=== PATIENT | female | born 1950 | race Caucasian/White ===

== ENCOUNTER → 2024-04-05 08:17 | Outpatient (REF) | payer OTHER, SELFPAY | LOC: WOUND 08:17 | PROVIDERS: ATTENDING PHYSICIAN Surgery; FAMILY PHYSICIAN Physician Assistant Medical | DX: I87.312 Chronic venous hypertension (idiopathic) with ulcer of left lower extremity (principal); L97.222 Non-pressure chronic ulcer of left calf with fat layer exposed; I87.2 Venous insufficiency (chronic) (peripheral); I89.0 Lymphedema, not elsewhere classified; E11.22 Type 2 diabetes mellitus with diabetic chronic kidney disease; E66.01 Morbid (severe) obesity due to excess calories | CPT/HCPCS: 11042; 99204 ==

== ENCOUNTER → 2024-04-08 10:21 | Outpatient (REF) | payer OTHER, SELFPAY | LOC: WOUND 10:21 | PROVIDERS: ATTENDING PHYSICIAN Surgery; FAMILY PHYSICIAN Physician Assistant Medical | DX: I87.312 Chronic venous hypertension (idiopathic) with ulcer of left lower extremity (principal); L97.222 Non-pressure chronic ulcer of left calf with fat layer exposed; I87.2 Venous insufficiency (chronic) (peripheral); I89.0 Lymphedema, not elsewhere classified; E11.22 Type 2 diabetes mellitus with diabetic chronic kidney disease; E66.01 Morbid (severe) obesity due to excess calories | CPT/HCPCS: 11042; 11045 ==

== ENCOUNTER → 2024-04-15 10:16 | Outpatient (REF) | payer OTHER, SELFPAY | LOC: WOUND 10:16 | PROVIDERS: ATTENDING PHYSICIAN Surgery; FAMILY PHYSICIAN Physician Assistant Medical | DX: I87.312 Chronic venous hypertension (idiopathic) with ulcer of left lower extremity (principal); L97.222 Non-pressure chronic ulcer of left calf with fat layer exposed; I87.2 Venous insufficiency (chronic) (peripheral); I89.0 Lymphedema, not elsewhere classified; E11.22 Type 2 diabetes mellitus with diabetic chronic kidney disease; E66.01 Morbid (severe) obesity due to excess calories | CPT/HCPCS: 11042 ==

== ENCOUNTER → 2024-04-24 10:06 | Outpatient (REF) | payer OTHER, SELFPAY | LOC: WOUND 10:06 | PROVIDERS: ATTENDING PHYSICIAN Surgery; FAMILY PHYSICIAN Physician Assistant Medical | DX: I87.312 Chronic venous hypertension (idiopathic) with ulcer of left lower extremity (principal); L97.222 Non-pressure chronic ulcer of left calf with fat layer exposed; I87.2 Venous insufficiency (chronic) (peripheral); I89.0 Lymphedema, not elsewhere classified; E11.22 Type 2 diabetes mellitus with diabetic chronic kidney disease; E66.01 Morbid (severe) obesity due to excess calories | CPT/HCPCS: 29580 ==

== ENCOUNTER → 2024-05-06 10:18 | Outpatient (REF) | payer OTHER, SELFPAY | LOC: WOUND 10:18 | PROVIDERS: ATTENDING PHYSICIAN Surgery; FAMILY PHYSICIAN Physician Assistant Medical | DX: I87.312 Chronic venous hypertension (idiopathic) with ulcer of left lower extremity (principal); L97.222 Non-pressure chronic ulcer of left calf with fat layer exposed; I87.2 Venous insufficiency (chronic) (peripheral); I89.0 Lymphedema, not elsewhere classified; E11.22 Type 2 diabetes mellitus with diabetic chronic kidney disease; E66.01 Morbid (severe) obesity due to excess calories | CPT/HCPCS: 11042 ==

== ENCOUNTER → 2024-05-20 10:34 | Outpatient (REF) | payer OTHER, SELFPAY | LOC: WOUND 10:34 | PROVIDERS: ATTENDING PHYSICIAN Surgery; FAMILY PHYSICIAN Physician Assistant Medical | DX: I87.312 Chronic venous hypertension (idiopathic) with ulcer of left lower extremity (principal); L97.222 Non-pressure chronic ulcer of left calf with fat layer exposed; I87.2 Venous insufficiency (chronic) (peripheral); I89.0 Lymphedema, not elsewhere classified; E11.22 Type 2 diabetes mellitus with diabetic chronic kidney disease; E66.01 Morbid (severe) obesity due to excess calories | CPT/HCPCS: 29581 ==

== ENCOUNTER → 2024-05-27 15:12 | Outpatient (REF) | payer OTHER, SELFPAY | LOC: WOUND 15:12 | PROVIDERS: ATTENDING PHYSICIAN Surgery; FAMILY PHYSICIAN Physician Assistant Medical | DX: I87.312 Chronic venous hypertension (idiopathic) with ulcer of left lower extremity (principal); L97.222 Non-pressure chronic ulcer of left calf with fat layer exposed; I87.2 Venous insufficiency (chronic) (peripheral); I89.0 Lymphedema, not elsewhere classified; E66.01 Morbid (severe) obesity due to excess calories | CPT/HCPCS: 11042 ==

== ENCOUNTER → 2024-06-03 10:18 | Outpatient (REF) | payer OTHER, SELFPAY | LOC: WOUND 10:18 | PROVIDERS: ATTENDING PHYSICIAN Surgery; FAMILY PHYSICIAN Physician Assistant Medical | DX: I87.312 Chronic venous hypertension (idiopathic) with ulcer of left lower extremity (principal); L97.222 Non-pressure chronic ulcer of left calf with fat layer exposed; I87.2 Venous insufficiency (chronic) (peripheral); I89.0 Lymphedema, not elsewhere classified; E11.22 Type 2 diabetes mellitus with diabetic chronic kidney disease; E66.01 Morbid (severe) obesity due to excess calories | CPT/HCPCS: 11042 ==

== ENCOUNTER → 2024-06-10 10:23 | Outpatient (REF) | payer OTHER, SELFPAY | LOC: WOUND 10:23 | PROVIDERS: ATTENDING PHYSICIAN Surgery; FAMILY PHYSICIAN Physician Assistant Medical | DX: I87.312 Chronic venous hypertension (idiopathic) with ulcer of left lower extremity (principal); L97.222 Non-pressure chronic ulcer of left calf with fat layer exposed; I87.2 Venous insufficiency (chronic) (peripheral); I89.0 Lymphedema, not elsewhere classified; E11.22 Type 2 diabetes mellitus with diabetic chronic kidney disease; E66.01 Morbid (severe) obesity due to excess calories | CPT/HCPCS: 11042 ==

== ENCOUNTER → 2024-06-24 13:15 | Outpatient (REF) | payer OTHER, SELFPAY | LOC: WOUND 13:15 | PROVIDERS: ATTENDING PHYSICIAN Surgery; FAMILY PHYSICIAN Physician Assistant Medical | DX: I87.312 Chronic venous hypertension (idiopathic) with ulcer of left lower extremity (principal); L97.222 Non-pressure chronic ulcer of left calf with fat layer exposed; I87.2 Venous insufficiency (chronic) (peripheral); I89.0 Lymphedema, not elsewhere classified; E11.22 Type 2 diabetes mellitus with diabetic chronic kidney disease; E66.01 Morbid (severe) obesity due to excess calories; N18.9 Chronic kidney disease, unspecified | CPT/HCPCS: 11042 ==

== ENCOUNTER → 2024-07-01 10:13 | Outpatient (REF) | payer OTHER, SELFPAY | LOC: WOUND 10:13 | PROVIDERS: ATTENDING PHYSICIAN Surgery; FAMILY PHYSICIAN Physician Assistant Medical | DX: I87.312 Chronic venous hypertension (idiopathic) with ulcer of left lower extremity (principal); L97.222 Non-pressure chronic ulcer of left calf with fat layer exposed; I87.2 Venous insufficiency (chronic) (peripheral); I89.0 Lymphedema, not elsewhere classified; E11.22 Type 2 diabetes mellitus with diabetic chronic kidney disease; E66.01 Morbid (severe) obesity due to excess calories; N18.9 Chronic kidney disease, unspecified | CPT/HCPCS: 11042 ==

== ENCOUNTER → 2024-07-08 10:15 | Outpatient (REF) | payer OTHER, SELFPAY | LOC: WOUND 10:15 | PROVIDERS: ATTENDING PHYSICIAN Surgery; FAMILY PHYSICIAN Physician Assistant Medical | DX: I87.312 Chronic venous hypertension (idiopathic) with ulcer of left lower extremity (principal); L97.222 Non-pressure chronic ulcer of left calf with fat layer exposed; I87.2 Venous insufficiency (chronic) (peripheral); I89.0 Lymphedema, not elsewhere classified; E11.22 Type 2 diabetes mellitus with diabetic chronic kidney disease; E66.01 Morbid (severe) obesity due to excess calories | CPT/HCPCS: 11042 ==

== ENCOUNTER → 2024-07-10 09:43 | Outpatient (REF) | payer OTHER, SELFPAY | LOC: RAD 09:43 | PROVIDERS: ATTENDING PHYSICIAN Surgery; FAMILY PHYSICIAN Physician Assistant Medical | DX: I87.312 Chronic venous hypertension (idiopathic) with ulcer of left lower extremity (principal); I87.2 Venous insufficiency (chronic) (peripheral) | CPT/HCPCS: 93970 ==

== ENCOUNTER → 2024-07-10 11:50 | Outpatient (REF) | payer OTHER, SELFPAY | LOC: WOUND 11:50 | PROVIDERS: ATTENDING PHYSICIAN Surgery; FAMILY PHYSICIAN Physician Assistant Medical | DX: I87.312 Chronic venous hypertension (idiopathic) with ulcer of left lower extremity (principal); L97.222 Non-pressure chronic ulcer of left calf with fat layer exposed; I87.2 Venous insufficiency (chronic) (peripheral); I89.0 Lymphedema, not elsewhere classified; E11.22 Type 2 diabetes mellitus with diabetic chronic kidney disease; E66.01 Morbid (severe) obesity due to excess calories | CPT/HCPCS: 29581 ==

== ENCOUNTER → 2024-07-15 10:13 | Outpatient (REF) | payer OTHER, SELFPAY | LOC: WOUND 10:13 | PROVIDERS: ATTENDING PHYSICIAN Surgery; FAMILY PHYSICIAN Physician Assistant Medical | DX: I87.312 Chronic venous hypertension (idiopathic) with ulcer of left lower extremity (principal); L97.222 Non-pressure chronic ulcer of left calf with fat layer exposed; I87.2 Venous insufficiency (chronic) (peripheral); I89.0 Lymphedema, not elsewhere classified; E11.22 Type 2 diabetes mellitus with diabetic chronic kidney disease; E66.01 Morbid (severe) obesity due to excess calories | CPT/HCPCS: 11042 ==

== ENCOUNTER → 2024-07-22 15:25 | Outpatient (REF) | payer OTHER, SELFPAY | LOC: WOUND 15:25 | PROVIDERS: ATTENDING PHYSICIAN Surgery; FAMILY PHYSICIAN Physician Assistant Medical | DX: I87.312 Chronic venous hypertension (idiopathic) with ulcer of left lower extremity (principal); L97.222 Non-pressure chronic ulcer of left calf with fat layer exposed; I87.2 Venous insufficiency (chronic) (peripheral); I89.0 Lymphedema, not elsewhere classified; E11.22 Type 2 diabetes mellitus with diabetic chronic kidney disease; E66.01 Morbid (severe) obesity due to excess calories | CPT/HCPCS: 11042 ==

== ENCOUNTER → 2024-07-29 10:08 | Outpatient (REF) | payer OTHER, SELFPAY | LOC: WOUND 10:08 | PROVIDERS: ATTENDING PHYSICIAN Surgery; FAMILY PHYSICIAN Physician Assistant Medical | DX: I87.312 Chronic venous hypertension (idiopathic) with ulcer of left lower extremity (principal); L97.222 Non-pressure chronic ulcer of left calf with fat layer exposed; I87.2 Venous insufficiency (chronic) (peripheral); I89.0 Lymphedema, not elsewhere classified; E11.22 Type 2 diabetes mellitus with diabetic chronic kidney disease; E66.01 Morbid (severe) obesity due to excess calories | CPT/HCPCS: 11042 ==

== ENCOUNTER → 2024-08-05 10:08 | Outpatient (REF) | payer OTHER, SELFPAY | LOC: WOUND 10:08 | PROVIDERS: ATTENDING PHYSICIAN Surgery; FAMILY PHYSICIAN Physician Assistant Medical | DX: I87.312 Chronic venous hypertension (idiopathic) with ulcer of left lower extremity (principal); L97.222 Non-pressure chronic ulcer of left calf with fat layer exposed; I87.2 Venous insufficiency (chronic) (peripheral); I89.0 Lymphedema, not elsewhere classified; E11.22 Type 2 diabetes mellitus with diabetic chronic kidney disease; E66.01 Morbid (severe) obesity due to excess calories | CPT/HCPCS: 11042 ==

== ENCOUNTER → 2024-08-12 10:30 | Outpatient (REF) | payer OTHER, SELFPAY | LOC: WOUND 10:30 | PROVIDERS: ATTENDING PHYSICIAN Surgery; FAMILY PHYSICIAN Physician Assistant Medical | DX: I87.312 Chronic venous hypertension (idiopathic) with ulcer of left lower extremity (principal); L97.222 Non-pressure chronic ulcer of left calf with fat layer exposed; I87.2 Venous insufficiency (chronic) (peripheral); I89.0 Lymphedema, not elsewhere classified; E11.22 Type 2 diabetes mellitus with diabetic chronic kidney disease; E66.01 Morbid (severe) obesity due to excess calories | CPT/HCPCS: 11042 ==

== ENCOUNTER → 2024-08-19 10:42 | Outpatient (REF) | payer OTHER, SELFPAY | LOC: WOUND 10:42 | PROVIDERS: ATTENDING PHYSICIAN Surgery; FAMILY PHYSICIAN Physician Assistant Medical | DX: I87.312 Chronic venous hypertension (idiopathic) with ulcer of left lower extremity (principal); L97.222 Non-pressure chronic ulcer of left calf with fat layer exposed; I87.2 Venous insufficiency (chronic) (peripheral); I89.0 Lymphedema, not elsewhere classified; E11.22 Type 2 diabetes mellitus with diabetic chronic kidney disease; E66.01 Morbid (severe) obesity due to excess calories | CPT/HCPCS: 11042 ==

== ENCOUNTER → 2024-09-10 09:18 | Outpatient (REF) | payer OTHER, SELFPAY | LOC: WOUND 09:18 | PROVIDERS: ATTENDING PHYSICIAN Surgery; FAMILY PHYSICIAN Physician Assistant Medical | DX: I87.312 Chronic venous hypertension (idiopathic) with ulcer of left lower extremity (principal); L97.222 Non-pressure chronic ulcer of left calf with fat layer exposed; I87.2 Venous insufficiency (chronic) (peripheral); I89.0 Lymphedema, not elsewhere classified; E11.22 Type 2 diabetes mellitus with diabetic chronic kidney disease; E66.01 Morbid (severe) obesity due to excess calories | CPT/HCPCS: 11042 ==

== ENCOUNTER → 2024-09-16 10:50 | Outpatient (REF) | payer OTHER, SELFPAY | LOC: WOUND 10:50 | PROVIDERS: ATTENDING PHYSICIAN Surgery; FAMILY PHYSICIAN Physician Assistant Medical | DX: I87.312 Chronic venous hypertension (idiopathic) with ulcer of left lower extremity (principal); L97.222 Non-pressure chronic ulcer of left calf with fat layer exposed; I87.2 Venous insufficiency (chronic) (peripheral); I89.0 Lymphedema, not elsewhere classified; E11.22 Type 2 diabetes mellitus with diabetic chronic kidney disease; E66.01 Morbid (severe) obesity due to excess calories | CPT/HCPCS: 11042 ==

== ENCOUNTER 2024-09-18 08:26 | Outpatient (RCR) | payer OTHER, SELFPAY | END 2024-09-18 23:59 | disposition home or self-care (01) | LOC: RPT 08:26 | PROVIDERS: ATTENDING PHYSICIAN Surgery; FAMILY PHYSICIAN Family Medicine | DX: I89.0 Lymphedema, not elsewhere classified (principal); L97.222 Non-pressure chronic ulcer of left calf with fat layer exposed; Z73.6 Limitation of activities due to disability; I87.312 Chronic venous hypertension (idiopathic) with ulcer of left lower extremity; I87.2 Venous insufficiency (chronic) (peripheral); R26.2 Difficulty in walking, not elsewhere classified | CPT/HCPCS: 97163; 97535; 97760 ==

== ENCOUNTER → 2024-09-19 10:03 | Outpatient (REF) | payer OTHER, SELFPAY | LOC: WOUND 10:03 | PROVIDERS: ATTENDING PHYSICIAN Surgery; FAMILY PHYSICIAN Physician Assistant Medical | DX: I87.312 Chronic venous hypertension (idiopathic) with ulcer of left lower extremity (principal); L97.222 Non-pressure chronic ulcer of left calf with fat layer exposed; I87.2 Venous insufficiency (chronic) (peripheral); I89.0 Lymphedema, not elsewhere classified; E11.22 Type 2 diabetes mellitus with diabetic chronic kidney disease; E66.01 Morbid (severe) obesity due to excess calories | CPT/HCPCS: 29581 ==

== ENCOUNTER 2024-09-30 02:20 | Emergency (ER) | payer OTHER, SELFPAY ==
[2024-09-30 02:33] VITALS: BP 146/89
[2024-09-30 02:43] VITALS: BMI 55.5
[2024-09-30 05:26] LABS: % Basophils 0.1 % (0-2); % Eosinophils 3.4 % (0-6); % Immature Granulocytes 0.5 % (0-0.5); % Lymphocytes 13.8 % (20.5-51.1); % Monocytes 11.9 % (1.7-9.3); % Neutrophils 70.3 % (42.2-75.2); Absolute Eosinophils 0.3 10^3/uL (0-0.7); Absolute Monocytes 0.9 10^3/uL (0.1-0.6); Absolute Neutrophils 5.3 10^3/uL (1.4-6.5); Hemoglobin 11.7 g/dL (12.0-16.0); Mean Corp Hgb Conc. 31.6 g/dL (33.0-37.0); Mean Corpuscular Hgb 26.7 pg (27.0-31.0); Mean Corpuscular Volume 84.5 fL (81.0-99.0); Mean Platelet Volume 8.9 fL (7.4-10.4); Nucleated Red Blood Cells % 0 %; Platelet Count 549 10^3/uL (130-400); Red Blood Cell Count 4.38 10^6/uL (4.20-5.40); Red Cell Dist. Width 14.6 % (11.5-14.5); White Blood Cell Count 7.5 10^3/uL (4.8-10.8)
[2024-09-30 05:49] LABS: ALT (SGPT) < 10 U/L (0-35); AST (SGOT) 17 U/L (14-36); Albumin 3.5 g/dl (3.5-5.0); Alkaline Phosphatase 94 U/L (38-126); Blood Urea Nitrogen 46 mg/dl (7-17); Calcium 9.7 mg/dl (8.4-10.2); Carbon Dioxide 26 mmol/L (22-30); Chloride 104 mmol/L (98-107); Estimated Creatinine Clearance 39 ml/min; Glucose 103 mg/dl (70-99); Potassium 4.7 mmol/L (3.5-5.1); Sodium 138 mmol/L (135-145); Total Bilirubin 0.5 mg/dl (0.2-1.3); Total Protein 7.1 g/dl (6.3-8.2); eGFR 27.71
--- NOTE | 2024-09-30 06:13 | ED.GENMED ---
History of Present Illness
General
Chief Complaint: Weakness
Source: patient
Exam Limitations: none
Time Seen by Provider: 09/30/24 06:02
History of Present Illness
History of Present Illness:
See MDM
Past History
Past History
ED Past Medical History: HTN and Other (Immature dysfunction, chronic pain)
ED Past Surgical History: None
Social History
Tobacco: Non-smoker
Alcohol: None
Drug: None
Living: with family
Employment: Employed
Phy Exam
Physical Exam
Physical Exam:
See MDM
Course
Orders/Labs/Results
Orders:
Orders
09/30/24 02:45
ECG [Electrocardiogram (*1)] Urgent
Reason for Study: Bradycardia / Tachycardia
Cardiology Consult: Unknown
EKG- Treatment ONCE
09/30/24 05:09
Complete Blood Count/With Diff Urgent
Comprehensive Metabolic Panel Urgent
09/30/24 06:09
Straight cath- Treatment ONCE
09/30/24 06:13
Case Management Consult ONCE
Case Management Consult: Discharge Planning
Pt Eval And Treat Urgent
Activity Level: Ambulate
09/30/24 09:29
Ot Eval And Treat Urgent
Abnormal Lab Results
09/30/24
05:09
Hgb 11.7 L g/dL
(12.0-16.0)
MCH 26.7 L pg
(27.0-31.0)
MCHC 31.6 L g/dL
(33.0-37.0)
RDW 14.6 H %
(11.5-14.5)
Plt Count 549 H 10^3/uL
(130-400)
Absolute Lymphs (auto) 1.0 L 10^3/uL
(1.2-3.4)
Absolute Monos (auto) 0.9 H 10^3/uL
(0.1-0.6)
Lymphocytes % 13.8 L %
(20.5-51.1)
Monocytes % 11.9 H %
(1.7-9.3)
BUN 46 H mg/dl
(7-17)
Creatinine 1.9 H mg/dL
(0.6-1.0)
Glucose 103 H mg/dl
(70-99)
09/30/24 05:09
09/30/24 05:09
Vital Signs
Initial and Last Documented VS:
Initial Vital Signs
Temp Pulse Resp BP Pulse Ox
99.3 F 124 24 146/89 100
09/30/24 02:33 09/30/24 02:33 09/30/24 02:33 09/30/24 02:33 09/30/24 02:33
Last Documented Vital Signs
Temp Pulse Resp BP Pulse Ox
97.6 F 87 20 132/75 100
09/30/24 10:15 09/30/24 10:15 09/30/24 10:15 09/30/24 10:15 09/30/24 10:45
MDM/Problems Addressed
Differential Diagnosis Includes:
HPI and MDM Narrative:
73-year-old female presenting with generalized weakness. Patient has chronic lymphedema and states that she has been more weak over the past 24 hours. She is unsure if this could be a urinary tract fraction. Blood work was done prior to my and it
shows no clinically relevant abnormality. She is well-appearing and nontoxic. Patient was sleeping earlier. Patient lives alone. She has been to rehab before. On exam, she does have chronic lymphedema. Heart regular rate and rhythm and lungs
clear. Will obtain urinalysis and have case management and PT eval
Physical exam
General: Well appearing and non-toxic. Lying in bed comfortably. Elevated BMI
HEENT: protecting airway
Neck: appears supple
CV: No evidence of cyanosis. Regular rate and rhythm
Resp: No accessory muscle use. Lungs clear
Abd: Non-distended
Extremities: Chronic appearing lymphedema in bilateral lower extremities
Neuro: alert
Psych: Normal affect
Skin: Intact
Problems Addressed including Acute and Chronic Conditions affecting care:
1. Generalized weakness
Acuity: acute
Prognosis: stable
Details: Blood work without clinically relevant abnormalities. Will obtain urinalysis and have case management and PT eval
Updates
Patient evaluated by PT, case management and OT.
11 AM case management got authorization and will set up a ride to [facility] for SNF
Differential Diagnosis (but not limited to): Deconditioning, UTI
Testing considered: Chest x-ray but lungs clear
Drug therapy (if applicable): OTC meds, please see d/c instruction regarding Rx drugs
Amount and/or Complexity of Data Reviewed
Clinical info obtained from: Patient
External data reviewed: N/A
Labs I independently reviewed (but not limited to): Creatinine 1.9
Radiology: N/A
Pulse Ox: not hypoxic
EKG independently reviewed: N/A
Vessel Scrapper: N/A
Critical Care: N/A
Risk of Complication:
Social Determinants of health: Good social support
Discussed with other providers: N/A
Escalation of Care includes Admit/Obs: Case management set up SNF placement
Occasional wrong word or 'sound a like' substitutions may have occurred due to the inherent limitations of voice recognition software. Read the chart carefully and recognize, using context, where substitutions have occurred.
*Critical Care Note
Total Time (30-74mins, 75-104mins- exclusive of procedures): Not Applicable
ED Attending Note
-
Portions of this chart may have been created with voice recognition software.� Occasional wrong word or��sound alike� substitutions may have occurred due to the inherent limitations of voice recognition software.
Discharge Plan
Departure
Patient Disposition: Long-Term/SNF
Date of Disposition: 09/30/24
Time of Disposition: 11:05
Discharge Problem:
Lymphedema, Weakness
Prescriptions:
No Action
quinapril 20 MG tablet
20 mg PO DAILY
triamterene-hydrochlorothiazid 1 EACH tablet
1 ea PO DAILY
cyanocobalamin (vitamin B-12) 1,000 MCG tablet
1,500 mcg PO Q48H
albuterol sulfate 1 PUFF HFA aerosol inhaler
1 puff inhalation PRN PRN (Reason: sob/wheezing)
miconazole nitrate [Miconazorb AF] 1 APPLIC powder
1 bottle topical BID Qty: 0 0RF
miconazole nitrate [Remedy Phytoplex Antifungal] 1 APPLIC ointment
1 bottle topical BID Qty: 1 0RF
cefuroxime axetil 500 MG tablet
500 mg PO BID 0RF
Rx Instructions:
Continue to take antibiotic twice a day for 2 weeks until October 10.
pantoprazole 40 MG tablet,delayed release (DR/EC)
40 mg PO DAILY Qty: 30 0RF
acetaminophen [Genebs] 500 MG tablet
500 mg PO Q6HPRN PRN (Reason: mild pain) Qty: 30 0RF
ibuprofen 200 MG tablet
600 mg PO QIDPRN PRN (Reason: moderate pain) Qty: 30 0RF
Referrals:
Holly Pena PA-C [Family Provider] -
Interventions
Interventions:
*Risk Screen - Suicide Last Done: 09/30/24 02:33
*General Assessment Last Done: 09/30/24 02:33
*Neglect/Abuse Screening Last Done: 09/30/24 02:33
ED- Fall Risk Assessment Last Done: 09/30/24 02:33
*ED COVID-19 Vaccine History Last Done: 09/30/24 02:33
ED- Cardiac Assessment Last Done: 09/30/24 06:00
ED- Neurological Assessment Last Done: 09/30/24 06:00
ED- Pulmonary Assessment Last Done: 09/30/24 06:00
Discharge Date and Time
Print Language: TURKISH
--- NOTE | 2024-09-30 08:21 | EDRN ---
physical therapy currently at the pts bedside
--- NOTE | 2024-09-30 09:18 | EDRN ---
case management currently at the pts bedside
--- NOTE | 2024-09-30 09:44 | CM ---
Addendum entered by Alyson Burhc 09/30/24 11:08:
Bed offered at [facility] [place]
Pt in agreement with [facility]
Pt is not in [facility] bed per nursing
SNF and juan manuel BLS auth obtainted through [place] [id number]
Juan Manuel BLS scheduled with [facility]- 1400 pickup
Medical necessity on chart
Update to pt- she declined call to family by CM
She will update her sister/Bita
SNF auth #[id number] 5 days NRD 10/04/24 (p) [phone]
[facility] #[id number]
[facility]charge Disposition- [facility]1400 [facility]
Phone- [phone] Fax- [phone]
Original Note:
ED CM consulted for dc planning
SNF recs per therapy
Bedside meeting with pt
Pt resides alone in a 1st floor apartment with OSTE
She is independent with her ADLs with use of a WW, drives+
Bathroom is equipped with transfer bench, grab bars and HHS, has rescue inhaler
Attend [facility] wound [facility]
Hx with [facility] and [facility] and [facility]
PCP- Holly Pena
Rx- [facility]
Pt isn greement with SNF placement
PAC provided, [facility] and [facility] top choices
PASRR completed and referrals sent via [facility]
Pt will require IBC auth for SNF placement
Discharge Disposition- SNF pending auth
--- NOTE | 2024-09-30 10:10 | EDRN ---
the pt was saturated in urine, this RN and physical therapy cleaned the pt up and placed a new gown, pad, linens, and the pt was educated on the use of the pure wick and the pt agreed, pure wick was put in place and VS WNL, no s/s of distress, the
pt asked for ice water, case management is working on getting the pt placement, will continue to monitor the pt closely
[2024-09-30 10:15] VITALS: BP 132/75
[2024-09-30 11:00] VITALS: BP 120/77
--- NOTE | 2024-09-30 11:44 | EDRN ---
the pt pressed the call renae and this RN entered the pts room, the pt is requesting to speak with Dr. Morgan, Dr. Morgan was notified and is currently at the pts bedside
[2024-09-30 12:46] LABS: Urine Albumin 1+ (Neg - Trace); Urine Bilirubin Negative (Negative); Urine Character Slightly Cloudy (Clear); Urine Color Yellow; Urine Glucose Negative (Negative); Urine Ketone Negative (Negative); Urine Leukocyte Negative (Negative); Urine Nitrite Negative (Negative); Urine Occult Blood Negative (Negative); Urine Specific Gravity 1.025 (<1.030); Urine Urobilinogen Negative (Neg - 1+)
[2024-09-30 13:27] LABS: Urine Bacteria Few (Negative); Urine Squamous Cell 0-2 /LPF (Few); Urine White Cell 0-2 /HPF (0-5)
[2024-09-30 13:28] LABS: Urine Red Blood Cell 0-2 /HPF (0-2)
[2024-09-30 13:48] VITALS: BP 145/71
== END 2024-09-30 14:09 ==
LOC: EMR 02:20
PROVIDERS: Student in an Organized Health Care Education/Training Program; EMERGENCY PHYSICIAN Student in an Organized Health Care Education/Training Program; FAMILY PHYSICIAN Physician Assistant Medical
DX: I89.0 Lymphedema, not elsewhere classified (principal); R53.1 Weakness
CPT/HCPCS: 99284; 80053; 81003; 81015; 85025; 93005

== ENCOUNTER → 2024-10-04 09:49 | Outpatient (REF) | payer OTHER, SELFPAY ==
[2024-10-04 10:51] LABS: % Basophils 0.2 % (0-2); % Eosinophils 5.6 % (0-6); % Immature Granulocytes 0.5 % (0-0.5); % Lymphocytes 13.2 % (20.5-51.1); % Monocytes 14.1 % (1.7-9.3); % Neutrophils 66.4 % (42.2-75.2); Absolute Eosinophils 0.5 10^3/uL (0-0.7); Absolute Lymphocytes 1.1 10^3/uL (1.2-3.4); Absolute Monocytes 1.1 10^3/uL (0.1-0.6); Absolute Neutrophils 5.4 10^3/uL (1.4-6.5); Hematocrit 34.5 % (37.0-47.0); Hemoglobin 10.7 g/dL (12.0-16.0); Mean Corpuscular Hgb 26.3 pg (27.0-31.0); Mean Corpuscular Volume 84.8 fL (81.0-99.0); Mean Platelet Volume 9.5 fL (7.4-10.4); Nucleated Red Blood Cells % 0 %; Platelet Count 460 10^3/uL (130-400); Red Blood Cell Count 4.07 10^6/uL (4.20-5.40); Red Cell Dist. Width 14.6 % (11.5-14.5); White Blood Cell Count 8.1 10^3/uL (4.8-10.8)
[2024-10-04 11:16] LABS: ALT (SGPT) < 10 U/L (0-35); AST (SGOT) 22 U/L (14-36); Albumin 3.2 g/dl (3.5-5.0); Alkaline Phosphatase 73 U/L (38-126); Blood Urea Nitrogen 42 mg/dl (7-17); Calcium 9.2 mg/dl (8.4-10.2); Carbon Dioxide 25 mmol/L (22-30); Chloride 100 mmol/L (98-107); Glucose 107 mg/dl (70-99); Potassium 5.7 mmol/L (3.5-5.1); Sodium 133 mmol/L (135-145); Total Bilirubin 0.8 mg/dl (0.2-1.3); Total Protein 6.2 g/dl (6.3-8.2); eGFR 31.66
== END ==
LOC: OLABP 09:49
PROVIDERS: ATTENDING PHYSICIAN Family Medicine
DX: L97.222 Non-pressure chronic ulcer of left calf with fat layer exposed (principal); I87.312 Chronic venous hypertension (idiopathic) with ulcer of left lower extremity; E11.22 Type 2 diabetes mellitus with diabetic chronic kidney disease; E66.01 Morbid (severe) obesity due to excess calories; J45.909 Unspecified asthma, uncomplicated; I10 Essential (primary) hypertension; R00.0 Tachycardia, unspecified; G89.29 Other chronic pain; M62.59 Muscle wasting and atrophy, not elsewhere classified, multiple sites; F32.9 Major depressive disorder, single episode, unspecified
CPT/HCPCS: 36415; 80053; 85025

== ENCOUNTER → 2024-10-07 15:57 | Outpatient (REF) | payer OTHER, SELFPAY ==
[2024-10-07 17:17] LABS: Blood Urea Nitrogen 46 mg/dl (7-17); Calcium 9.3 mg/dl (8.4-10.2); Carbon Dioxide 24 mmol/L (22-30); Chloride 100 mmol/L (98-107); Glucose 119 mg/dl (70-99); Potassium 5.2 mmol/L (3.5-5.1); Sodium 133 mmol/L (135-145)
== END ==
LOC: OLABP 15:57
PROVIDERS: ATTENDING PHYSICIAN Family Medicine
DX: L97.222 Non-pressure chronic ulcer of left calf with fat layer exposed (principal); I87.312 Chronic venous hypertension (idiopathic) with ulcer of left lower extremity; I87.2 Venous insufficiency (chronic) (peripheral); E11.22 Type 2 diabetes mellitus with diabetic chronic kidney disease; E66.01 Morbid (severe) obesity due to excess calories; J45.909 Unspecified asthma, uncomplicated; I10 Essential (primary) hypertension; R00.0 Tachycardia, unspecified; G89.29 Other chronic pain; M62.59 Muscle wasting and atrophy, not elsewhere classified, multiple sites; F32.9 Major depressive disorder, single episode, unspecified
CPT/HCPCS: 36415; 80048

== ENCOUNTER 2024-10-23 20:12 | Inpatient (IN) | payer OTHER, SELFPAY ==
[2024-10-23] VITALS (46 sets, daily range): BP systolic 61–150; BP diastolic 34–114; BMI 58.8
--- NOTE | 2024-10-23 16:44 | ED.GENMED ---
History of Present Illness
General
Chief Complaint: Breathing Problem
Time Seen by Provider: 10/23/24 16:43
History of Present Illness
History of Present Illness:
TIME OF INITIAL ENCOUNTER: 4:45 PM
HPI: The patient comes in from [facility]. While she was doing physical therapy there, she was having exertional dyspnea. Her room air sats were in the 80%. She also was tachycardic earlier with rates in the 120 range and was given metoprolol
earlier in the day. She has chronic lower extremity lymphedema. She denies history of heart disease.
EXAM:
GENERAL: Appears generally weak and debilitated
HEENT: Moist oral mucosa
CARDIOVASCULAR: No murmurs, normal heart rate, regular rhythm, No chest wall tenderness
PULMONARY: Minimal respiratory distress, breath sounds are clear and equal
ABDOMEN: Soft with no peritoneal signs, no tenderness
NEUROLOGIC: Fair strength all extremities, no coordination deficits
PSYCHIATRIC: Appropriate mental status, normal insight and judgement
EXTREMITIES: Nontender, chronic bilateral lower extremity lymphedema, moves all extremities equally
SKIN: Psoriatic type of plaque noted to the distal medial right lower
NUMBER AND COMPLEXITY OF PROBLEMS ADDRESSED AT THE ENCOUNTER
� Chronic conditions affecting care: High blood pressure, CKD, anxiety/depression
� Acute Exacerbation and/or Progression of Chronic Illness: This is an acute problem
� Differential Diagnosis includes: Shortness of breath related to obesity, reactive airway disease, pneumonia, PE
AMOUNT AND/OR COMPLEXITY OF DATA TO BE REVIEWED AND ANALYZED
� I performed an independent evaluation of and my interpretation is:
EKG: Sinus 89, leftward axis deviation, poor R wave progression, not significantly changed in comparison to 09/30/2024
CT: CTA shows bilateral PE�large clot burden with evidence of right heart strain
X-rays: Chest x-ray shows may be some questionable pulmonary vascular congestion
Laboratory Studies: D-dimer greater than 20, GFR just under 30, troponin 0.404, BNP 286, white cell count 12.8, hemoglobin 11.7, COVID and flu negative
Other:
� Review of other/old records: I reviewed records, the patient was admitted here in 2017 and was found to have E. coli bacteremia; she does not have ongoing cardiology disease
� Clinical information was obtained by an independent historian: I spoke to EMS; I later spoke to the daughter at bedside
� Prescriptions/Medications Considered but not given:
� Further testing considered but not performed:
RISK OF COMPLICATIONS AND/OR MORBIDITY OR MORTALITY OF PATIENT MANAGEMENT
� Social determinants of health affecting care: Resides at [facility]
� Discussion with other providers: Notified Dr. Howe of the patient's evaluation at 6:10 PM.
� Escalation of care including admission/observation vs risk of discharge considered: The patient arrives hypotensive, dyspnea on exertion with room air sats of 89% at rest, with chest pressure spontaneously improving but
persisting. She never received any nitroglycerin. She was given some IV fluids. BNP in the 200s. Considered CTA as her lung sounds are fairly clear and D-dimer is greater than 20 but GFR is under 30. We reached out to nuclear at 6 PM but there
apparently would be a delay. I also notified Dr. Roman of the situation. I am placing her on heparin.
ANY OTHER UPDATES:
5:40 PM: No significant proved after DuoNeb regarding her sensation of shortness of breath, however BP slightly improved after 500 mL saline fluid bolus.
6:40 PM: Patient seen by Dr. Howe and he is obtaining echo images to review. We are considering CTA.
7 PM: RV dilated/strain noted per Dr. Howe. CTA is ordered and obtained at 7:30 PM. CTA was obtained because I feel she may have a potentially life-threatening condition and it is necessary to evaluate further for PE emergently regardless of
renal function as she has become more hypotensive.
7:45 PM: I personally viewed CTA which shows bilateral PE with large clot burden and she remains hypotensive on pressors. PERT alert was activated and I communicated with desktop manager, interventional radiology and internal medicine. Ultimately,
Alexus planning catheter directed lytic therapy
Past History
Past History
ED Past Medical History: HTN and Other (Immature dysfunction, chronic pain)
ED Past Surgical History: None
Social History
Tobacco: Non-smoker
Alcohol: None
Drug: None
Living: with family
Employment: Employed
Phy Exam
Physical Exam
Physical Exam:
See HPI
Scores
Heart Failure Risk
Heart Failure Risk Score: Not Applicable
Course
Orders/Labs/Results
Orders:
Orders
10/23/24 16:51
Complete Blood Count/With Diff Urgent
Comprehensive Metabolic Panel Urgent
Magnesium Urgent
NT-proBNP Urgent
Troponin I Urgent
10/23/24 16:52
Electrocardiogram (*1) Urgent
Reason for Study: Chest Pain
EKG- Treatment ONCE
D-Dimer Urgent
Ipratropium/Albuterol Sulfate [Duoneb] 3 ml INH R NOW STA
10/23/24 16:53
Ipratropium/Albuterol Sulfate [Duoneb] 3 ml INH R NOW STA
10/23/24 17:05
0.9% Sodium Chloride 500 ml [Nss] 500 ml IV BOLUS
10/23/24 17:17
COVID-19 Antigen Urgent
Source: Nasal Swab
Lactic Acid Q4H
Comment: CANCEL 2nd LACTIC ACID IF 1st LACTIC ACID IS LESS THAN 2
Blood Culture Q30M
VINCE Source: Blood/Venous
Specimen Description:
Influenza A+B Rapid Molecular Urgent
VINCE Source: Nasal Swab
Specimen Description:
10/23/24 17:47
Blood Culture Q30M
VINCE Source: Blood/Venous
Specimen Description:
CR Chest Portable - 1 View Urgent
Comment:
Reason For Exam: sob
Reason Study Needs to be Portable: Patient Unstable
10/23/24 17:58
Heparin 4,000 units IV NOW STA
10/23/24 17:[address] Non Medication Order As Directed
Physician Order: PTT 6 hours after initial start of Heparin infusion
10/23/24 18:00
Heparin 31699 Units/250 ml 25,000 units in 250 ml IV PER PROTOCOL
Weight to be used for heparin protocol in kilograms (kg):: 155.2
Protocol:: Cardiac Tx/Acute Coronary
PTT Goal Range to be used:: PTT 73 to 111 seconds
Order type:: Initial
INITIAL Infusion Dose (UNITS/KG/hr) & then follow protocol:: 12 units/kg/hr
Infusion Dose in UNITS/hr & then follow protocol (UNITS/hr):: 1,000
INFUSION RATE in mL/hr & then follow protocol (mL/hr):: 10
PTT less than or equal to 64 seconds:: Increase rate by 200 units/hr (+ 2 mL/hr)
PTT 64.1 to 72.9 seconds:: Increase rate by 100 units/hr (+ 1 mL/hr)
PTT 73 to 111 seconds:: Target Range. No change in rate.
PTT 111.1 to 130.9 seconds:: Decrease rate by 100 units/hr (- 1 mL/hr)
PTT 131 to 199.9 seconds:: HOLD for 1 hr. Then decrease rate by 200 units/hr (- 2 mL/hr)
PTT greater than or equal to 200 seconds:: HOLD for 2 hrs & Notify Provider. Then decrease by 200 units/hr (-
2 mL/hr)
Lab follow-up:: Each change, PTT q6h until 2 consecutive are therapeutic. Then PTT
daily.
10/23/24 18:08
Aspirin 325 mg PO NOW STA
10/23/24 18:37
PTT Urgent
Comment: Obtain baseline before beginning heparin infusion if not already collected
10/23/24 18:41
0.9% Sodium Chloride 500 ml [Nss] 500 ml IV BOLUS
10/23/24 18:44
NORepinephrine 4 MG/250 ML [Levophed] 4 mg in 250 ml .ROUTE .STK-MED
10/23/24 18:45
NORepinephrine 4 MG/250 ML [Levophed] 4 mg in 250 ml IV PER PROTOCOL
Initial dose in mcg/min, then titrate:: 10
Titrate to keep:: SBP > 90 mmHg
Titrate by mcg/min:: 1-2 mcg/min
Frequency of titrations (minutes):: 5
Maximum dose in ICU in mcg/min:: 30
Maximum dose in IMU in mcg/min:: 8
Maximum dose in IVU in mcg/min:: 4
Begin to taper infusion when:: Remained at goal for 4hrs
Taper by mcg/min:: 1-2 mcg/min
Frequency of taper (minutes) if patient maintains goal:: 30
Taper to off?: Yes
If infusion off & no longer maintaining goal:: Contact Provider
10/23/24 18:50
Echo 2D MMode Color/Doppler Urgent
Reason for Study: hypotension
Cardiology Consult: Blake Howe
10/23/24 18:57
CT Chest PE Study Urgent
Comment:
Reason For Exam: hypoxia hypotension high ddimer
10/23/24 19:38
Admit/Transfer Patient As Directed
Co-Sign Provider:
Level of Care: Inpatient admission
Assign to:: ICU
Physician / Group: hospitalist
Diagnosis: hypoxia
Reason for Hospitalization: hypoxia
Expected length of stay greater than two midnights?: Yes
ELOS- Estimated Length of Stay in days: 2
I certify the patient meets the requirements for IP care: Yes
10/23/24 19:39
PRN Pain Medication Management As Directed
May give lesser potent ordered pain med per pt: Yes
preference::
Protocol:: Medication orders for pain may be administered in a
manner that supports deferring to patient preference
when the pt is:
- Requesting an ordered lesser potent pain medication.
Least to most potent pain medications are defined
as: acetaminophen < NSAID < tramadol < opioids
(morphine, oxycodone, hydromorphone).
- Requesting a lesser dose of the same medication IF
ORDERED.
- Requesting a less intrusive route of administration
if both routes are prescribed by the provider (PO <
IV).
10/23/24 19:40
Code Status As Directed
Resuscitation Status: Full Code
10/24/24 01:50
PTT Urgent
Abnormal Lab Results
10/23/24 10/23/24
16:51 16:52
WBC 12.8 H 10^3/uL
(4.8-10.8)
Hgb 11.7 L g/dL
(12.0-16.0)
MCH 26.2 L pg
(27.0-31.0)
MCHC 31.5 L g/dL
(33.0-37.0)
Plt Count 501 H 10^3/uL
(130-400)
Abs Immat Gran (auto) 0.1 H 10^3/uL
(0-0.05)
Absolute Neuts (auto) 9.9 H 10^3/uL
(1.4-6.5)
Absolute Monos (auto) 1.3 H 10^3/uL
(0.1-0.6)
Immature Gran % 1.0 H %
(0-0.5)
Neutrophils % 77.2 H %
(42.2-75.2)
Lymphocytes % 10.0 L %
(20.5-51.1)
Monocytes % 9.8 H %
(1.7-9.3)
D-Dimer > 20.00 H ug/mlFEU
(0.00-0.50)
Sodium 132 L mmol/L
(135-145)
BUN 52 H mg/dl
(7-17)
Creatinine 1.8 H mg/dL
(0.6-1.0)
Glucose 160 H mg/dl
(70-99)
Troponin I 0.404 H* ng/ml
Albumin 3.2 L g/dl
(3.5-5.0)
10/23/24 16:51
10/23/24 16:51
Vital Signs
Initial and Last Documented VS:
Initial Vital Signs
Temp Pulse Resp BP Pulse Ox
36.8 C 91 24 88/60 88
10/23/24 16:48 10/23/24 16:48 10/23/24 16:48 10/23/24 16:48 10/23/24 16:48
Last Documented Vital Signs
Temp Pulse Resp BP Pulse Ox
36.8 C 73 19 121/58 100
10/23/24 16:48 10/23/24 21:28 10/23/24 21:28 10/23/24 21:28 10/23/24 21:28
*Critical Care Note
Total Time (30-74mins, 75-104mins- exclusive of procedures): 80min
comment:
The patient had numerous reassessments. She remained hypotensive on multiple occasions. I communicated emergently with cardiology and we decided to proceed with CTA despite poor renal function given the RV strain noted on echo. I personally
reviewed CTA which shows large clot burden bilaterally. PERT alert was activated due to massive PE. I also communicated with interventional radiology.
ED Attending Note
-
Portions of this chart may have been created with voice recognition software.� Occasional wrong word or��sound alike� substitutions may have occurred due to the inherent limitations of voice recognition software.
Discharge Plan
Departure
Patient Disposition: Admit
Date of Disposition: 10/23/24
Time of Disposition: 18:46
Presentation/result/management discussed w/ accepting MD/DO: Hospitalist
Patient with high blood pressure during this ER visit?: Yes
Discharge Problem:
Hypoxia
Interventions
Interventions:
*Risk Screen - Suicide Last Done: 10/23/24 16:56
*General Assessment Last Done: 10/23/24 16:56
*Neglect/Abuse Screening Last Done: 10/23/24 16:56
*ED- Fall Risk Assessment Last Done: 10/23/24 16:56
*ED COVID-19 Vaccine History Last Done: 10/23/24 16:56
*Nursing Disposition Last Done: 10/23/24 21:23
ED- Cardiac Assessment Last Done: 10/23/24 18:03
ED- Pulmonary Assessment Last Done: 10/23/24 18:03
Discharge Date and Time
Discharge Date/Time: 10/23/24 21:25
[2024-10-23] MEDS: NSS 500 IV ×2 (17:00→18:54)
[2024-10-23 17:04] LABS: % Basophils 0.2 % (0-2); % Eosinophils 1.8 % (0-6); % Monocytes 9.8 % (1.7-9.3); % Neutrophils 77.2 % (42.2-75.2); Absolute Eosinophils 0.2 10^3/uL (0-0.7); Absolute Immature Granulocytes 0.1 10^3/uL (0-0.05); Absolute Lymphocytes 1.3 10^3/uL (1.2-3.4); Absolute Monocytes 1.3 10^3/uL (0.1-0.6); Absolute Neutrophils 9.9 10^3/uL (1.4-6.5); Hematocrit 37.2 % (37.0-47.0); Hemoglobin 11.7 g/dL (12.0-16.0); Mean Corp Hgb Conc. 31.5 g/dL (33.0-37.0); Mean Corpuscular Hgb 26.2 pg (27.0-31.0); Mean Corpuscular Volume 83.2 fL (81.0-99.0); Mean Platelet Volume 8.7 fL (7.4-10.4); Nucleated Red Blood Cells % 0 %; Platelet Count 501 10^3/uL (130-400); Red Blood Cell Count 4.47 10^6/uL (4.20-5.40); Red Cell Dist. Width 14.3 % (11.5-14.5); White Blood Cell Count 12.8 10^3/uL (4.8-10.8)
[2024-10-23 17:15] LABS: ALT (SGPT) < 10 U/L (0-35); AST (SGOT) 16 U/L (14-36); Albumin 3.2 g/dl (3.5-5.0); Alkaline Phosphatase 88 U/L (38-126); Blood Urea Nitrogen 52 mg/dl (7-17); Calcium 9.9 mg/dl (8.4-10.2); Carbon Dioxide 22 mmol/L (22-30); Chloride 99 mmol/L (98-107); Estimated Creatinine Clearance 42 ml/min; Glucose 160 mg/dl (70-99); Magnesium 2.1 mg/dl (1.6-2.3); Potassium 4.8 mmol/L (3.5-5.1); Sodium 132 mmol/L (135-145); Total Bilirubin 0.6 mg/dl (0.2-1.3); Total Protein 6.5 g/dl (6.3-8.2); eGFR 29.57
[2024-10-23] MEDS: DUONEB 3 ML INH ×2 (17:19→17:44)
[2024-10-23 17:41] LABS: Troponin I 0.404 ng/ml
[2024-10-23 17:47] LABS: Lactic Acid 1.9 mmol/L (0.7-2.0)
[2024-10-23 17:56] LABS: NT-proBNP 286 pg/ml
[2024-10-23 17:57] LABS: D-Dimer > 20.00 ug/mlFEU (0.00-0.50)
[2024-10-23 17:59] LABS: COVID-19 Antigen Negative (Negative)
--- NOTE | 2024-10-23 18:07 | EDRN ---
Portable CXR at stretcher side done at this time. This RN is now taking care of this pt.
[2024-10-23] MEDS: ASPIRIN 325 MG PO (18:26)
--- NOTE | 2024-10-23 18:37 | EDRN ---
PTT drawn and sent to lab at this time.
[2024-10-23] MEDS: LEVOPHED 250 IV (18:47)
[2024-10-23] MEDS: HEPARIN 4000 UNITS IV (18:49)
[2024-10-23] MEDS: HEPARIN 25000 UNITS/250 ML IV (18:50)
[2024-10-23 18:54] LABS: APTT 25.2 Sec (23.4-35.0)
--- NOTE | 2024-10-23 19:04 | EDRN ---
Dr. Howe in room since 18:35. Performed a echocardiogram at [facility]. Levophed started per his order.
--- NOTE | 2024-10-23 19:05 | HPS.HSE ---
Family Physician
-
Family Physician: Shon Burns MD
Chief Complaint
-
Chest pain
History of Present Illness
This 73-year-old female with past medical history significant for chronic bilateral lower extremity edema, chronic pain, morbid obesity, hypertension, history of Pseudomonas infection, reactive airways not on home O2, type 2 diabetes CKD presenting
to the emergency department from rehab facility with acute episode of chest pain and shortness of breath.
Patient was fairly able to tell me some history. She said that she was feeling well up until the incidence. She does have chronic dyspnea on exertion and shortness of breath. However today while she was in rehab she stood up and suddenly felt
very dizzy and lightheaded. She had chest pain. Then she developed severe shortness of breath. She was found to be hypoxic. Due to the hypoxia and shortness of breath patient was sent to the emergency department. Per records she was satting 95%
on 2 L. Blood pressure was 124/64. She was giving 25 mg of metoprolol tartrate at 3 PM for tachycardia to the 110s to 120s.
She still having chest pain currently. She has no known history of CAD. She has seen cardiology once and had an EKG and no further workup at that time.
On ED arrival blood pressure had reduced to 99/60 and further reduced and patient was started on pressors. She was given IV fluids. Pulse in the 80s, she is satting 95%. Chest x-ray shows no acute infiltrates. ECG with normal sinus rhythm at a
rate of 89, no acute ischemia. CBC shows a white count of 0.8 but otherwise unremarkable. Electrolytes BUN/creatinine were stable with a creatinine of 1.8, slightly increased from a baseline of around 1.5. Troponin was 0.4, ECG was nonischemic.
COVID and flu negative.
A bedside echo was done which showed preserved LV function. RV was markedly dilated.
Medical History
Past Medical History
Past Medical History: Reports Asthma, HTN, Hypercholesterolemia, NIDDM, Renal Failure (CKD 3) and Other (Morbid obesity)
Past Surgical History: Reports Other
Social History
Tobacco: Non-smoker
Alcohol: None
Drug: None
Family History
Family History: Not pertinent
Allergies / Home Medications
Allergies reflects when Allergies were last updated in [employer].
Home Medications with original date entered in [employer]
Allergy/Medication List:
Allergies
Allergy/AdvReac Type Severity Reaction Status Date / Time
codeine Allergy Nausea / Verified 10/23/24 16:52
Vomiting
meperidine [From Demerol] Allergy Unknown Verified 10/23/24 16:52
Phenothiazines Allergy Unknown Verified 10/23/24 16:52
Sulfa (Sulfonamide Allergy Unknown Verified 10/23/24 18:03
Antibiotics)
Home Medications
cyanocobalamin (vitamin B-12) 1,000 mcg tablet 1,500 mcg PO Q48H 09/22/16
pantoprazole 40 mg tablet,delayed release 40 mg PO DAILY #30 tabs 09/27/16
acetaminophen 325 mg tablet 650 mg PO HSPRN PRN MILD PAIN 10/23/24
acetaminophen 325 mg tablet 650 mg PO Q4HPRN PRN fever >100 10/23/24
acetaminophen 650 mg tablet,extended release 1,300 mg PO DAILY 10/23/24
albuterol sulfate 90 mcg/actuation aerosol inhaler 1 inh inhalation R DAILYPRN PRN sob/wheezing 10/23/24
bisacodyl 10 mg rectal suppository 10 mg [place] DAILY PRN mom ineffective on day 5 of no bm 10/23/24
bupropion HCl 300 mg 24 hr tablet, extended release (Wellbutrin XL) 300 mg PO DAILY 10/23/24
furosemide 20 mg tablet 20 mg PO DAILY 10/23/24
lisinopril 20 mg tablet 20 mg PO BID 10/23/24
magnesium hydroxide 400 mg/5 mL oral suspension (Milk of Magnesia) 2,400 mg PO DAILYPRN PRN no bm in 4 days 10/23/24
metoprolol tartrate 25 mg tablet 25 mg PO ONCE tachycardia 10/23/24
miconazole nitrate 2 % topical cream 1 applic topical BID 10/23/24
polyethylene glycol 3350 17 gram oral powder packet (Miralax) 17 g PO DAILY 10/23/24
simethicone 80 mg chewable tablet 80 mg PO TID 10/23/24
sodium phosphates 19 gram-7 gram/118 mL enema (Fleet Enema) 118 ml CA DAILYPRN PRN bisacodyl supp ineffective on day 6 of no bm 10/23/24
triamterene 75 mg-hydrochlorothiazide 50 mg tablet 1 tab PO DAILY 10/23/24
Review of Systems
-
Unable to obtain full review of systems at this time due to: Acuity
Physical Exam
Vital Signs
Vital Signs
Temp Pulse Resp BP Pulse Ox
98.3 F 87 25 92/66 99
10/23/24 16:48 10/23/24 18:15 10/23/24 18:15 10/23/24 18:15 10/23/24 18:15
Physical Exam
General: Well Developed, Well Nourished, Respiratory Distress, Pain and Morbidly Obese
HEENT: NormoCephalic, Anicteric, Moist mucous membranes, Atraumatic, PERRLA and Oxygen
Respiratory: Clear
Cardiac: S1/S2 and Regular Rhythm
Breast: Deferred by me
GI: Soft, Normal Bowel Sounds and Distended
Rectal: Deferred by Provider
Genito-urinary: Deferred by me
Musculoskeletal: No Clubbing, No Cyanosis, Edema, Left Lower Extremity and Edema, Right Lower Extremity
Skin: Warm
Neuro: AO x 3 and Nonfocal/grossly intact
Hematologic/Lymphatic: No Lymphadenopathy
Psych: Calm
Laboratory Results
-
10/23/24 16:51
10/23/24 16:51
Laboratory Results
APTT 25.2 Sec (23.4-35.0) 10/23/24 18:37
Lactic Acid 1.9 mmol/L (0.7-2.0) 10/23/24 17:17
Total Bilirubin 0.6 mg/dl (0.2-1.3) 10/23/24 16:51
AST 16 U/L (14-36) 10/23/24 16:51
ALT < 10 U/L (0-35) 10/23/24 16:51
Alkaline Phosphatase 88 U/L (38-126) 10/23/24 16:51
Troponin I 0.404 ng/ml H* 10/23/24 16:51
Data Reviewed
-
Diagnostic Radiology: Image Personally Visualized and interpreted
Medical Tests (Nuc Med, Echo, EKG etc): Report Reviewed by me
Lab Data: Labs Reviewed by me
Old Records: Reviewed
Impression/Plan
-
IMPRESSION:
73 y.o with chest pain, SOB, hypotension. D-dimer > 20. Trop 0.4. CXR clear. chronic LE edema unchanged. BNP 280. Hypoxic. Cardiology did echo at bedside with dilated RV (no prior history of). Initially CT held due to CKD Cr 1.8. Given IV
fluids and started on pressors and heparin. CTA done. Per ED read, large burden b/l PE. Being read by IR at this time.
PLAN:
Massive PE
- admit to ICU
- TPA vs IR thrombolysis
- continue pressors
- npo except meds and sips
- Continue PPI IV
- echo in am, trend troponins
- u/s LE pending
- AC
- holding antihypertensives
- type and screen
- pum/critical care consult
Ascites - Incidental finding of ascites on CT scan. No h/o etoh, hepatitis. Either portal hypertension or related to RV disease with pulm htn given chronic lower extremity edema.
- obtain u/s in am
- check liver panel and cardiovascular panel
- IR for paracentesis pending u/s
- holding diuretics for hypotension
Code Status - Full code
--- NOTE | 2024-10-23 19:09 | EDRN ---
Echocardiogram being done by technology internship at [facility] at this time.
--- NOTE | 2024-10-23 19:13 | CON.CAR ---
Consultation
Consultation Request
Date/Time Consultation Requested: 10/23/2024 6:10PM
Date/Time Consultation Performed: 10/23/2024 6:22 PM
Requesting Provider: ER physician
Performing Provider: Dr. Howe
Reason for Consultation: Shortness of breath, chest pain, hypotension
Medical History
-
History of Present Illness:
Request for consult by ER due to shortness of breath chest pain and hypotension
73-year-old resident at [facility] with history of hypertension hypercholesterolemia, diabetes, CKD obesity, lower extremity edema who was working with PT and working on standing and doing transfers when she developed acute onset of shortness of
breath and felt she needed to sit down she felt lightheaded. In addition she had some midsternal chest discomfort.On initial presentation patient was hypotensive and short of breath. Seen by ER physician given IV fluids with initial improvement in
blood pressure, nebs patient also given nebs. Labs were notable for D-dimer greater than 20, troponin 0.4 creatinine 1.8. Concern raised for pulmonary embolism patient given IV heparin and aspirin. ECG shows sinus rhythm with without clear
evidence of ischemia there is some suggestion of pseudonormalization of T waves in 1 and aVL when compared to a prior ECG. Patient reported that she was breathing comfortably on oxygen she had some low-grade chest discomfort but no other
complaints. Denies any history of cardiac disease or coronary artery disease.
Although blood pressure initially appeared to improve with the bolus it trended down. There was some report that patient had received metoprolol at the nursing facility.
During my assessment she had systolics in the 80s and sometimes 70s so Levophed was initiated.
Bedside echo was performed. Technically difficult study. Overall left ventricular function appeared preserved. RV appears dilated and hypokinetic
Past medical history
Type 2 diabetes
CKD
Hypertension
Hypercholesterolemia
Obesity
Chronic lower extremity edema
Lowery's cyst
Reactive airway disease
Past Medical History
Past Medical History: Other (As above)
Social History
Tobacco: Non-Smoker
Family History
Family History: Other (CAD)
Allergies / Home Medications
Allergy/AdvReac Type Severity Reaction Status Date / Time
codeine Allergy Nausea / Verified 10/23/24 16:52
Vomiting
meperidine [From Demerol] Allergy Unknown Verified 10/23/24 16:52
Phenothiazines Allergy Unknown Verified 10/23/24 16:52
Sulfa (Sulfonamide Allergy Unknown Verified 10/23/24 18:03
Antibiotics)
�Medication �Instructions �Recorded �Confirmed �Type
cyanocobalamin (vitamin B-12) 1,500 mcg PO Q48H 09/22/16 10/23/24 History
1,000 mcg tablet
pantoprazole 40 mg tablet,delayed 40 mg PO DAILY #30 tabs 09/27/16 10/23/24 Rx
release
acetaminophen 325 mg tablet 650 mg PO HSPRN PRN MILD PAIN 10/23/24 10/23/24 History
acetaminophen 325 mg tablet 650 mg PO Q4HPRN PRN fever >100 10/23/24 10/23/24 History
acetaminophen 650 mg 1,300 mg PO DAILY 10/23/24 10/23/24 History
tablet,extended release
albuterol sulfate 90 mcg/actuation 1 inh inhalation R DAILYPRN PRN 10/23/24 10/23/24 History
aerosol inhaler sob/wheezing
bisacodyl 10 mg rectal suppository 10 mg [place] DAILY PRN mom ineffective 10/23/24 10/23/24 History
on day 5 of no bm
bupropion HCl 300 mg 24 hr tablet, 300 mg PO DAILY 10/23/24 10/23/24 History
extended release (Wellbutrin XL)
furosemide 20 mg tablet 20 mg PO DAILY 10/23/24 10/23/24 History
lisinopril 20 mg tablet 20 mg PO BID 10/23/24 10/23/24 History
magnesium hydroxide 400 mg/5 mL 2,400 mg PO DAILYPRN PRN no bm in 10/23/24 10/23/24 History
oral suspension (Milk of Magnbear) 4 days
metoprolol tartrate 25 mg tablet 25 mg PO ONCE tachycardia 10/23/24 10/23/24 History
miconazole nitrate 2 % topical 1 applic topical BID 10/23/24 10/23/24 History
cream
polyethylene glycol 3350 17 gram 17 g PO DAILY 10/23/24 10/23/24 History
oral powder packet (Miralax)
simethicone 80 mg chewable tablet 80 mg PO TID 10/23/24 10/23/24 History
sodium phosphates 19 gram-7 118 ml [place] DAILYPRN PRN bisacodyl 10/23/24 10/23/24 History
gram/118 mL enema (Fleet Enema) supp ineffective on day 6 of no bm
triamterene 75 1 tab PO DAILY 10/23/24 10/23/24 History
mg-hydrochlorothiazide 50 mg tablet
Review of Systems
-
All other systems: Negative unless noted
Physical Exam
Vital Signs
Temp Pulse Resp BP Pulse Ox
98.3 F 87 25 92/66 99
10/23/24 16:48 10/23/24 18:15 10/23/24 18:15 10/23/24 18:15 10/23/24 18:15
Lab Results
10/23/24 16:51
10/23/24 16:51
Troponin I 0.404 ng/ml H* 10/23/24 16:51
Jvq-I-Lisndlhrgmj Pept 286 pg/ml 10/23/24 16:51
Physical Exam
General: Other (Awake alert cooperative eyes extraocular's intact external ear normal exam unremarkable)
HEENT: Normocephalic, Anicteric and Other (Neck is heavy without detectable JVD)
Respiratory: Other (No wheezes or rhonchi no rales)
Cardiac: Regular Rhythm (Without murmur)
GI: Other (Obese and distended without palpable mass)
Musculoskeletal: No Clubbing, No Cyanosis and No Edema
Skin: Warm and Dry
Neuro: Awake and Alert
Hematologic/Lymphatic: No Lymphadenopathy
Impression / Plan
-
.
Shortness of breath. Acute onset of shortness of breath with associated chest discomfort and hypotension. Echocardiogram suggest dilated right ventricle and raises concern for pulmonary embolism. Patient also with reported underlying lung
disease/reactive airway disease. Issues reviewed with ER physician
-Continue IV heparin
-Consult pulmonary
-Continue pressors. Patient currently on Levophed.
-IV fluid bolus
-Await results of CT ordered by ER and if confirms PE then considering patient's hemodynamic status then would consider IR or lytic therapy.
Hypotension -suspected related to issues noted above. Continue with management as outlined.
.
Elevated troponin
-Although patient presented with chest discomfort and shortness of breath. Patient without evidence of acute OH on ECG.
-Elevation in troponin may be related to suspected PE other factors including hypotension and hypoxemia may also contribute. Can not exclude underlying CAD.
-Follow serial troponins
CKD. Patient with creatinine 1.8 mildly higher than previous recording of 1.5.
-Optimize hemodynamics
0will need to monitor closely particularly if patient receives contrast.
DM
Hypercholesterolemia
Obesity
Reviewed with ER physician, hospitalist and pulmonary critical care
.
Data Reviewed
-
EKG: Tracing Personally Visualized and interpreted
MRI: Report Reviewed by me
Medical Tests (Nuc Med, Echo etc): Report Reviewed by me
Labs: Labs Reviewed by me
--- NOTE | 2024-10-23 19:24 | EDRN ---
Pt denies any abdominal pain at this time.
[2024-10-23 21:36] LABS: Glucose - Point of Care 132 mg/dl (70-99)
--- NOTE | 2024-10-23 23:06 | W.PN.IRAD.PR ---
Procedure Note
-
RIJ central venous catheter placed under US and fluoro guidance. Catheter ready for use.
7 Fr pigtail catheter positioned in right pulm artery via R CF vein access. Mean pressure 25 mmHg right pulm art. Angiography similar to prev CTA, poor peripheral distribution opacification throughout right lower lung.
No immediate complications, VSS throughout.
Initiating alteplase infusion via 7 Fr catheter at 1mg/hr. Heparin via PIV at 400 units/hr. The 7 Fr catheter is occlusive in the 7 Fr sheath, no infusions via sheath. Will repeat angio and pressures AM.
[2024-10-23] MEDS: CATHFLO/ACTIVASE 1000 MG INF CATH (23:43)
[2024-10-24] VITALS (85 sets, daily range): BP systolic 11–131; BP diastolic 39–95; BMI 58.0
--- NOTE | 2024-10-24 00:30 | PTCARENOTE ---
retrieved pt from IR, pt Ox3, follows commands, c/o back and neck pain refer to MAR, neuro checks per worklist, R pupil 4, L pupil 3 both reactive, RLE restriction, pt denies chest pain, NS on the monitor +1 anasarca, +3 RL, +1 LL, +4 pedals,
doppler pedals, + radials, tachypneic, lungs diminished and coarse throughout, received pt on 6L turned down to 3L SpO2 97%, Bsx4 round obese with baseball sized protrusion middle abd, temp sensing polanco placed draining yellow output, R groin
dressing dry and intact, alteplase through R fem sheath, L leg sushant wrapped, PIV per worklist, hep and levo gtts per worklist, call renae within reach, pt able to make needs known, otherwise refer to worklist.
[2024-10-24] MEDS: LR 1000 IV ×2 (00:59→22:46)
[2024-10-24] MEDS: TYLENOL 650 MG PO ×3 (01:14→20:52)
[2024-10-24 01:33] LABS: Hematocrit 32.5 % (37.0-47.0); Hemoglobin 10.5 g/dL (12.0-16.0); Mean Corp Hgb Conc. 32.3 g/dL (33.0-37.0); Mean Corpuscular Hgb 26.9 pg (27.0-31.0); Mean Corpuscular Volume 83.3 fL (81.0-99.0); Mean Platelet Volume 8.9 fL (7.4-10.4); Platelet Count 443 10^3/uL (130-400); Red Cell Dist. Width 14.4 % (11.5-14.5); White Blood Cell Count 12.1 10^3/uL (4.8-10.8)
[2024-10-24 01:48] LABS: INR 1.13
[2024-10-24 01:49] LABS: APTT 29.2 Sec (23.4-35.0)
[2024-10-24 02:03] LABS: Troponin I 0.705 ng/ml
[2024-10-24 04:43] LABS: Hematocrit 31.8 % (37.0-47.0); Hemoglobin 10.3 g/dL (12.0-16.0); Mean Corp Hgb Conc. 32.4 g/dL (33.0-37.0); Mean Corpuscular Volume 83.2 fL (81.0-99.0); Platelet Count 424 10^3/uL (130-400); Red Blood Cell Count 3.82 10^6/uL (4.20-5.40); Red Cell Dist. Width 14.3 % (11.5-14.5); White Blood Cell Count 12.9 10^3/uL (4.8-10.8)
[2024-10-24 04:48] LABS: APTT 30.4 Sec (23.4-35.0); INR 1.11; PT 14.8 Sec (11.4-14.6)
--- NOTE | 2024-10-24 04:51 | PTCARENOTE ---
systems reviewed, neuro checks per worklist, gtts titrated per worklist, urine output 15ml for last 2 hrs MALTED MILK MASHER notified, labs sent, otherwise refer to documentation.
[2024-10-24 05:04] LABS: ALT (SGPT) < 10 U/L (0-35); AST (SGOT) 16 U/L (14-36); Alkaline Phosphatase 86 U/L (38-126); Blood Urea Nitrogen 57 mg/dl (7-17); Calcium 9.3 mg/dl (8.4-10.2); Carbon Dioxide 21 mmol/L (22-30); Chloride 99 mmol/L (98-107); Direct Bilirubin 0.2 mg/dl (0.0-0.4); Estimated Creatinine Clearance 40 ml/min; Glucose 132 mg/dl (70-99); Phosphorus 5.3 mg/dl (2.5-4.5); Potassium 5.2 mmol/L (3.5-5.1); Sodium 131 mmol/L (135-145); Total Bilirubin 0.8 mg/dl (0.2-1.3); eGFR 27.71
[2024-10-24 05:14] LABS: Troponin I 0.635 ng/ml
[2024-10-24] MEDS: NSS 500 IV (06:14)
--- NOTE | 2024-10-24 07:12 | CON.INTV ---
Consultation
Consultation Request
Date/Time Consultation Requested: 10/23/2024
Date/Time Consultation Performed: 10/24/2024 7 AM
Requesting Provider: Jaime Amaya
Performing Provider: Meagan Ruiz
Reason for Consultation: Pulmonary Embolism, Shick
Medical History
-
Chief Complaint: Chest pain
History of Present Illness:
This 73-year-old female with past medical history significant for chronic bilateral lower extremity edema, chronic pain, morbid obesity, hypertension, reactive airways not on home O2, type 2 diabetes CKD III who developed chest pain and dizziness
with shortness of breath acutely during rehabilitation session.
In the emergency room patient was noted to have elevated troponin as well as elevated D-dimer along with minimally elevated BNP. She was noted to be hypotensive with an essentially unremarkable chest x-ray. Cardiology service evaluated the patient
initially and a bedside POCUS was performed which showed significant dilation of right ventricle raising concern for possible pulmonary embolism. Patient subsequently had a CT PE performed which was suggestive of pulmonary embolism with right heart
strain. Patient was started on Levophed for hypotension.
PERT PERT was activated and after discussion it was decided to proceed with catheter directed therapies. Patient was subsequently taken to IR suite and had a pigtail catheter positioned in the right pulmonary artery and alteplase infusion was
initiated along with heparin with plan for repeat angio and pressure evaluation today. Mean pulmonary artery pressure was around 25 initially.
Past medical history. Hypertension, morbid obesity, chronic kidney disease stage III.
Family History
Family History: Reviewed & Not Pertinent
Allergies / Home Medications
Allergies
Allergy/AdvReac Type Severity Reaction Status Date / Time
codeine Allergy Nausea / Verified 10/23/24 16:52
Vomiting
meperidine [From Demerol] Allergy Unknown Verified 10/23/24 16:52
Phenothiazines Allergy Unknown Verified 10/23/24 16:52
Sulfa (Sulfonamide Allergy Unknown Verified 10/23/24 18:03
Antibiotics)
Home Medications
�Medication �Instructions �Recorded �Confirmed �Last Taken �Type
cyanocobalamin (vitamin B-12) 1,500 mcg PO Q48H 09/22/16 10/23/24 09/22/16 History
1,000 mcg tablet
pantoprazole 40 mg tablet,delayed 40 mg PO DAILY #30 tabs 09/27/16 10/23/24 Unknown Rx
release
acetaminophen 325 mg tablet 650 mg PO HSPRN PRN MILD PAIN 10/23/24 10/23/24 Unknown History
acetaminophen 325 mg tablet 650 mg PO Q4HPRN PRN fever >100 10/23/24 10/23/24 Unknown History
acetaminophen 650 mg 1,300 mg PO DAILY 10/23/24 10/23/24 Unknown History
tablet,extended release
albuterol sulfate 90 mcg/actuation 1 inh inhalation R DAILYPRN PRN 10/23/24 10/23/24 Unknown History
aerosol inhaler sob/wheezing
bisacodyl 10 mg rectal suppository 10 mg [place] DAILY PRN mom ineffective 10/23/24 10/23/24 Unknown History
on day 5 of no bm
bupropion HCl 300 mg 24 hr tablet, 300 mg PO DAILY 10/23/24 10/23/24 Unknown History
extended release (Wellbutrin XL)
furosemide 20 mg tablet 20 mg PO DAILY 10/23/24 10/23/24 Unknown History
lisinopril 20 mg tablet 20 mg PO BID 10/23/24 10/23/24 Unknown History
magnesium hydroxide 400 mg/5 mL 2,400 mg PO DAILYPRN PRN no bm in 10/23/24 10/23/24 Unknown History
oral suspension (Milk of Magnesia) 4 days
metoprolol tartrate 25 mg tablet 25 mg PO ONCE tachycardia 10/23/24 10/23/24 10/23/24 15:00 History
miconazole nitrate 2 % topical 1 applic topical BID 10/23/24 10/23/24 Unknown History
cream
polyethylene glycol 3350 17 gram 17 g PO DAILY 10/23/24 10/23/24 Unknown History
oral powder packet (Miralax)
simethicone 80 mg chewable tablet 80 mg PO TID 10/23/24 10/23/24 Unknown History
sodium phosphates 19 gram-7 118 ml ME DAILYPRN PRN bisacodyl 10/23/24 10/23/24 Unknown History
gram/118 mL enema (Fleet Enema) supp ineffective on day 6 of no bm
triamterene 75 1 tab PO DAILY 10/23/24 10/23/24 Unknown History
mg-hydrochlorothiazide 50 mg tablet
Review of Systems
-
Hematologic/Lymphatic: Other (All 14 systems reviewed and negative except as stated above in the history of present illness.)
Vitals / Labs / Diagnostic Testing
Vital Signs
Temp Pulse Resp BP Pulse Ox
99.1 F 67 25 112/51 98
10/24/24 03:22 10/24/24 06:41 10/24/24 06:41 10/24/24 06:41 10/24/24 06:30
Laboratory Results
10/23/24 10/24/24 10/24/24
18:37 01:21 01:50
PT 15.0 H
INR 1.13
APTT 25.2 29.2 Cancelled
10/24/24
04:10
PT 14.8 H
INR 1.11
APTT 30.4
Microbiology
10/23/24 17:17 Nasal Swab Influenza Types A & B ([place]) - Final
Negative for Influenza A & B, NAAT
Negative results must be combined with clinical observations
and patient history.
Nucleic Acid Amplification test (NAAT)performed on the
[employer] platform.
Diagnostic Testing:
CT CHEST 10/23: Examination is positive for pulmonary embolism. On the left, there is embolus straddling the bifurcation of the left upper and lower lobe pulmonary arteries. There is extension into the segmental and subsegmental branches of the left
upper and lower lobe pulmonary arteries.
On the right, there is embolus within the distal aspect of the right main pulmonary artery, with extension into the segmental and subsegmental branches of the right upper lobe, the right middle lobe, and the right lower lobe.
Of note, there is no saddle embolus at the branching point of the main right and left pulmonary arteries.
There is significant enlargement of the right ventricle and right atrium with decreased size of the left ventricle and straightening of the interventricular septum, findings compatible with right heart strain.
There is a small left pleural effusion. No significant right pleural effusion is identified.
Thin linear density within the lateral aspect of the left lower lung, compatible with focal atelectasis. There is no CT finding to suggest a focal area of pulmonary infarction.
Mild focal atelectasis in the posteromedial right lower lobe of the lung, adjacent to prominent spondylosis of the thoracic spine.
The thoracic aorta is fairly well opacified, and there is no evidence for thoracic aortic dissection or aneurysm.
No significant narrowing identified involving the origins of the great vessels from the thoracic aorta.
There is an enlarged and heterogeneous right lobe of the thyroid, incompletely included on the [id number]. This most likely represents a benign greater.
The visualized upper abdomen, there is a large amount of ascites. Questionable nodular contour of the liver.
There is also bilateral subcutaneous edema, greater in the upper abdomen demonstrate the chest, left greater than right.
Incidental note is made of a 5 cm rounded lipoma within the soft tissues of the posterior upper chest wall.
Mild reverse S-shaped scoliosis of the thoracic spine. Mild to moderate changes of degenerative disc disease. Ossification the anterior longitudinal ligament compatible of DISH. Severe degenerative change of the left glenohumeral joint.
Physical Exam
-
HEENT: Normocephalic
Cardiovascular: S1/S2 and Peripheral Edema (Bilateral lower extremity lymphedema 3-4+)
Respiratory: Clear
GI: Distended
Neurology: Awake and Alert
Skin: Warm
General: Comfortable
Assessment
-
#1. Acute bilateral pulmonary embolism with obstructive shock.
-PERT team activated, patient s/p catheter directed thrombolysis with tPA and heparin infusing
-Levophed has since been weaned off and patient is hemodynamically stable
-Plan for repeat angiogram today
-Suspect it is an unprovoked pulmonary embolism and likely will need long-term anticoagulation. Once patient recovers from this acute episode will need age-appropriate screening for malignancy
-Continue close monitoring in the ICU
-Avoid additional IV fluids as patient already edematous and has right ventricular strain, will DC maintenance IV fluids
#2. CKD, creatinine is stable
-Monitor lab work
#3. Large volume ascites, incidentally noted
-Albumin is slightly decreased at 3.0
-Abdominal ultrasound for further evaluation
-Will need IR guided paracentesis once more stable to evaluate fluid including cytology as concern of underlying malignancy with unprovoked massive PE
Critical Care time 45 mins -- The patient is admitted for acute critical illness for the treatment of vital organ failure and/or prevention of further life-threatening conditions. Total care includes time spent in review of history, physical exam,
medications, hemodynamic/ventilator parameters, laboratory data, imaging and discussion with house staff, pharmacy, respiratory therapy, shrimper, and nursing.
[2024-10-24] MEDS: PROTONIX 40 MG PO (07:14)
[2024-10-24] MEDS: MIRALAX PO (07:15)
[2024-10-24] MEDS: WELLBUTRIN XL (24 hour extended release) 300 MG PO (07:15)
--- NOTE | 2024-10-24 07:33 | W.PN.HOSP.TC ---
Addendum entered and electronically signed by Boo Pimentel DO 10/24/24 14:07:
Called by IR to see patient urgently for coffee-ground emesis after her procedure. Also having scapular pain in her back that improves with palpation. Denies chest pain.
Hemodynamically stable. Patient protecting her airway. Complaining of nausea. Coffee-ground emesis noted around her mouth.
Monitor hemoglobin closely.
Transfer back to ICU. Consult GI service. Start IV Protonix drip. IV Zofran as needed.
Original Note:
Today's Communication/Plan
-
Check abdominal ultrasound
Follow-up with IR
Lower extremity venous Doppler ultrasound
Continue anticoagulation
Recheck labs
Assessment / Plan
Assessment / Plan
Gen-AAOx3, NAD, super morbid obesity
HEENT-NC, AT, anicteric, clear oral mm
Neck-supple
CV-reg, no M, +S1/S2
Lungs-clear B/L
Abd-soft, NT, ND
Ext-no edema
Musculoskeletal-no cyanosis, clubbing
Skin-warm and dry
Neuro-grossly non-focal
Psych-calm, cooperative
Shock -suspect obstructive shock due to acute large bilateral pulmonary emboli. Doubt sepsis despite low-grade leukocytosis and tachycardia. In the emergency room blood cultures were sent. Hold antibiotics for now.
Shock resolved. Off vasopressors since 6 AM. Last recorded blood pressure 112/51. Heart rate 67.
Hold antihypertensives.
Hemodynamically unstable acute bilateral PE -CT PE reviewed, no saddle PE noted but does have acute bilateral pulmonary embolism involving majority of both pulmonary arteries.
Significant RV and RA enlargement with right heart strain noted on CT. Troponin elevation noted. BNP is suppressed as would be expected with morbid obesity.
Initiated alteplase via catheter directed thrombolysis. IV heparin. IR consulted and plan for revisit this morning.
Denies history of pulmonary embolism. Check lower extremity venous Doppler ultrasound.
Risk factors are morbid obesity and limited mobility. Denies history of malignancy.
Abdominal ascites -large ascites noted on CT chest. Await ultrasound. May need paracentesis for diagnostic reasons.
Left adnexal cyst -chronic. Noted on last CT abdomen/pelvis in 2020, measuring 10 cm in the left adnexa. Previously 6 cm in 2017. Patient has not followed up and states that she has not had any procedures done on the cyst.
Essential hypertension -hold medications for shock. Was on furosemide, lisinopril, metoprolol, Dyazide prior to admission.
Asthma without exacerbation -stable. Suspect mild intermittent asthma.
Hyperlipidemia
Hyponatremia -would permanently discontinue hydrochlorothiazide. Monitor sodium.
Hyperkalemia -potassium 5.2 this morning. Hold CATERINA inhibitor, triamterene. Repeat labs pending and if potassium still elevated will treat with Lokelma.
Hyperglycemia -rule out diabetes. Check hemoglobin A1c.
Hyperphosphatemia -monitor for now.
Bilateral lower extremity lymphedema
Normocytic anemia -suspect chronic. Monitor hemoglobin on anticoagulation.
CKD 3B -suspect creatinine at baseline. Monitor closely in the setting of contrast exposure.
Ambulatory dysfunction -lives independently but has been staying at [facility] for the past few weeks for physical therapy.
Super morbid obesity
Full code
Anticipated Discharge: > 48 hours
Subjective/Interval History
-
Date of Service: October 24, 2024
Patient seen and examined. Denies chest pain or pressure. Complaining of bodyaches. Denies shortness of breath. Sleeping when I walked in.
Objective Data
-
Labs:
Laboratory Results
10/24/24 10/24/24 10/24/24
00:00 01:21 01:50
WBC Cancelled 12.1 H
Hgb Cancelled 10.5 L
Hct Cancelled 32.5 L
Plt Count Cancelled 443 H
PT 15.0 H
INR 1.13
APTT 29.2 Cancelled
Sodium
Potassium
Chloride
Carbon Dioxide
BUN
Creatinine
Glucose
Calcium
Total Bilirubin
AST
ALT
Alkaline Phosphatase
10/24/24 10/24/24 10/24/24
04:10 04:11 06:00
WBC 12.9 H
Hgb 10.3 L
Hct 31.8 L
Plt Count 424 H
PT 14.8 H
INR 1.11
APTT 30.4
Sodium 131 L Pending
Potassium 5.2 H Pending
Chloride 99 Pending
Carbon Dioxide 21 L Pending
BUN 57 H Pending
Creatinine 1.9 H Pending
Glucose 132 H Pending
Calcium 9.3 Pending
Total Bilirubin 0.8
AST 16
ALT < 10
Alkaline Phosphatase 86
10/24/24 10/24/24
12:00 18:00
WBC Pending Pending
Hgb Pending Pending
Hct Pending Pending
Plt Count Pending Pending
PT Pending Pending
INR Pending Pending
APTT Pending Pending
Sodium
Potassium
Chloride
Carbon Dioxide
BUN
Creatinine
Glucose
Calcium
Total Bilirubin
AST
ALT
Alkaline Phosphatase
Vital Signs:
Vital Signs
Temp Pulse Resp BP Pulse Ox
99.1 F 67 25 112/51 98
10/24/24 03:22 10/24/24 06:41 10/24/24 06:41 10/24/24 06:41 10/24/24 06:30
I&O
10/23/24 10/24/24 10/25/24
06:59 06:59 06:59
Intake Total 1246.6 / 1246.6
Output Total 135 / 135
Balance 1111.6 / 1111.6
Review of Systems
-
History Source: Patient
All other systems: Reviewed and negative
--- NOTE | 2024-10-24 07:51 | PTCARENOTE ---
recd pt handoff in room at 0705, see documentation. R groin site clean, dry, soft. alteplase infusing as ordered via fem venous sheath. seen by Dr. Pimentel. maintained flat, skin warm and dry, notes mild SILVA, med with tylenol per request.
tolerating 2l. Levophed remains off, see VS. Doppler signals bilat DP underneath edema.
[2024-10-24 08:13] LABS: Glycohemoglobin (HgbA1c) 5.8 % (4.0-5.6)
--- NOTE | 2024-10-24 08:13 | W.PN.CD ---
Today's Communication / Plan
-
Pressors off.Feeling better. Resp status stable
Mionitor BP closely
Patient going back to IR today
monitor anemia on lytic
Impression / Plan
-
.
Acute PE
- presented with SOB, hypoxemia, CP and hypotension
- large burden bilat PE
- Dilated hypokinetic RV on echo
- catheter directed lytic therapy by IR 10/23/24. patient going back to IR today
-
Hypotension -imporved. Off levophed. Was as highaas 10 yesterday and now off.
.
RV dysfunction
- reassess with echo after addtional recovery
.
.
CP secondary to PE. improved. still with mild CP
Elevated troponin - peak 0.7
-consistent with nonMI troponin related to PE
CKD. Patient with creatinine 1.9 mildly higher than previous recording of 1.5.
-Optimize hemodynamics
0will need to monitor closely particularly if patient receives contrast.
anemia - likely chronic. monitor on lytic infusion
DM
Hypercholesterolemia
Obesity
.
Physical Exam
Vital Signs/Labs
Vital Signs
Temp Pulse Resp BP Pulse Ox
98.9 F 69 23 106/95 98
10/24/24 08:12 10/24/24 07:45 10/24/24 07:45 10/24/24 07:30 10/24/24 07:45
10/23/24 10/24/24 10/25/24
06:59 06:59 06:59
Actual Weight 153.1 kg
PT 14.8 Sec (11.4-14.6) H 10/24/24 04:10
INR 1.11 10/24/24 04:10
APTT 30.4 Sec (23.4-35.0) 10/24/24 04:10
Magnesium 2.1 mg/dl (1.6-2.3) 10/23/24 16:51
10/23/24
16:51
Wnj-B-Ntcdptekgkt Pept 286
LAB Results
10/23/24 10/24/24 10/24/24
16:51 01:21 04:11
Troponin I 0.404 H* 0.705 H* 0.635 H*
Physical Exam
Cardiovascular: Rhythm & rate is regular
Respiratory: Wheeze Absent and Rhonchi Absent
GI: Non tender and Distention present
Neuro/Psych: Alert and Oriented
Other: Other (right groin sheath)
Data Reviewed
-
Date of Service: October 24, 2024
Medical Decision Making: Reviewed Test Results
Echo: Report Reviewed by me
Medical Tests (PFT, Pathology etc): Report Reviewed by me and Other (reviewed with Dr Pimentel)
Labs: Labs Reviewed by me
[2024-10-24] MEDS: CATHFLO/ACTIVASE 1000 MG INF CATH (08:47)
[2024-10-24 10:48] LABS: Hematocrit 30.9 % (37.0-47.0); Hemoglobin 9.8 g/dL (12.0-16.0); INR 1.16; Mean Corp Hgb Conc. 31.7 g/dL (33.0-37.0); Mean Corpuscular Hgb 26.1 pg (27.0-31.0); Mean Corpuscular Volume 82.4 fL (81.0-99.0); Mean Platelet Volume 8.9 fL (7.4-10.4); PT 15.4 Sec (11.4-14.6); Platelet Count 358 10^3/uL (130-400); Red Blood Cell Count 3.75 10^6/uL (4.20-5.40); Red Cell Dist. Width 14.4 % (11.5-14.5); White Blood Cell Count 11.6 10^3/uL (4.8-10.8)
[2024-10-24 10:59] LABS: Blood Urea Nitrogen 57 mg/dl (7-17); Carbon Dioxide 24 mmol/L (22-30); Chloride 101 mmol/L (98-107); Estimated Creatinine Clearance 40 ml/min; Glucose 118 mg/dl (70-99); Potassium 4.9 mmol/L (3.5-5.1); Sodium 132 mmol/L (135-145); eGFR 27.71
[2024-10-24 11:11] LABS: Troponin I 0.486 ng/ml
--- NOTE | 2024-10-24 11:50 | PTCARENOTE ---
labs drawn and sent. resting, mostly sleeping at intervals when undisturbed. VS noted, IV fluids capped per MD order. awaiting abd US and eventual return to IR.
--- NOTE | 2024-10-24 12:28 | PTCARENOTE ---
taken back to IR department via bed, alteplase and heparin infusing as ordered, handoff to IR staff. Pt in good spirits.
--- NOTE | 2024-10-24 13:11 | W.PN.UPDATE ---
Update Note
Progress Note Update
Followup right pulmonary arteriogram shows significant improvement in embolus burden, and improved parenchymal perfusion.
Right main PA pressure 40/16, mean 20, compared to 45/19 (25) last night.
Lysis discontinued, sheath removed. OK to resume therapeutic heparin at 3 pm (2 hours after sheath removal). Bedrest for 2 hours.
[2024-10-24] MEDS: ZOFRAN 4 MG IV ×2 (14:04→23:22)
--- NOTE | 2024-10-24 14:08 | PTCARENOTE ---
IRAD-patient noted to projectile vomit in transit back to ICU while laying flat. patient able to protect airway. suction initiated. emesis appears brown and coffee ground like. patient did c/o pain 01/28 to middle upper back which resolved with
repositioning in bed previously. right groin venous access remains intact. Dr. Pimentel called to bedside to eval. new orders rec'd. updated mollie in ICU.
[2024-10-24] MEDS: PROTONIX 100 IV ×2 (14:34→23:29)
[2024-10-24] MEDS: NSS 250 IV (14:39)
--- NOTE | 2024-10-24 14:52 | CON.GI ---
Addendum entered and electronically signed by Wen Rahman MD 10/24/24 16:35:
I saw and examined the patient.
The ELECTRICAL SUPERINTENDENT or PA's note was reviewed and I agree with the note.
Comment:
This patient is a 73-year-old woman with a history of bdc-dduybbq-jqyztobrm diabetes, hypertension, asthma who had been noticing 5 months of increasing abdominal and lower extremity swelling. She was admitted for shortness of breath and
lightheadedness and found to have a PE. She did have thrombolysis and subsequently had several episodes of hematemesis which then subsequently stopped. Imaging does show ascites. She never had an upper endoscopy but has had intermittent GERD.
She has had a colonoscopy although over a decade ago.
tachypneic
abd: tense likely ascites
le edema
normal platelets, coags
plan:
1. Right upper quadrant ultrasound with Dopplers
2. Likely will need paracentesis and if so we will need a full workup. She does not have a history of liver disease and I do question if this is malignant ascites.
3. PPI drip and octreotide drip for now
4. She will need an endoscopy but it will likely be based on timing with other issues. She is tachypneic from both the PE and from her ascites and we will monitor for appropriate timing.
5. Check hep panel
Original Note:
Consultation
-
Date/Time Consultation Requested: 10/24/25 1400
Date/Time Consultation Performed: 10/24/24 1450
Requesting Provider: Boo Pimentel DO
Performing Provider: SHUKRI Ku
Reason for Consultation: GI bleeding
Medical History
Chief Complaint / HPI
Chief Complaint: GI bleed
History of Present Illness:
Pt is a 73yo with hx asthma, HTN, hypercholesterolemia, CKD, NIDDM, colon polyps, obesity, LE edema with onset of shortness of breath and lightheadedness. On admission concern CT chest with concern for PE with significantly enlarged right
ventricle and right atrium with right heart strain-- also noted large amount of ascites within visualized abdomen and b/l SQ edema in abdominal wall. She completed thrombolysis from 10/23 til 10/24 with improvement embolus burden and noted with nausea
then vomited large amount of coffee ground emesis. On admission noted with hbg 11.7 with drop after admission with continued heparin gtt with PE. No hx GI bleeding in past or known liver disease. She does admits to recent increased abdominal
girth and LE edema over last few months. She was seen in ER a few weeks ago and placed in rehab due to weakness. She admit to ETOH use years ago, fatty liver, or prior liver disease. No NSAID or anticoagulation use prior to admission. INR,
Platelets, and LFT's stable on admission.
She still has some shortness of breath but slight improvement since admission. She has chronic GERD with Pepcid use prior to admission and dysphagia with occasional feeling of food sticking in mid esophagus. She has some right sided pain
similar to GB attacks but has had prior yandel. + constipation controlled with diet but no diarrhea or rectal bleeding. No prior EGD but hx colonoscopy 13 years ago with polyps
Past Medical History
Past Medical History: Asthma, HTN, Hypercholesterolemia, NIDDM, Renal Failure (CKD) and Other (obesity, LE edema )
Past Surgical History: Cholecystectomy
Social History
Tobacco: Non-Smoker
Alcohol: Former (many years ago)
Drug: None
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
Employment: Retired
Family History
Family History: Other (no family hx colon CA or polyps, no family hx liver problems)
Allergies / Home Medications
Allergy/AdvReac Type Severity Reaction Status Date / Time
codeine Allergy Nausea / Verified 10/23/24 16:52
Vomiting
meperidine [From Demerol] Allergy Unknown Verified 10/23/24 16:52
Phenothiazines Allergy Unknown Verified 10/23/24 16:52
Sulfa (Sulfonamide Allergy Unknown Verified 10/23/24 18:03
Antibiotics)
�Medication �Instructions �Recorded
cyanocobalamin (vitamin B-12) 1,500 mcg PO Q48H Supplement 09/22/16
1,000 mcg tablet
pantoprazole 40 mg tablet,delayed 40 mg PO DAILY #30 tabs 09/27/16
release
acetaminophen 325 mg tablet 650 mg PO HSPRN PRN MILD PAIN 10/23/24
acetaminophen 325 mg tablet 650 mg PO Q4HPRN PRN fever >100 10/23/24
acetaminophen 650 mg 1,300 mg PO DAILY Pain 10/23/24
tablet,extended release
albuterol sulfate 90 mcg/actuation 1 inh inhalation R DAILYPRN PRN 10/23/24
aerosol inhaler sob/wheezing
bisacodyl 10 mg rectal suppository 10 mg NH DAILY PRN mom ineffective 10/23/24
on day 5 of no bm
bupropion HCl 300 mg 24 hr tablet, 300 mg PO DAILY Mental 10/23/24
extended release (Wellbutrin XL) Health/Anxiety
furosemide 20 mg tablet 20 mg PO DAILY Electrolyte 10/23/24
Repletion
lisinopril 20 mg tablet 20 mg PO BID Blood Pressure 10/23/24
magnesium hydroxide 400 mg/5 mL 2,400 mg PO DAILYPRN PRN no bm in 10/23/24
oral suspension (Milk of Magnesia) 4 days
metoprolol tartrate 25 mg tablet 25 mg PO ONCE tachycardia 10/23/24
miconazole nitrate 2 % topical 1 applic topical BID Skin Issues 10/23/24
cream
polyethylene glycol 3350 17 gram 17 g PO DAILY Gastrointestinal 10/23/24
oral powder packet (Miralax) Issue
simethicone 80 mg chewable tablet 80 mg PO TID Gastrointestinal Issue 10/23/24
sodium phosphates 19 gram-7 118 ml NH DAILYPRN PRN bisacodyl 10/23/24
gram/118 mL enema (Fleet Enema) supp ineffective on day 6 of no bm
triamterene 75 1 tab PO DAILY Blood Pressure 10/23/24
mg-hydrochlorothiazide 50 mg tablet
Review of Systems
-
History Source: Patient
Constitutional: Reports Chills (at night )
EENT: Reports No Symptoms
Respiratory: Reports Trouble Breathing
Cardiac: Reports No Symptoms
Abdomen/GI: Reports Abdominal Pain (right sided ), Nausea, Vomiting (coffee grounds ), Constipated and Other (increased abdominal girth )
: Reports No Symptoms
Musculoskeletal: Reports No Symptoms
Neurological: Reports Dizzy and Weakness
Endocrine: Reports No Symptoms
Hematologic/Lymphatic: Reports Bleeding
Vital Signs
Temp Pulse Resp BP Pulse Ox
98.7 F 100 18 101/64 99
10/24/24 11:50 10/24/24 13:33 10/24/24 13:33 10/24/24 13:33 10/24/24 13:33
Physical Exam
Exam
General: Other (awake and alert -- some shortness of breath with movement )
HEENT: Normocephalic and Anicteric
Respiratory: Other (decreased )
Cardiac: Regular Rhythm and Peripheral Edema
GI: Soft, Tender (minimal right sided pain ) and Distended
Musculoskeletal: No Clubbing and No Cyanosis
Skin: Warm and Dry
Neuro: Awake, Alert and AO x 3
Psych: Calm
Results
WBC 11.6 10^3/uL (4.8-10.8) H 10/24/24 10:27
Hgb 9.8 g/dL (12.0-16.0) L 10/24/24 10:27
Hct 30.9 % (37.0-47.0) L 10/24/24 10:27
MCV 82.4 fL (81.0-99.0) 10/24/24 10:27
Plt Count 358 10^3/uL (130-400) 10/24/24 10:27
Absolute Neuts (auto) 9.9 10^3/uL (1.4-6.5) H 10/23/24 16:51
PT 15.4 Sec (11.4-14.6) H 10/24/24 10:27
INR 1.16 10/24/24 10:27
APTT 30.0 Sec (23.4-35.0) 10/24/24 10:27
Sodium 132 mmol/L (135-145) L 10/24/24 10:27
Potassium 4.9 mmol/L (3.5-5.1) 10/24/24 10:27
Chloride 101 mmol/L (98-107) 10/24/24 10:27
Carbon Dioxide 24 mmol/L (22-30) 10/24/24 10:27
BUN 57 mg/dl (7-17) H 10/24/24 10:27
Creatinine 1.9 mg/dL (0.6-1.0) H 10/24/24 10:27
Calcium 9.0 mg/dl (8.4-10.2) 10/24/24 10:27
Total Bilirubin 0.8 mg/dl (0.2-1.3) 10/24/24 04:11
AST 16 U/L (14-36) 10/24/24 04:11
ALT < 10 U/L (0-35) 10/24/24 04:11
Alkaline Phosphatase 86 U/L (38-126) 10/24/24 04:11
Diagnostic Image Results:
10/23/24 CT Chest PE Study
IMPRESSION: Examination is positive for pulmonary embolism as described.
Significant enlargement of the right ventricle and right atrium compatible with right heart strain.
Dr. Garcia aware of this finding.
Small left pleural effusion.
Large amount of ascites within the visualized abdomen. Bilateral subcutaneous edema, greater in the abdominal wall compared to the chest wall, and left greater than right.
Small focus of linear atelectasis in the left lower lung. The lungs appear otherwise clear. Cardiac silhouette and vascular markings appear within normal limits.
Prior GI Procedures:
EGD: none
Colonoscopy: 13 years ago with polyps
Assessment / Plan
-
Pt is a 73yo with hx asthma, HTN, hypercholesterolemia, CKD, NIDDM, colon polyp, obesity, LE edema with onset of shortness of breath and lightheadedness. On admission concern CT chest with concern for PE with significantly enlarged right ventricle
and right atrium with right heart strain-- also noted large amount of ascites within visualized abdomen and b/l SQ edema in abdominal wall. She completed thrombolysis from 10/23 til 10/24 with improvement embolus burden and noted with nausea then
vomited large amount of coffee ground emesis. On admission noted with hbg 11.7 with drop after admission with continued heparin gtt with PE. No hx GI bleeding in past or known liver disease. She does admits to recent increased abdominal girth
and LE edema over last few months. She was seen in ER a few weeks ago and placed in rehab due to weakness. She admit to ETOH use years ago, fatty liver, or prior liver disease. No NSAID or anticoagulation use prior to admission. INR,
Platelets, and LFT's stable on admission.
-PE with right ventricular strain, right atrium and right heart strain with shock on admission
-coffee ground emesis
-recent onset LE edema and ascites
-anemia
-hyponatremia
-elevated troponin
-leukocytosis
-hypoalbuminemia
-hyperglycemia
-dypshagia
other medical problems:
-colon polyps
-HTN
-asthma
--CKD
-NIDDM
-obesity
PLAN:
etiology of coffee ground related to gastritis, PUD vs with new ascites concern for underlying malignant process, cirrrhosis - some hypoalbuminemia but normal LFT,INR and platelets
NPO
cont PPI gtt
add octeotide gtt
check US abd with doppler to eval for PVT
will likely need para when US reviewed
add hepatitis panel in AM
trend hbg transfuse as needed
to restart heparin now with close monitor with large PE
plan for tentative EGD in AM if resp status allow- heparin hold at 7am
eventual CT to eval for occult process
monitor swallowing with hx chronic dysphagia
-
-
Thank you for consultation and allowing me to participate in the patient's care. Please call the circulation analyst GI physician during the after hours with any questions or concerns.
--- NOTE | 2024-10-24 15:17 | CM ---
CM following re: discharge planning.
Reviewed pt's chart, met with pt and spoke to pt's daughter Bita over the phone.
Pt is a 73 year old female, admitted with primary dx of Massive PE.
Per daughter, pt lives alone in an apartment 1st floor, no steps, has 4 children. Pt's daughter reports that pt ambulated with a walker, was placed from ED 3 weeks ago to [facility] for a short term rehab. Pt is admitted to from [facility]
SNF. Pt's daughter expressed to me her fears regarding bed hold at [facility]. Bed hold policies in a SNF explained to pt's daughter in details and she expressed her understanding. Pt's daughter stated she cannot afford to pay for bed hold.
Pt's daughter stated that pt might not be able to return back to her apartment and none of her children are able to help or bring her to their houses. per daughter, it is a possibility that her mother might be in a senior care for a long term care administrator care
if she will not regain her independent status. Pt's daughter expressed her desire that her mother can return back to [facility]. CM spoke to [facility] administrative services director and she stated that pt might be able to return back to [facility] based
on clinical and bed availability on the day of discharge. CM discussed with t's daughter other options of a SNFs that can offer a jail care if needed. Pt's daughter stated she will talk to her mother.
PCP: [facility].
Pharmacy: [facility] [place].
D/C plan: preferred SNF.
CM will follow with discharge plan updates as hospitalization progresses
--- NOTE | 2024-10-24 15:18 | WOUNDNOTE ---
[facility] RN note: Patient admitted with PE's and shock. Patient transferred from [facility].
See H&P for complete history.
PMH: Diabetes, HTN, morbid obesity, CKD 3, bilateral LE lymphedema, ambulatory dysfunction. Patient follows with wound care at [facility] for left LE venous wound.
Wound Location and type/assessment: Patient admitted with Coflex to left LE applied last week. Coflex removed by this race and sports book writer and leg cleaned. Patient has small scabbed area on anterior left leg. Right medial leg with patch of dry skin and redness.
Patient stated she has been to lymphedema clinic and is awaiting pumps. Scattered areas of MASD noted in right groin. Sacrum and heels are intact. Polanco device indentions noted in thighs. Patient states she transfers with assist of 2 to wheelchair
daily.
Appetite: NPO, vomiting earlier today
Pressure redistribution devices in place: Centrella Max Air. Patient does not want to be changed to a bariatric or wide bed and states she is comfortable. Staff will continue to assess bed appropriateness of bed and can contact bed tech or house
keeping for wide bed. Plan discussed with MICHELLE Javed.
Plan: Awaiting vascular studies at this time. Will continue to follow for compression needs. Left leg wound wrapped with absorptive pad. Adhesive foam applied to medial thighs to protect from polanco device. Staff to apply Calazime to open areas of
MASD of right groin. Will confirm orders with hospitalist and update nurse. Updated care plan and will follow as needed.
Note to case management of equipment requested for discharge:
Recommend follow up at wound care center upon discharge.
[2024-10-24] MEDS: HEPARIN 25000 UNITS/250 ML IV (15:37)
--- NOTE | 2024-10-24 15:39 | WOUNDNOTE ---
RIGHT LOWER LEG
--- NOTE | 2024-10-24 15:40 | WOUNDNOTE ---
LEFT LEG WOUND
[2024-10-24] MEDS: NSS 1000 IV (15:44)
[2024-10-24] MEDS: SANDOSTATIN 500.6 MCG IV (16:15)
[2024-10-24 16:37] LABS: Hematocrit 30.8 % (37.0-47.0); Hemoglobin 9.9 g/dL (12.0-16.0); Mean Corp Hgb Conc. 32.1 g/dL (33.0-37.0); Mean Corpuscular Hgb 26.5 pg (27.0-31.0); Mean Corpuscular Volume 82.4 fL (81.0-99.0); Mean Platelet Volume 8.8 fL (7.4-10.4); Platelet Count 356 10^3/uL (130-400); Red Blood Cell Count 3.74 10^6/uL (4.20-5.40); Red Cell Dist. Width 14.3 % (11.5-14.5)
--- NOTE | 2024-10-24 16:37 | PTCARENOTE ---
arrived in IR to collect patient and get report approx 1415, pt had vomited, coffee ground, 'projectile', most of bed saturated. pt pale, still c/o nausea, med wtih zofran in department prior to transfer, back to ICU. settled in room, complete
bath and linen change, incont brown/del rio BM, heme neg. positioned for comfort. notes back pain continues but not increasing. at 1500, HOB up mildly per orders, groin checks in progress and WNL, soft, dressing with pale fluid not blood, no
hematoma. protonix gtt see MAR. GI here, MEDICAL LABORATORY ASSISTANT then MD, long discussion. Order noted to hold heparin in am. sandostatin hung per order. heparin infusing. rest of assessment as noted, no change. feeling better, back pain improving. Wound care
here to eval lower extrem. still awaiting US.
[2024-10-24 16:59] LABS: Blood Urea Nitrogen 61 mg/dl (7-17); Calcium 9.1 mg/dl (8.4-10.2); Carbon Dioxide 21 mmol/L (22-30); Chloride 100 mmol/L (98-107); Estimated Creatinine Clearance 42 ml/min; Glucose 118 mg/dl (70-99); Sodium 130 mmol/L (135-145); eGFR 29.57
--- NOTE | 2024-10-24 18:00 | PTCARENOTE ---
no change, I/O collected, awaiting US. family visiting. VS noted. vascular checks continue, soft groin, edematous bilat. gtts as noted. resting unless disturbed.
--- NOTE | 2024-10-24 20:00 | PTCARENOTE ---
Received pt from previous shift. Systems reviewed, see flowsheets. Ultrasound in the room. Pt is AAOx3, feeling very tired, denying pain. On monitor, NSR 80s with 1st degree HB, PVCs, PACs. SaO2 94-97% on 2L NC. Difficulty getting accurate pulse ox
at times. Pt denies SOB. Weak pedal pulses heard with doppler. +4 b/l LE lymphedema. Large obsese abdomen with hernia, firm, distended, and positive BS. Temp sensing polanco in place draining clear yellow urine. R fem access site CDI. Will do LLE
wound care when US is done. Will continue to monitor.
[2024-10-24 22:40] LABS: APTT 109.2 Sec (23.4-35.0)
[2024-10-24 22:50] LABS: PT 15.8 Sec (11.4-14.6)
--- NOTE | 2024-10-24 23:00 | PTCARENOTE ---
Overnight, Sher Gordillo, provider notified of change in pt's rhythm on heart montior. EKG obtained and gave results to Sher, who reached out to cardiology. BP began to dip to 80s/40s, but back up to 99/55. Levo orders for MAP<65 if pt dips
again. UOP has decreased, initially at about 7mL/hr, now at 0. Temp sensing polanco revealing temp of 100.8. Holding off on blood cultures for now per provider. Fluids changed to LR. Will draw trops, per provider.
[2024-10-24 23:50] LABS: Troponin I 0.452 ng/ml
[2024-10-25] VITALS (56 sets, daily range): BP systolic 84–135; BP diastolic 48–68; BMI 59.2; BMI 57.1
[2024-10-25] MEDS: LEVOPHED 250 IV ×2 (03:09→08:50)
--- NOTE | 2024-10-25 04:00 | PTCARENOTE ---
Systems reviewed. Wheezes noted. Levophed gtt started for MAP of 58. UOP remains <5mL/hr. Sher Gordillo aware.
[2024-10-25 04:16] LABS: Hematocrit 26.9 % (37.0-47.0); Hemoglobin 8.5 g/dL (12.0-16.0); Mean Corp Hgb Conc. 31.6 g/dL (33.0-37.0); Mean Corpuscular Hgb 26.5 pg (27.0-31.0); Mean Corpuscular Volume 83.8 fL (81.0-99.0); Mean Platelet Volume 8.9 fL (7.4-10.4); Platelet Count 333 10^3/uL (130-400); Red Blood Cell Count 3.21 10^6/uL (4.20-5.40); Red Cell Dist. Width 14.3 % (11.5-14.5); White Blood Cell Count 11.5 10^3/uL (4.8-10.8)
[2024-10-25] MEDS: HEPARIN 25000 UNITS/250 ML IV (04:20)
[2024-10-25 04:36] LABS: INR 1.27; PT 16.4 Sec (11.4-14.6)
[2024-10-25 04:39] LABS: APTT 126.9 Sec (23.4-35.0)
[2024-10-25] MEDS: SANDOSTATIN 500.6 MCG IV (04:55)
[2024-10-25 05:37] LABS: Blood Urea Nitrogen 63 mg/dl (7-17); Calcium 8.8 mg/dl (8.4-10.2); Carbon Dioxide 17 mmol/L (22-30); Chloride 101 mmol/L (98-107); Estimated Creatinine Clearance 35 ml/min; Glucose 129 mg/dl (70-99); Sodium 132 mmol/L (135-145); eGFR 23.24
[2024-10-25 06:12] LABS: Hepatitis B Surface Antigen Negative (Negative)
[2024-10-25 06:29] LABS: Hepatitis A Antibody, Total Negative (Negative); Hepatitis B Core Ab, Total Negative (Negative); Hepatitis B Surface Antibody Negative; Hepatitis C Antibody Negative (Negative)
--- NOTE | 2024-10-25 08:01 | W.PN.HOSP.TC ---
Addendum entered and electronically signed by Boo Pimentel DO 10/25/24 14:51:
Acute Pulmonary embolism with Acute Cor pulmonale
Addendum entered and electronically signed by Boo Pimentel DO 10/25/24 08:32:
IR consult for paracentesis today prior to EGD. Discussed with GI and IR services. Fluid studies ordered.
Daughter Nelsy updated regarding plan of care. All questions answered.
Original Note:
Today's Communication/Plan
-
Consult nephrology
Check UA
Await EGD
Monitor hemoglobin
Assessment / Plan
Assessment / Plan
Gen-AAOx3, NAD, super morbid obesity
HEENT-NC, AT, anicteric, clear oral mm
Neck-supple
CV-reg, no M, +S1/S2
Lungs-clear B/L
Abd-soft, distended, positive fluid wave, nontender
Ext-no edema
Musculoskeletal-no cyanosis, clubbing
Skin-warm and dry
Neuro-grossly non-focal
Psych-calm, cooperative
Shock -suspect obstructive shock due to acute large bilateral pulmonary emboli. New onset of fevers last evening, 3/6. Technically meets criteria for sepsis but looks nontoxic. Blood culture sent in the emergency room are negative. She has no
urinary symptoms but states that she does not get symptoms with UTI. Urinalysis sent. Hold antibiotics for now.
She was put back on low-dose Levophed at 2 mcg/min.
Hemodynamically unstable acute bilateral PE -CT PE reviewed, no saddle PE noted but does have acute bilateral pulmonary embolism involving majority of both pulmonary arteries.
Significant RV and RA enlargement with right heart strain noted on CT. Troponin elevation noted. BNP is suppressed as would be expected with morbid obesity.
Received alteplase via catheter directed thrombolysis. IV heparin.
Denies history of pulmonary embolism. Lower extremity venous Doppler ultrasound was a limited exam and from what could be seen there was no evidence of DVT.
Risk factors are morbid obesity and limited mobility. Denies history of malignancy.
May need IVC filter given new onset GI bleed, acute blood loss anemia.
Acute on chronic normocytic anemia -hemoglobin down to 8.5 this morning. Concern for acute blood loss anemia due to GI bleed given coffee-ground emesis 10/25. GI consulted. N.p.o. awaiting EGD today. Discussed transfusion with patient and obtained
verbal and written consent.
Abdominal ascites -large ascites noted on CT chest as well as ultrasound. Portal veins and hepatic veins are patent. No liver lesions noted, however study was limited. Will need diagnostic and therapeutic paracentesis when able.
Troponin elevation -suspect acute nonischemic myocardial injury due to large hemodynamically unstable pulmonary embolism.
Left adnexal cyst -chronic. Noted on last CT abdomen/pelvis in 2020, measuring 10 cm in the left adnexa. Previously 6 cm in 2017. Patient has not followed up and states that she has not had any procedures done on the cyst.
Essential hypertension -hold medications for shock. Was on furosemide, lisinopril, metoprolol, Dyazide prior to admission.
Asthma without exacerbation -stable. Suspect mild intermittent asthma.
Hyperlipidemia
Hyponatremia -would permanently discontinue hydrochlorothiazide. Monitor sodium.
Hyperkalemia -potassium improved. Hold CATERINA inhibitor, triamterene.
Impaired fasting glucose -hemoglobin A1c 5.8%. Weight loss is the mckee.
Hyperphosphatemia -monitor for now.
Bilateral lower extremity lymphedema
FELIBERTO on CKD 3B -weight is up 3 kg reportedly if accurate. Bullock catheter in place. Etiology of FELIBERTO likely multifactorial including shock with hypotension, contrast exposure, etc. Consult nephrology. Ideally needs to start IV Lasix given
significant volume overload as well as ascites.
Metabolic acidosis noted, anion gap 14.
Ambulatory dysfunction -lives independently but has been staying at [facility] for the past few weeks for physical therapy.
Super morbid obesity
Full code
Anticipated Discharge: > 48 hours
Subjective/Interval History
-
Date of Service: October 25, 2024
Patient seen and examined. No complaints.
Objective Data
-
Labs:
Laboratory Results
10/24/24 10/24/24 10/25/24
18:00 22:10 03:55
WBC 11.5 H
Hgb 8.5 L
Hct 26.9 L
Plt Count 333
PT Cancelled 15.8 H 16.4 H
INR Cancelled 1.20 1.27
APTT 109.2 H 126.9 H
Sodium 132 L
Potassium 5.0
Chloride 101
Carbon Dioxide 17 L
BUN 63 H
Creatinine 2.2 H
Glucose 129 H
Calcium 8.8
Vital Signs:
Vital Signs
Temp Pulse Resp BP Pulse Ox
99.6 F 90 20 101/67 96
10/25/24 07:55 10/25/24 06:30 10/25/24 06:30 10/25/24 06:30 10/25/24 06:30
I&O
10/24/24 10/25/24 10/26/24
06:59 06:59 06:59
Intake Total 1246.6 / 1425.6 3556.9 / 3736.1 179.2 / 179.2
Output Total 135 / 135 370 / 377 7 / 7
Balance 1111.6 / 1290.6 3186.9 / 3359.1 172.2 / 172.2
Review of Systems
-
History Source: Patient
All other systems: Reviewed and negative
[2024-10-25] MEDS: WELLBUTRIN XL (24 hour extended release) 300 MG PO (08:23)
[2024-10-25] MEDS: MIRALAX PO (08:23)
[2024-10-25] MEDS: HYDROPHOR 1 APPLIC TOPICAL (08:24)
--- NOTE | 2024-10-25 08:39 | W.PN.CD ---
Today's Communication / Plan
-
Norepi for goal MAP >65
Cardiology will sign off at this time. Please call with additional questions or concerns.
Impression / Plan
-
73-year-old resident at [facility] with history of hypertension hypercholesterolemia, diabetes, CKD obesity, lymphedema who presented with acute bilateral PE and obstructive shock, s/p thrombolysis with course complicated by hematemesis and
anemia.
.
Acute PE with obstructive shock
- presented with SOB, hypoxemia, CP and hypotension
- large burden bilat PE
- Dilated hypokinetic RV on echo
- catheter directed lytic therapy by IR 10/23/24-10/24/24
- Continue pressors for goal MAP >65
- Critical care following
Hematemesis
- GI consulted for EGD
- Trend hgb on heparin
Elevated troponin - peak 0.7
-consistent with non-OK troponin related to PE
FELIBERTO on CKD
- nephrology consulted
acute on chronic anemia
- EGD as above
DM
Hypercholesterolemia
Obesity
Subjective: Patient feels improved compared to prior to admission. She remains on norepinephrine at 2. There was concern for paroxysmal atrial fibrillation overnight, but on review of telemetry she was in sinus rhythm with frequent ectopy.
Physical Exam
Vital Signs/Labs
Vital Signs
Temp Pulse Resp BP Pulse Ox
99.6 F 90 20 101/67 96
10/25/24 07:55 10/25/24 06:30 10/25/24 06:30 10/25/24 06:30 10/25/24 06:30
10/24/24 10/25/24 10/26/24
06:59 06:59 06:59
Actual Weight 153.1 kg 156.3 kg
10/25/24 03:55
PT 16.4 Sec (11.4-14.6) H 10/25/24 03:55
INR 1.27 10/25/24 03:55
APTT 126.9 Sec (23.4-35.0) H 10/25/24 03:55
Magnesium 2.1 mg/dl (1.6-2.3) 10/23/24 16:51
10/23/24
16:51
Czu-I-Htbmmeglpoc Pept 286
LAB Results
10/23/24 10/24/24 10/24/24
16:51 01:21 04:11
Troponin I 0.404 H* 0.705 H* 0.635 H*
10/24/24 10/24/24
10:27 23:07
Troponin I 0.486 H* 0.452 H*
Physical Exam
Constitutional: No acute distress and Comfortable
Cardiovascular: Rhythm & rate is regular, Pedal edema present and Murmur/rub/gallop absent
Respiratory: Respiratory effort normal
Data Reviewed
-
Date of Service: October 25, 2024
Medical Decision Making: Reviewed Test Results, Independent Historian Assessment, Test Interpretation and Review of Case with other Provider
EKG: Tracing Personally Visualized and interpreted
Echo: Report Reviewed by me
X-Ray/CT/US/MRI/NUC/PET: Report Reviewed by me
Labs: Labs Reviewed by me
[2024-10-25] MEDS: PROTONIX 100 IV ×2 (08:49→18:03)
[2024-10-25] MEDS: LR 1000 IV (08:50)
--- NOTE | 2024-10-25 08:52 | W.PN.INTV ---
Today's Communication / Plan
Recommendations
- Patient appears volume overloaded, DC IV fluids
-Chest x-ray to evaluate for any pulmonary congestion
-Monitor input and output closely
Assessment
-
#1. Acute bilateral pulmonary embolism with obstructive shock.
-PERT team activated, patient s/p catheter directed thrombolysis with tPA and heparin infusing
-Levophed has since been weaned off and patient is hemodynamically stable
-Repeat angiogram performed, 10/24, sheath has since been removed, tPA discontinued.
-Suspect it is an unprovoked pulmonary embolism and likely will need long-term anticoagulation.
-Continue close monitoring in the ICU
-Avoid additional IV fluids as patient already edematous and has right ventricular strain, will DC maintenance IV fluids
#2. FELIBERTO with underlying CKD 3.
-Suspect ATN related to hypotension
-Monitor labs closely, nephrology consult
-Avoid exposure to contrast, NSAIDs, CATERINA inhibitors etc.
#3. Large volume ascites, incidentally noted
-Albumin is slightly decreased at 3.0
-S/p large-volume paracentesis today, await fluid studies, cytologies and cultures
#4. Suspect upper GI bleed
-Hemoglobin shows slight downtrending
-PPI drip
-Plan for EGD today
-Continue ceftriaxone for SBP prophylaxis considering GI bleed and presence of ascites
#5. ? UTI
-Follow-up on cultures, currently on ceftriaxone
Critical Care time 35 mins -- The patient is admitted for acute critical illness for the treatment of vital organ failure and/or prevention of further life-threatening conditions. Total care includes time spent in review of history, physical exam,
medications, hemodynamic/ventilator parameters, laboratory data, imaging and discussion with house staff, pharmacy, respiratory therapy, scrap kettle tender, and nursing.
Subjective Dataa
Subjective Data
Date of Service:
Date of Service: October 25, 2024
Subjective:
Patient lying in bed in no acute distress. She reports feeling somewhat better after large-volume paracentesis with less abdominal discomfort.
Objective Data
Data Reviewed
Vital Signs / I&O / Oxygen:
Vital Signs
Temp Pulse Resp BP Pulse Ox
99.6 F 90 20 101/67 96
10/25/24 07:55 10/25/24 06:30 10/25/24 06:30 10/25/24 06:30 10/25/24 06:30
Intake and Output
10/24/24 10/25/24 10/26/24
06:59 06:59 06:59
Intake Total 1246.6 / 1425.6 3556.9 / 3736.1 179.2 / 179.2
Output Total 135 / 135 370 / 377 7 / 7
Balance 1111.6 / 1290.6 3186.9 / 3359.1 172.2 / 172.2
SaO2 96
Nasal Cannula flow liters per 2
minute
Physical Exam
General: Comfortable
HEENT: Normocephalic
Cardiovascular: S1-S2 and Peripheral Edema
Respiratory: Clear
GI: Distended (Less distended after 6.5 L ascites tap)
Neurology: Awake
Skin: Warm
Labs/Micro/Reports
Lab Data
10/25/24 03:55
Laboratory Results
10/24/24 10/24/24 10/24/24
10:27 15:14 18:00
PT 15.4 H Cancelled
INR 1.16 Cancelled
APTT 30.0 Cancelled Cancelled
10/24/24 10/25/24
22:10 03:55
PT 15.8 H 16.4 H
INR 1.20 1.27
APTT 109.2 H 126.9 H
Microbiology
10/24/24 01:21 Nose MRSA Screen - Final
No Methicillin Resistant Staphylococcus aureus isolated.
10/23/24 17:47 Blood/Venous Blood Culture - Preliminary
No Growth in 24 hours- Final report to follow
10/23/24 17:17 Blood/Venous Blood Culture - Preliminary
No Growth in 24 hours- Final report to follow
10/23/24 17:17 Nasal Swab Influenza Types A & B ([place]) - Final
Negative for Influenza A & B, NAAT
Negative results must be combined with clinical observations
and patient history.
Nucleic Acid Amplification test (NAAT)performed on the
[employer] platform.
[2024-10-25 09:28] LABS: Urine Albumin 2+ (Neg - Trace); Urine Bilirubin 2+ (Negative); Urine Character Slightly Cloudy (Clear); Urine Color Yellow; Urine Glucose Negative (Negative); Urine Ketone Negative (Negative); Urine Leukocyte 3+ (Negative); Urine Nitrite Negative (Negative); Urine Occult Blood 4+ (Negative); Urine Urobilinogen Negative (Neg - 1+)
--- NOTE | 2024-10-25 09:52 | PTCARENOTE ---
taken to IR for paracentesis at 0940, handoff to IR staff.
[2024-10-25 10:15] LABS: Urine Sodium 23 mmol/L (30-90)
--- NOTE | 2024-10-25 10:38 | PN.CDI ---
CDI
- -
CDI:
Physician Documentation Request
Admit Date: 10/23/24 20:12
Dear Doctor Margarito,
Please review the following and provide your response in the progress notes.
Clinical Indicators:
Pt admitted with Submassive PE /Obstructive shock
Documented per consult 10/24, ' CT PE performed which was suggestive of pulmonary embolism with right heart strain.'
Cardiology note 10/24 , ' large burden bilat PE Dilated hypokinetic RV on echo catheter directed lytic therapy by IR 10/23/24.'
Progress note 10/25, ' Hemodynamically unstable acute bilateral PE -CT PE reviewed, no saddle PE noted but does have acute bilateral pulmonary embolism involving majority of both pulmonary arteries.Significant RV and RA enlargement with right heart
strain noted on CT.'
Based on the above, could you clarify in the progress notes, the appropriate diagnosis, if significant, that supports the above abnormalities and additional evaluation, monitoring and/or treatment rendered:
Acute Pulmonary embolism with Acute Cor pulmonale
Acute Pulmonary embolism WITHOUT Acute Cor Pulmonale
Other ( please specify)
Use of terms such as suspected, likely, concern for, or probable (associated with a specific diagnosis that is being evaluated, monitored, or treated as if it exists) are acceptable and can be coded in the inpatient setting, when documented at the
time of discharge.
Thank you,
Patricia Salazar RN
CDI Specialist
[place] text
Please use your independent medical judgment in providing your response.
--- NOTE | 2024-10-25 10:48 | PTCARENOTE ---
back from IR paracentesis 6500 ml. settled back in ICU room, VS remain stable. Bandaid site to [facility] [[email or web address]] CDI.
[2024-10-25 10:51] LABS: Urine Amorphous Seen
[2024-10-25 10:52] LABS: Urine Red Blood Cell 21-25 /HPF (0-2)
[2024-10-25 10:53] LABS: Urine Bacteria Many (Negative); Urine White Cell 60-70 /HPF (0-5)
[2024-10-25 12:01] LABS: Body Fluid Mononuclear 58.1 %; Body Fluid Polymorphonuclear 41.9 %; Body Fluid WBC 308 /CUMM
[2024-10-25 12:08] LABS: Body Fluid Albumin 2.1 g/dl; Body Fluid LDH 143 U/L; Body Fluid Protein 4.2 g/dl
[2024-10-25 12:21] LABS: % Basophils 0.1 % (0-2); % Eosinophils 1.5 % (0-6); % Immature Granulocytes 0.7 % (0-0.5); % Lymphocytes 5.1 % (20.5-51.1); % Monocytes 9.7 % (1.7-9.3); % Neutrophils 82.9 % (42.2-75.2); Absolute Eosinophils 0.1 10^3/uL (0-0.7); Absolute Immature Granulocytes 0.1 10^3/uL (0-0.05); Absolute Lymphocytes 0.5 10^3/uL (1.2-3.4); Absolute Monocytes 0.9 10^3/uL (0.1-0.6); Absolute Neutrophils 7.3 10^3/uL (1.4-6.5); Hematocrit 26.2 % (37.0-47.0); Hemoglobin 8.3 g/dL (12.0-16.0); Mean Corp Hgb Conc. 31.7 g/dL (33.0-37.0); Mean Corpuscular Hgb 26.3 pg (27.0-31.0); Mean Corpuscular Volume 82.9 fL (81.0-99.0); Mean Platelet Volume 8.9 fL (7.4-10.4); Nucleated Red Blood Cells % 0 %; Platelet Count 353 10^3/uL (130-400); Red Blood Cell Count 3.16 10^6/uL (4.20-5.40); Red Cell Dist. Width 14.4 % (11.5-14.5); White Blood Cell Count 8.8 10^3/uL (4.8-10.8)
[2024-10-25] MEDS: FLEXBUMIN 100 IV ×2 (12:25→20:59)
[2024-10-25 12:33] LABS: Body Fluid Second Tech AMA
--- NOTE | 2024-10-25 12:48 | W.CON.NEPH ---
Consultation
-
Date/Time Consultation Requested: 10/25/24 1159
Date/Time Consultation Performed: 10/25/24 1255
Requesting Provider: Fransisco Michel
Performing Provider: Natividad Barrios
Reason for Consultation: FELIBERTO
Medical History
-
Chief Complaint: CP
History of Present Illness:
73-year-old female with past medical history significant for chronic bilateral lower extremity edema/lymphedema on lasix, chronic pain, morbid obesity, hypertension on BB, HCTZ, triamterene, lisnopril, history of Pseudomonas infection,chr resp
failure reactive airways not on home O2, type 2 diabetes, CKD3[address] Dr James baseline 1.2-1.4 presenting to the emergency department from rehab facility([facility] for last 3weeks) on 10/23 with acute episode of chest pain and shortness of breath.
She noted to have large PE with right heart strain on CTA. She also was hypotension on pressors. She had lytic therapy by IR on 10/23 and 10/24. However she now has UGIB hematemesis with hb of 8.3 decreasing trend, heparin gtt held. Pt also had
paracentesis today of 6.5lit and plan of EGD. Her cr on admit was at 1.8 but now increasing upto 2.2 with decreased UOP hence nephrology consulted. She offers no active CP or sob at rest. No diarrhea.
Past Medical History
Asthma, HTN, Hypercholesterolemia, NIDDM, CKD, Morbid obesity
Social History
Tobacco: Non-Smoker
Alcohol: None
Drug: None
Family History
Family History: Not Pertinent
Allergies / Home Medications
Allergy/AdvReac Type Severity Reaction Status Date / Time
codeine Allergy Nausea / Verified 10/23/24 16:52
Vomiting
meperidine [From Demerol] Allergy Unknown Verified 10/23/24 16:52
Phenothiazines Allergy Unknown Verified 10/23/24 16:52
Sulfa (Sulfonamide Allergy Unknown Verified 10/23/24 18:03
Antibiotics)
�Medication �Instructions �Recorded �Confirmed �Type
cyanocobalamin (vitamin B-12) 1,500 mcg PO Q48H Supplement 09/22/16 10/23/24 History
1,000 mcg tablet
pantoprazole 40 mg tablet,delayed 40 mg PO DAILY #30 tabs 09/27/16 10/23/24 Rx
release
acetaminophen 325 mg tablet 650 mg PO HSPRN PRN MILD PAIN 10/23/24 10/23/24 History
acetaminophen 325 mg tablet 650 mg PO Q4HPRN PRN fever >100 10/23/24 10/23/24 History
acetaminophen 650 mg 1,300 mg PO DAILY Pain 10/23/24 10/23/24 History
tablet,extended release
albuterol sulfate 90 mcg/actuation 1 inh inhalation R DAILYPRN PRN 10/23/24 10/23/24 History
aerosol inhaler sob/wheezing
bisacodyl 10 mg rectal suppository 10 mg NV DAILY PRN mom ineffective 10/23/24 10/23/24 History
on day 5 of no bm
bupropion HCl 300 mg 24 hr tablet, 300 mg PO DAILY Mental 10/23/24 10/23/24 History
extended release (Wellbutrin XL) Health/Anxiety
furosemide 20 mg tablet 20 mg PO DAILY Electrolyte 10/23/24 10/23/24 History
Repletion
lisinopril 20 mg tablet 20 mg PO BID Blood Pressure 10/23/24 10/23/24 History
magnesium hydroxide 400 mg/5 mL 2,400 mg PO DAILYPRN PRN no bm in 10/23/24 10/23/24 History
oral suspension (Milk of Magnesia) 4 days
metoprolol tartrate 25 mg tablet 25 mg PO ONCE tachycardia 10/23/24 10/23/24 History
miconazole nitrate 2 % topical 1 applic topical BID Skin Issues 10/23/24 10/23/24 History
cream
polyethylene glycol 3350 17 gram 17 g PO DAILY Gastrointestinal 10/23/24 10/23/24 History
oral powder packet (Miralax) Issue
simethicone 80 mg chewable tablet 80 mg PO TID Gastrointestinal Issue 10/23/24 10/23/24 History
sodium phosphates 19 gram-7 118 ml NV DAILYPRN PRN bisacodyl 10/23/24 10/23/24 History
gram/118 mL enema (Fleet Enema) supp ineffective on day 6 of no bm
triamterene 75 1 tab PO DAILY Blood Pressure 10/23/24 10/23/24 History
mg-hydrochlorothiazide 50 mg tablet
Review of Systems
-
all complete 12 point ROS have been inquired and found negative other than stated in HPI
Physical Exam
Vital Signs
Vital Signs
Temp Pulse Resp BP Pulse Ox
99.4 F 87 15 104/58 95
10/25/24 12:07 10/25/24 10:31 10/25/24 10:31 10/25/24 10:31 10/25/24 10:30
Lab Results
WBC 8.8 10^3/uL (4.8-10.8) 10/25/24 12:00
RBC 3.16 10^6/uL (4.20-5.40) L 10/25/24 12:00
Hgb 8.3 g/dL (12.0-16.0) L 10/25/24 12:00
Hct 26.2 % (37.0-47.0) L 10/25/24 12:00
Plt Count 353 10^3/uL (130-400) 10/25/24 12:00
Sodium 132 mmol/L (135-145) L 10/25/24 03:55
Potassium 5.0 mmol/L (3.5-5.1) 10/25/24 03:55
Chloride 101 mmol/L (98-107) 10/25/24 03:55
Carbon Dioxide 17 mmol/L (22-30) L 10/25/24 03:55
BUN 63 mg/dl (7-17) H 10/25/24 03:55
Creatinine 2.2 mg/dL (0.6-1.0) H 10/25/24 03:55
eGFR 23.24 10/25/24 03:55
Glucose 129 mg/dl (70-99) H 10/25/24 03:55
Calcium 8.8 mg/dl (8.4-10.2) 10/25/24 03:55
Phosphorus 5.3 mg/dl (2.5-4.5) H 10/24/24 04:11
Zwy-R-Ehaophjicdo Pept 286 pg/ml 10/23/24 16:51
Albumin 3.0 g/dl (3.5-5.0) L 10/24/24 04:11
Physical Exam
General: Awake, Alert, Oriented, AOx3 and No Distress
HEENT: Anicteric, Conjunctivae Clear, Ear/Nose Intact, Facial Symmetry, Neck Supple and No JVD
Respiratory: Clear, Normal Excursion and Nonlabored Respirations
Cardiac: S1/S2 and Regular Rate/Rhythm
Breast: Deferred by me
Abdomen: Soft, Nontender, Nondistended and Other (obese)
Musculoskeletal: No Cyanosis and Edema (1+)
Skin: No Rash
Neuro: Nonfocal/Grossly Intact
Psych: Mood/afflect pleasant, Insight/judgement good and Appropriate
Data Reviewed
-
Radiology: Report Reviewed by me, Discussed with Nurse and Discussed with Patient
Labs: Labs Reviewed by me, Discussed with Nurse and Discussed with Patient
Assessment/Plan
-
IMP:
Shock -suspect obstructive shock due to acute large bilateral pulmonary emboli
Acute on chronic normocytic anemia
GI bleed given coffee-ground emesis
FELIBERTO on CKD 3B-baseline cr 1.2-1.4
mild gap met acidosis
Abdominal ascites -s/p paracentesis 6.5lit
Troponin elevation -suspect acute nonischemic myocardial injury
Left adnexal cyst -chronic.
h/o Essential hypertension
Asthma without exacerbation
Hyperlipidemia
Hyponatremia
Hyperkalemia
Impaired fasting glucose -hemoglobin A1c 5.8%.
Hyperphosphatemia
Bilateral lower extremity lymphedema
Ambulatory dysfunction
Super morbid obesity
Plan:
A/w large PE s/p lytic therapy
FELIBERTO-suspect prerenal+contrast (10/23)
FEna low 0.2, UA ?UTI sample
oliguric with polanco
cotn alb course,maintain pressors to keep MAP>65
echo right heart strain and normal EF, BNP is low, ok for IVF if needed
plan EGD per GI, off heparin gtt, on PPI and octreo gtt, prn transfusion
monitor met acidosis, add po bicarb
no emergent indication of HD
d/w pt and nursing
[2024-10-25] MEDS: FLEXBUMIN 50 IV (13:22)
[2024-10-25 13:54] LABS: Urine Protein 28 mg/dl (0-12)
--- NOTE | 2024-10-25 14:02 | CM ---
CM following re: discharge planning.
Discussed in rounds, reviewed pt's chart, met with pt.
Per rounds meeting, paracentesis today, PT/OT to evaluate, continue supportive care.
PT and OT evaluations pending.
D/c plan: preferred SNF. pt admitted from [facility] and per [facility] admissions department they might offer a bed based on pt's clinical and bed availability on the day of discharge. Pt's daughter has a list of SNFs that can offer a long
term care if needed.
CM will follow with discharge plan updates as hospitalization progresses
--- NOTE | 2024-10-25 14:03 | PTCARENOTE ---
to GI lab
[2024-10-25] MEDS: VENTOLIN NEBULES 2.5 MG INH (15:28)
[2024-10-25 15:36] LABS: Albumin 2.6 g/dl (3.5-5.0)
[2024-10-25] MEDS: ROCEPHIN 1000 MG IV (15:56)
[2024-10-25] MEDS: STERILE WATER FOR INJECTION 10 ML IV (15:56)
--- NOTE | 2024-10-25 18:13 | PTCARENOTE ---
eating dinner, tolerating, levophed since EGD at 6 mcg/min, see VS, down to 4 mcg/min. in better spirits.
[2024-10-25] MEDS: SODIUM BICARBONATE 650 MG PO (19:41)
--- NOTE | 2024-10-25 20:00 | PTCARENOTE ---
Patient received in bed, eyes closed, oriented x3. NSR with first degree heart block, PACs, blood pressure as documented. Weak but palpable pedal pulses, +4 pitting pedal edema. Lungs diminished, pulse ox 96 % on 2L. Abdomen obese with positive
bowel sounds, denies nausea. Thermister polanco draining yellow urine. Right groin dressing intact. Left leg dressing intact. #22 g in left hand, #20 g in right forearm flushed and patent. RIJ TLC with Protonix, Heparin and Levophed gtts infusing
as documented. Plan of care discussed, call renae within reach.
[2024-10-25 21:22] LABS: APTT 78.1 Sec (23.4-35.0)
[2024-10-25] MEDS: TYLENOL 650 MG PO (21:54)
[2024-10-26] VITALS (45 sets, daily range): BP systolic 99–134; BP diastolic 45–88; PULSE 79; BMI 57.8
--- NOTE | 2024-10-26 00:30 | PTCARENOTE ---
Patient reassessed, sleeping when not disturbed. Levophed st 2 mcg/min. Urine output as documented. Turned and repositioned
[2024-10-26] MEDS: TYLENOL 650 MG PO (01:49)
[2024-10-26] MEDS: HEPARIN 25000 UNITS/250 ML IV ×2 (04:12→19:29)
[2024-10-26 04:24] LABS: % Immature Granulocytes 1.1 % (0-0.5); % Lymphocytes 7.1 % (20.5-51.1); % Monocytes 10.2 % (1.7-9.3); % Neutrophils 81.6 % (42.2-75.2); Absolute Immature Granulocytes 0.1 10^3/uL (0-0.05); Absolute Lymphocytes 0.4 10^3/uL (1.2-3.4); Absolute Monocytes 0.6 10^3/uL (0.1-0.6); Absolute Neutrophils 4.6 10^3/uL (1.4-6.5); Hematocrit 24.8 % (37.0-47.0); Hemoglobin 7.7 g/dL (12.0-16.0); Mean Corpuscular Hgb 26.1 pg (27.0-31.0); Mean Corpuscular Volume 84.1 fL (81.0-99.0); Mean Platelet Volume 8.8 fL (7.4-10.4); Nucleated Red Blood Cells % 0 %; Platelet Count 348 10^3/uL (130-400); Red Blood Cell Count 2.95 10^6/uL (4.20-5.40); Red Cell Dist. Width 14.4 % (11.5-14.5); White Blood Cell Count 5.7 10^3/uL (4.8-10.8)
--- NOTE | 2024-10-26 04:32 | PTCARENOTE ---
Patient reassessed, no changes noted. labs sent
[2024-10-26 04:39] LABS: APTT 100.9 Sec (23.4-35.0)
[2024-10-26] MEDS: FLEXBUMIN 100 IV ×2 (04:52→14:13)
[2024-10-26] MEDS: PROTONIX 100 IV ×2 (04:52→15:00)
[2024-10-26 05:12] LABS: Blood Urea Nitrogen 66 mg/dl (7-17); Calcium 8.9 mg/dl (8.4-10.2); Carbon Dioxide 16 mmol/L (22-30); Chloride 101 mmol/L (98-107); Estimated Creatinine Clearance 32 ml/min; Glucose 189 mg/dl (70-99); Potassium 5.4 mmol/L (3.5-5.1); Sodium 133 mmol/L (135-145); eGFR 22.03
--- NOTE | 2024-10-26 07:49 | W.PN.HOSP.TC ---
Today's Communication/Plan
-
Transfuse
Lokelma
Increase sodium bicarbonate
Acapella, I-S
Continue IV heparin
Continue IV Protonix
Assessment / Plan
Assessment / Plan
Gen-AAOx3, NAD, super morbid obesity
HEENT-NC, AT, anicteric, clear oral mm
Neck-supple
CV-reg, no M, +S1/S2
Lungs-clear B/L
Abd-soft, distended, positive fluid wave, nontender
Ext-no edema
Musculoskeletal-no cyanosis, clubbing
Skin-warm and dry
Neuro-grossly non-focal
Psych-calm, cooperative
Shock -suspect obstructive shock due to acute large bilateral pulmonary emboli. New onset of fevers last evening, 10/24. Technically meets criteria for sepsis but looks nontoxic. Blood culture sent in the emergency room are negative. She has no
urinary symptoms but states that she does not get symptoms with UTI. Urinalysis with pyuria, urine culture pending. On empiric IV ceftriaxone since 10/25.
Levophed on hold this morning. Hemodynamically stable.
Acute bilateral pulmonary emboli with acute cor pulmonale - Significant RV and RA enlargement with right heart strain noted on CT. Troponin elevation noted. BNP is suppressed as would be expected with morbid obesity.
Received alteplase via catheter directed thrombolysis. IV heparin.
Denies history of pulmonary embolism. Lower extremity venous Doppler ultrasound was a limited exam and from what could be seen there was no evidence of DVT.
Risk factors are morbid obesity and limited mobility. Denies history of malignancy.
FELIBERTO on CKD 3B -creatinine slowly rising, 2.3 today. Worsening metabolic acidosis noted, bicarbonate 16. Anion gap 16. Increase sodium bicarbonate tabs to 1300 mg twice daily. Trying to avoid bicarbonate drip given volume overload.
Bullock catheter in place. Etiology of FELIBERTO likely multifactorial including shock with hypotension, contrast exposure, etc. nephrology following. Ideally needs to start IV Lasix given significant volume overload as well as ascites if okay with
nephrology.
Weight 152 kg today. Admission weight was 155.
Acute on chronic normocytic anemia -hemoglobin down to 7.7 this morning. Concern for acute blood loss anemia due to GI bleed given coffee-ground emesis 10/25. EGD completed 10/25, gastritis and cardia of stomach, questionable Sterling erosions. Normal
esophagus, normal duodenum. No specimens collected. Continue PPI drip. Diet advanced to solids.
Given ongoing need for anticoagulation and acute anemia will transfuse 1 unit of blood. Patient agreeable.
If anemia worsens or she develops significant bleeding, will discontinue anticoagulation and pursue IVC filter. Discussed with patient and family.
Acute bronchitis -complaining of new cough. Start Acapella, incentive spirometer. Try to get out of bed if possible.
Abdominal ascites -large ascites noted on CT chest as well as ultrasound. Portal veins and hepatic veins are patent. No liver lesions noted, however study was limited. Underwent successful paracentesis, 6.5 L removed. Gram stain negative for
organisms, WBCs seen. SAAG < 1.1 suggesting non-portal hypertension etiology. Ascitic fluid cytology pending.
Troponin elevation -suspect acute nonischemic myocardial injury due to large hemodynamically unstable pulmonary embolism. Troponin trended down.
Left adnexal cyst -chronic. Noted on last CT abdomen/pelvis in 2020, measuring 10 cm in the left adnexa. Previously 6 cm in 2017. Patient has not followed up and states that she has not had any procedures done on the cyst.
Essential hypertension -hold medications for shock. Was on furosemide, lisinopril, metoprolol, Dyazide prior to admission.
Asthma without exacerbation -stable. Suspect mild intermittent asthma.
Hyperlipidemia
Hyponatremia -would permanently discontinue hydrochlorothiazide. Monitor sodium.
Hyperkalemia -potassium 5.4 today. Hold CATERINA inhibitor, triamterene. Give a dose of Lokelma.
Impaired fasting glucose -hemoglobin A1c 5.8%. Weight loss is the mckee.
Hyperphosphatemia -recheck levels today.
Bilateral lower extremity lymphedema
Ambulatory dysfunction -lives independently but has been staying at [facility] for the past few weeks for physical therapy.
Super morbid obesity
Full code
Anticipated Discharge: > 48 hours
Subjective/Interval History
-
Date of Service: October 26, 2024
Patient seen and examined. Complaining of cough.
Objective Data
-
Labs:
Laboratory Results
10/25/24 10/26/24 10/26/24
21:02 04:05 04:05
WBC 5.7
Hgb 7.7 L
Hct 24.8 L
Plt Count 348
PT Pending
INR Pending
APTT 78.1 H Pending 100.9 H
Sodium 133 L
Potassium 5.4 H
Chloride 101
Carbon Dioxide 16 L
BUN 66 H
Creatinine 2.3 H
Glucose 189 H
Calcium 8.9
10/26/24
11:00
WBC
Hgb
Hct
Plt Count
PT
INR
APTT
Sodium Pending
Potassium Pending
Chloride Pending
Carbon Dioxide Pending
BUN Pending
Creatinine Pending
Glucose Pending
Calcium Pending
Vital Signs:
Vital Signs
Temp Pulse Resp BP Pulse Ox
98.3 F 64 17 124/69 96
10/26/24 03:30 10/26/24 05:30 10/26/24 05:30 10/26/24 05:30 10/26/24 05:30
I&O
10/25/24 10/26/24 10/27/24
06:59 06:59 07:59
Intake Total 3556.9 / 3736.1 1935.6 / 1935.6
Output Total 370 / 377 609 / 609
Balance 3186.9 / 3359.1 1326.6 / 1326.6
Review of Systems
-
History Source: Patient
All other systems: Reviewed and negative
[2024-10-26 08:01] LABS: INR 1.18; PT 15.3 Sec (11.4-14.6)
[2024-10-26] MEDS: LOKELMA 10 GRAM PO (08:26)
[2024-10-26] MEDS: MIRALAX 17 GRAMS PO (08:27)
[2024-10-26] MEDS: HYDROPHOR 1 APPLIC TOPICAL (08:27)
[2024-10-26] MEDS: WELLBUTRIN XL (24 hour extended release) 300 MG PO (08:27)
[2024-10-26] MEDS: SODIUM BICARBONATE 1300 MG PO ×2 (08:27→20:57)
--- NOTE | 2024-10-26 10:30 | PTCARENOTE ---
Received pt awake and alert.Speech is appropriate.+BARCLAY.Pt assists with repositioning.c/o right upper abdomen pain 4/5.SR noted.Heparin and Protonix gtts infusing via right IJ TLC. O2 2l NC.Decreased breath sounds throughout.IS and Acapella given to
pt by RT.Appetite fair.No BM.Bullock draining yellow urine.Skin integrity as documented.PRBC's transfusing as ordered.Plan of care discussed.Pt agreeable to getting OOB to chair today.
--- NOTE | 2024-10-26 11:31 | W.PN.INTV ---
Today's Communication / Plan
Recommendations
- Replete potassium
-Continue to monitor off Levophed
-If stays off pressors today, can be transferred out of ICU
-Monitor response to Lokelma and PRBC transfusion, follow-up CBC and electrolytes 2 PM
Assessment
-
73-year-old female developed chest pain and shortness of breath acutely while working with physical therapy and rehab. She was brought to the emergency room and noted to have elevated troponin, elevated D-dimer as well as significant right
ventricular dilation on bedside echo. Subsequent CT confirmed bilateral pulmonary embolism. Patient was taken to IR suite and had a catheter directed thrombolysis done. Following day she was taken for a repeat angiogram with significant decrease
in clot burden subsequently sheath was removed and patient was transitioned to heparin alone. In addition patient was noted to have large volume ascites significant bilateral lymphedema and there was concern of possible malignant ascites. On 306,
patient had an IR guided large-volume paracentesis. While she was in the IR suite getting thrombolysis she did have some coffee-ground emesis for which she was started on proton pump inhibitor infusion and subsequently had an EGD performed.
Last 24 hours.
Patient had EGD performed, 10/25 showed suspect Sterling lesions, gastric cardial erosions
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
Fluid balance +1.1 L
Hemoglobin slight downtrending to 7.7 this morning from 8.3 yesterday, normal platelet count of 348. INR 1.18
Chemistry shows potassium 5.4 and creatinine slightly up at 2.3 from 2.2 yesterday
#1. Acute bilateral pulmonary embolism with obstructive shock.
-PERT team activated, patient s/p catheter directed thrombolysis
-Levophed has since been weaned off and patient is hemodynamically stable
-Repeat angiogram performed, 10/24, sheath has since been removed, tPA discontinued.
-Suspect it is an unprovoked pulmonary embolism and likely will need long-term anticoagulation.
-Continue close monitoring in the ICU
-Patient weaned off Levophed on 030 8 in the morning
#2. FELIBERTO with underlying CKD , hyperkalemia
-Suspect ATN related to hypotension
-Monitor labs closely, nephrology consult
-Avoid exposure to contrast, NSAIDs, CATERINA inhibitors etc.
-Monitor labs closely
#3. Large volume ascites, incidentally noted
-Albumin is slightly decreased at 3.0
-S/p large-volume paracentesis today, await fluid studies, cytologies and cultures
#4. Upper GI bleed, related to gastric cardial erosions, question Sterling lesions
-Hemoglobin shows slight downtrending, receiving blood transfusion today
-PPI drip
-S/p EGD 10/25
-Continue ceftriaxone for SBP prophylaxis considering GI bleed and presence of ascites
#5. ? UTI
-Follow-up on cultures, currently on ceftriaxone
Critical Care time 35 mins -- The patient is admitted for acute critical illness for the treatment of vital organ failure and/or prevention of further life-threatening conditions. Total care includes time spent in review of history, physical exam,
medications, hemodynamic/ventilator parameters, laboratory data, imaging and discussion with house staff, pharmacy, respiratory therapy, flotation tender, and nursing.
Subjective Dataa
Subjective Data
Date of Service:
Date of Service: October 26, 2024
Subjective:
Patient comfortably lying in bed in no acute distress. Denies any chest pain.
Review of Systems
Genitourinary: Other (All 14 systems reviewed and negative except as stated above in the history of present illness.)
Objective Data
Data Reviewed
Vital Signs / I&O / Oxygen:
Vital Signs
Temp Pulse Resp BP Pulse Ox
98.2 F 64 18 109/45 99
10/26/24 11:23 10/26/24 09:37 10/26/24 09:37 10/26/24 09:37 10/26/24 08:00
Intake and Output
10/25/24 10/26/24 10/27/24
06:59 06:59 07:59
Intake Total 3556.9 / 3736.1 1935.6 / 1962.6 735 / 735
Output Total 370 / 377 609 / 659 215 / 215
Balance 3186.9 / 3359.1 1326.6 / 1303.6 520 / 520
SaO2 99
Nasal Cannula flow liters per 2
minute
Physical Exam
General: Comfortable
HEENT: Normocephalic
Cardiovascular: S1-S2 and Peripheral Edema
Respiratory: Clear
GI: Distended (Less distended after 6.5 L ascites tap)
Neurology: Awake
Skin: Warm
Labs/Micro/Reports
Lab Data
10/26/24 04:05
Laboratory Results
10/25/24 10/26/24 10/26/24
21:02 04:05 04:05
PT Cancelled 15.3 H
INR Cancelled
APTT 78.1 H
10/26/24 10/26/24
04:05 04:05
PT
INR 1.18
APTT Cancelled 100.9 H
Microbiology
10/23/24 17:47 Blood/Venous Blood Culture - Preliminary
No Growth in 48 hours- Final report to follow
10/23/24 17:17 Blood/Venous Blood Culture - Preliminary
No Growth in 48 hours- Final report to follow
10/25/24 09:57 Peritoneal Fluid Gram Stain - Preliminary
10/24/24 01:21 Nose MRSA Screen - Final
No Methicillin Resistant Staphylococcus aureus isolated.
10/23/24 17:17 Nasal Swab Influenza Types A & B ([place]) - Final
Negative for Influenza A & B, NAAT
Negative results must be combined with clinical observations
and patient history.
Nucleic Acid Amplification test (NAAT)performed on the
[employer] platform.
--- NOTE | 2024-10-26 12:00 | PTCARENOTE ---
Pt assessed. No change in assessment noted.PRBC transfused as ordered.Awaiting PT/OT to assist pt oob to recliner.
--- NOTE | 2024-10-26 12:20 | W.PN.NEPH.PH ---
Today's Communication / Plan
-
see plan
Assessment/Plan
-
IMP:
Shock -suspect obstructive shock due to acute large bilateral pulmonary emboli
Acute on chronic normocytic anemia
GI bleed given coffee-ground emesis
FELIBERTO on CKD 3B-baseline cr 1.2-1.4
mild gap met acidosis
Abdominal ascites -s/p paracentesis 6.5lit
Troponin elevation -suspect acute nonischemic myocardial injury
Left adnexal cyst -chronic.
h/o Essential hypertension
Asthma without exacerbation
Hyperlipidemia
Hyponatremia
Hyperkalemia
Impaired fasting glucose -hemoglobin A1c 5.8%.
Hyperphosphatemia
Bilateral lower extremity lymphedema
Ambulatory dysfunction
Super morbid obesity
Plan:
A/w large PE s/p lytic therapy
FELIBERTO-suspect prerenal+contrast (10/23)
FEna low 0.2, UA ?UTI sample
suspect cr likely reached at peak
improving UOP , non oliguric with polanco
cotn alb course,off pressors
expect to improve BP with PRBC
echo right heart strain and normal EF, BNP is low, ok for IVF if needed
s/p EGD tacho lesions, off octreo gtt, on PPI
monitor h/h, prn trasnfusion on heparin gtt
monitor met acidosis, increased dose of po bicarb
mild hyperkalemia s/p Lokelma
no emergent indication of HD
d/w pt
-
-
Date of Service: October 26, 2024
CC / HPI / ROS
-
Chief Complaint:
FELIBERTO with CKD
History of Present Illness:
cr up at 2.3, UOP improving
K high at 5.4, bicarb at 16. hb decreasing 7.7, receiving PRBC
BP soft, off pressors
Review of Systems:
no cp or sob
no abd pain
Labs
-
Labs:
eGFR 22.03 10/26/24 04:05
Phosphorus 6.0 mg/dl (2.5-4.5) H 10/26/24 04:05
Qnh-M-Xoquepbmstf Pept 286 pg/ml 10/23/24 16:51
Albumin 2.6 g/dl (3.5-5.0) L 10/25/24 03:55
Physical Exam
-
Vital Signs:
Vital Signs
Temp Pulse Resp BP Pulse Ox
98.2 F 65 20 116/53 99
10/26/24 12:10 10/26/24 12:10 10/26/24 12:10 10/26/24 12:10 10/26/24 08:00
Cardiovascular:: Regular rate and rhythm
Respiratory:: Bilateral: CTA (decreased)
Lung Excursion:: Normal
Abdomen:: Nontender and Soft (obese)
Extremity Edema:: +2: Bilateral:
Polanco Catheter: Yes
--- NOTE | 2024-10-26 14:03 | W.PN.GI.CBS2 ---
Today's Communication / Plan
-
continue PPI ggt
Assessment / Plan
-
Impression:
Ascites: low SAAG not likely from portal htn, s/p paracentesis
UGIB: from tacho erosions in the setting of thrombolytics
plan:
continue IV PPI ggt as erosions can bleed/ooze with anticoagulation
monitor hgb and transfuse as needed
ok for low sodium diet
await fluid cytology
Subjective
Subjective
Date of Service: October 26, 2024
Pt seen this morning w/o complaints. hungry. no overt bleeding. off levophed
Objective
Data Reviewed
Laboratory Data:
Laboratory Results
PT 15.3 Sec (11.4-14.6) H 10/26/24 04:05
PT Cancelled 10/26/24 04:05
INR 1.18 10/26/24 04:05
INR Cancelled 10/26/24 04:05
APTT 100.9 Sec (23.4-35.0) H 10/26/24 04:05
APTT Cancelled 10/26/24 04:05
Phosphorus 6.0 mg/dl (2.5-4.5) H 10/26/24 04:05
Magnesium 2.1 mg/dl (1.6-2.3) 10/23/24 16:51
Total Bilirubin 0.8 mg/dl (0.2-1.3) 10/24/24 04:11
AST 16 U/L (14-36) 10/24/24 04:11
ALT < 10 U/L (0-35) 10/24/24 04:11
Alkaline Phosphatase 86 U/L (38-126) 10/24/24 04:11
Vital Signs and I&O:
Vital Signs
Temp Pulse Resp BP Pulse Ox
98.2 F 65 20 116/53 99
10/26/24 12:10 10/26/24 12:10 10/26/24 12:10 10/26/24 12:10 10/26/24 08:00
I&O
10/25/24 10/26/24 10/27/24
06:59 06:59 07:59
Intake Total 3556.9 / 3736.1 1935.6 / 1962.6 985 / 985
Output Total 370 / 377 609 / 659 215 / 215
Balance 3186.9 / 3359.1 1326.6 / 1303.6 770 / 770
Physical Exam
Physical Exam
HEENT: Anicteric
GI: Soft and Distended (obese, not tense ascites)
Extremities: Edema
[2024-10-26 15:07] LABS: Carbon Dioxide 20 mmol/L (22-30); Estimated Creatinine Clearance 33 ml/min; eGFR 22.03
[2024-10-26 15:26] LABS: Blood Urea Nitrogen 66 mg/dl (7-17); Calcium 9.1 mg/dl (8.4-10.2); Chloride 99 mmol/L (98-107); Glucose 186 mg/dl (70-99); Sodium 131 mmol/L (135-145)
--- NOTE | 2024-10-26 16:00 | PTCARENOTE ---
Pt assessed.No change in assessment noted.
[2024-10-26] MEDS: STERILE WATER FOR INJECTION 10 ML IV (16:41)
[2024-10-26] MEDS: ROCEPHIN 1000 MG IV (16:42)
[2024-10-26 17:09] LABS: Hematocrit 25.9 % (37.0-47.0); Hemoglobin 8.3 g/dL (12.0-16.0); Mean Corpuscular Hgb 26.9 pg (27.0-31.0); Mean Corpuscular Volume 84.1 fL (81.0-99.0); Mean Platelet Volume 9.1 fL (7.4-10.4); Platelet Count 343 10^3/uL (130-400); Red Blood Cell Count 3.08 10^6/uL (4.20-5.40); Red Cell Dist. Width 14.3 % (11.5-14.5); White Blood Cell Count 8.7 10^3/uL (4.8-10.8)
[2024-10-26] MEDS: PHOSLO 667 MG PO (20:57)
[2024-10-27] VITALS (26 sets, daily range): BP systolic 99–123; BP diastolic 48–85; PULSE 74; O2SAT 98; BMI 54.6
[2024-10-27] MEDS: PROTONIX 100 IV ×3 (01:05→23:03)
[2024-10-27] MEDS: ZOFRAN 4 MG IV (04:51)
[2024-10-27 04:56] LABS: % Basophils 0.1 % (0-2); % Immature Granulocytes 0.5 % (0-0.5); % Lymphocytes 7.8 % (20.5-51.1); % Monocytes 10.4 % (1.7-9.3); % Neutrophils 79.2 % (42.2-75.2); Absolute Eosinophils 0.2 10^3/uL (0-0.7); Absolute Immature Granulocytes 0.1 10^3/uL (0-0.05); Absolute Lymphocytes 0.8 10^3/uL (1.2-3.4); Absolute Monocytes 1.1 10^3/uL (0.1-0.6); Absolute Neutrophils 8.1 10^3/uL (1.4-6.5); Hematocrit 27.5 % (37.0-47.0); Hemoglobin 8.7 g/dL (12.0-16.0); Mean Corp Hgb Conc. 31.6 g/dL (33.0-37.0); Mean Corpuscular Hgb 26.4 pg (27.0-31.0); Mean Corpuscular Volume 83.3 fL (81.0-99.0); Mean Platelet Volume 9.1 fL (7.4-10.4); Nucleated Red Blood Cells % 0 %; Platelet Count 373 10^3/uL (130-400); Red Cell Dist. Width 14.5 % (11.5-14.5); White Blood Cell Count 10.2 10^3/uL (4.8-10.8)
--- NOTE | 2024-10-27 05:00 | PTCARENOTE ---
pt attempting BM- no output, reports nausea/abd discomfort, prn zofran given, no further changes in assessment.
--- NOTE | 2024-10-27 05:05 | W.PN.GI.CBS2 ---
Today's Communication / Plan
-
continue IV PPI ggt one more day
OOB if possible
Assessment / Plan
-
Impression:
Ascites: low SAAG not likely from portal htn, s/p paracentesis
UGIB: from tacho erosions in the setting of thrombolytics
plan:
continue IV PPI ggt as erosions can bleed/ooze with anticoagulation; would continue until tomorrow.
monitor hgb and transfuse as needed
ok for low sodium diet but cautioned patient to avoid refluxogenic foods
await fluid cytology
should get out of bed
Subjective
Subjective
Date of Service: October 27, 2024
Pt feels worse this morning overall but hasn't gotten out of bed. No vomiting. Eating but stomach feels queasy.
Objective
Data Reviewed
Laboratory Data:
Laboratory Results
10/27/24 04:23
Laboratory Results
PT 15.3 Sec (11.4-14.6) H 10/26/24 04:05
PT Cancelled 10/26/24 04:05
INR 1.18 10/26/24 04:05
INR Cancelled 10/26/24 04:05
APTT 100.9 Sec (23.4-35.0) H 10/26/24 04:05
APTT Cancelled 10/26/24 04:05
Phosphorus 6.0 mg/dl (2.5-4.5) H 10/26/24 04:05
Magnesium 2.1 mg/dl (1.6-2.3) 10/23/24 16:51
Total Bilirubin 0.8 mg/dl (0.2-1.3) 10/24/24 04:11
AST 16 U/L (14-36) 10/24/24 04:11
ALT < 10 U/L (0-35) 10/24/24 04:11
Alkaline Phosphatase 86 U/L (38-126) 10/24/24 04:11
Vital Signs and I&O:
Vital Signs
Temp Pulse Resp BP Pulse Ox
98.6 F 70 19 111/56 95
10/27/24 03:39 10/27/24 04:00 10/27/24 04:00 10/27/24 04:00 10/27/24 04:00
I&O
10/25/24 10/26/24 10/27/24
06:59 06:59 07:59
Intake Total 3556.9 / 3736.1 1935.6 / 1962.6 1817 / 1817
Output Total 370 / 377 609 / 659 705 / 705
Balance 3186.9 / 3359.1 1326.6 / 1303.6 1112 / 1112
Physical Exam
Physical Exam
HEENT: Anicteric
Cardiology: S1 and S2
GI: Distended (ascites)
Extremities: Edema
Neuro: Non Focal (alert and oriented)
[2024-10-27 05:15] LABS: APTT 133.2 Sec (23.4-35.0)
[2024-10-27 05:23] LABS: Blood Urea Nitrogen 66 mg/dl (7-17); Calcium 9.2 mg/dl (8.4-10.2); Carbon Dioxide 22 mmol/L (22-30); Chloride 102 mmol/L (98-107); Estimated Creatinine Clearance 30 ml/min; Glucose 169 mg/dl (70-99); Magnesium 2.1 mg/dl (1.6-2.3); Phosphorus 5.1 mg/dl (2.5-4.5); Potassium 4.9 mmol/L (3.5-5.1); Sodium 133 mmol/L (135-145); eGFR 20.93
--- NOTE | 2024-10-27 08:03 | W.PN.HOSP.TC ---
Today's Communication/Plan
-
Transferred to IMU
DC triple-lumen catheter
Bowel regimen
PT/OT
Continue Protonix IV
Continue IV heparin
Assessment / Plan
Assessment / Plan
Gen-AAOx3, NAD, super morbid obesity
HEENT-NC, AT, anicteric, clear oral mm
Neck-supple
CV-reg, no M, +S1/S2
Lungs-clear B/L
Abd-soft, distended, positive fluid wave, nontender
Ext-no edema
Musculoskeletal-no cyanosis, clubbing
Skin-warm and dry
Neuro-grossly non-focal
Psych-calm, cooperative
Shock -suspect obstructive shock due to acute large bilateral pulmonary emboli. New onset of fevers last evening, 10/24. Technically meets criteria for sepsis but looks nontoxic. Blood culture sent in the emergency room are negative. She has no
urinary symptoms but states that she does not get symptoms with UTI. Urinalysis with pyuria, urine culture pending. On empiric IV ceftriaxone since 10/25.
Stable off vasopressors, shock resolved. Hemodynamically stable.
Acute bilateral pulmonary emboli with acute cor pulmonale - Significant RV and RA enlargement with right heart strain noted on CT. Troponin elevation noted. BNP is suppressed as would be expected with morbid obesity.
Received alteplase via catheter directed thrombolysis. IV heparin.
Denies history of pulmonary embolism. Lower extremity venous Doppler ultrasound was a limited exam and from what could be seen there was no evidence of DVT.
Risk factors are morbid obesity and limited mobility. Denies history of malignancy.
Continue IV heparin for the next 24 hours and transition to Eliquis Monday if hemoglobin remains stable.
If anemia worsens or she develops significant bleeding, will discontinue anticoagulation and pursue IVC filter. Discussed with patient and family.
FELIBERTO on CKD 3B -creatinine slowly rising, 2.4 today. Metabolic acidosis improving, bicarb 22, continue higher dose of oral sodium bicarbonate.
Bullock catheter in place. Etiology of FELIBERTO likely multifactorial including shock with hypotension, contrast exposure, etc. nephrology following.
Weight coming down, 144 kg today. Admission weight was 155. Did lose weight after paracentesis.
Acute on chronic normocytic anemia -hemoglobin improved after transfusion, 8.7 today. Concern for acute blood loss anemia due to GI bleed given coffee-ground emesis 10/25. EGD completed 10/25, gastritis and cardia of stomach, questionable Sterling
erosions. Normal esophagus, normal duodenum. No specimens collected. Continue PPI drip until Monday as per GI. Diet advanced to solids.
Acute bronchitis -complaining of new cough. Start Acapella, incentive spirometer. Try to get out of bed if possible.
Abdominal ascites -large ascites noted on CT chest as well as ultrasound. Portal veins and hepatic veins are patent. No liver lesions noted, however study was limited. Underwent successful paracentesis, 6.5 L removed. Gram stain negative for
organisms, WBCs seen. SAAG < 1.1 suggesting non-portal hypertension etiology. Ascitic fluid cytology pending.
If abdominal pain and distention worsen over the next 24 hours would repeat abdominal ultrasound on Monday to assess for reaccumulation of fluid.
Encourage out of bed, increase bowel regimen. She did refuse several doses of MiraLAX.
Troponin elevation -suspect acute nonischemic myocardial injury due to large hemodynamically unstable pulmonary embolism. Troponin trended down.
Left adnexal cyst -chronic. Noted on last CT abdomen/pelvis in 2020, measuring 10 cm in the left adnexa. Previously 6 cm in 2017. Patient has not followed up and states that she has not had any procedures done on the cyst.
Essential hypertension -hold medications for shock. Was on furosemide, lisinopril, metoprolol, Dyazide prior to admission.
Asthma without exacerbation -stable. Suspect mild intermittent asthma.
Hyperlipidemia
Hyponatremia -would permanently discontinue hydrochlorothiazide. Monitor sodium.
Hyperkalemia -resolved.
Impaired fasting glucose -hemoglobin A1c 5.8%. Weight loss is the mckee.
Hyperphosphatemia -improving. Continue PhosLo.
Bilateral lower extremity lymphedema
Ambulatory dysfunction -lives independently but has been staying at [facility] for the past few weeks for physical therapy.
Super morbid obesity
Full code
Anticipated Discharge: > 48 hours
Subjective/Interval History
-
Date of Service: October 27, 2024
Patient seen and examined. Complaining of epigastric fullness and distention, mild nausea.
Objective Data
-
Labs:
Laboratory Results
10/26/24 10/27/24 10/27/24
14:07 04:23 12:30
WBC 10.2
Hgb 8.7 L
Hct 27.5 L
Plt Count 373
APTT 133.2 H Pending
Sodium Cancelled 133 L
Potassium Cancelled 4.9
Chloride Cancelled 102
Carbon Dioxide Cancelled 22
BUN Cancelled 66 H
Creatinine Cancelled 2.4 H
Glucose Cancelled 169 H
Calcium Cancelled 9.2
Vital Signs:
Vital Signs
Temp Pulse Resp BP Pulse Ox
98.5 F 68 19 101/50 95
10/27/24 07:00 10/27/24 06:00 10/27/24 06:00 10/27/24 05:00 10/27/24 06:00
I&O
10/26/24 10/27/24 10/28/24
05:59 06:59 06:59
Intake Total
Output Total
Balance
Review of Systems
-
History Source: Patient
All other systems: Reviewed and negative
[2024-10-27] MEDS: DULCOLAX 10 MG RECTAL (08:23)
[2024-10-27] MEDS: SODIUM BICARBONATE 1300 MG PO ×2 (08:23→19:55)
[2024-10-27] MEDS: HYDROPHOR 1 APPLIC TOPICAL (08:23)
[2024-10-27] MEDS: WELLBUTRIN XL (24 hour extended release) 300 MG PO (08:23)
[2024-10-27] MEDS: MIRALAX 17 GRAMS PO (08:23)
[2024-10-27] MEDS: PHOSLO 667 MG PO ×3 (11:07→16:38)
[2024-10-27] MEDS: VITAMIN B-12 1500 MCG PO (11:17)
--- NOTE | 2024-10-27 11:36 | PTCARENOTE ---
pt continue to c/o of lower back pain. RT side posterior drainage in place flushed per order. blood sugar elevated in 200's. Insulin adjusted. Per Dr. Lora pt should remain in ICU for further observation and management. ASA will be restarted Continue
to hold Plavix per dr Dumont
--- NOTE | 2024-10-27 11:51 | W.PN.NEPH.PH ---
Today's Communication / Plan
-
increase po intake, gentle IVF prn
follow labs
Assessment/Plan
-
IMP:
Shock -suspect obstructive shock due to acute large bilateral pulmonary emboli
Acute on chronic normocytic anemia
GI bleed given coffee-ground emesis
FELIBERTO on CKD 3B-baseline cr 1.2-1.4 Dr James
mild gap met acidosis
Abdominal ascites -s/p paracentesis 6.5lit
Troponin elevation -suspect acute nonischemic myocardial injury
Left adnexal cyst -chronic.
h/o Essential hypertension
Asthma without exacerbation
Hyperlipidemia
Hyponatremia
Hyperkalemia
Impaired fasting glucose -hemoglobin A1c 5.8%.
Hyperphosphatemia
Bilateral lower extremity lymphedema
Ambulatory dysfunction
Super morbid obesity
Plan:
A/w large PE s/p lytic therapy
FELIBERTO-suspect prerenal+contrast (10/23)
FEna low 0.2, UA ?UTI sample
suspect cr likely reaching at peak at 2.4
non oliguric with polanco
s/p alb course, ok for prn IVF
BP stable off pressors
echo right heart strain and normal EF, BNP was low
stable h/h, prn trasnfusion on heparin gtt
improving met acidosis, cont po bicarb
hyponatremia stable
mild hyperkalemia improved s/p Lokelma
d/w pt
-
-
Date of Service: October 27, 2024
CC / HPI / ROS
-
Chief Complaint:
FELIBERTO with CKD
History of Present Illness:
cr up at 2.4, non oliguric with foely
K normal, bicarb at 20 better. hb stable at 8.7,
BP soft
wt is down
Review of Systems:
no cp or sob
no abd pain
Labs
-
Labs:
WBC 10.2 10^3/uL (4.8-10.8) 10/27/24 04:23
RBC 3.30 10^6/uL (4.20-5.40) L 10/27/24 04:23
Hgb 8.7 g/dL (12.0-16.0) L 10/27/24 04:23
Hct 27.5 % (37.0-47.0) L 10/27/24 04:23
Plt Count 373 10^3/uL (130-400) 10/27/24 04:23
Sodium 133 mmol/L (135-145) L 10/27/24 04:23
Potassium 4.9 mmol/L (3.5-5.1) 10/27/24 04:23
Chloride 102 mmol/L (98-107) 10/27/24 04:23
Carbon Dioxide 22 mmol/L (22-30) 10/27/24 04:23
BUN 66 mg/dl (7-17) H 10/27/24 04:23
Creatinine 2.4 mg/dL (0.6-1.0) H 10/27/24 04:23
eGFR 20.93 10/27/24 04:23
Glucose 169 mg/dl (70-99) H 10/27/24 04:23
Calcium 9.2 mg/dl (8.4-10.2) 10/27/24 04:23
Phosphorus 5.1 mg/dl (2.5-4.5) H 10/27/24 04:23
Fsr-E-Gyihdzardsz Pept 286 pg/ml 10/23/24 16:51
Albumin 2.6 g/dl (3.5-5.0) L 10/25/24 03:55
Physical Exam
-
Vital Signs:
Vital Signs
Temp Pulse Resp BP Pulse Ox
98.5 F 71 21 106/52 94
10/27/24 07:00 10/27/24 08:30 10/27/24 08:30 10/27/24 08:00 10/27/24 08:30
Cardiovascular:: Regular rate and rhythm
Respiratory:: Bilateral: CTA (decreased)
Lung Excursion:: Normal
Abdomen:: Nontender and Soft (obese)
Extremity Edema:: +1: Bilateral:
Polanco Catheter: Yes
[2024-10-27] MEDS: NSS 1000 IV (12:10)
[2024-10-27] MEDS: HEPARIN 25000 UNITS/250 ML IV (12:44)
[2024-10-27 13:04] LABS: APTT 52.3 Sec (23.4-35.0)
[2024-10-27] MEDS: HEPARIN 10000 UNITS IV (14:14)
--- NOTE | 2024-10-27 14:39 | CHAP ---
Visited Megan at 10am. She has a positive outlook - grateful for her good care. Emotional and spiritual support provided.
[2024-10-27] MEDS: STERILE WATER FOR INJECTION 10 ML IV (16:38)
[2024-10-27] MEDS: MYLICON 80 MG PO ×2 (16:38→19:55)
[2024-10-27] MEDS: ROCEPHIN 1000 MG IV (16:38)
--- NOTE | 2024-10-27 20:00 | PTCARENOTE ---
route aide, pt aaox3, SR HR 70s. assisted with repositioning. RIJ WNL- heparin/protonix gtts infusing per work list. PTT to lab. Bullock draining adequate amt yellow urine. POC discussed, call renae with pt.
[2024-10-27 20:23] LABS: APTT 141.1 Sec (23.4-35.0)
[2024-10-27] MEDS: TYLENOL 650 MG PO (23:03)
[2024-10-28] VITALS (16 sets, daily range): BP systolic 88–137; BP diastolic 42–69; BMI 58.3
[2024-10-28] MEDS: HEPARIN 25000 UNITS/250 ML IV ×2 (03:46→21:19)
[2024-10-28 04:03] LABS: % Basophils 0.1 % (0-2); % Eosinophils 3.5 % (0-6); % Immature Granulocytes 0.7 % (0-0.5); % Lymphocytes 8.6 % (20.5-51.1); % Monocytes 9.4 % (1.7-9.3); % Neutrophils 77.7 % (42.2-75.2); Absolute Eosinophils 0.4 10^3/uL (0-0.7); Absolute Immature Granulocytes 0.1 10^3/uL (0-0.05); Absolute Monocytes 1.1 10^3/uL (0.1-0.6); Absolute Neutrophils 8.8 10^3/uL (1.4-6.5); Hematocrit 29.4 % (37.0-47.0); Hemoglobin 9.3 g/dL (12.0-16.0); Mean Corp Hgb Conc. 31.6 g/dL (33.0-37.0); Mean Corpuscular Hgb 26.6 pg (27.0-31.0); Mean Platelet Volume 9.1 fL (7.4-10.4); Nucleated Red Blood Cells % 0 %; Platelet Count 390 10^3/uL (130-400); Red Cell Dist. Width 14.6 % (11.5-14.5); White Blood Cell Count 11.3 10^3/uL (4.8-10.8)
[2024-10-28 04:17] LABS: APTT 69.9 Sec (23.4-35.0)
[2024-10-28 04:23] LABS: Blood Urea Nitrogen 64 mg/dl (7-17); Calcium 8.7 mg/dl (8.4-10.2); Carbon Dioxide 24 mmol/L (22-30); Chloride 101 mmol/L (98-107); Estimated Creatinine Clearance 32 ml/min; Glucose 146 mg/dl (70-99); Phosphorus 4.2 mg/dl (2.5-4.5); Sodium 132 mmol/L (135-145); eGFR 22.03
[2024-10-28] MEDS: HEPARIN 5000 UNITS IV (04:40)
[2024-10-28] MEDS: WELLBUTRIN XL (24 hour extended release) 300 MG PO (07:19)
[2024-10-28] MEDS: PHOSLO 667 MG PO ×3 (07:19→17:26)
[2024-10-28] MEDS: SODIUM BICARBONATE 1300 MG PO ×2 (07:19→20:12)
[2024-10-28] MEDS: MYLICON 80 MG PO ×3 (07:19→21:14)
[2024-10-28] MEDS: HYDROPHOR 1 APPLIC TOPICAL (07:19)
[2024-10-28] MEDS: MIRALAX PO (07:20)
[2024-10-28] MEDS: PROTONIX 100 IV (07:20)
--- NOTE | 2024-10-28 08:22 | PTCARENOTE ---
plant and instrument engineer, pt aaox3, SR HR 70s. assisted with repositioning. RIJ WNL- heparin/protonix gtts infusing per work list. Bullock draining adequate amt yellow urine. POC discussed, call renae with pt. Refusing Miralax, states she might want it later.
--- NOTE | 2024-10-28 08:37 | W.PN.GI.CBS2 ---
Addendum entered and electronically signed by Wen Rahman MD 10/28/24 08:40:
outpatient f/u
PPI po bid
will sign off
Original Note:
Today's Communication / Plan
-
PPI bid
Assessment / Plan
-
Impression:
Ascites: low SAAG not likely from portal htn, s/p paracentesis
UGIB: from tacho erosions in the setting of thrombolytics
plan:
Pt has remained stable all weekend can change PPI to po bid and can continue anticoagulation
low sodium, anti refluxogenic diet
await fluid cytology
OOB
will need outpatient f/u and pt knows our office will call
Subjective
Subjective
Date of Service: October 28, 2024
Pt w/o bleeding, eating
Objective
Data Reviewed
Laboratory Data:
Laboratory Results
10/28/24 03:43
10/28/24 03:43
Laboratory Results
PT 15.3 Sec (11.4-14.6) H 10/26/24 04:05
PT Cancelled 10/26/24 04:05
INR 1.18 10/26/24 04:05
INR Cancelled 10/26/24 04:05
APTT 69.9 Sec (23.4-35.0) H 10/28/24 03:43
Phosphorus 4.2 mg/dl (2.5-4.5) 10/28/24 03:43
Magnesium 2.1 mg/dl (1.6-2.3) 10/27/24 04:23
Total Bilirubin 0.8 mg/dl (0.2-1.3) 10/24/24 04:11
AST 16 U/L (14-36) 10/24/24 04:11
ALT < 10 U/L (0-35) 10/24/24 04:11
Alkaline Phosphatase 86 U/L (38-126) 10/24/24 04:11
Vital Signs and I&O:
Vital Signs
Temp Pulse Resp BP Pulse Ox
98.5 F 75 20 128/63 2
10/28/24 07:39 10/28/24 07:30 10/28/24 07:30 10/28/24 07:01 10/28/24 08:01
I&O
10/27/24 10/28/24 10/29/24
06:59 06:59 06:59
Intake Total 1868 / 1895 81 / 81
Output Total 1425 / 1425 315 / 315
Balance 443 / 470 -234 / -234
Physical Exam
Physical Exam
HEENT: Anicteric
GI: Soft and Distended (ascites)
Neuro: Non Focal
--- NOTE | 2024-10-28 09:14 | W.PN.NEPH.PH ---
Today's Communication / Plan
-
follow BMP
Assessment/Plan
-
IMP:
Shock -suspect obstructive shock due to acute large bilateral pulmonary emboli
Acute on chronic normocytic anemia
GI bleed given coffee-ground emesis
FELIBERTO on CKD 3B-baseline cr 1.2-1.4 Dr James
mild gap met acidosis
Abdominal ascites -s/p paracentesis 6.5lit
Troponin elevation -suspect acute nonischemic myocardial injury
Left adnexal cyst -chronic.
h/o Essential hypertension
Asthma without exacerbation
Hyperlipidemia
Hyponatremia
Hyperkalemia
Impaired fasting glucose -hemoglobin A1c 5.8%.
Hyperphosphatemia
Bilateral lower extremity lymphedema
Ambulatory dysfunction
Super morbid obesity
Plan:
she is clinically stable.
would hold on diuretics for now to see if Cr with turn around
follow BMP
-
-
Date of Service: October 28, 2024
CC / HPI / ROS
-
Chief Complaint:
FELIBERTO with CKD
History of Present Illness:
FELIBERTO/Cr stable 2.3
BP stable
K normal
hgb stable 9.3
Review of Systems:
no cp or sob
no abd pain
Labs
-
Labs:
WBC 11.3 10^3/uL (4.8-10.8) H 10/28/24 03:43
RBC 3.50 10^6/uL (4.20-5.40) L 10/28/24 03:43
Hgb 9.3 g/dL (12.0-16.0) L 10/28/24 03:43
Hct 29.4 % (37.0-47.0) L 10/28/24 03:43
Plt Count 390 10^3/uL (130-400) 10/28/24 03:43
Sodium 132 mmol/L (135-145) L 10/28/24 03:43
Potassium 5.0 mmol/L (3.5-5.1) 10/28/24 03:43
Chloride 101 mmol/L (98-107) 10/28/24 03:43
Carbon Dioxide 24 mmol/L (22-30) 10/28/24 03:43
BUN 64 mg/dl (7-17) H 10/28/24 03:43
Creatinine 2.3 mg/dL (0.6-1.0) H 10/28/24 03:43
eGFR 22.03 10/28/24 03:43
Glucose 146 mg/dl (70-99) H 10/28/24 03:43
Calcium 8.7 mg/dl (8.4-10.2) 10/28/24 03:43
Phosphorus 4.2 mg/dl (2.5-4.5) 10/28/24 03:43
Wcf-Q-Jslxmrzvmdd Pept 286 pg/ml 10/23/24 16:51
Albumin 2.6 g/dl (3.5-5.0) L 10/25/24 03:55
Physical Exam
-
Vital Signs:
Vital Signs
Temp Pulse Resp BP Pulse Ox
98.5 F 75 20 128/63 2
10/28/24 07:39 10/28/24 07:30 10/28/24 07:30 10/28/24 07:01 10/28/24 08:01
Cardiovascular:: Regular rate and rhythm
Respiratory:: Bilateral: Coarse
Lung Excursion:: Normal
Abdomen:: Distended, Nontender and Soft
Bowel Sounds:: Normal
Extremity Edema:: +3: Bilateral:
--- NOTE | 2024-10-28 11:02 | PTCARENOTE ---
Bullock removed as ordered, okayed by Dr Sun
[2024-10-28 11:04] LABS: APTT 141.1 Sec (23.4-35.0)
--- NOTE | 2024-10-28 13:13 | W.PN.HOSP.TC ---
Today's Communication/Plan
-
Monitor vital signs see plan
Continue with IV heparin for now
Monitor hemoglobin
Wean oxygen as tolerated
If blood pressure stable then likely can be transferred to the floor
Assessment / Plan
Assessment / Plan
Gen-AAOx3, NAD, super morbid obesity
HEENT-NC, AT, anicteric, clear oral mm
Neck-supple
CV-reg, no M, +S1/S2
Lungs-clear B/L
Abd-soft, distended, positive fluid wave, nontender
Ext-no edema
Musculoskeletal-no cyanosis, clubbing
Skin-warm and dry
Neuro-grossly non-focal
Psych-calm, cooperative
Shock -suspect obstructive shock due to acute large bilateral pulmonary emboli. New onset of fevers last evening, 10/24. Technically meets criteria for sepsis but looks nontoxic. Blood culture sent in the emergency room are negative. She has no
urinary symptoms but states that she does not get symptoms with UTI. Urinalysis with pyuria, urine culture with citerobacter. On empiric IV ceftriaxone since 10/25.
Stable off vasopressors, shock resolved. Hemodynamically stable.
Acute bilateral pulmonary emboli with acute cor pulmonale - Significant RV and RA enlargement with right heart strain noted on CT. Troponin elevation noted. BNP is suppressed as would be expected with morbid obesity.
Received alteplase via catheter directed thrombolysis. IV heparin.
Denies history of pulmonary embolism. Lower extremity venous Doppler ultrasound was a limited exam and from what could be seen there was no evidence of DVT.
Risk factors are morbid obesity and limited mobility. Denies history of malignancy.
Continue IV heparin for the next 24 hours and transition to Eliquis if hemoglobin remains stable.
If anemia worsens or she develops significant bleeding, will discontinue anticoagulation and pursue IVC filter. Discussed with patient and family.
will need hematology/oncology evaluation outpatient
Acute hypoxic respiratory insufficiency likely secondary pulmonary embolism
Wean oxygen as tolerated
FELIBERTO on CKD 3B - 2.3 today. Metabolic acidosis improving, bicarb 22, continue higher dose of oral sodium bicarbonate.
Bullock catheter in place. Etiology of FELIBERTO likely multifactorial including shock with hypotension, contrast exposure, etc. nephrology following.
Did lose weight after paracentesis.
Nephrology following, monitor
Acute on chronic normocytic anemia -hemoglobin improved after transfusion, 9.3 today. Concern for acute blood loss anemia due to GI bleed given coffee-ground emesis 10/25. EGD completed 10/25, gastritis and cardia of stomach, questionable Sterling
erosions. Normal esophagus, normal duodenum. No specimens collected. Now on PPI twice daily per GI
Acute bronchitis -complaining of new cough. Start Acapella, incentive spirometer. Try to get out of bed if possible.
Abdominal ascites -large ascites noted on CT chest as well as ultrasound. Portal veins and hepatic veins are patent. No liver lesions noted, however study was limited. Underwent successful paracentesis, 6.5 L removed. Gram stain negative for
organisms, WBCs seen. SAAG < 1.1 suggesting non-portal hypertension etiology. Ascitic fluid cytology pending.
If abdominal pain and distention worsen over the next 24 hours would repeat abdominal ultrasound to assess for reaccumulation of fluid.
Encourage out of bed, increase bowel regimen. She did refuse several doses of MiraLAX.
Troponin elevation -suspect acute nonischemic myocardial injury due to large hemodynamically unstable pulmonary embolism. Troponin trended down.
Left adnexal cyst -chronic. Noted on last CT abdomen/pelvis in 2020, measuring 10 cm in the left adnexa. Previously 6 cm in 2017. Patient has not followed up and states that she has not had any procedures done on the cyst.
Essential hypertension -hold medications for shock. Was on furosemide, lisinopril, metoprolol, Dyazide prior to admission.
Asthma without exacerbation -stable. Suspect mild intermittent asthma.
Hyperlipidemia
Hyponatremia -would permanently discontinue hydrochlorothiazide. Monitor sodium.
Hyperkalemia -resolved.
Impaired fasting glucose -hemoglobin A1c 5.8%. Weight loss is the mckee.
Hyperphosphatemia -improving. Continue PhosLo.
Bilateral lower extremity lymphedema
Ambulatory dysfunction -lives independently but has been staying at [address] for the past few weeks for physical therapy.
Super morbid obesity
Full code
I spent a total of 52 minutes with the patient or on the floor. More than 50% of this time involved counseling and coordination of care.
Anticipated Discharge: 24 - 48 hours
Subjective/Interval History
-
Date of Service: October 28, 2024
Denies pain
Objective Data
-
Labs:
Laboratory Results
10/28/24 10/28/24
03:43 10:37
WBC 11.3 H
Hgb 9.3 L
Hct 29.4 L
Plt Count 390
APTT 69.9 H 141.1 H
Sodium 132 L
Potassium 5.0
Chloride 101
Carbon Dioxide 24
BUN 64 H
Creatinine 2.3 H
Glucose 146 H
Calcium 8.7
Vital Signs:
Vital Signs
Temp Pulse Resp BP Pulse Ox
99 F 75 20 111/47 95
10/28/24 11:20 10/28/24 12:30 10/28/24 12:30 10/28/24 12:00 10/28/24 12:30
I&O
10/27/24 10/28/24 10/29/24
06:59 06:59 06:59
Intake Total 1868 / 1895 640 / 640
Output Total 1425 / 1425 605 / 605
Balance 443 / 470 35 / 35
--- NOTE | 2024-10-28 14:55 | CM ---
CM following re: discharge planning.
Reviewed pt's chart, met with pt and spoke to pt's daughter Nelsy over the phone to update on discharge plan progress.
Per [facility] pharmacist, Eliquis 5mg BID for 30 days - $145.48 co-pay and for 90 days - $405.53.
Pt stated she feels it is not affordable and she does not want to go on Coumadin. Per pt, she will discuss it with her daughter Nelsy late afternoon today.
PT and OT evaluations noted - SNF level of care recommended. Pt is aware and she requested [facility] or [facility]. Pt is aware that [facility] does not accept managed Medicare insurances. pt requested [facility] stating her
friend's father was there and it was very nice.
A referral to [facility] made.
D/CV plan: [facility]. Awaiting for determination
CM will follow to assist pt with discharge to [facility] for a short term rehab.
[2024-10-28] MEDS: STERILE WATER FOR INJECTION 10 ML IV (16:07)
[2024-10-28] MEDS: ROCEPHIN 1000 MG IV (16:07)
--- NOTE | 2024-10-28 16:48 | PTCARENOTE ---
Report given to MICHELLE Buckner. Pt pulled to bariatric bed. R IJ TLC removed by IV team. Pt escorted to [phone] without issue.
[2024-10-28] MEDS: PROTONIX 40 MG PO (17:23)
[2024-10-28 19:42] LABS: APTT 49.3 Sec (23.4-35.0)
[2024-10-28] MEDS: HEPARIN 10000 UNITS IV (20:12)
[2024-10-29] VITALS (7 sets, daily range): BP systolic 114–135; BP diastolic 50–78; PULSE 84; O2SAT 96; BMI 57.8
[2024-10-29 03:53] LABS: APTT > 200 Sec (23.4-35.0)
[2024-10-29 08:07] LABS: % Basophils 0.1 % (0-2); % Eosinophils 2.2 % (0-6); % Immature Granulocytes 0.9 % (0-0.5); % Lymphocytes 8.6 % (20.5-51.1); % Monocytes 12.9 % (1.7-9.3); % Neutrophils 75.3 % (42.2-75.2); Absolute Eosinophils 0.2 10^3/uL (0-0.7); Absolute Immature Granulocytes 0.1 10^3/uL (0-0.05); Absolute Lymphocytes 0.8 10^3/uL (1.2-3.4); Absolute Monocytes 1.2 10^3/uL (0.1-0.6); Absolute Neutrophils 6.9 10^3/uL (1.4-6.5); Hemoglobin 10.2 g/dL (12.0-16.0); Mean Corp Hgb Conc. 31.9 g/dL (33.0-37.0); Mean Corpuscular Hgb 26.3 pg (27.0-31.0); Mean Corpuscular Volume 82.5 fL (81.0-99.0); Mean Platelet Volume 9.2 fL (7.4-10.4); Nucleated Red Blood Cells % 0 %; Platelet Count 415 10^3/uL (130-400); Red Blood Cell Count 3.88 10^6/uL (4.20-5.40); Red Cell Dist. Width 14.6 % (11.5-14.5); White Blood Cell Count 9.2 10^3/uL (4.8-10.8)
[2024-10-29 08:48] LABS: Blood Urea Nitrogen 56 mg/dl (7-17); Calcium 9.1 mg/dl (8.4-10.2); Carbon Dioxide 20 mmol/L (22-30); Chloride 101 mmol/L (98-107); Estimated Creatinine Clearance 44 ml/min; Glucose 143 mg/dl (70-99); Potassium 4.8 mmol/L (3.5-5.1); Sodium 131 mmol/L (135-145); eGFR 31.66
[2024-10-29] MEDS: MYLICON 80 MG PO ×3 (09:04→21:18)
[2024-10-29] MEDS: PROTONIX 40 MG PO ×2 (09:04→19:56)
[2024-10-29] MEDS: PHOSLO 667 MG PO ×3 (09:04→16:45)
[2024-10-29] MEDS: WELLBUTRIN XL (24 hour extended release) 300 MG PO (09:04)
[2024-10-29] MEDS: ELIQUIS 10 MG PO ×2 (09:05→19:56)
[2024-10-29] MEDS: VITAMIN B-12 1500 MCG PO (09:05)
[2024-10-29] MEDS: SODIUM BICARBONATE 1300 MG PO ×2 (09:06→19:56)
[2024-10-29] MEDS: HYDROPHOR 1 APPLIC TOPICAL (09:12)
--- NOTE | 2024-10-29 09:47 | PN.CDI ---
CDI
- -
CDI:
Physician Documentation Request
Admit Date: 10/23/24 20:12
Dear Doctor Shola,
Please review the following and provide your response in the progress notes.
Clinical Indicators:
Pt admitted with Submassive PE /Obstructive shock
GI progress notes 10/27 &10/28, ' continue IV PPI ggt as erosions can bleed/ooze with anticoagulation; would continue until tomorrow.monitor hgb and transfuse as needed...'
Progress notes 10/27 & 10/28, ' Received alteplase via catheter directed thrombolysis. IV heparin...Continue IV heparinfor the next 24 hours and transition to Eliquis if hemoglobin remains stable.If anemia worsens or she develops significant
bleeding, will discontinue anticoagulation and pursue IVC filter. ....Acute on chronic normocytic anemia -hemoglobin improved after transfusion, 9.3 today. Concern for acute blood loss anemia due to GI bleed given coffee-ground emesis 10/25. EGD
completed 10/25, gastritis and cardia of stomach, questionable Sterling erosions...'
Please clarify the relationship between these conditions:
Yes, _ABLA/GI bleed__ is related to/associated with/exacerbated by Anticoagulant use___.
No, _ABLA/GI bleed __ is not related to/associated with/exacerbated by Anticoagulant use ___ but it is due to ___. (Please specify)
Unable to determine
Use of terms such as suspected, likely, concern for, or probable (associated with a specific diagnosis that is being evaluated, monitored, or treated as if it exists) are acceptable and can be coded in the inpatient setting, when documented at the
time of discharge.
Thank you,
Patricia Salazar RN
CDI Specialist
[place] [facility]
Please use your independent medical judgment in providing your response.
--- NOTE | 2024-10-29 10:03 | W.PN.PUL.V3 ---
Today's Communication / Plan
-
.
Heparin drip-converted to Eliquis
Wean oxygen.
Increase activity.
Follow hemoglobin.
Finite course of antibiotics.
Outpatient pulmonary/sleep disorders follow-up.
Pulmonary will sign off -. Please call with questions
Assessment
-
73-year-old female developed chest pain and shortness of breath acutely while working with physical therapy and rehab. She was brought to the emergency room and noted to have elevated troponin, elevated D-dimer as well as significant right
ventricular dilation on bedside echo. Subsequent CT confirmed bilateral pulmonary embolism. Patient was taken to IR suite and had a catheter directed thrombolysis done. Following day she was taken for a repeat angiogram with significant decrease
in clot burden subsequently sheath was removed and patient was transitioned to heparin alone. In addition patient was noted to have large volume ascites significant bilateral lymphedema and there was concern of possible malignant ascites. On 306,
patient had an IR guided large-volume paracentesis. While she was in the IR suite getting thrombolysis she did have some coffee-ground emesis for which she was started on proton pump inhibitor infusion and subsequently had an EGD performed.
Patient had EGD performed, 10/25 showed suspect Sterling lesions, gastric cardial erosions
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
Fluid balance +1.1 L
Hemoglobin slight downtrending to 7.7 this morning from 8.3 yesterday, normal platelet count of 348. INR 1.18
Chemistry shows potassium 5.4 and creatinine slightly up at 2.3 from 2.2 yesterday
#1. Acute bilateral pulmonary embolism with obstructive shock.
-PERT team activated, patient s/p catheter directed thrombolysis
-Levophed has since been weaned off and patient is hemodynamically stable
-Repeat angiogram performed, 10/24/24, sheath has since been removed, tPA discontinued.
-Suspect it is an unprovoked pulmonary embolism and will need long-term anticoagulation.
-Heparin will be converted to Eliquis 10/29/24.
-Outpatient pulmonary/sleep disorders follow-up
#2. FELIBERTO with underlying CKD , hyperkalemia
-Suspect ATN related to hypotension
- pathology following
-Avoid exposure to contrast, NSAIDs, CATERINA inhibitors etc.
-Monitor labs closely
#3. Large volume ascites, incidentally noted
-Albumin is slightly decreased at 3.0
-S/p large-volume paracentesis--cytology pending
#4. Upper GI bleed, related to gastric cardial erosions, question Sterling lesions
-Hemoglobin followed in stable
-PPI continues
-S/p EGD 10/25/24
- finite course ceftriaxone for SBP prophylaxis considering GI bleed and presence of ascites
#5. ? UTI
-Follow-up on cultures, on ceftriaxone..
.
Also, suspect obstructive sleep apnea-will need outpatient sleep study
Pulmonary will sign off -. Please call with questions
Outpatient pulmonary/sleep disorders follow-up
Subjective Data
-
Date of Service:
Date of Service: October 29, 2024
Chief Complaint: Pulmonary Follow Up, Dyspnea Follow Up and VTE Follow Up
Subjective:
Feels better, no complaints of chest pain, pleurisy, chest congestion, productive cough, or increased lower extremity swelling
Review of Systems
General: Other ( per HPI)
Objective Data
Data Reviewed
Vital Signs / I&O:
Vital Signs
Temp Pulse Resp BP Pulse Ox
98.9 F 79 20 116/61 95
10/29/24 07:00 10/29/24 07:00 10/29/24 07:00 10/29/24 07:00 10/29/24 07:00
Intake and Output
10/28/24 10/29/24 10/30/24
06:59 06:59 06:59
Intake Total 1868 / 1895 2593 / 2593
Output Total 1425 / 1425 2054
Balance 443 / 470 538 / 538
SaO2: 95
Nasal Cannula flow liters per minute: 2
Physical Exam
General: Respiratory Distress (n) and Comfortable
HEENT: Normocephalic, Anicteric and Moist Mucous Membranes
Cardiovascular: Regular Rhythm and Peripheral Edema
Respiratory: Wheeze (n), Crackles ( rare basilar), Rhonchi (n), Non-Labored Respirations, Accessory Resp Muscle Use (n) and Stridor (n)
GI: Soft, Non Distended and Non Tender
Neurology: Awake, Alert and No Motor Deficits
Skin: Warm, Good Color, Cyanosis (n) and Jaundice (n)
Labs/Micro/Reports
Lab Data
10/29/24 07:26
10/29/24 07:26
Laboratory Results
10/28/24 10/28/24 10/29/24
10:37 19:16 02:20
APTT 141.1 H 49.3 H Cancelled
10/29/24
03:11
APTT > 200 H*
Microbiology
10/23/24 17:47 Blood/Venous Blood Culture - Final
No Growth - Final Report
10/23/24 17:17 Blood/Venous Blood Culture - Final
No Growth - Final Report
10/25/24 09:57 Peritoneal Fluid Body Fluid Culture - Final
No Growth After 72 Hours
10/25/24 09:57 Peritoneal Fluid Gram Stain - Final
10/25/24 17:26 Urine Urine Culture - Final
Citrobacter freundii
[2024-10-29] MEDS: MIRALAX 17 GRAMS PO (11:15)
--- NOTE | 2024-10-29 11:36 | W.PN.NEPH.PH ---
Today's Communication / Plan
-
lasix
Assessment/Plan
-
IMP:
Shock -suspect obstructive shock due to acute large bilateral pulmonary emboli
Acute on chronic normocytic anemia
GI bleed given coffee-ground emesis
FELIBERTO on CKD 3B-baseline cr 1.2-1.4 Dr James
mild gap met acidosis
Abdominal ascites -s/p paracentesis 6.5lit
Troponin elevation -suspect acute nonischemic myocardial injury
Left adnexal cyst -chronic.
h/o Essential hypertension
Asthma without exacerbation
Hyperlipidemia
Hyponatremia
Hyperkalemia
Impaired fasting glucose -hemoglobin A1c 5.8%.
Hyperphosphatemia
Bilateral lower extremity lymphedema
Ambulatory dysfunction
Super morbid obesity
Plan:
she is clinically stable.
restart lasix at 20mg daily
follow BMP
-
-
Date of Service: October 29, 2024
CC / HPI / ROS
-
Chief Complaint:
FELIBERTO with CKD
History of Present Illness:
FELIBERTO/Cr down to 1.7
BP stable
Na stable 131
K normal
hgb up to 10.2
Review of Systems:
no cp or sob
no abd pain
Labs
-
Labs:
WBC 9.2 10^3/uL (4.8-10.8) 10/29/24 07:26
RBC 3.88 10^6/uL (4.20-5.40) L 10/29/24 07:26
Hgb 10.2 g/dL (12.0-16.0) L 10/29/24 07:26
Hct 32.0 % (37.0-47.0) L 10/29/24 07:26
Plt Count 415 10^3/uL (130-400) H 10/29/24 07:26
Sodium 131 mmol/L (135-145) L 10/29/24 07:26
Potassium 4.8 mmol/L (3.5-5.1) 10/29/24 07:26
Chloride 101 mmol/L (98-107) 10/29/24 07:26
Carbon Dioxide 20 mmol/L (22-30) L 10/29/24 07:26
BUN 56 mg/dl (7-17) H 10/29/24 07:26
Creatinine 1.7 mg/dL (0.6-1.0) H 10/29/24 07:26
eGFR 31.66 10/29/24 07:26
Glucose 143 mg/dl (70-99) H 10/29/24 07:26
Calcium 9.1 mg/dl (8.4-10.2) 10/29/24 07:26
Phosphorus 4.2 mg/dl (2.5-4.5) 10/28/24 03:43
Bos-R-Bxhdarkstro Pept 286 pg/ml 10/23/24 16:51
Albumin 2.6 g/dl (3.5-5.0) L 10/25/24 03:55
Physical Exam
-
Vital Signs:
Vital Signs
Temp Pulse Resp BP Pulse Ox
98.8 F 84 20 130/55 95
10/29/24 11:26 10/29/24 11:26 10/29/24 11:26 10/29/24 11:26 10/29/24 11:26
Cardiovascular:: Regular rate and rhythm
Respiratory:: Bilateral: Coarse
Lung Excursion:: Normal
Abdomen:: Nontender and Soft
Bowel Sounds:: Normal
Extremity Edema:: +3: Bilateral:
[2024-10-29] MEDS: LASIX 20 MG PO (11:45)
--- NOTE | 2024-10-29 12:42 | W.PN.HOSP.TC ---
Today's Communication/Plan
-
Monitor vital signs see plan
Transition to Eliquis
Lasix
Monitor renal function
PT/OT
Antibiotics
Assessment / Plan
Assessment / Plan
Gen-AAOx3, NAD, super morbid obesity
HEENT-NC, AT, anicteric, clear oral mm
Neck-supple
CV-reg, no M, +S1/S2
Lungs-clear B/L
Abd-soft, distended,nontender
Ext-no edema
Musculoskeletal-no cyanosis, clubbing
Skin-warm and dry
Neuro-grossly non-focal
Psych-calm, cooperative
Shock -suspect obstructive shock due to acute large bilateral pulmonary emboli. New onset of fevers last evening, 10/24. Technically meets criteria for sepsis but looks nontoxic. Blood culture sent in the emergency room are negative. She has no
urinary symptoms but states that she does not get symptoms with UTI. Urinalysis with pyuria, urine culture with citerobacter. On empiric IV ceftriaxone since 10/25.
Stable off vasopressors, shock resolved. Hemodynamically stable.
Acute bilateral pulmonary emboli with acute cor pulmonale - Significant RV and RA enlargement with right heart strain noted on CT. Troponin elevation noted. BNP is suppressed as would be expected with morbid obesity.
Received alteplase via catheter directed thrombolysis. IV heparin.
Denies history of pulmonary embolism. Lower extremity venous Doppler ultrasound was a limited exam and from what could be seen there was no evidence of DVT.
Risk factors are morbid obesity and limited mobility. Denies history of malignancy.
Hemoglobin stable, transition to Eliquis
will need hematology/oncology evaluation outpatient
Acute hypoxic respiratory insufficiency likely secondary pulmonary embolism
Wean oxygen as tolerated
FELIBERTO on CKD 3B - 1.7 today. Metabolic acidosis improving, bicarb 22, continue higher dose of oral sodium bicarbonate.
Bullock catheter in place. Etiology of FELIBERTO likely multifactorial including shock with hypotension, contrast exposure, etc. nephrology following.
Did lose weight after paracentesis.
Nephrology following, monitor
lasix
Acute on chronic normocytic anemia -hemoglobin improved after transfusion. Concern for acute blood loss anemia due to GI bleed given coffee-ground emesis 10/25. EGD completed 10/25, gastritis and cardia of stomach, questionable Sterling erosions.
Normal esophagus, normal duodenum. No specimens collected. Now on PPI twice daily per GI
Acute bronchitis -complaining of new cough. Start Acapella, incentive spirometer. Try to get out of bed if possible.
Abdominal ascites -large ascites noted on CT chest as well as ultrasound. Portal veins and hepatic veins are patent. No liver lesions noted, however study was limited. Underwent successful paracentesis, 6.5 L removed. Gram stain negative for
organisms, WBCs seen. SAAG < 1.1 suggesting non-portal hypertension etiology. Ascitic fluid cytology pending.
If abdominal pain and distention worsen over the next 24 hours would repeat abdominal ultrasound to assess for reaccumulation of fluid.
Encourage out of bed, increase bowel regimen. She did refuse several doses of MiraLAX.
Troponin elevation -suspect acute nonischemic myocardial injury due to large hemodynamically unstable pulmonary embolism. Troponin trended down.
Left adnexal cyst -chronic. Noted on last CT abdomen/pelvis in 2020, measuring 10 cm in the left adnexa. Previously 6 cm in 2017. Patient has not followed up and states that she has not had any procedures done on the cyst.
Essential hypertension -hold medications for shock. Was on furosemide, lisinopril, metoprolol, Dyazide prior to admission.
Asthma without exacerbation -stable. Suspect mild intermittent asthma.
Hyperlipidemia
Hyponatremia -would permanently discontinue hydrochlorothiazide. Monitor sodium.
Hyperkalemia -resolved.
Impaired fasting glucose -hemoglobin A1c 5.8%. Weight loss is the mckee.
Hyperphosphatemia -improving. Continue PhosLo.
Bilateral lower extremity lymphedema
Ambulatory dysfunction -lives independently but has been staying at [facility] for the past few weeks for physical therapy.
Super morbid obesity
Full code
I spent a total of 51 minutes with the patient or on the floor. More than 50% of this time involved counseling and coordination of care.
Anticipated Discharge: 24 - 48 hours
Subjective/Interval History
-
Date of Service: October 29, 2024
denies pain
Objective Data
-
Labs:
Laboratory Results
10/29/24 10/29/24 10/29/24
02:20 03:11 07:26
WBC 9.2
Hgb 10.2 L
Hct 32.0 L
Plt Count 415 H
APTT Cancelled > 200 H*
Sodium 131 L
Potassium 4.8
Chloride 101
Carbon Dioxide 20 L
BUN 56 H
Creatinine 1.7 H
Glucose 143 H
Calcium 9.1
10/29/24
12:00
WBC
Hgb
Hct
Plt Count
APTT Cancelled
Sodium
Potassium
Chloride
Carbon Dioxide
BUN
Creatinine
Glucose
Calcium
Vital Signs:
Vital Signs
Temp Pulse Resp BP Pulse Ox
98.8 F 84 20 130/55 95
10/29/24 11:26 10/29/24 11:26 10/29/24 11:26 10/29/24 11:26 10/29/24 11:26
I&O
10/28/24 10/29/24 10/30/24
06:59 06:59 06:59
Intake Total 1868 / 1895 2593 / 2593
Output Total 1425 / 1425 2054
Balance 443 / 470 538 / 538
[2024-10-29] MEDS: STERILE WATER FOR INJECTION 10 ML IV (15:36)
[2024-10-29] MEDS: ROCEPHIN 1000 MG IV (15:36)
[2024-10-30 03:00] VITALS: BP 126/76
[2024-10-30 06:00] VITALS: BMI 57.5
[2024-10-30 07:00] VITALS: BP 124/68
[2024-10-30] MEDS: SODIUM BICARBONATE 1300 MG PO ×2 (08:05→20:58)
[2024-10-30] MEDS: MIRALAX 17 GRAMS PO (08:05)
[2024-10-30] MEDS: WELLBUTRIN XL (24 hour extended release) 300 MG PO (08:05)
[2024-10-30] MEDS: ELIQUIS 10 MG PO ×2 (08:05→20:58)
[2024-10-30] MEDS: LASIX 20 MG PO (08:05)
[2024-10-30] MEDS: PROTONIX 40 MG PO ×2 (08:05→20:58)
[2024-10-30] MEDS: MYLICON 80 MG PO ×3 (08:05→21:00)
[2024-10-30] MEDS: PHOSLO 667 MG PO ×3 (08:05→17:16)
[2024-10-30 08:08] LABS: % Basophils 0.2 % (0-2); % Eosinophils 2.2 % (0-6); % Immature Granulocytes 1.2 % (0-0.5); % Monocytes 12.7 % (1.7-9.3); % Neutrophils 76.7 % (42.2-75.2); Absolute Eosinophils 0.2 10^3/uL (0-0.7); Absolute Immature Granulocytes 0.1 10^3/uL (0-0.05); Absolute Lymphocytes 0.8 10^3/uL (1.2-3.4); Absolute Monocytes 1.4 10^3/uL (0.1-0.6); Absolute Neutrophils 8.2 10^3/uL (1.4-6.5); Hematocrit 31.2 % (37.0-47.0); Hemoglobin 10.1 g/dL (12.0-16.0); Mean Corp Hgb Conc. 32.4 g/dL (33.0-37.0); Mean Corpuscular Hgb 26.7 pg (27.0-31.0); Mean Corpuscular Volume 82.5 fL (81.0-99.0); Mean Platelet Volume 9.2 fL (7.4-10.4); Nucleated Red Blood Cells % 0 %; Platelet Count 449 10^3/uL (130-400); Red Blood Cell Count 3.78 10^6/uL (4.20-5.40); Red Cell Dist. Width 14.9 % (11.5-14.5); White Blood Cell Count 10.7 10^3/uL (4.8-10.8)
[2024-10-30] MEDS: HYDROPHOR 1 APPLIC TOPICAL (08:08)
[2024-10-30 08:43] LABS: Blood Urea Nitrogen 52 mg/dl (7-17); Carbon Dioxide 24 mmol/L (22-30); Chloride 101 mmol/L (98-107); Estimated Creatinine Clearance 50 ml/min; Glucose 128 mg/dl (70-99); Potassium 4.7 mmol/L (3.5-5.1); Sodium 131 mmol/L (135-145)
[2024-10-30 11:00] VITALS: BP 114/62
--- NOTE | 2024-10-30 11:48 | CM ---
CM reviewed chart, patient seen bedside, discussed [facility] has no available beds at this time. List of SNFs reviewed with patient, agreeable to referrals to [facility] and [facility]. Patient will require insurance auth once bed found. CM will
continue to follow for all discharge planning needs.
Plan; SNF, pending accepting facility, will need auth.
--- NOTE | 2024-10-30 12:44 | W.PN.HOSP.TC ---
Today's Communication/Plan
-
Monitor vital signs see plan
Discharge planning, block and case maker aware
Continue with Eliquis
Continue with Lasix
Slowly restart BP meds if patient tolerates
Assessment / Plan
Assessment / Plan
Gen-AAOx3, NAD, super morbid obesity
HEENT-NC, AT, anicteric, clear oral mm
Neck-supple
CV-reg, no M, +S1/S2
Lungs-clear B/L
Abd-soft, distended,nontender
Ext-no edema
Neuro-grossly non-focal
Psych-calm, cooperative
Shock -suspect obstructive shock due to acute large bilateral pulmonary emboli. New onset of fevers last evening, 10/24. Technically meets criteria for sepsis but looks nontoxic. Blood culture sent in the emergency room are negative. She has no
urinary symptoms but states that she does not get symptoms with UTI. Urinalysis with pyuria, urine culture with citerobacter. On empiric IV ceftriaxone since 10/25.
Stable off vasopressors, shock resolved. Hemodynamically stable.
Acute bilateral pulmonary emboli with acute cor pulmonale - Significant RV and RA enlargement with right heart strain noted on CT. Troponin elevation noted. BNP is suppressed as would be expected with morbid obesity.
Received alteplase via catheter directed thrombolysis. IV heparin.
Denies history of pulmonary embolism. Lower extremity venous Doppler ultrasound was a limited exam and from what could be seen there was no evidence of DVT.
Risk factors are morbid obesity and limited mobility. Denies history of malignancy.
Hemoglobin stable, transition to Eliquis
will need hematology/oncology evaluation outpatient
Acute hypoxic respiratory insufficiency likely secondary pulmonary embolism
Wean oxygen as tolerated
FELIBERTO on CKD 3B - 1.5 today. Metabolic acidosis improving, bicarb 22, continue higher dose of oral sodium bicarbonate.
Bullock catheter in place. Etiology of FELIBERTO likely multifactorial including shock with hypotension, contrast exposure, etc. nephrology following.
Did lose weight after paracentesis.
Nephrology following, monitor
lasix
Acute on chronic normocytic anemia -hemoglobin improved after transfusion. Concern for acute blood loss anemia due to GI bleed given coffee-ground emesis 10/25. EGD completed 10/25, gastritis and cardia of stomach, questionable Sterling erosions.
Normal esophagus, normal duodenum. No specimens collected. Now on PPI twice daily per GI
Suspect acute blood loss anemia likely exacerbated by anticoagulant use
Acute bronchitis -complaining of new cough. Start Acapella, incentive spirometer. Try to get out of bed if possible.
Abdominal ascites -large ascites noted on CT chest as well as ultrasound. Portal veins and hepatic veins are patent. No liver lesions noted, however study was limited. Underwent successful paracentesis, 6.5 L removed. Gram stain negative for
organisms, WBCs seen. SAAG < 1.1 suggesting non-portal hypertension etiology. Ascitic fluid cytology pending.
If abdominal pain and distention worsen over the next 24 hours would repeat abdominal ultrasound to assess for reaccumulation of fluid.
Encourage out of bed, increase bowel regimen. She did refuse several doses of MiraLAX.
Troponin elevation -suspect acute nonischemic myocardial injury due to large hemodynamically unstable pulmonary embolism. Troponin trended down.
Left adnexal cyst -chronic. Noted on last CT abdomen/pelvis in 2020, measuring 10 cm in the left adnexa. Previously 6 cm in 2017. Patient has not followed up and states that she has not had any procedures done on the cyst.
Essential hypertension -hold medications for shock. Was on furosemide, lisinopril, metoprolol, Dyazide prior to admission.
Asthma without exacerbation -stable. Suspect mild intermittent asthma.
Hyperlipidemia
Hyponatremia -would permanently discontinue hydrochlorothiazide. Monitor sodium.
Hyperkalemia -resolved.
Impaired fasting glucose -hemoglobin A1c 5.8%. Weight loss is the mckee.
Hyperphosphatemia -improving. Continue PhosLo.
Bilateral lower extremity lymphedema
Ambulatory dysfunction -lives independently but has been staying at [facility] for the past few weeks for physical therapy.
Super morbid obesity
Full code
Anticipated Discharge: Today
Subjective/Interval History
-
Date of Service: October 30, 2024
Denies pain
Objective Data
-
Labs:
Laboratory Results
10/30/24
06:49
WBC 10.7
Hgb 10.1 L
Hct 31.2 L
Plt Count 449 H
Sodium 131 L
Potassium 4.7
Chloride 101
Carbon Dioxide 24
BUN 52 H
Creatinine 1.5 H
Glucose 128 H
Calcium 9.0
Vital Signs:
Vital Signs
Temp Pulse Resp BP Pulse Ox
98.0 F 82 18 114/62 96
10/30/24 11:00 10/30/24 11:00 10/30/24 11:00 10/30/24 11:00 10/30/24 11:00
I&O
10/29/24 10/30/24 10/31/24
06:59 06:59 06:59
Intake Total 2593 / 2593 900 / 900
Output Total 2054
Balance 538 / 538 -1100 / -1100
--- NOTE | 2024-10-30 14:51 | W.PN.NEPH.PH ---
Today's Communication / Plan
-
follow labs
Assessment/Plan
-
IMP:
Shock -suspect obstructive shock due to acute large bilateral pulmonary emboli
Acute on chronic normocytic anemia
GI bleed given coffee-ground emesis
FELIBERTO on CKD 3B-baseline cr 1.2-1.4 Dr James
mild gap met acidosis
Abdominal ascites -s/p paracentesis 6.5lit
Troponin elevation -suspect acute nonischemic myocardial injury
Left adnexal cyst -chronic.
h/o Essential hypertension
Asthma without exacerbation
Hyperlipidemia
Hyponatremia
Hyperkalemia
Impaired fasting glucose -hemoglobin A1c 5.8%.
Hyperphosphatemia
Bilateral lower extremity lymphedema
Ambulatory dysfunction
Super morbid obesity
Plan:
FELIBERTO-cr better at 1.5 close to baseline
non oliguric with out polanco
met acidosis cont po bicarb
back on lasix at 20mg daily
stable hyponatremia
follow BMP
-
-
Date of Service: October 30, 2024
CC / HPI / ROS
-
Chief Complaint:
FELIBERTO with CKD
History of Present Illness:
FELIBERTO/Cr down to 1.5
BP stable
Na stable 131
K normal
hgb up to 10
Review of Systems:
no cp or sob
no abd pain
toelrating diet
Labs
-
Labs:
WBC 10.7 10^3/uL (4.8-10.8) 10/30/24 06:49
RBC 3.78 10^6/uL (4.20-5.40) L 10/30/24 06:49
Hgb 10.1 g/dL (12.0-16.0) L 10/30/24 06:49
Hct 31.2 % (37.0-47.0) L 10/30/24 06:49
Plt Count 449 10^3/uL (130-400) H 10/30/24 06:49
Sodium 131 mmol/L (135-145) L 10/30/24 06:49
Potassium 4.7 mmol/L (3.5-5.1) 10/30/24 06:49
Chloride 101 mmol/L (98-107) 10/30/24 06:49
Carbon Dioxide 24 mmol/L (22-30) 10/30/24 06:49
BUN 52 mg/dl (7-17) H 10/30/24 06:49
Creatinine 1.5 mg/dL (0.6-1.0) H 10/30/24 06:49
eGFR 36.80 10/30/24 06:49
Glucose 128 mg/dl (70-99) H 10/30/24 06:49
Calcium 9.0 mg/dl (8.4-10.2) 10/30/24 06:49
Phosphorus 4.2 mg/dl (2.5-4.5) 10/28/24 03:43
Azm-M-Xbggwqypqhr Pept 286 pg/ml 10/23/24 16:51
Albumin 2.6 g/dl (3.5-5.0) L 10/25/24 03:55
Physical Exam
-
Vital Signs:
Vital Signs
Temp Pulse Resp BP Pulse Ox
98.0 F 82 18 114/62 96
10/30/24 11:00 10/30/24 11:00 10/30/24 11:00 10/30/24 11:00 10/30/24 11:00
Cardiovascular:: Regular rate and rhythm
Respiratory:: Bilateral: CTA (decreased)
Lung Excursion:: Normal
Abdomen:: Nontender and Soft
Bowel Sounds:: Normal
Extremity Edema:: +3: Bilateral:
Polanco Catheter: No
[2024-10-30 15:00] VITALS: BP 131/62
[2024-10-30] MEDS: STERILE WATER FOR INJECTION 10 ML IV (15:44)
[2024-10-30] MEDS: ROCEPHIN 1000 MG IV (15:45)
[2024-10-30 19:57] VITALS: BP 133/57
[2024-10-30 23:29] VITALS: BP 113/64
[2024-10-31] VITALS (7 sets, daily range): BP systolic 92–156; BP diastolic 59–82; BMI 57.5
[2024-10-31 07:50] LABS: % Basophils 0.3 % (0-2); % Eosinophils 2.3 % (0-6); % Immature Granulocytes 1.4 % (0-0.5); % Lymphocytes 7.7 % (20.5-51.1); % Neutrophils 77.3 % (42.2-75.2); Absolute Eosinophils 0.3 10^3/uL (0-0.7); Absolute Immature Granulocytes 0.2 10^3/uL (0-0.05); Absolute Lymphocytes 0.9 10^3/uL (1.2-3.4); Absolute Monocytes 1.3 10^3/uL (0.1-0.6); Absolute Neutrophils 9.1 10^3/uL (1.4-6.5); Hematocrit 31.8 % (37.0-47.0); Hemoglobin 10.1 g/dL (12.0-16.0); Mean Corp Hgb Conc. 31.8 g/dL (33.0-37.0); Mean Corpuscular Hgb 26.5 pg (27.0-31.0); Mean Corpuscular Volume 83.5 fL (81.0-99.0); Mean Platelet Volume 9.4 fL (7.4-10.4); Nucleated Red Blood Cells % 0 %; Platelet Count 516 10^3/uL (130-400); Red Blood Cell Count 3.81 10^6/uL (4.20-5.40); Red Cell Dist. Width 14.8 % (11.5-14.5); White Blood Cell Count 11.7 10^3/uL (4.8-10.8)
[2024-10-31] MEDS: MYLICON 80 MG PO ×3 (08:09→21:37)
[2024-10-31] MEDS: ELIQUIS 10 MG PO ×2 (08:09→21:37)
[2024-10-31] MEDS: PROTONIX 40 MG PO ×2 (08:09→21:37)
[2024-10-31] MEDS: PHOSLO 667 MG PO ×3 (08:09→17:21)
[2024-10-31] MEDS: VITAMIN B-12 1500 MCG PO (08:09)
[2024-10-31] MEDS: MIRALAX 17 GRAMS PO (08:10)
[2024-10-31] MEDS: WELLBUTRIN XL (24 hour extended release) 300 MG PO (08:10)
[2024-10-31] MEDS: SODIUM BICARBONATE 1300 MG PO (08:10)
[2024-10-31] MEDS: LASIX 20 MG PO (08:11)
[2024-10-31] MEDS: HYDROPHOR 1 APPLIC TOPICAL (08:19)
[2024-10-31 08:21] LABS: Blood Urea Nitrogen 48 mg/dl (7-17); Calcium 9.1 mg/dl (8.4-10.2); Carbon Dioxide 27 mmol/L (22-30); Chloride 98 mmol/L (98-107); Estimated Creatinine Clearance 54 ml/min; Glucose 143 mg/dl (70-99); Potassium 4.7 mmol/L (3.5-5.1); Sodium 131 mmol/L (135-145); eGFR 39.97
--- NOTE | 2024-10-31 10:53 | W.PN.HOSP.TC ---
Today's Communication/Plan
-
monitor vitals
see plan
Continue with Eliquis
Finished antibiotics
PT/OT
Pending SNF
Assessment / Plan
Assessment / Plan
Gen-AAOx3, NAD, super morbid obesity
HEENT-NC, AT, anicteric, clear oral mm
Neck-supple
CV-reg, no M, +S1/S2
Lungs-clear B/L
Abd-soft, distended,nontender
Ext-no edema
Neuro-grossly non-focal
Psych-calm, cooperative
Shock -suspect obstructive shock due to acute large bilateral pulmonary emboli. New onset of fevers last evening, 10/24. Technically meets criteria for sepsis but looks nontoxic. Blood culture sent in the emergency room are negative. She has no
urinary symptoms but states that she does not get symptoms with UTI. Urinalysis with pyuria, urine culture with citerobacter. Finished antibiotics
Stable off vasopressors, shock resolved. Hemodynamically stable.
Acute bilateral pulmonary emboli with acute cor pulmonale - Significant RV and RA enlargement with right heart strain noted on CT. Troponin elevation noted. BNP is suppressed as would be expected with morbid obesity.
Received alteplase via catheter directed thrombolysis. IV heparin.
Denies history of pulmonary embolism. Lower extremity venous Doppler ultrasound was a limited exam and from what could be seen there was no evidence of DVT.
Risk factors are morbid obesity and limited mobility. Denies history of malignancy.
Hemoglobin stable, transition to Eliquis
will need hematology/oncology evaluation outpatient
Acute hypoxic respiratory insufficiency likely secondary pulmonary embolism
Wean oxygen as tolerated
FELIBERTO on CKD 3B - 1.4 today. Metabolic acidosis improving, bicarb 22, continue higher dose of oral sodium bicarbonate.
Bullock catheter in place. Etiology of FELIBERTO likely multifactorial including shock with hypotension, contrast exposure, etc. nephrology following.
Did lose weight after paracentesis.
Nephrology following, monitor
lasix
Acute on chronic normocytic anemia -hemoglobin improved after transfusion. Concern for acute blood loss anemia due to GI bleed given coffee-ground emesis 10/25. EGD completed 10/25, gastritis and cardia of stomach, questionable Sterling erosions.
Normal esophagus, normal duodenum. No specimens collected. Now on PPI twice daily per GI
Suspect acute blood loss anemia likely exacerbated by anticoagulant use
Acute bronchitis -complaining of new cough. Start Acapella, incentive spirometer. Try to get out of bed if possible.
Abdominal ascites -large ascites noted on CT chest as well as ultrasound. Portal veins and hepatic veins are patent. No liver lesions noted, however study was limited. Underwent successful paracentesis, 6.5 L removed. Gram stain negative for
organisms, WBCs seen. SAAG < 1.1 suggesting non-portal hypertension etiology. Ascitic fluid cytology negative for malignant cells.
If abdominal distention comes back then can get repeat ultrasound to assess for ascites
Encourage out of bed, increase bowel regimen. She did refuse several doses of MiraLAX.
Troponin elevation -suspect acute nonischemic myocardial injury due to large hemodynamically unstable pulmonary embolism. Troponin trended down.
Left adnexal cyst -chronic. Noted on last CT abdomen/pelvis in 2020, measuring 10 cm in the left adnexa. Previously 6 cm in 2016. Patient has not followed up and states that she has not had any procedures done on the cyst.
Essential hypertension -hold medications for shock. Was on furosemide, lisinopril, metoprolol, Dyazide prior to admission.
Asthma without exacerbation -stable. Suspect mild intermittent asthma.
Hyperlipidemia
Hyponatremia -would permanently discontinue hydrochlorothiazide. Monitor sodium.
Hyperkalemia -resolved.
Impaired fasting glucose -hemoglobin A1c 5.8%. Weight loss is the mckee.
Hyperphosphatemia -improving. Continue PhosLo.
Bilateral lower extremity lymphedema
Ambulatory dysfunction -lives independently but has been staying at [facility] for the past few weeks for physical therapy.
Super morbid obesity
Full code
Anticipated Discharge: Today
Subjective/Interval History
-
Date of Service: October 31, 2024
Denies pain
Objective Data
-
Labs:
Laboratory Results
10/31/24
06:41
WBC 11.7 H
Hgb 10.1 L
Hct 31.8 L
Plt Count 516 H
Sodium 131 L
Potassium 4.7
Chloride 98
Carbon Dioxide 27
BUN 48 H
Creatinine 1.4 H
Glucose 143 H
Calcium 9.1
Vital Signs:
Vital Signs
Temp Pulse Resp BP Pulse Ox
98.2 F 78 19 117/63 95
10/31/24 07:00 10/31/24 07:00 10/31/24 07:00 10/31/24 08:11 10/31/24 07:00
I&O
10/30/24 10/31/24 11/01/24
06:59 06:59 06:59
Intake Total 900 / 900 960 / 960
Output Total 2000 / 1999 1100 / 1100
Balance -1100 / -1100 -140 / -140
[2024-10-31] MEDS: COLACE 100 MG PO ×2 (11:51→21:37)
--- NOTE | 2024-10-31 13:09 | CM ---
CM reviewed chart, patient seen bedside, discussed no beds at [facility] or [place], awaiting to hear from [facility] to see if can accept patient. Will need updated PT, insurance authorization. CM will continue to follow for all discharge
planning needs.
Plan; awaiting acceptance from [facility], will need auth, ambulance transport.
--- NOTE | 2024-10-31 13:31 | W.PN.NEPH.PH ---
Today's Communication / Plan
-
d/c plan
Assessment/Plan
-
IMP:
Shock -suspect obstructive shock due to acute large bilateral pulmonary emboli
Acute on chronic normocytic anemia
GI bleed given coffee-ground emesis
FELIBERTO on CKD 3B-baseline cr 1.2-1.4 Dr Gray
mild gap met acidosis
Abdominal ascites -s/p paracentesis 6.5lit
Troponin elevation -suspect acute nonischemic myocardial injury
Left adnexal cyst -chronic.
h/o Essential hypertension
Asthma without exacerbation
Hyperlipidemia
Hyponatremia
Hyperkalemia
Impaired fasting glucose -hemoglobin A1c 5.8%.
Hyperphosphatemia
Bilateral lower extremity lymphedema
Ambulatory dysfunction
Super morbid obesity
Plan:
FELIBERTO-cr better at 1.4 at baseline
non oliguric with out polanco
met acidosis improving, wean po bicarb
cont lasix at 20mg daily
stable hyponatremia
follow BMP
d/c plan
f/u Dr gray
BMP in week upon d/c
-
-
Date of Service: October 31, 2024
CC / HPI / ROS
-
Chief Complaint:
FELIBERTO with CKD
History of Present Illness:
FELIBERTO/Cr down to 1.4
BP stable
Na stable 131
K normal
hgb stable at 10
Review of Systems:
no cp or sob
no abd pain
toelrating diet
constiaption
Labs
-
Labs:
WBC 11.7 10^3/uL (4.8-10.8) H 10/31/24 06:41
RBC 3.81 10^6/uL (4.20-5.40) L 10/31/24 06:41
Hgb 10.1 g/dL (12.0-16.0) L 10/31/24 06:41
Hct 31.8 % (37.0-47.0) L 10/31/24 06:41
Plt Count 516 10^3/uL (130-400) H 10/31/24 06:41
Sodium 131 mmol/L (135-145) L 10/31/24 06:41
Potassium 4.7 mmol/L (3.5-5.1) 10/31/24 06:41
Chloride 98 mmol/L (98-107) 10/31/24 06:41
Carbon Dioxide 27 mmol/L (22-30) 10/31/24 06:41
BUN 48 mg/dl (7-17) H 10/31/24 06:41
Creatinine 1.4 mg/dL (0.6-1.0) H 10/31/24 06:41
eGFR 39.97 10/31/24 06:41
Glucose 143 mg/dl (70-99) H 10/31/24 06:41
Calcium 9.1 mg/dl (8.4-10.2) 10/31/24 06:41
Phosphorus 4.2 mg/dl (2.5-4.5) 10/28/24 03:43
Hla-Y-Hycorelgynm Pept 286 pg/ml 10/23/24 16:51
Albumin 2.6 g/dl (3.5-5.0) L 10/25/24 03:55
Physical Exam
-
Vital Signs:
Vital Signs
Temp Pulse Resp BP Pulse Ox
99 F 84 18 156/74 98
10/31/24 11:00 10/31/24 11:00 10/31/24 11:00 10/31/24 11:00 10/31/24 11:00
Cardiovascular:: Regular rate and rhythm
Respiratory:: Bilateral: CTA (decreased)
Lung Excursion:: Normal
Abdomen:: Nontender and Soft
Bowel Sounds:: Normal
Extremity Edema:: +3: Bilateral:
Polanco Catheter: No
[2024-11-01 00:20] VITALS: BP 116/63
[2024-11-01 03:34] VITALS: BP 116/83
[2024-11-01 06:00] VITALS: BMI 57.4
[2024-11-01 07:00] VITALS: BP 122/57
[2024-11-01 08:42] LABS: % Basophils 0.2 % (0-2); % Eosinophils 3.3 % (0-6); % Immature Granulocytes 1.5 % (0-0.5); % Lymphocytes 7.3 % (20.5-51.1); % Monocytes 11.7 % (1.7-9.3); Absolute Eosinophils 0.4 10^3/uL (0-0.7); Absolute Immature Granulocytes 0.2 10^3/uL (0-0.05); Absolute Lymphocytes 0.9 10^3/uL (1.2-3.4); Absolute Monocytes 1.4 10^3/uL (0.1-0.6); Absolute Neutrophils 9.3 10^3/uL (1.4-6.5); Hematocrit 31.6 % (37.0-47.0); Hemoglobin 10.1 g/dL (12.0-16.0); Mean Corpuscular Hgb 26.7 pg (27.0-31.0); Mean Corpuscular Volume 83.6 fL (81.0-99.0); Nucleated Red Blood Cells % 0 %; Platelet Count 556 10^3/uL (130-400); Red Blood Cell Count 3.78 10^6/uL (4.20-5.40); Red Cell Dist. Width 15.2 % (11.5-14.5); White Blood Cell Count 12.2 10^3/uL (4.8-10.8)
[2024-11-01] MEDS: PHOSLO 667 MG PO ×2 (09:25→12:27)
[2024-11-01] MEDS: PROTONIX 40 MG PO (09:25)
[2024-11-01] MEDS: COLACE 100 MG PO (09:25)
[2024-11-01] MEDS: WELLBUTRIN XL (24 hour extended release) 300 MG PO (09:25)
[2024-11-01] MEDS: LASIX 20 MG PO (09:26)
[2024-11-01] MEDS: ELIQUIS 10 MG PO (09:27)
[2024-11-01 09:28] LABS: Blood Urea Nitrogen 43 mg/dl (7-17); Calcium 9.1 mg/dl (8.4-10.2); Carbon Dioxide 27 mmol/L (22-30); Chloride 98 mmol/L (98-107); Estimated Creatinine Clearance 58 ml/min; Glucose 132 mg/dl (70-99); Sodium 130 mmol/L (135-145); eGFR 43.69
[2024-11-01] MEDS: MYLICON 80 MG PO ×2 (09:28→17:20)
[2024-11-01] MEDS: SODIUM BICARBONATE 650 MG PO (09:28)
[2024-11-01] MEDS: MIRALAX 17 GRAMS PO (09:29)
[2024-11-01] MEDS: HYDROPHOR 1 APPLIC TOPICAL (09:31)
[2024-11-01 11:00] VITALS: BP 117/61
--- NOTE | 2024-11-01 11:13 | CM ---
Addendum entered by Iesha Gonzalez 11/01/24 14:14:
auth approved 11/01-11/05, auth #[id number], updates to [phone]. Updates to yumiko Henson. Patient scheduled for 5:00 p.m. ambulance transport.
[facility]:
Report: [phone]

Original Note:
CM met with patient bedside, discussed no beds at [facility], or [facility] can accept. Patient agreeable, IMM verbally reviewed, provided with copy, placed in chart. TT to OT for updated notes for insurance auth. Patient will
require ambulance transport. CM will continue to follow for all discharge planning needs.
Plan; [facility] SNF, will need auth, ambulance transport
--- NOTE | 2024-11-01 11:56 | W.PN.NEPH.PH ---
Today's Communication / Plan
-
follow BMP
Assessment/Plan
-
IMP:
Shock -suspect obstructive shock due to acute large bilateral pulmonary emboli
Acute on chronic normocytic anemia
GI bleed given coffee-ground emesis
FELIBERTO on CKD 3B-baseline cr 1.2-1.4 Dr James
mild gap met acidosis
Abdominal ascites -s/p paracentesis 6.5lit
Troponin elevation -suspect acute nonischemic myocardial injury
Left adnexal cyst -chronic.
h/o Essential hypertension
Asthma without exacerbation
Hyperlipidemia
Hyponatremia
Hyperkalemia
Impaired fasting glucose -hemoglobin A1c 5.8%.
Hyperphosphatemia
Bilateral lower extremity lymphedema
Ambulatory dysfunction
Super morbid obesity
Plan:
stop bicarb
cont lasix at 20mg daily
follow BMP
d/c planning
f/u Dr James
BMP in week upon d/c
-
-
Date of Service: November 01, 2024
CC / HPI / ROS
-
Chief Complaint:
FELIBERTO with CKD
History of Present Illness:
FELIBERTO/Cr down to 1.3
BP stable
Na stable 130
K normal
hgb stable
Review of Systems:
no cp or sob
no abd pain
Labs
-
Labs:
WBC 12.2 10^3/uL (4.8-10.8) H 11/01/24 06:52
RBC 3.78 10^6/uL (4.20-5.40) L 11/01/24 06:52
Hgb 10.1 g/dL (12.0-16.0) L 11/01/24 06:52
Hct 31.6 % (37.0-47.0) L 11/01/24 06:52
Plt Count 556 10^3/uL (130-400) H 11/01/24 06:52
Sodium 130 mmol/L (135-145) L 11/01/24 06:52
Potassium 5.0 mmol/L (3.5-5.1) 11/01/24 06:52
Chloride 98 mmol/L (98-107) 11/01/24 06:52
Carbon Dioxide 27 mmol/L (22-30) 11/01/24 06:52
BUN 43 mg/dl (7-17) H 11/01/24 06:52
Creatinine 1.3 mg/dL (0.6-1.0) H 11/01/24 06:52
eGFR 43.69 11/01/24 06:52
Glucose 132 mg/dl (70-99) H 11/01/24 06:52
Calcium 9.1 mg/dl (8.4-10.2) 11/01/24 06:52
Phosphorus 4.2 mg/dl (2.5-4.5) 10/28/24 03:43
Erk-C-Zfldvxvkpcd Pept 286 pg/ml 10/23/24 16:51
Albumin 2.6 g/dl (3.5-5.0) L 10/25/24 03:55
Physical Exam
-
Vital Signs:
Vital Signs
Temp Pulse Resp BP Pulse Ox
98 F 80 18 122/57 95
11/01/24 07:00 11/01/24 07:00 11/01/24 07:00 11/01/24 07:00 11/01/24 07:00
Cardiovascular:: Regular rate and rhythm
Respiratory:: Bilateral: Coarse
Lung Excursion:: Normal
Abdomen:: Nontender and Soft
Bowel Sounds:: Normal
Extremity Edema:: +3: Bilateral:
--- NOTE | 2024-11-01 12:12 | W.PN.HOSP.TC ---
Addendum entered and electronically signed by Tommie Jolley MD 11/01/24 14:41:
time of discharge 38 minutes
Original Note:
Today's Communication/Plan
-
monitor vitals
see plan
cw eliquis
Monitor leukocytosis
pending placement
Assessment / Plan
Assessment / Plan
Gen-AAOx3, NAD, super morbid obesity
HEENT-NC, AT, anicteric, clear oral mm
Neck-supple
CV-reg, no M, +S1/S2
Lungs-clear B/L
Abd-soft, distended,nontender
Ext-no edema
Neuro-grossly non-focal
Psych-calm, cooperative
Shock -suspect obstructive shock due to acute large bilateral pulmonary emboli. New onset of fevers last evening, 10/24. Technically meets criteria for sepsis but looks nontoxic. Blood culture sent in the emergency room are negative. She has no
urinary symptoms but states that she does not get symptoms with UTI. Urinalysis with pyuria, urine culture with citerobacter. Finished antibiotics
Stable off vasopressors, shock resolved. Hemodynamically stable.
Acute bilateral pulmonary emboli with acute cor pulmonale - Significant RV and RA enlargement with right heart strain noted on CT. Troponin elevation noted. BNP is suppressed as would be expected with morbid obesity.
Received alteplase via catheter directed thrombolysis. IV heparin.
Denies history of pulmonary embolism. Lower extremity venous Doppler ultrasound was a limited exam and from what could be seen there was no evidence of DVT.
Risk factors are morbid obesity and limited mobility. Denies history of malignancy.
Hemoglobin stable, transitioned to Eliquis
will need hematology/oncology evaluation outpatient
Acute hypoxic respiratory insufficiency likely secondary pulmonary embolism
Wean oxygen as tolerated
FELIBERTO on CKD 3B - 1.3 today. Metabolic acidosis improving, bicarb 22, continue higher dose of oral sodium bicarbonate.
Bullock catheter in place. Etiology of FELIBERTO likely multifactorial including shock with hypotension, contrast exposure, etc. nephrology following.
Did lose weight after paracentesis.
Nephrology following, monitor
lasix
Acute on chronic normocytic anemia -hemoglobin improved after transfusion. Concern for acute blood loss anemia due to GI bleed given coffee-ground emesis 10/25. EGD completed 10/25, gastritis and cardia of stomach, questionable Sterling erosions.
Normal esophagus, normal duodenum. No specimens collected. Now on PPI twice daily per GI
Suspect acute blood loss anemia likely exacerbated by anticoagulant use
Acute bronchitis -complaining of new cough. Start Acapella, incentive spirometer. Try to get out of bed if possible.
Abdominal ascites -large ascites noted on CT chest as well as ultrasound. Portal veins and hepatic veins are patent. No liver lesions noted, however study was limited. Underwent successful paracentesis, 6.5 L removed. Gram stain negative for
organisms, WBCs seen. SAAG < 1.1 suggesting non-portal hypertension etiology. Ascitic fluid cytology negative for malignant cells.
If abdominal distention comes back then can get repeat ultrasound to assess for ascites
Encourage out of bed, increase bowel regimen. She did refuse several doses of MiraLAX.
Troponin elevation -suspect acute nonischemic myocardial injury due to large hemodynamically unstable pulmonary embolism. Troponin trended down.
Left adnexal cyst -chronic. Noted on last CT abdomen/pelvis in 2020, measuring 10 cm in the left adnexa. Previously 6 cm in 2017. Patient has not followed up and states that she has not had any procedures done on the cyst.
Essential hypertension -hold medications for shock. Was on furosemide, lisinopril, metoprolol, Dyazide prior to admission. slowly start these meds if BP tolerates
Asthma without exacerbation -stable. Suspect mild intermittent asthma.
Hyperlipidemia
Hyponatremia -would permanently discontinue hydrochlorothiazide. Monitor sodium.
Hyperkalemia -resolved.
Impaired fasting glucose -hemoglobin A1c 5.8%. Weight loss is the mckee.
Hyperphosphatemia -improving. Continue PhosLo.
Bilateral lower extremity lymphedema
Ambulatory dysfunction -lives independently but has been staying at [facility] for the past few weeks for physical therapy.
Super morbid obesity
Full code
Anticipated Discharge: Today
Subjective/Interval History
-
Date of Service: November 01, 2024
denies nausea
Objective Data
-
Labs:
Laboratory Results
11/01/24
06:52
WBC 12.2 H
Hgb 10.1 L
Hct 31.6 L
Plt Count 556 H
Sodium 130 L
Potassium 5.0
Chloride 98
Carbon Dioxide 27
BUN 43 H
Creatinine 1.3 H
Glucose 132 H
Calcium 9.1
Vital Signs:
Vital Signs
Temp Pulse Resp BP Pulse Ox
98 F 80 18 122/57 95
11/01/24 07:00 11/01/24 07:00 11/01/24 07:00 11/01/24 07:00 11/01/24 07:00
I&O
10/31/24 11/01/24 11/02/24
06:59 06:59 06:59
Intake Total 960 / 960 360 / 360
Output Total 1100 / 1100 1200 / 1200
Balance -140 / -140 -840 / -840
--- NOTE | 2024-11-01 14:24 | W.DCSUMMARY ---
Discharge Summary
Discharge Data
Date of Admission: 10/23/24
Date of Discharge: 11/01/24
-
Pending Results: No
Hospital Course
73-year-old female with past medical history of CKD stage IIIb, anemia, left adnexal cyst, essential hypertension, asthma, hyperlipidemia, hyponatremia, prediabetes, bilateral lower extremity lymphedema, amatory dysfunction, morbid obesity came to
the hospital with acute bilateral pulmonary embolism with acute core pulmonology. Patient had obstructive shock secondary to large bilateral pulmonary embolus on admission. On admission patient required alteplase via catheter directed
thrombolysis. Subsequently patient was put on IV heparin. Patient was initially admitted to ICU. Over time patient symptoms continue to improve and her IV heparin was then transition to p.o. Eliquis. She also had urinary tract infection and
finished antibiotics prior to discharge. Patient also had acute kidney injury on CKD which over time continue to improve. Patient was seen by nephrology throughout hospitalization. Patient also had abdominal ascites and had successful
paracentesis with 6.5 L removed. Gram stain was negative. SAG was less than 1.1 suggesting on portal hypertension etiology. Cytology was also negative. Patient was instructed that if she get ascites again to follow-up outpatient and get repeat
paracentesis and will also need to follow-up outpatient closely with heme-onc for malignancy workup. Once patient symptoms continue to improve she was then discharged to rehab with instructions to follow-up with all her physicians outpatient.
Discharge Plan
-
Patient Disposition: Residential/SNF
Discharge Diagnosis/Procedures: Shock -suspect obstructive shock due to acute large bilateral pulmonary emboli
Acute bilateral pulmonary emboli with acute cor pulmonale s/p alteplase via catheter directed thrombolysis
FELIBERTO on CKD 3B
Essential hypertension
Left adnexal cyst
Hyponatremia
Diet: As tolerated
Activity: With assistance and As tolerated
Driving Restrictions: Not until seen by your Dr
Bathing Restrictions: None
Blood Work: CBC and BMP at rehab
Activity Restrictions/Additional Instructions:
Wound Care Instructions Left LE- Clean with normal saline or soap and water and apply silicone border foam. Change Q 48 hours and PRN drainage.
Follow up at wound care center call for an appointment.
Follow-up with hematology/oncology evaluation outpatient for pulmonary embolism workup and malignancy workup
Continue Eliquis 10 mg twice daily until 11/04/2024. Starting 11/05/2024 decrease to 5 mg twice daily
Referrals:
Meagan Ruiz MD [Active] -
( Dr. Ruiz or [facility]PER[facility]
Eventual PFTs and sleep study)
Jazmín Clark MD [Active] -
Rupesh Howe MD [Active] -
Shon Burns MD [Family Provider] - in less than 1 week
Natividad Moreau MD [Active] -
Prescriptions:
New
Eliquis 5 mg Tablet
10 mg PO BID Qty: 0 0RF
white petrolatum [Hydrophor] 42 % Ointment
1 applic topical DAILY Qty: 0 0RF
calcium acetate 667 mg Tablet
667 mg PO MEALS Qty: 0 0RF
docusate sodium 100 mg Capsule
100 mg PO BID Qty: 0 0RF
Continued
cyanocobalamin (vitamin B-12) 1,000 MCG tablet
1,500 mcg PO Q48H
acetaminophen 325 mg Tablet
650 mg PO Q4HPRN PRN (Reason: fever >100)
acetaminophen 325 mg Tablet
650 mg PO HSPRN PRN (Reason: MILD PAIN)
polyethylene glycol 3350 [Miralax] 17 gram Powder In Packet
17 g PO DAILY
miconazole nitrate 2 % Cream
1 applic TOPICAL BID
Patient Comments:
ABDOMINAL FOLDS
acetaminophen 650 mg Tablet Extended Release
1,300 mg PO DAILY
magnesium hydroxide [Milk of Magnesia] 400 mg/5 mL Suspension
2,400 mg PO DAILYPRN PRN (Reason: no bm in 4 days)
bisacodyl 10 mg Suppository
10 mg MI DAILY PRN (Reason: mom ineffective on day 5 of no bm)
Fleet Enema 19-7 gram/118 mL Enema
118 ml MI DAILYPRN PRN (Reason: bisacodyl supp ineffective on day 6 of no bm)
furosemide 20 mg Tablet
20 mg PO DAILY
albuterol sulfate 90 mcg/actuation Hfa Aerosol Inhaler
1 inh INHALATION R DAILYPRN PRN (Reason: sob/wheezing)
simethicone 80 mg Tablet,Chewable
80 mg PO TID
bupropion HCl [Wellbutrin XL] 300 mg Tablet Extended Release 24 Hr
300 mg PO DAILY
Changed
pantoprazole 40 MG tablet,delayed release (DR/EC)
40 mg PO BID Qty: 30 0RF
Held
lisinopril 20 mg Tablet
20 mg PO BID
Hold Instructions: Restart when blood pressure is greater than 140/90
Discontinued
triamterene-hydrochlorothiazid 75-50 mg Tablet
1 tab PO DAILY
metoprolol tartrate 25 mg Tablet
25 mg PO ONCE
Discharge Orders:
Discharge Patient (As Directed); Ordered 11/01/24
Ordered By: Tommie Jolley
Discharge Date and Time
Discharge Date/Time: 11/01/24 18:36
Print Language: [email or web address]
[2024-11-01 15:00] VITALS: BP 129/74
== END 2024-11-01 18:36 | DRG 175 ==
LOC: 4 WEST ACU 20:12
PROVIDERS: Hospitalist; Nurse Practitioner Adult Health; Nurse Practitioner Family; Nurse Practitioner Primary Care; Radiology Vascular & Interventional Radiology; ADMITTING PHYSICIAN Internal Medicine; ATTENDING PHYSICIAN Internal Medicine; CONSULT PHYSICIAN Internal Medicine; CONSULT PHYSICIAN Internal Medicine Cardiovascular Disease; EMERGENCY PHYSICIAN Emergency Medicine; FAMILY PHYSICIAN Family Medicine; OTHER PHYSICIAN Internal Medicine
PROC: 3E06317 Introduction of Other Thrombolytic into Central Artery, Percutaneous Approach (ICD-10-PCS; 2024-10-23)
PROC: 02HV33Z Insertion of Infusion Device into Superior Vena Cava, Percutaneous Approach (ICD-10-PCS; 2024-10-23)
PROC: 0DJ08ZZ Inspection of Upper Intestinal Tract, Via Natural or Artificial Opening Endoscopic (ICD-10-PCS; 2024-10-25)
PROC: 0W9G3ZZ Drainage of Peritoneal Cavity, Percutaneous Approach (ICD-10-PCS; 2024-10-25)
PROC: 30233N1 Transfusion of Nonautologous Red Blood Cells into Peripheral Vein, Percutaneous Approach (ICD-10-PCS; 2024-10-26)
DX: I26.09 Other pulmonary embolism with acute cor pulmonale (principal); R57.8 Other shock; K29.71 Gastritis, unspecified, with bleeding; R18.8 Other ascites; E87.1 Hypo-osmolality and hyponatremia; N17.9 Acute kidney failure, unspecified; D62 Acute posthemorrhagic anemia; N39.0 Urinary tract infection, site not specified; Z68.43 Body mass index [BMI] 50.0-59.9, adult; E87.20 Acidosis, unspecified; K76.6 Portal hypertension; I5A Non-ischemic myocardial injury (non-traumatic); D68.32 Hemorrhagic disorder due to extrinsic circulating anticoagulants; I25.10 Atherosclerotic heart disease of native coronary artery without angina pectoris; I12.9 Hypertensive chronic kidney disease with stage 1 through stage 4 chronic kidney disease, or unspecified chronic kidney disease; E66.01 Morbid (severe) obesity due to excess calories; N18.32 Chronic kidney disease, stage 3b; D63.1 Anemia in chronic kidney disease; I95.9 Hypotension, unspecified; J45.20 Mild intermittent asthma, uncomplicated; E78.00 Pure hypercholesterolemia, unspecified; E87.5 Hyperkalemia; E83.39 Other disorders of phosphorus metabolism; B96.89 Other specified bacterial agents as the cause of diseases classified elsewhere; K21.9 Gastro-esophageal reflux disease without esophagitis; I89.0 Lymphedema, not elsewhere classified; J20.9 Acute bronchitis, unspecified; T45.615A Adverse effect of thrombolytic drugs, initial encounter; R73.03 Prediabetes; G89.29 Other chronic pain; R09.02 Hypoxemia; Z11.52 Encounter for screening for COVID-19; Z88.5 Allergy status to narcotic agent; Z88.2 Allergy status to sulfonamides; Z79.899 Other long term (current) drug therapy
CPT/HCPCS: 88305; 36014; 36556; 36620; 37211; 37214; 49083; 71045; 71275; 75741; 76700; 76937; 77001; 80048; 80053; 81003; 81015; 82040; 82042; 82248; 82570; 82962; 83036; 83605; 83615; 83735; 83880; 84100; 84156; 84157; 84300; 84484; 85025; 85027; 85379; 85610; 85730; 86704; 86706; 86708; 86803; 86850; 86900; 86901; 86920; 87015; 87040; 87070; 87077; 87086; 87186; 87205; 87340; 87502; 87811; 88112; 89051; 93005; 93306; 93970; 93975; 94640; 96361; 96365; 96366; 96367; 97110; 97163; 97167; 97530; 97535; 99291; 99292; C1769; C1887; J2997; P9016; P9047; Q9967

== ENCOUNTER 2024-11-18 19:15 | Inpatient (IN) | payer OTHER, SELFPAY ==
[2024-11-18] VITALS (7 sets, daily range): BP systolic 124–159; BP diastolic 65–87; BMI 54.5
[2024-11-18 14:25] LABS: % Basophils 0.4 % (0-2); % Eosinophils 6.7 % (0-6); % Immature Granulocytes 0.3 % (0-0.5); % Lymphocytes 10.2 % (20.5-51.1); % Neutrophils 73.4 % (42.2-75.2); Absolute Eosinophils 0.5 10^3/uL (0-0.7); Absolute Lymphocytes 0.7 10^3/uL (1.2-3.4); Absolute Monocytes 0.6 10^3/uL (0.1-0.6); Absolute Neutrophils 5.1 10^3/uL (1.4-6.5); Hematocrit 34.2 % (37.0-47.0); Hemoglobin 10.8 g/dL (12.0-16.0); Mean Corp Hgb Conc. 31.6 g/dL (33.0-37.0); Mean Corpuscular Hgb 25.8 pg (27.0-31.0); Mean Corpuscular Volume 81.8 fL (81.0-99.0); Mean Platelet Volume 8.1 fL (7.4-10.4); Nucleated Red Blood Cells % 0 %; Platelet Count 661 10^3/uL (130-400); Red Blood Cell Count 4.18 10^6/uL (4.20-5.40); Red Cell Dist. Width 14.6 % (11.5-14.5)
--- NOTE | 2024-11-18 14:31 | ED.GENMED ---
History of Present Illness
General
Chief Complaint: Breathing Problem
Source: patient
Exam Limitations: none
Time Seen by Provider: 11/18/24 14:26
Nursing documentation reviewed up to this point in time: agreed with
History of Present Illness
History of Present Illness:
Patient is a 74-year-old female with history of PE, chronic kidney disease stage IIIb anemia hypertension asthma hyperlipidemia hyponatremia. Patient was just admitted for obstructive shock secondary to large bilateral PE during October admission
October 23 to November 01. Patient did receive alteplase at that time and catheter directed thrombolysis. She did have an paracentesis for abdominal ascites at that time and 6-1/2 L was removed. It was felt that portal hypertension was the etiology of
the ascites.
Past History
Past History
ED Past Medical History: HTN and Other (Immature dysfunction, chronic pain)
ED Past Surgical History: None
Social History
Tobacco: Non-smoker
Alcohol: None
Drug: None
Living: with family
Employment: Employed
Course
Orders/Labs/Results
Orders:
Orders
11/18/24 13:55
EKG [Electrocardiogram (*1)] Urgent
Reason for Study: Shortness of Breath
EKG- Treatment ONCE
11/18/24 14:10
CBC/With Diff [Complete Blood Count/With Diff] Urgent
CMP [Comprehensive Metabolic Panel] Urgent
Pro-BNP [NT-proBNP] Urgent
Abnormal Lab Results
11/18/24
14:10
RBC 4.18 L 10^6/uL
(4.20-5.40)
Hgb 10.8 L g/dL
(12.0-16.0)
Hct 34.2 L %
(37.0-47.0)
MCH 25.8 L pg
(27.0-31.0)
MCHC 31.6 L g/dL
(33.0-37.0)
RDW 14.6 H %
(11.5-14.5)
Plt Count 661 H 10^3/uL
(130-400)
Absolute Lymphs (auto) 0.7 L 10^3/uL
(1.2-3.4)
Lymphocytes % 10.2 L %
(20.5-51.1)
Eosinophils % 6.7 H %
(0-6)
11/18/24 14:10
Vital Signs
Initial and Last Documented VS:
Initial Vital Signs
Temp Pulse Resp BP Pulse Ox
98.7 F 95 24 159/80 95
11/18/24 13:48 11/18/24 13:48 11/18/24 13:48 11/18/24 13:48 11/18/24 13:48
Last Documented Vital Signs
Temp Pulse Resp BP Pulse Ox
98.7 F 95 24 159/80 95
11/18/24 13:48 11/18/24 13:48 11/18/24 13:48 11/18/24 13:48 11/18/24 13:48
ED Attending Note
-
Portions of this chart may have been created with voice recognition software.� Occasional wrong word or��sound alike� substitutions may have occurred due to the inherent limitations of voice recognition software.
Discharge Plan
Departure
Prescriptions:
No Action
cyanocobalamin (vitamin B-12) 1,000 MCG tablet
1,500 mcg PO Q48H
acetaminophen 325 mg Tablet
650 mg PO Q4HPRN PRN (Reason: fever >100)
acetaminophen 325 mg Tablet
650 mg PO HSPRN PRN (Reason: MILD PAIN)
polyethylene glycol 3350 [Miralax] 17 gram Powder In Packet
17 g PO DAILY
miconazole nitrate 2 % Cream
1 applic TOPICAL BID
Patient Comments:
ABDOMINAL FOLDS
lisinopril 20 mg Tablet
20 mg PO BID
acetaminophen 650 mg Tablet Extended Release
1,300 mg PO DAILY
magnesium hydroxide [Milk of Magnesia] 400 mg/5 mL Suspension
2,400 mg PO DAILYPRN PRN (Reason: no bm in 4 days)
bisacodyl 10 mg Suppository
10 mg NE DAILY PRN (Reason: mom ineffective on day 5 of no bm)
Fleet Enema 19-7 gram/118 mL Enema
118 ml NE DAILYPRN PRN (Reason: bisacodyl supp ineffective on day 6 of no bm)
furosemide 20 mg Tablet
20 mg PO DAILY
albuterol sulfate 90 mcg/actuation Hfa Aerosol Inhaler
1 inh INHALATION R DAILYPRN PRN (Reason: sob/wheezing)
simethicone 80 mg Tablet,Chewable
80 mg PO TID
bupropion HCl [Wellbutrin XL] 300 mg Tablet Extended Release 24 Hr
300 mg PO DAILY
Eliquis 5 mg Tablet
10 mg PO BID Qty: 0 0RF
white petrolatum [Hydrophor] 42 % Ointment
1 applic topical DAILY Qty: 0 0RF
calcium acetate 667 mg Tablet
667 mg PO MEALS Qty: 0 0RF
pantoprazole 40 MG tablet,delayed release (DR/EC)
40 mg PO BID Qty: 30 0RF
docusate sodium 100 mg Capsule
100 mg PO BID Qty: 0 0RF
Referrals:
Carlos Sánchez DO [Family Provider] -
Interventions
Interventions:
*Risk Screen - Suicide Last Done: 11/18/24 13:48
*General Assessment Last Done: 11/18/24 13:48
*Neglect/Abuse Screening Last Done: 11/18/24 13:48
*ED- Fall Risk Assessment Last Done: 11/18/24 13:48
*ED COVID-19 Vaccine History Last Done: 11/18/24 13:48
Discharge Date and Time
Print Language: AZERI
[2024-11-18 14:37] LABS: ALT (SGPT) 13 U/L (0-35); AST (SGOT) 19 U/L (14-36); Alkaline Phosphatase 95 U/L (38-126); Blood Urea Nitrogen 19 mg/dl (7-17); Calcium 9.8 mg/dl (8.4-10.2); Carbon Dioxide 34 mmol/L (22-30); Chloride 97 mmol/L (98-107); Estimated Creatinine Clearance 59 ml/min; Glucose 100 mg/dl (70-99); Potassium 4.2 mmol/L (3.5-5.1); Sodium 136 mmol/L (135-145); Total Bilirubin 0.8 mg/dl (0.2-1.3); Total Protein 6.3 g/dl (6.3-8.2); eGFR 53.06
[2024-11-18 14:44] LABS: NT-proBNP 687 pg/ml
--- NOTE | 2024-11-18 16:17 | ED.GENMED ---
History of Present Illness
General
Chief Complaint: Breathing Problem
Time Seen by Provider: 11/18/24 14:26
History of Present Illness
History of Present Illness:
74-year-old female with history of chronic kidney disease stage III, essential hypertension, asthma, hyperlipidemia, morbid obesity, chronic lower extremity lymphedema, and recent massive PE currently on anticoagulants presents to the emergency
department from skilled rehab due to shortness of breath. She reports she has gained 10 pounds in the past 2 weeks. While she was hospitalized recently for her massive PE she did undergo a paracentesis that yielded 6 L of fluid that was negative
for bacterial pathology. Portal hypertension was suggested as the etiology for this. She does feel increasing abdominal girth as well as a persistent dry cough for the past 2 weeks. Denies fevers or sweats.
Past History
Past History
ED Past Medical History: HTN and Other (Immature dysfunction, chronic pain)
ED Past Surgical History: None
Social History
Tobacco: Non-smoker
Alcohol: None
Drug: None
Living: with family
Employment: Employed
Review of Systems
Review of Systems
Allergies reviewed?: Yes
All Other Systems: ROS reviewed and negative except as documented in HPI and ROS
Phy Exam
Physical Exam
Physical Exam:
GEN: Chronically ill-appearing, no immediate distress however mildly tachypneic
HEENT: Oral mucosa moist, no scleral icterus
Cardiac: Regular rate And rhythm, no murmurs
Lung: No respiratory distress, no tachypnea, Poor inspiratory effort limits lung exam however lungs are clear, frequent dry cough on exam
Abdomen: Morbid obesity limits exam however abdomen is quite protuberant, grossly nontender
MSK: Massive bilateral lower extremity edema
Skin: Good color, no pallor or jaundice, no rashes
Neuro: AO x3, moves all extremities freely
Psych: Calm, cooperative
Scores
Heart Failure Risk
Heart Failure Risk Score: Not Applicable
Course
Orders/Labs/Results
Orders:
Orders
11/18/24 13:55
EKG [Electrocardiogram (*1)] Urgent
Reason for Study: Shortness of Breath
EKG- Treatment ONCE
11/18/24 14:10
CBC/With Diff [Complete Blood Count/With Diff] Urgent
CMP [Comprehensive Metabolic Panel] Urgent
Pro-BNP [NT-proBNP] Urgent
11/18/24 Dinner
2000 calorie (17 carb) Diabetic
At Your Request: Limited Participation
Does patient need a safe tray?: No
11/18/24 16:52
CR Chest - 2 Views Urgent
Comment:
Reason For Exam: SOB
11/18/24 17:14
COVID-19 Antigen Urgent
Source: Nasal Swab
Influenza A+B Rapid Molecular Urgent
VINCE Source: Nasal Swab
Specimen Description:
11/18/24 18:04
US Abdomen Limited Urgent
Comment:
Reason For Exam: eval for ascites
11/18/24 18:38
Acetaminophen [Tylenol] 650 mg PO NOW STA
11/18/24 18:49
Admit/Transfer Patient As Directed
Co-Sign Provider:
Level of Care: Inpatient admission
Assign to:: Telemetry
Physician / Group: Samir
Diagnosis: Ascites
Reason for Telemetry: Arrhythmia
Date to Stop Telemetry: 11/21/24
Time to Stop Telemetry: 11:00
Reason for Hospitalization: Paracentesis
Expected length of stay greater than two midnights?: Yes
ELOS- Estimated Length of Stay in days: 3
I certify the patient meets the requirements for IP care: Yes
PRN Pain Medication Management As Directed
May give lesser potent ordered pain med per pt: Yes
preference::
Protocol:: Medication orders for pain may be administered in a
manner that supports deferring to patient preference
when the pt is:
- Requesting an ordered lesser potent pain medication.
Least to most potent pain medications are defined
as: acetaminophen < NSAID < tramadol < opioids
(morphine, oxycodone, hydromorphone).
- Requesting a lesser dose of the same medication IF
ORDERED.
- Requesting a less intrusive route of administration
if both routes are prescribed by the provider (PO <
IV).
11/18/24 18:51
Code Status As Directed
Resuscitation Status: Full Code
11/18/24 21:19
Acetaminophen [Tylenol] 650 mg PO Q4HPRN PRN
Apixaban [Eliquis] 5 mg PO BID
Dextrose 50%-Water [Dextrose 50% Syringe] 12.5 grams IV [id number] PRN
Glucagon [GlucaGen] 1 mg IM PRN PRN
Lisinopril [Zestril] 20 mg PO BID
Pantoprazole [Protonix] 40 mg PO BID
11/18/24 21:19
IRAD CONSULT Routine
Consulting Provider: Tomer Vaughan
Was physician already notified: Yes
Reason for Consult/Procedure: Paracentesis
Acknowledgement that appropriate orders are entered: Yes
Body Fluid Albumin Routine
Fluid Source: Peritoneal (Ascites)
Body Fluid Amylase Routine
Fluid Source: Peritoneal (Ascites)
Body Fluid Cell Count Routine
What is the Body Fluid: peritoneal fluid
Comment: post procedure
Body Fluid LDH Routine
Fluid Source: Peritoneal (Ascites)
Body Fluid Protein Routine
Fluid Source: Peritoneal (Ascites)
Fluid Culture with Gram Stain Routine
VINCE Source: Peritoneal Fluid
Specimen Description:
Comment: Post Procedure
Activity As Directed
Activity Level: Out of Bed-Early Mobility
With Assistance
Bedside Glucose Monitoring As Directed
Frequency: AC&HS
Additional Instructions:: Change to q6h if pt on TPN, tube feeding or not eating
Notify MD As Directed
Notify physician if: Notify attending physician of volume removed when paracentesis complete.
Vital Signs As Directed
Frequency: Per unit guidelines
Weight As Directed
Frequency: Daily
IRAD Cytology Routine
Source: Peritoneal Fluid
Clinical Impression: recurrent ascites
Ot Eval And Treat Routine
Pt Eval And Treat Routine
Activity Level: Out of Bed-Early Mobility
11/18/24 22:00
Simethicone [Mylicon] 80 mg PO TID
11/19/24 06:00
Basic Metabolic Panel IN AM
Complete Blood Count/No Diff IN AM
Glycohemoglobin (HgbA1c) IN AM
Magnesium IN AM
Phosphorus IN AM
TSH Reflex To Free T4 IN AM
11/19/24 07:30
Insulin Aspart Corrective Low [Novolog Flexpen-Low Resistance] See Protocol SC AC
11/19/24 08:00
Bupropion(24Hr)Extended Releas [WELLBUTRIN XL (24 hour extended release)] 300 mg PO DAILY
Calcium Acetate [Phoslo] 667 mg PO MEALS
Furosemide [Lasix] 20 mg PO DAILY
Polyethylene Glycol Powder [Miralax] 17 grams PO DAILY
11/21/24 11:00
DC Protocol for Telemetry ONCE
Abnormal Lab Results
11/18/24
14:10
RBC 4.18 L 10^6/uL
(4.20-5.40)
Hgb 10.8 L g/dL
(12.0-16.0)
Hct 34.2 L %
(37.0-47.0)
MCH 25.8 L pg
(27.0-31.0)
MCHC 31.6 L g/dL
(33.0-37.0)
RDW 14.6 H %
(11.5-14.5)
Plt Count 661 H 10^3/uL
(130-400)
Absolute Lymphs (auto) 0.7 L 10^3/uL
(1.2-3.4)
Lymphocytes % 10.2 L %
(20.5-51.1)
Eosinophils % 6.7 H %
(0-6)
Chloride 97 L mmol/L
(98-107)
Carbon Dioxide 34 H mmol/L
(22-30)
BUN 19 H mg/dl
(7-17)
Creatinine 1.1 H mg/dL
(0.6-1.0)
Glucose 100 H mg/dl
(70-99)
Albumin 3.0 L g/dl
(3.5-5.0)
11/18/24 14:10
11/18/24 14:10
Vital Signs
Initial and Last Documented VS:
Initial Vital Signs
Temp Pulse Resp BP Pulse Ox
98.7 F 95 24 159/80 95
11/18/24 13:48 11/18/24 13:48 11/18/24 13:48 11/18/24 13:48 11/18/24 13:48
Last Documented Vital Signs
Temp Pulse Resp BP Pulse Ox
98.6 F 112 21 142/77 92
11/18/24 21:38 11/18/24 21:38 11/18/24 21:38 11/18/24 21:38 11/18/24 21:38
MDM/Problems Addressed
MDM/Problems Addressed:
Patient with significant worsening ascites left pleural effusion. This may all be secondary to right heart failure in the setting of a recent massive PE. Ultimately given her symptoms I do not feel it is appropriate to discharge for outpatient
follow-up thus will admit for inpatient paracentesis and possible thoracentesis if indicated
*Critical Care Note
Total Time (30-74mins, 75-104mins- exclusive of procedures): Not Applicable
ED Attending Note
-
Portions of this chart may have been created with voice recognition software.� Occasional wrong word or��sound alike� substitutions may have occurred due to the inherent limitations of voice recognition software.
Discharge Plan
Departure
Patient Disposition: Admit
Date of Disposition: 11/18/24
Time of Disposition: 18:03
Admit to: Med/Surg
Presentation/result/management discussed w/ accepting MD/DO: Hospitalist
Discharge Problem:
Ascites, Shortness of breath
Interventions
Interventions:
*Risk Screen - Suicide Last Done: 11/18/24 13:48
*General Assessment Last Done: 11/18/24 13:48
*Neglect/Abuse Screening Last Done: 11/18/24 13:48
*ED- Fall Risk Assessment Last Done: 11/18/24 13:48
*ED COVID-19 Vaccine History Last Done: 11/18/24 13:48
*Nursing Disposition Last Done: 11/18/24 21:13
ED- Cardiac Assessment Last Done: 11/18/24 14:59
ED- Pulmonary Assessment Last Done: 11/18/24 14:59
Discharge Date and Time
Discharge Date/Time: 11/18/24 21:13
[2024-11-18 17:50] LABS: COVID-19 Antigen Negative (Negative)
--- NOTE | 2024-11-18 18:07 | HPS.HSE ---
Family Physician
-
Family Physician: Carlos Sánchez
Chief Complaint
-
Shortness of Breath
History of Present Illness
Patient is a 74 y/o female past medical history of diabetes mellitus, hypertension, chronic kidney disease, and recent massive pulmonary embolism who presents with shortness of breath. Patient was admitted from October 23 to November 01 with a massive
pulmonary embolism requiring catheter directed thrombolysis. Patient reports during that hospitalization she also underwent a paracentesis with 6.5L removed. Initially at discharge patient was feeling well. She noted over the last week she has
been experiencing increasing shortness of breath, particularly conversational dyspnea. Patient reports a 10lb weight gain over the past week, and notes her abdomen is more distended than previous. She reports chronic lower extremity edema, and note
is seems to be unchanged.
Medical History
Past Medical History
Past Medical History: Reports Other
Additional Past Medical History:
Diabetes Mellitus, Type II
Essential Hypertension
Hyperlipidemia
CKD Stage III
Asthma
Anxiety / Depression
Morbid Obesity
Chronic Lower Extremity Lymphedema
Pulmonary Embolism - October 2024
Past Surgical History: Reports Other
Additional Past Surgical History:
Cholecystectomy
Left Hip Replacement
Social History
Tobacco: Non-smoker
Alcohol: None
Drug: None
Family History
Family History: Not pertinent
Allergies / Home Medications
Allergies reflects when Allergies were last updated in [facility].
Home Medications with original date entered in [facility]
Allergy/Medication List:
Allergies
Allergy/AdvReac Type Severity Reaction Status Date / Time
codeine Allergy Nausea / Verified 11/18/24 13:48
Vomiting
Influenza Virus Vaccines Allergy Tongue Verified 11/18/24 13:48
Swelling
meperidine [From Demerol] Allergy Unknown Verified 11/18/24 13:48
Phenothiazines Allergy Unknown Verified 11/18/24 13:48
Sulfa (Sulfonamide Allergy Unknown Verified 11/18/24 13:48
Antibiotics)
Home Medications
cyanocobalamin (vitamin B-12) 1,000 mcg tablet 1,500 mcg PO Q48H Supplement 09/22/16
acetaminophen 325 mg tablet 650 mg PO Q4HPRN PRN fever >100/mild pain 10/23/24
albuterol sulfate 90 mcg/actuation aerosol inhaler 1 inh inhalation R DAILYPRN PRN sob/wheezing 10/23/24
bisacodyl 10 mg rectal suppository 10 mg [place] DAILYPRN PRN if mom ineffective after 24 hrs 10/23/24
bupropion HCl 300 mg 24 hr tablet, extended release (Wellbutrin XL) 300 mg PO DAILY Mental Health/Anxiety 10/23/24
furosemide 20 mg tablet 20 mg PO DAILY Electrolyte Repletion 10/23/24
lisinopril 20 mg tablet 20 mg PO BID Blood Pressure 10/23/24
magnesium hydroxide 400 mg/5 mL oral suspension (Milk of Magnesia) 2,400 mg PO [id number] PRN no bm in 3 days 10/23/24
polyethylene glycol 3350 17 gram oral powder packet (Miralax) 17 g PO DAILY Gastrointestinal Issue 10/23/24
simethicone 80 mg chewable tablet 80 mg PO TID Gastrointestinal Issue 10/23/24
sodium phosphates 19 gram-7 gram/118 mL enema (Fleet Enema) 118 ml [place] DAILYPRN PRN bisacodyl ineffective after 24 hrs 10/23/24
calcium acetate 667 mg tablet 667 mg PO MEALS #0 tabs 10/31/24
docusate sodium 100 mg capsule 100 mg PO BID #0 caps 10/31/24
pantoprazole 40 mg tablet,delayed release 40 mg PO BID #30 tabs 10/31/24
apixaban 5 mg tablet (Eliquis) 5 mg PO BID 11/18/24
Review of Systems
-
A 12 point ROS was completed and negative except as noted: Yes
Constitutional: Denies Fever or Chills
Respiratory: Reports Trouble Breathing
Cardiac: Denies Chest Pain or Palpitations
Abdomen/GI: Denies Abdominal Pain
Physical Exam
Vital Signs
Vital Signs
Temp Pulse Resp BP Pulse Ox
98.7 F 105 21 124/70 94
11/18/24 13:48 11/18/24 18:00 11/18/24 18:00 11/18/24 18:00 11/18/24 18:00
Physical Exam
General: Comfortable and Conversant
HEENT: Anicteric and Moist mucous membranes
Respiratory: Clear and Decreased Breath Sounds (Right base)
Cardiac: S1/S2, Regular Rhythm and Tachycardia (Slightly)
GI: Soft, Non Tender and Distended (Positive fluid wave)
Rectal: Deferred by Provider
Musculoskeletal: No Clubbing, No Cyanosis and Other (+3 pitting edema bilateral lower extremities)
Skin: Warm, Dry and Other (Lower extremity skin changes of chronic lymphedema)
Neuro: Awake, Alert, Oriented and Nonfocal/grossly intact
Psych: Calm
Laboratory Results
-
11/18/24 14:10
11/18/24 14:10
Laboratory Results
Total Bilirubin 0.8 mg/dl (0.2-1.3) 11/18/24 14:10
AST 19 U/L (14-36) 11/18/24 14:10
ALT 13 U/L (0-35) 11/18/24 14:10
Alkaline Phosphatase 95 U/L (38-126) 11/18/24 14:10
Data Reviewed
-
Lab Data: Labs Reviewed by me
Old Records: Reviewed
Impression/Plan
-
Recurrent Ascites
-Consult IR for diagnostic and therapeutic paracentesis
-Check fluid studies including pathology and culture
Recent Pulmonary Embolism - October 2024
-Echo from 10/23/24: Normal left ventricular systolic function with EF 55-60%. Dilated and hypokinetic right ventricle
-Continue Eliquis
Diabetes Mellitus, Type II
-HgbA1c 5.8 in October 2024
Essential Hypertension
-Continue lisinopril with hold parameters
CKD Stage III
-Creatinine at baseline
Hyperphosphatemia
-Continue calcium acetate
Chronic Normocytic Anemia
-Hgb appears stable compared to previous
Asthma, no acute exacerbation
-Continue albuterol PRN
Anxiety / Depression
-Continue Wellbutrin
Gastritis / Gastric Erosions
-Continue Protonix BID
Chronic Lower Extremity Lymphedema
-Continue Lasix 20mg Daily as prior to admission
Class III Obesity
-Affects all aspects of care
Code Status: Full Code
[2024-11-18] MEDS: TYLENOL 650 MG PO (18:50)
--- NOTE | 2024-11-18 18:56 | W.PN.UPDATE ---
Update Note
Progress Note Update
HPI: 74 y/o female past medical history of diabetes mellitus, hypertension, chronic kidney disease, and recent massive pulmonary embolism who presented with shortness of breath. Patient was admitted from October 23 to November 01 with a massive
pulmonary embolism requiring catheter directed thrombolysis. Patient reports during that hospitalization she also underwent a paracentesis with 6.5L removed. Initially at discharge patient was feeling well. She noted over the last week she has
been experiencing increasing shortness of breath, particularly conversational dyspnea. Patient reports a 10lb weight gain over the past week, and notes her abdomen is more distended than previous. She reports chronic lower extremity edema, and note
is seems to be unchanged.
A/P:
# Recurrent Ascites
Consult IR for diagnostic and therapeutic paracentesis
Check fluid studies including pathology and culture
# Recent Pulmonary Embolism - October 2024
Echo from 10/23/24: Normal left ventricular systolic function with EF 55-60%. Dilated and hypokinetic right ventricle
Continue Eliquis
# Diabetes Mellitus, Type II
HgbA1c 5.8 in October 2024
# Essential Hypertension
Continue lisinopril with hold parameters
# CKD Stage III
Creatinine at baseline
# Hyperphosphatemia
Continue calcium acetate
# Chronic Normocytic Anemia
Hgb appears stable compared to previous
# Asthma, no acute exacerbation
Continue albuterol PRN
# Anxiety / Depression
Continue Wellbutrin
# Gastritis / Gastric Erosions
Continue Protonix BID
# Chronic Lower Extremity Lymphedema
Continue Lasix 20mg Daily as prior to admission
# Class III Obesity
Affects all aspects of care
DVT ppx: Eliquis
Code Status: Full Code
[2024-11-18] MEDS: PROTONIX 40 MG PO (22:15)
[2024-11-18] MEDS: MYLICON 80 MG PO (22:15)
[2024-11-18] MEDS: ELIQUIS 5 MG PO (22:15)
[2024-11-18] MEDS: ZESTRIL 20 MG PO (22:16)
[2024-11-18] MEDS: FLUSH (NSS) 1 FLUSH IV (22:16)
[2024-11-18 22:17] LABS: Glucose - Point of Care 135 mg/dl (70-99)
[2024-11-19] VITALS (12 sets, daily range): BP systolic 85–152; BP diastolic 65–82; BMI 54.3
--- NOTE | 2024-11-19 00:13 | PTCARENOTE ---
Patient received from ED via stretcher. She was pulled to bed by staff. She was oriented to room and surroundings. See nursing assessment for physical findings.
[2024-11-19 08:10] LABS: Glucose - Point of Care 82 mg/dl (70-99)
[2024-11-19] MEDS: NOVOLOG FLEXPEN-LOW RESISTANCE SC ×3 (08:11→17:10)
[2024-11-19] MEDS: PROTONIX 40 MG PO ×2 (08:16→21:06)
[2024-11-19] MEDS: MYLICON 80 MG PO ×3 (08:16→21:06)
[2024-11-19] MEDS: LASIX 20 MG PO (08:16)
[2024-11-19] MEDS: WELLBUTRIN XL (24 hour extended release) 300 MG PO (08:17)
[2024-11-19] MEDS: MIRALAX 17 GRAMS PO (08:17)
[2024-11-19] MEDS: ZESTRIL 20 MG PO ×2 (08:17→21:07)
[2024-11-19] MEDS: PHOSLO 667 MG PO ×3 (08:17→18:28)
[2024-11-19 08:23] LABS: Hematocrit 29.4 % (37.0-47.0); Hemoglobin 9.5 g/dL (12.0-16.0); Mean Corp Hgb Conc. 32.3 g/dL (33.0-37.0); Mean Corpuscular Hgb 26.5 pg (27.0-31.0); Mean Corpuscular Volume 82.1 fL (81.0-99.0); Mean Platelet Volume 8.5 fL (7.4-10.4); Platelet Count 594 10^3/uL (130-400); Red Blood Cell Count 3.58 10^6/uL (4.20-5.40); Red Cell Dist. Width 14.6 % (11.5-14.5); White Blood Cell Count 6.3 10^3/uL (4.8-10.8)
[2024-11-19 09:06] LABS: Blood Urea Nitrogen 19 mg/dl (7-17); Calcium 9.6 mg/dl (8.4-10.2); Carbon Dioxide 32 mmol/L (22-30); Chloride 98 mmol/L (98-107); Estimated Creatinine Clearance 65 ml/min; Glucose 88 mg/dl (70-99); Magnesium 1.5 mg/dl (1.6-2.3); Potassium 4.5 mmol/L (3.5-5.1); Sodium 135 mmol/L (135-145); eGFR 53.06
--- NOTE | 2024-11-19 09:12 | W.PN.HOSP.TC ---
Today's Communication/Plan
-
see A/P
Assessment / Plan
Assessment / Plan
HPI: 74 y/o female past medical history of diabetes mellitus, hypertension, chronic kidney disease, and recent massive pulmonary embolism who presented with shortness of breath. Patient was admitted from October 23 to November 01 with a massive
pulmonary embolism requiring catheter directed thrombolysis. Patient reports during that hospitalization she also underwent a paracentesis with 6.5L removed. Initially at discharge patient was feeling well. She noted over the last week she has
been experiencing increasing shortness of breath, particularly conversational dyspnea. Patient reports a 10lb weight gain over the past week, and notes her abdomen is more distended than previous. She reports chronic lower extremity edema, and note
is seems to be unchanged.
A/P:
# Recurrent Ascites
Consult IR for diagnostic and therapeutic paracentesis
Check fluid studies including pathology and culture
# Pt was placed on 1L NC which I do not think she needs
wean O2, baseline on RA
# Recent Pulmonary Embolism - October 2024
Echo from 10/23/24: Normal left ventricular systolic function with EF 55-60%. Dilated and hypokinetic right ventricle
Continue Eliquis
# Diabetes Mellitus, Type II
HgbA1c 5.8 in October 2024
# Essential Hypertension
Continue lisinopril with hold parameters
# CKD Stage III
Creatinine at baseline
# Hyperphosphatemia
Continue calcium acetate
# Chronic Normocytic Anemia
Hgb appears stable compared to previous
# Asthma, no acute exacerbation
Continue albuterol PRN
# Anxiety / Depression
Continue Wellbutrin
# Gastritis / Gastric Erosions
Continue Protonix BID
# Chronic Lower Extremity Lymphedema
Continue Lasix 20mg Daily as prior to admission
# Class III Obesity
Affects all aspects of care
DVT ppx: Eliquis
Code Status: Full Code
DW RN
Anticipated Discharge: 24 - 48 hours
Subjective/Interval History
-
Date of Service: November 19, 2024
Objective Data
-
Labs:
Laboratory Results
11/19/24
07:52
WBC 6.3
Hgb 9.5 L
Hct 29.4 L
Plt Count 594 H
Sodium 135
Potassium 4.5
Chloride 98
Carbon Dioxide 32 H
BUN 19 H
Creatinine 1.1 H
Glucose 88
Calcium 9.6
Vital Signs:
Vital Signs
Temp Pulse Resp BP Pulse Ox
36.9 C 85 18 137/79 95
11/19/24 06:58 11/19/24 08:17 11/19/24 06:58 11/19/24 08:17 11/19/24 06:58
I&O
11/18/24 11/19/24 11/20/24
06:59 06:59 06:59
Output Total 50 / 50
Balance -50 / -50
Review of Systems
-
History Source: Patient
All other systems: Reviewed and negative
Physical Exam
-
General: Well Developed, Well Nourished, Comfortable, Conversant and Morbidly Obese
HEENT: Normocephalic, Atraumatic, Nose Appears Normal, Ears Appear Normal and Oxygen (1L NC)
Respiratory: Clear to Auscultation and Non Labored Respirations; Negative Accessory Resp Muscle Use
Cardiac: Regular Rhythm and S1/S2
GI: Soft, Nontender, Normal Bowel Sounds and Distended
Skin: Warm and Dry
Neuro: Awake, Alert, Oriented and AO x 3
Psych: Calm and Intact Judgement/Insight
Data Reviewed
-
Ultrasound: Report Reviewed by me
Labs: Labs Reviewed by me
[2024-11-19 09:34] LABS: TSH Reflex To Free T4 9.34 uIU/ml (0.47-4.68)
[2024-11-19] MEDS: ELIQUIS 5 MG PO ×2 (09:44→21:06)
[2024-11-19 09:53] LABS: Hepatitis C Antibody Negative (Negative)
[2024-11-19 10:01] LABS: Free T4 1.56 ng/dl (0.78-2.19)
[2024-11-19] MEDS: FLEXBUMIN 50 IV (13:55)
[2024-11-19 14:08] LABS: Glucose - Point of Care 77 mg/dl (70-99)
[2024-11-19 14:32] LABS: Body Fluid Mononuclear 67.2 %; Body Fluid Polymorphonuclear 32.8 %; Body Fluid WBC 436 /CUMM
[2024-11-19 14:40] LABS: Body Fluid Albumin 1.8 g/dl; Body Fluid Amylase 43 U/L; Body Fluid LDH 187 U/L; Body Fluid Protein 3.9 g/dl
[2024-11-19] MEDS: FLEXBUMIN 100 IV ×2 (14:40→15:48)
[2024-11-19 14:45] LABS: Body Fluid Second Tech EF
--- NOTE | 2024-11-19 14:56 | CON.GI ---
Addendum entered and electronically signed by Lupe Siddiqui DO 11/19/24 17:32:
The patient was seen and examined by me independently in collaboration with the nurse practitioner.
Past medical history/social history/medications/allergies/family history reviewed.
Lab data and imaging data reviewed.
Jennifer Echevarria is a 74-year-old female with past medical history of diabetes, hypertension, asthma and recent admission for massive PE with evidence of new onset ascites and hospital course complicated by coffee-ground emesis admitted with recurrent
large-volume ascites. She was seen by the GI service during her recent admission for coffee-ground emesis and new onset ascites, ascitic fluid consistent with non-GI source, likely cardiac due to high SAAG high-protein. She underwent an endoscopy
with evidence of hiatal hernia and scattered erosions in the cardia, likely Sterling erosions, no evidence of active GI bleeding. She was cleared for restarting her anticoagulation, recommended to remain on PPI.
On current admission, she had removal of 10 L of ascitic fluid and again, ascitic fluid negative for SBP, fluid studies high SAAG and high protein consistent with cardiac source. She did have an echocardiogram during her recent admission which
showed significant tricuspid regurgitation, dilated and hypokinetic right ventricle.
A/P:
-plan for repeat ECHO per primary team
-await cardiology consult
-Currently on lasix 20mg, will await AM labs given large-volume paracentesis with albumin replacement to see if Cr. stable. If stable, would recommend uptitration diuretics
-bowel regimen
-monitor H&H, no concerns for active GI bleeding
Original Note:
Consultation
-
Date/Time Consultation Requested: 11/19/24 1430
Date/Time Consultation Performed: 11/19/24 1500
Requesting Provider: Tara Dawson MD
Performing Provider: SHUKRI Ku, Paultete Siddiqui DO
Reason for Consultation: recurrent ascites
Medical History
Chief Complaint / HPI
Chief Complaint: GI bleed
History of Present Illness:
Pt is a 73yo with hx asthma, HTN, hypercholesterolemia, CKD, NIDDM, colon polyps, obesity, adrenal cyst, LE edema with onset of shortness of breath and lightheadedness with recent admission with 10/23/24-11/01/24 with PE significantly enlarged
right ventricle and right atrium with right heart strain-- also noted large amount of ascites. She completed thrombolysis from 10/23 til 10/24 with improvement embolus burden and noted with nausea then vomited large amount of coffee ground emesis.
She was seen by GI for ascites and bleeding. She completed EGD 10/25 with normal esophagus, gastritis in cardia -- likely sterling erosions, normal duodenum. hbg was as low as 7.7 but improved to 9-10 range on this admission with Eliquis use. No
known hx liver disease, fatty liver, or heavy ETOH use in past. Noted with normal INR (prior to Eliquis use),initial normal platelet then with further rise during last admission and normal LFT's.
Pt otherwise admits to nausea and constipation with need for laxative use, bu denies dysphagia, odynophagia, GERD, abdominal pain, diarrhea, or rectal bleeding.
11/19/24- para 10 liter SAAG 1.2 with elevated protein 3.9 neg SBP, path pending, amylase 43
10/25/24- para 6500ml SAAG 0.5 protein 4.2, path neg malignant cells
TSH , T4 1,569.34
Past Medical History
Past Medical History: Asthma, HTN, Hypercholesterolemia, NIDDM, Renal Failure (CKD) and Other (obesity, LE edema, colon polyps, adrenal cyst, hyponatremia)
Past Surgical History: Cholecystectomy
Social History
Tobacco: Non-Smoker
Alcohol: Former (many years ago)
Drug: None
Living: [facility] (alone prior to SNF)
Employment: Retired
Family History
Family History: Other (no family hx colon CA or polyps, no family hx liver problems, GM CHF, mother cardiac issues )
Allergies / Home Medications
Allergy/AdvReac Type Severity Reaction Status Date / Time
codeine Allergy Nausea / Verified 11/18/24 13:48
Vomiting
Influenza Virus Vaccines Allergy Tongue Verified 11/18/24 13:48
Swelling
meperidine [From Demerol] Allergy Unknown Verified 11/18/24 13:48
Phenothiazines Allergy Unknown Verified 11/18/24 13:48
Sulfa (Sulfonamide Allergy Unknown Verified 11/18/24 13:48
Antibiotics)
�Medication �Instructions �Recorded
cyanocobalamin (vitamin B-12) 1,500 mcg PO Q48H Supplement 09/22/16
1,000 mcg tablet
acetaminophen 325 mg tablet 650 mg PO Q4HPRN PRN fever 10/23/24
>100/mild pain
albuterol sulfate 90 mcg/actuation 1 inh inhalation R DAILYPRN PRN 10/23/24
aerosol inhaler sob/wheezing
bisacodyl 10 mg rectal suppository 10 mg [place] DAILYPRN PRN if mom 10/23/24
ineffective after 24 hrs
bupropion HCl 300 mg 24 hr tablet, 300 mg PO DAILY Mental 10/23/24
extended release (Wellbutrin XL) Health/Anxiety
furosemide 20 mg tablet 20 mg PO DAILY Electrolyte 10/23/24
Repletion
lisinopril 20 mg tablet 20 mg PO BID Blood Pressure 10/23/24
magnesium hydroxide 400 mg/5 mL 2,400 mg PO [id number] PRN no bm in 3 10/23/24
oral suspension (Milk of Magnesia) days
polyethylene glycol 3350 17 gram 17 g PO DAILY Gastrointestinal 10/23/24
oral powder packet (Miralax) Issue
simethicone 80 mg chewable tablet 80 mg PO TID Gastrointestinal Issue 10/23/24
sodium phosphates 19 gram-7 118 ml [place] DAILYPRN PRN bisacodyl 10/23/24
gram/118 mL enema (Fleet Enema) ineffective after 24 hrs
calcium acetate 667 mg tablet 667 mg PO MEALS #0 tabs 10/31/24
docusate sodium 100 mg capsule 100 mg PO BID #0 caps 10/31/24
pantoprazole 40 mg tablet,delayed 40 mg PO BID #30 tabs 10/31/24
release
apixaban 5 mg tablet (Eliquis) 5 mg PO BID Blood Clot 11/18/24
Prevention/Tx
Review of Systems
-
History Source: Patient
Constitutional: Reports Weight Gain (with fluid )
EENT: Reports No Symptoms
Respiratory: Reports Trouble Breathing
Cardiac: Reports No Symptoms
Abdomen/GI: Reports Abdominal Pain (right sided ), Nausea, Constipated and Other (increased abdominal girth )
: Reports No Symptoms
Musculoskeletal: Reports No Symptoms
Skin: Reports Other (LE swelling )
Neurological: Reports Weakness
Endocrine: Reports No Symptoms
Hematologic/Lymphatic: Reports No Symptoms
Vital Signs
Temp Pulse Resp BP Pulse Ox
99.1 F 86 18 136/71 92
11/19/24 14:40 11/19/24 14:40 11/19/24 14:40 11/19/24 14:40 11/19/24 14:40
Physical Exam
Exam
General: Other
HEENT: Normocephalic and Anicteric
Respiratory: Clear
Cardiac: Regular Rhythm and Peripheral Edema
GI: Soft, Non Tender and Distended
Musculoskeletal: No Clubbing and No Cyanosis
Skin: Warm and Dry
Neuro: Awake, Alert and AO x 3
Psych: Calm
Results
WBC 6.3 10^3/uL (4.8-10.8) 11/19/24 07:52
Hgb 9.5 g/dL (12.0-16.0) L 11/19/24 07:52
Hct 29.4 % (37.0-47.0) L 11/19/24 07:52
MCV 82.1 fL (81.0-99.0) 11/19/24 07:52
Plt Count 594 10^3/uL (130-400) H 11/19/24 07:52
Absolute Neuts (auto) 5.1 10^3/uL (1.4-6.5) 11/18/24 14:10
Sodium 135 mmol/L (135-145) 11/19/24 07:52
Potassium 4.5 mmol/L (3.5-5.1) 11/19/24 07:52
Chloride 98 mmol/L (98-107) 11/19/24 07:52
Carbon Dioxide 32 mmol/L (22-30) H 11/19/24 07:52
BUN 19 mg/dl (7-17) H 11/19/24 07:52
Creatinine 1.1 mg/dL (0.6-1.0) H 11/19/24 07:52
Calcium 9.6 mg/dl (8.4-10.2) 11/19/24 07:52
Total Bilirubin 0.8 mg/dl (0.2-1.3) 11/18/24 14:10
AST 19 U/L (14-36) 11/18/24 14:10
ALT 13 U/L (0-35) 11/18/24 14:10
Alkaline Phosphatase 95 U/L (38-126) 11/18/24 14:10
Hepatitis C Antibody Negative (Negative) 11/19/24 07:52
Diagnostic Image Results:
10/24/24 US Abd W Abd Doppler
IMPRESSION: Technically difficult and limited examination, due to body habitus, ascites, and examination being performed portably in the ICU.
Large amount of ascites is present.
On duplex evaluation, the main portal vein, left portal vein, and right portal vein are patent with normal direction of flow. The hepatic veins are patent.
Status post cholecystectomy with no evidence for biliary ductal dilation.
By ultrasound, no focal abnormality of the liver. Hepatic contour somewhat difficult to evaluate. No gross evidence of a focal hepatic mass lesion.
Right kidney is visualized with no evidence for pelvicalyceal dilation. Left kidney is not visualized.
Spleen, pancreas, abdominal aorta, and IVC are unable to be visualized.
10/23/24 CT Chest PE Study
IMPRESSION: Examination is positive for pulmonary embolism as described.
Significant enlargement of the right ventricle and right atrium compatible with right heart strain.
Dr. Garcia aware of this finding.
Small left pleural effusion.
Large amount of ascites within the visualized abdomen. Bilateral subcutaneous edema, greater in the abdominal wall compared to the chest wall, and left greater than right.
Small focus of linear atelectasis in the left lower lung. The lungs appear otherwise clear. Cardiac silhouette and vascular markings appear within normal limits.
11/19/24- para 10 liter SAAG 1.2 with elevated protein 3.9 neg SBP
10/25/24- para 6500ml SAAG 0.5 protein 4.2
Prior GI Procedures:
EGD: 10/25/24 ahmad - Normal esophagus.
- Gastritis in cardia, ?sterling erosions.
- Normal examined duodenum.
- No specimens collected.
Colonoscopy: 13 years ago with polyps
Assessment / Plan
-
Pt is a 73yo with hx asthma, HTN, hypercholesterolemia, CKD, NIDDM, colon polyps, obesity, adrenal cyst, LE edema with onset of shortness of breath and lightheadedness with recent [facility] admission with 10/23/24-11/01/24 with PE significantly enlarged
right ventricle and right atrium with right heart strain-- also noted large amount of ascites. She completed thrombolysis from 10/23 til 10/24 with improvement embolus burden and noted with nausea then vomited large amount of coffee ground emesis.
She was seen by GI for ascites and bleeding. She completed EGD 10/25 with normal esophagus, gastritis in cardia likely sterling erosions, normal duodenum. hbg was as low as 7.7 but improved to 9-10 range on this admission with Eliquis use. No known
hx liver disease, fatty liver, or heavy ETOH use in past. Noted with normal INR (prior to Eliquis use),initial normal platelet then with further rise during last admission and normal LFT's.
11/19/24- para 10 liter SAAG 1.2 with elevated protein 3.9 neg SBP, path pending, amylase 43
10/25/24- para 6500ml SAAG 0.5 protein 4.2, path neg malignant cells
10/23/24 echo-Normal left ventricular systolic function with estimated ejection fraction 55
to 60% Dilated and hypokinetic right ventricle Moderate tricuspid regurgitation
-recurrent ascites initial tap with low SAAG high protein then repeat high SAAG, high protein
-LE edema
-recent PE with right ventricular strain, right atrium and right heart strain
-recent coffee ground emesis concern for sterling lesions
-anemia
-hyponatremia
-hypoalbuminemia
-constipation
-moderate TR
other medical problems:
-colon polyps
-HTN
-asthma
-CKD
-NIDDM
-obesity
PLAN:
Etiology of ascites with recurrent need for paracentesis unclear with high Protein in fluid may be related to congestive, vs other -- prior path neg cytology, T4 and amylase stable to rule out thyroid or pancreatic process
s/p albumin given by hospitalist
t/c cardiac eval-- will review echo with Dr. Siddiqui
she does have hypoalbuminemia which in new from since September
with recent GI bleed hbg stable on Eliquis
cont PPI
cont ADA
cont bowel regiment
-
-
Thank you for consultation and allowing me to participate in the patient's care. Please call the production boring machine operator GI physician during the after hours with any questions or concerns.
--- NOTE | 2024-11-19 16:34 | CM ---
Alert awake oriented patient who lives alone in 1 story home but prior to admission she was in [facility] Pt.She is assisted in activates of daily living.She uses a walker and cane . She requested to return to rehab at [facility] at nd.
[facility] VN in past [facility] SNF hx past
Pharmacy [facility]
PCP Dr Worthy / [facility]
PLAN Return to [facility] after auth
[2024-11-19 16:58] LABS: Glucose - Point of Care 84 mg/dl (70-99)
[2024-11-19] MEDS: MAGNESIUM SULFATE 50 IV (17:23)
[2024-11-19] MEDS: FLUSH (NSS) 1 FLUSH IV (21:14)
[2024-11-19 21:26] LABS: Glucose - Point of Care 137 mg/dl (70-99)
[2024-11-20] VITALS (8 sets, daily range): BP systolic 89–149; BP diastolic 56–95; BMI 48.9
[2024-11-20] MEDS: SYNTHROID 50 MCG PO (06:29)
--- NOTE | 2024-11-20 08:08 | CON.CAR ---
Addendum entered and electronically signed by Dyana Fulton MD 11/20/24 10:59:
I saw and examined the patient.
The PHARMACY DIRECTOR's note was reviewed and I agree with the note.
Comment: 74-year-old female with morbid obesity, chronic lymphedema bilateral lower extremities, CKD 3, hyperlipidemia and recent admission in October for acute bilateral pulmonary embolism with obstructive shock and evidence of right heart failure
status post thrombolysis presents for recurrent shortness of breath, weight gain and abdominal distention. At prior hospitalization she was found to have ascites with subsequent paracentesis. On arrival, she was found to have recurrent ascites and
required 10 L paracentesis. We are asked to comment. Currently she is feeling well. Abdominal distention is improved. On exam, she is morbidly obese, neck precludes JVP assessment, lungs are clear to auscultation bilaterally she has a regular
rate and rhythm with a normal S1-S2, abdominal and is obese and soft, extremities have skin changes of chronic lymphedema with 2-3+ pitting and nonpitting edema.On last hospitalization echocardiogram was performed showing normal LVEF 55 to 60%
dilated and hypokinetic RV with moderate tricuspid regurgitation PASP was 35 to 45 mmHg. EKG on arrival shows normal sinus rhythm with low voltage, poor R wave progression. Overall, I suspect she has cor pulmonale from acute pulmonary embolus last
month. Additionally, there is likely a component of diastolic dysfunction. She is already 10 L negative with paracentesis yesterday, will continue a mild diuresis with IV Lasix 40 mg a day. Will add spironolactone for her right sided heart
failure symptoms and diastolic dysfunction. Will hold off on SGLT2 inhibitors as she recently had a UTI. Hopefully with time, her right ventricular function has recovered and this will become less of a recurrent issue. However, only time will
tell. Fluid and salt restriction is needed. With aggressive IV diuresis will need intensive monitoring of her lites and blood pressure. Will also need subsequent renal function followed as an outpatient with initiation of spironolactone.
Continue on Eliquis for recent PE. Continue CATERINA inhibitor for her hypertension. After echocardiogram, could consider transitioning this to Entresto if cost not prohibitive.
Plans discussed with Dr. Dawson from medicine including her ongoing diuresis and addition of spironolactone. Will follow.
Original Note:
Consultation
Consultation Request
Date/Time Consultation Requested: 11/20/24 5341
Date/Time Consultation Performed: 12/13/24918
Requesting Provider: Dr. Dawson
Performing Provider: Yandy WATT for Dr. Fulton
Reason for Consultation: Ascites, possible cardiac cause
Medical History
-
Chief Complaint: SOB, abdominal distension, nausea
History of Present Illness:
74 y/o female with hypertension, dyslipidemia, CKDIII, obesity, hx DM, and lymphedema who was here last month with acute bilateral pulmonary emboli and obstructive shock s/p thrombolysis. Now on Eliquis for PE. Had paracentesis last admit for 6L.
Echo showed dilated and hypokinetic RV. She is back with SOB, weight gain, abdominal distension. She is also having cough. She is s/p paracentesis for 10L. GI is following and recommended cardiology consult for possible cardiac source of ascites.
She is in no distress at the time of my assessment. She is on O2 by [place].
Past Medical History
Past Medical History: HTN, Hypercholesterolemia and Other (as above)
Social History
Tobacco: Non-Smoker
Family History
Family History: CAD and Other (chf)
Allergies / Home Medications
Allergy/AdvReac Type Severity Reaction Status Date / Time
codeine Allergy Nausea / Verified 11/18/24 13:48
Vomiting
Influenza Virus Vaccines Allergy Tongue Verified 11/18/24 13:48
Swelling
meperidine [From Demerol] Allergy Unknown Verified 11/18/24 13:48
Phenothiazines Allergy Unknown Verified 11/18/24 13:48
Sulfa (Sulfonamide Allergy Unknown Verified 11/18/24 13:48
Antibiotics)
�Medication �Instructions �Recorded �Confirmed �Type
cyanocobalamin (vitamin B-12) 1,500 mcg PO Q48H Supplement 09/22/16 11/18/24 History
1,000 mcg tablet
acetaminophen 325 mg tablet 650 mg PO Q4HPRN PRN fever 10/23/24 11/18/24 History
>100/mild pain
albuterol sulfate 90 mcg/actuation 1 inh inhalation R DAILYPRN PRN 10/23/24 11/18/24 History
aerosol inhaler sob/wheezing
bisacodyl 10 mg rectal suppository 10 mg OH DAILYPRN PRN if mom 10/23/24 11/18/24 History
ineffective after 24 hrs
bupropion HCl 300 mg 24 hr tablet, 300 mg PO DAILY Mental 10/23/24 11/18/24 History
extended release (Wellbutrin XL) Health/Anxiety
furosemide 20 mg tablet 20 mg PO DAILY Electrolyte 10/23/24 11/18/24 History
Repletion
lisinopril 20 mg tablet 20 mg PO BID Blood Pressure 10/23/24 11/18/24 History
magnesium hydroxide 400 mg/5 mL 2,400 mg PO [id number] PRN no bm in 3 10/23/24 11/18/24 History
oral suspension (Milk of Magnesia) days
polyethylene glycol 3350 17 gram 17 g PO DAILY Gastrointestinal 10/23/24 11/18/24 History
oral powder packet (Miralax) Issue
simethicone 80 mg chewable tablet 80 mg PO TID Gastrointestinal Issue 10/23/24 11/18/24 History
sodium phosphates 19 gram-7 118 ml OH DAILYPRN PRN bisacodyl 10/23/24 11/18/24 History
gram/118 mL enema (Fleet Enema) ineffective after 24 hrs
calcium acetate 667 mg tablet 667 mg PO MEALS #0 tabs 10/31/24 11/18/24 Rx
docusate sodium 100 mg capsule 100 mg PO BID #0 caps 10/31/24 11/18/24 Rx
pantoprazole 40 mg tablet,delayed 40 mg PO BID #30 tabs 10/31/24 11/18/24 Rx
release
apixaban 5 mg tablet (Eliquis) 5 mg PO BID Blood Clot 11/18/24 11/18/24 History
Prevention/Tx
Review of Systems
-
History Source: Patient
All other systems: Negative unless noted
Constitutional: Weight Gain (per her rehab, not seen by weights here)
Respiratory: Cough and Trouble Breathing
Abdomen/GI: Nausea and Other (abdominal distension)
Physical Exam
Vital Signs
Temp Pulse Resp BP Pulse Ox
99.3 F 89 18 123/65 91
11/20/24 03:34 11/20/24 03:34 11/20/24 03:34 11/20/24 03:34 11/20/24 03:34
Lab Results
11/19/24 07:52
Ojs-P-Bihvrfxuflh Pept 687 pg/ml 11/18/24 14:10
Physical Exam
General: Well Developed and No Apparent Distress
HEENT: Normocephalic and Anicteric
Respiratory: Other (diminished bases, on O2 by NC)
Cardiac: Regular Rhythm
Musculoskeletal: Edema (+3 BLE edema, chronic lymphedema per patient)
Skin: Warm and Dry
Neuro: AO x 3
Psych: Calm
Impression / Plan
-
Recent Pulmonary Emboli:
-on Eliquis for OAC- continue
Cor Pulmonale/Right heart failure:
-CXR with pleural effusion/vascular congestion as noted in detail
-in setting of PE
-Will add spironolactone and IV lasix (which requires intensive monitoring)
-recent UTI, so will avoid SGLT2i at this time
-primary team placed order for updated echo today- await results
Ascites:
-s/p paracentesis for 10,000 mL this admit
-GI on board
-plan as above with diuretics
HTN:
-monitor with medicine adjustments
CKD:
-stable
-monitor with diuresis
Data Reviewed
-
EKG: Tracing Personally Visualized and interpreted (NSR 93 BPM, nonspecific T abnormality)
Radiology: Report Reviewed by me (CXR: Small to moderate left pleural effusion. Possible mild vascular congestion. )
Ultrasound: Report Reviewed by me (abd u/s: Large volume ascites. Partially visualized small right-sided pleural effusion. )
Medical Tests (Nuc Med, Echo etc): Report Reviewed by me
Labs: Labs Reviewed by me
[2024-11-20 08:17] LABS: Glucose - Point of Care 98 mg/dl (70-99)
--- NOTE | 2024-11-20 08:31 | W.PN.GI.CBS2 ---
Today's Communication / Plan
-
Increase diuretics if AM Cr. stable. Cardiology evaluation
Assessment / Plan
-
Pt is a 73yo with hx asthma, HTN, hypercholesterolemia, CKD, NIDDM, colon polyps, obesity, adrenal cyst, LE edema with onset of shortness of breath and lightheadedness with recent [facility] admission with 10/23/24-11/01/24 with PE significantly enlarged
right ventricle and right atrium with right heart strain-- also noted large amount of ascites. She completed thrombolysis from 10/23 til 10/24 with improvement embolus burden and noted with nausea then vomited large amount of coffee ground emesis.
She was seen by GI for ascites and bleeding. She completed EGD 10/25 with normal esophagus, gastritis in cardia likely tacho erosions, normal duodenum. hbg was as low as 7.7 but improved to 9-10 range on this admission with Eliquis use. No known
hx liver disease, fatty liver, or heavy ETOH use in past. Noted with normal INR (prior to Eliquis use),initial normal platelet then with further rise during last admission and normal LFT's.
11/19/24- para 10 liter SAAG 1.2 with elevated protein 3.9 neg SBP, path pending, amylase 43
10/25/24- para 6500ml SAAG 0.5 protein 4.2, path neg malignant cells
10/23/24 echo-Normal left ventricular systolic function with estimated ejection fraction 55
to 60% Dilated and hypokinetic right ventricle Moderate tricuspid regurgitation
-recurrent ascites initial tap with low SAAG high protein then repeat high SAAG, high protein
-LE edema
-recent PE with right ventricular strain, right atrium and right heart strain
-recent coffee ground emesis concern for tacho lesions
-anemia
-hyponatremia
-hypoalbuminemia
-constipation
-moderate TR
other medical problems:
-colon polyps
-HTN
-asthma
-CKD
-NIDDM
-obesity
PLAN:
Etiology of ascites with recurrent need for paracentesis unclear with high Protein in fluid, suspect cardiac ascites vs. other. Prior path with negative cytology, high TSH with normal FT4 may be related to congestive, vs other -- prior path neg
cytology, T4 and amylase stable to rule out thyroid or pancreatic process
s/p albumin given by hospitalist
she does have hypoalbuminemia which in new from since September
with recent GI bleed hbg stable on Eliquis
cont PPI
cont ADA
cont bowel regimen
If Cr. stable, recommend increasing diuretic doses (will await Cr. given LVP yesterday)
ECHO from recent admission showed significant TR, dilated and hypokinetic RV
Recommend cardiology consult
Subjective
Subjective
Date of Service: November 20, 2024
Patient seen in follow-up, no overnight events.
Objective
Data Reviewed
Laboratory Data:
Laboratory Results
11/19/24 07:52
Laboratory Results
Phosphorus 4.0 mg/dl (2.5-4.5) 11/19/24 07:52
Magnesium 1.5 mg/dl (1.6-2.3) L 11/19/24 07:52
Total Bilirubin 0.8 mg/dl (0.2-1.3) 11/18/24 14:10
AST 19 U/L (14-36) 11/18/24 14:10
ALT 13 U/L (0-35) 11/18/24 14:10
Alkaline Phosphatase 95 U/L (38-126) 11/18/24 14:10
Vital Signs and I&O:
Vital Signs
Temp Pulse Resp BP Pulse Ox
99.3 F 89 18 123/65 91
11/20/24 03:34 11/20/24 03:34 11/20/24 03:34 11/20/24 03:34 11/20/24 03:34
I&O
11/19/24 11/20/24 11/21/24
06:59 06:59 06:59
Intake Total 660 / 660
Output Total 50 / 50 1000 / 1000
Balance -50 / -50 -340 / -340
Physical Exam
Physical Exam
HEENT: Anicteric
GI: Soft and Distended (ascites)
Neuro: Non Focal
[2024-11-20] MEDS: ZESTRIL 20 MG PO ×2 (08:51→20:03)
[2024-11-20] MEDS: PROTONIX 40 MG PO ×2 (08:51→20:03)
[2024-11-20] MEDS: PHOSLO 667 MG PO ×2 (08:51→17:10)
[2024-11-20] MEDS: MYLICON 80 MG PO ×3 (08:51→21:09)
[2024-11-20] MEDS: WELLBUTRIN XL (24 hour extended release) 300 MG PO (08:51)
[2024-11-20] MEDS: LASIX 20 MG PO (08:51)
[2024-11-20] MEDS: NOVOLOG FLEXPEN-LOW RESISTANCE SC ×3 (08:51→17:10)
[2024-11-20] MEDS: ELIQUIS 5 MG PO ×2 (08:51→20:03)
[2024-11-20] MEDS: MIRALAX PO (08:52)
[2024-11-20 09:10] LABS: Blood Urea Nitrogen 18 mg/dl (7-17); Calcium 9.1 mg/dl (8.4-10.2); Carbon Dioxide 28 mmol/L (22-30); Chloride 98 mmol/L (98-107); Estimated Creatinine Clearance 61 ml/min; Glucose 95 mg/dl (70-99); Magnesium 1.6 mg/dl (1.6-2.3); Potassium 4.3 mmol/L (3.5-5.1); Sodium 134 mmol/L (135-145); eGFR 53.06
--- NOTE | 2024-11-20 09:35 | W.PN.HOSP.TC ---
Today's Communication/Plan
-
see A/P
Assessment / Plan
Assessment / Plan
HPI: 74 y/o female past medical history of diabetes mellitus, hypertension, chronic kidney disease, and recent massive pulmonary embolism who presented with shortness of breath. Patient was admitted from October 23 to November 01 with a massive
pulmonary embolism requiring catheter directed thrombolysis. Patient reports during that hospitalization she also underwent a paracentesis with 6.5L removed. Initially at discharge patient was feeling well. She noted over the last week she has
been experiencing increasing shortness of breath, particularly conversational dyspnea. Patient reports a 10lb weight gain over the past week, and notes her abdomen is more distended than previous. She reports chronic lower extremity edema, and note
is seems to be unchanged.
A/P:
# Recurrent ascites
s/p IR paracentesis 4/2 and 10 L removed
s/p albumin
Follow ascitic fluid culture and cytology
check echo
appreciate GI input
Card CS for cardiac cause of recurrent ascites, increase Lasix to 40 IV daily and added Aldactone 25 mg daily
# Acute hypoxic respiratory insufficiency
wean O2 from 1 L NC back to RA
# L pleural effusion
IR CS for thoracentesis
Follow thora labs
# Recent Pulmonary Embolism - October 2024
Echo from 10/23/24: Normal left ventricular systolic function with EF 55-60%. Dilated and hypokinetic right ventricle
Continue Eliquis
# Diabetes Mellitus, Type II
HgbA1c 5.8 in October 2024
# Essential Hypertension
Continue lisinopril with hold parameters
# CKD Stage III
Creatinine at baseline
# Hyperphosphatemia
Continue calcium acetate
# Chronic Normocytic Anemia
Hgb appears stable compared to previous
# Asthma, no acute exacerbation
Continue albuterol PRN
# Anxiety / Depression
Continue Wellbutrin
# Gastritis / Gastric Erosions
Continue Protonix BID
# Chronic Lower Extremity Lymphedema
Continue Lasix 20mg Daily as prior to admission
# Class III Obesity
Affects all aspects of care
DVT ppx: Eliquis
Code Status: Full Code
DW RN
DW Card
updated daughter on the phone
total time spent 51 min
Anticipated Discharge: 24 - 48 hours
Subjective/Interval History
-
Date of Service: November 20, 2024
Objective Data
-
Labs:
Laboratory Results
11/20/24
07:30
Sodium 134 L
Potassium 4.3
Chloride 98
Carbon Dioxide 28
BUN 18 H
Creatinine 1.1 H
Glucose 95
Calcium 9.1
Vital Signs:
Vital Signs
Temp Pulse Resp BP Pulse Ox
36.9 C 85 18 143/63 93
11/20/24 07:20 11/20/24 07:20 11/20/24 07:20 11/20/24 08:51 11/20/24 08:00
I&O
11/19/24 11/20/24 11/21/24
06:59 06:59 06:59
Intake Total 660 / 660
Output Total 50 / 50 1000 / 1000
Balance -50 / -50 -340 / -340
Review of Systems
-
History Source: Patient
All other systems: Reviewed and negative
Physical Exam
-
General: Well Developed, Well Nourished, Comfortable, Conversant and Morbidly Obese
HEENT: Normocephalic, Atraumatic, Nose Appears Normal, Ears Appear Normal and Oxygen (1L NC)
Respiratory: Clear to Auscultation and Non Labored Respirations; Negative Accessory Resp Muscle Use
Cardiac: Regular Rhythm and S1/S2
GI: Soft, Nontender, Normal Bowel Sounds and Distended
Skin: Warm and Dry
Neuro: Awake, Alert, Oriented and AO x 3
Psych: Calm and Intact Judgement/Insight
Data Reviewed
-
Ultrasound: Report Reviewed by me
Labs: Labs Reviewed by me
[2024-11-20 11:23] LABS: LDH 112 U/L (120-246)
[2024-11-20] MEDS: LASIX 40 MG IV (11:54)
[2024-11-20] MEDS: ALDACTONE 25 MG PO (11:55)
[2024-11-20 12:45] LABS: Glucose - Point of Care 108 mg/dl (70-99)
[2024-11-20] MEDS: PHOSLO PO (14:59)
[2024-11-20 15:59] LABS: Body Fluid Mononuclear 90.4 %; Body Fluid Polymorphonuclear 9.6 %; Body Fluid WBC 468 /CUMM
[2024-11-20 16:01] LABS: Body Fluid Second Tech EYM
[2024-11-20 16:16] LABS: Body Fluid LDH 120 U/L; Body Fluid Protein 3.4 g/dl
--- NOTE | 2024-11-20 16:33 | W.PN.UPDATE ---
Update Note
Progress Note Update
Appreciate cardiology input--ascites likely related to acute RV failure in setting of massive PE. Will defer management to cardiology/primary service. GI will sign off, please call with questions.
[2024-11-20 16:37] LABS: Glucose - Point of Care 79 mg/dl (70-99)
--- NOTE | 2024-11-20 17:53 | PTCARENOTE ---
Returned from IR post thoracentesis with band aid to L back CDI.
[2024-11-20 21:14] LABS: Glucose - Point of Care 117 mg/dl (70-99)
[2024-11-21] VITALS (7 sets, daily range): BP systolic 113–134; BP diastolic 57–79; BMI 48.3
[2024-11-21] MEDS: SYNTHROID 50 MCG PO (05:50)
[2024-11-21 06:24] LABS: Blood Urea Nitrogen 19 mg/dl (7-17); Calcium 9.2 mg/dl (8.4-10.2); Carbon Dioxide 31 mmol/L (22-30); Chloride 97 mmol/L (98-107); Estimated Creatinine Clearance 67 ml/min; Glucose 93 mg/dl (70-99); Potassium 4.1 mmol/L (3.5-5.1); Sodium 134 mmol/L (135-145); eGFR 59.49
[2024-11-21] MEDS: NOVOLOG FLEXPEN-LOW RESISTANCE SC ×3 (08:37→17:03)
--- NOTE | 2024-11-21 08:44 | W.PN.CD ---
Today's Communication / Plan
-
IV diuresis
Impression / Plan
-
Recent Pulmonary Emboli:
-on Eliquis for OAC- continue
Cor Pulmonale/Right heart failure: Echo below: RV size and function have improved
-Cont IV lasix and spironolactone
-recent UTI, so will avoid SGLT2i at this time
- Cor Pulmonale improved hopeful that ascites improved with improved RV function and pulmonary pressures
Ascites:
-s/p paracentesis for 10,000 mL this admit
-GI has signed off
HTN:
-monitor with medicine adjustments
CKD:
-stable
-monitor with diuresis
Subjective: Feeling improved
Physical Exam
Vital Signs/Labs
Vital Signs
Temp Pulse Resp BP Pulse Ox
98.3 F 82 18 130/65 95
11/21/24 07:30 11/21/24 07:30 11/21/24 07:30 11/21/24 07:30 11/21/24 07:30
11/20/24 11/21/24 11/22/24
06:59 06:59 06:59
Actual Weight 284 lb 7 oz 281 lb 5 oz
11/19/24 07:52
11/21/24 05:33
Magnesium 1.6 mg/dl (1.6-2.3) 11/20/24 07:30
Free T4 1.56 ng/dl (0.78-2.19) 11/19/24 07:52
11/18/24
14:10
Tna-T-Sshakevsksu Pept 687
Physical Exam
Constitutional: No acute distress
EENT: Anicteric
Cardiovascular: Rhythm & rate is regular and Pedal edema present
Respiratory: Respiratory effort normal and Other (mild crackles )
GI: Soft
Neuro/Psych: AO x 3
Data Reviewed
-
Date of Service: November 21, 2024
EKG: Tracing Personally Visualized and interpreted (sr)
Echo: Report Reviewed by me
Labs: Labs Reviewed by me
[2024-11-21] MEDS: PROTONIX 40 MG PO ×2 (08:46→20:02)
[2024-11-21] MEDS: WELLBUTRIN XL (24 hour extended release) 300 MG PO (08:46)
[2024-11-21] MEDS: LASIX 40 MG IV (08:46)
[2024-11-21] MEDS: PHOSLO 667 MG PO ×3 (08:46→16:41)
[2024-11-21] MEDS: ELIQUIS 5 MG PO ×2 (08:46→20:02)
[2024-11-21] MEDS: MIRALAX 17 GRAMS PO (08:47)
[2024-11-21] MEDS: MYLICON 80 MG PO ×3 (08:47→21:04)
[2024-11-21] MEDS: ZESTRIL 20 MG PO (08:47)
[2024-11-21] MEDS: ALDACTONE 25 MG PO (08:47)
--- NOTE | 2024-11-21 09:56 | W.PN.HOSP.TC ---
Today's Communication/Plan
-
see A/P
Assessment / Plan
Assessment / Plan
HPI: 74 y/o female past medical history of diabetes mellitus, hypertension, chronic kidney disease, and recent massive pulmonary embolism who presented with shortness of breath. Patient was admitted from October 23 to November 01 with a massive
pulmonary embolism requiring catheter directed thrombolysis. Patient reports during that hospitalization she also underwent a paracentesis with 6.5L removed. Initially at discharge patient was feeling well. She noted over the last week she has
been experiencing increasing shortness of breath, particularly conversational dyspnea. Patient reports a 10lb weight gain over the past week, and notes her abdomen is more distended than previous. She reports chronic lower extremity edema, and note
is seems to be unchanged.
A/P:
# Recurrent ascites
s/p IR paracentesis / and 10 L removed
s/p albumin
Follow ascitic fluid culture and cytology
Echo this admission unrevealing, improved RV size and function. EF 50-55%
Appreciate GI input
Appreciate Card input
cont Lasix to 40 IV daily and added Aldactone 25 mg daily
# Acute hypoxic respiratory insufficiency, resolved
weaned 1 L NC back to RA
# L pleural effusion
s/p IR thoracentesis / and removed 1000 cc straw-colored pleural fluid
Transudative fluid
# Recent Pulmonary Embolism - October 2024
Echo from 10/23/24: Normal left ventricular systolic function with EF 55-60%. Dilated and hypokinetic right ventricle
Continue Eliquis
# Diabetes Mellitus, Type II
HgbA1c 5.8 in October 2024
# Essential Hypertension
Continue lisinopril with hold parameters
# CKD Stage III
Creatinine at baseline
# Hyperphosphatemia
Continue calcium acetate
# Chronic Normocytic Anemia
Hgb appears stable compared to previous
# Asthma, no acute exacerbation
Continue albuterol PRN
# Anxiety / Depression
Continue Wellbutrin
# Gastritis / Gastric Erosions
Continue Protonix BID
# Chronic Lower Extremity Lymphedema
Continue Lasix 20mg Daily as prior to admission
# Class III Obesity
Affects all aspects of care
DVT ppx: Eliquis
Code Status: Full Code
Dispo: SNF
updated daughter on the phone
Anticipated Discharge: 24 - 48 hours
Subjective/Interval History
-
Date of Service: November 21, 2024
Objective Data
-
Labs:
Laboratory Results
11/21/24
05:33
Sodium 134 L
Potassium 4.1
Chloride 97 L
Carbon Dioxide 31 H
BUN 19 H
Creatinine 1.0
Glucose 93
Calcium 9.2
Vital Signs:
Vital Signs
Temp Pulse Resp BP Pulse Ox
36.8 C 82 18 130/65 95
11/21/24 07:30 11/21/24 07:30 11/21/24 07:30 11/21/24 07:30 11/21/24 07:30
I&O
11/20/24 11/21/24 11/22/24
06:59 06:59 06:59
Intake Total 660 / 660 0 / 0
Output Total 1000 / 1000 1949 / 1949 500 / 500
Balance -340 / -340 -1950 / -1950 -500 / -500
Review of Systems
-
History Source: Patient
All other systems: Reviewed and negative
Physical Exam
-
General: Well Developed, Well Nourished, Comfortable, Conversant and Morbidly Obese
HEENT: Normocephalic, Atraumatic, Nose Appears Normal and Ears Appear Normal
Respiratory: Clear to Auscultation and Non Labored Respirations; Negative Accessory Resp Muscle Use
Cardiac: Regular Rhythm and S1/S2
GI: Soft, Nontender, Nondistended and Normal Bowel Sounds
Skin: Warm and Dry
Neuro: Awake, Alert, Oriented and AO x 3
Psych: Calm and Intact Judgement/Insight
Data Reviewed
-
Ultrasound: Report Reviewed by me
Labs: Labs Reviewed by me
[2024-11-21 11:17] LABS: Glucose - Point of Care 88 mg/dl (70-99)
--- NOTE | 2024-11-21 13:52 | PN.CDI ---
CDI
- -
CDI:
Physician Documentation Request
Admit Date: 11/18/24 19:15
Dear Doctor Jude,
Please review the following and provide your response in the progress notes.
Clinical Indicators:
Cardiology consult, 11/20
#...suspect she has cor pulmonale from acute pulmonary embolus last month.
#...Additionally, there is likely a component of diastolic dysfunction.
PN, 11/21
#Cor Pulmonale/Right heart failure:
#...Echo below: RV size and function have improved
#...-Cont IV lasix and spironolactone
#...- Cor Pulmonale improved hopeful that ascites improved
#...with improved RV function and pulmonary pressures
Please clarify which of the following accurately represents the acuity of the Cor Pulmonale:
Chronic Cor Pulmonale/Acute and/or Chronic Right heart Failure
Acute on Chronic Diastolic Heart Failure
Acute Cor Pulmonale, Acute Pulmonary Embolus
Other(please specify)
Use of terms such as suspected, likely, concern for, or probable (associated with a specific diagnosis that is being evaluated, monitored, or treated as if it exists) are acceptable and can be coded in the inpatient setting, when documented at the
time of discharge.
Thank you,
Bita Gabriel RN BSN CCDS
[facility] Specialist
please contact via tiger text
Please use your independent medical judgment in providing your response.
[2024-11-21 16:59] LABS: Glucose - Point of Care 109 mg/dl (70-99)
--- NOTE | 2024-11-21 17:09 | CM ---
Spoke with Gisela at [facility] where pt lives superintendent terminal care.
Gisela said pt is medicare and does not need an auth to return to facility.
Pt will need ambulance
[facility]
rpeort [phone]
fax [phone]
Plan return to [facility] [place]
[2024-11-21] MEDS: ZESTRIL PO (20:02)
[2024-11-21 21:23] LABS: Glucose - Point of Care 162 mg/dl (70-99)
[2024-11-22] VITALS (8 sets, daily range): BP systolic 126–147; BP diastolic 59–81; PULSE 91; O2SAT 92; BMI 46.8
[2024-11-22] MEDS: SYNTHROID 50 MCG PO (05:52)
[2024-11-22 07:53] LABS: Glucose - Point of Care 99 mg/dl (70-99)
[2024-11-22 08:33] LABS: Blood Urea Nitrogen 18 mg/dl (7-17); Carbon Dioxide 35 mmol/L (22-30); Chloride 96 mmol/L (98-107); Estimated Creatinine Clearance 59 ml/min; Glucose 101 mg/dl (70-99); Magnesium 1.6 mg/dl (1.6-2.3); Potassium 4.2 mmol/L (3.5-5.1); Sodium 133 mmol/L (135-145); eGFR 53.06
[2024-11-22] MEDS: NOVOLOG FLEXPEN-LOW RESISTANCE SC ×3 (08:55→17:01)
[2024-11-22] MEDS: LASIX 40 MG IV (09:22)
[2024-11-22] MEDS: MYLICON 80 MG PO ×3 (09:23→21:05)
[2024-11-22] MEDS: ZESTRIL 20 MG PO ×2 (09:23→09:24)
[2024-11-22] MEDS: WELLBUTRIN XL (24 hour extended release) 300 MG PO (09:23)
[2024-11-22] MEDS: PHOSLO 667 MG PO ×3 (09:23→17:01)
[2024-11-22] MEDS: PROTONIX 40 MG PO ×2 (09:23→21:05)
[2024-11-22] MEDS: ELIQUIS 5 MG PO ×2 (09:24→21:04)
[2024-11-22] MEDS: MIRALAX PO (09:24)
[2024-11-22] MEDS: ALDACTONE 25 MG PO (09:25)
--- NOTE | 2024-11-22 09:39 | W.PN.HOSP.TC ---
Today's Communication/Plan
-
see A/P
Assessment / Plan
Assessment / Plan
HPI: 74 y/o female past medical history of diabetes mellitus, hypertension, chronic kidney disease, and recent massive pulmonary embolism who presented with shortness of breath. Patient was admitted from October 23 to November 01 with a massive
pulmonary embolism requiring catheter directed thrombolysis. Patient reports during that hospitalization she also underwent a paracentesis with 6.5L removed. Initially at discharge patient was feeling well. She noted over the last week she has
been experiencing increasing shortness of breath, particularly conversational dyspnea. Patient reports a 10lb weight gain over the past week, and notes her abdomen is more distended than previous. She reports chronic lower extremity edema, and note
is seems to be unchanged.
A/P:
# Recurrent ascites
s/p IR paracentesis 11/20 and 10 L removed
s/p albumin for large volume para
Ascitic fluid culture negative, follow cytology
Echo this admission unrevealing, improved RV size and function. EF 50-55%.
Appreciate GI input
Appreciate Card input
cont Lasix to 40 IV daily and cont added Aldactone 25 mg daily
# Acute hypoxic respiratory insufficiency, resolved
weaned 1 L NC back to RA
# L pleural effusion
s/p IR thoracentesis 11/20 and removed 1000 cc straw-colored pleural fluid
Transudative fluid
# Recent Pulmonary Embolism - October 2024
Echo from 10/23/24: Normal left ventricular systolic function with EF 55-60%. Dilated and hypokinetic right ventricle
Continue Eliquis
# Diabetes Mellitus, Type II
HgbA1c 5.8 in October 2024
# Essential Hypertension
Continue lisinopril with hold parameters
# CKD Stage III
Creatinine at baseline
# Hyperphosphatemia
Continue calcium acetate
# Chronic Normocytic Anemia
Hgb appears stable compared to previous
# Asthma, no acute exacerbation
Continue albuterol PRN
# Anxiety / Depression
Continue Wellbutrin
# Gastritis / Gastric Erosions
Continue Protonix BID
# Chronic Lower Extremity Lymphedema
Continue Lasix 20mg Daily as prior to admission
# Class III Obesity
Affects all aspects of care
DVT ppx: Eliquis
Code Status: Full Code
Dispo: SNF
updated daughter on the phone
Anticipated Discharge: 24 - 48 hours
Subjective/Interval History
-
Date of Service: November 22, 2024
Objective Data
-
Labs:
Laboratory Results
11/22/24
07:36
Sodium 133 L
Potassium 4.2
Chloride 96 L
Carbon Dioxide 35 H
BUN 18 H
Creatinine 1.1 H
Glucose 101 H
Calcium 9.0
Vital Signs:
Vital Signs
Temp Pulse Resp BP Pulse Ox
36.7 C 80 20 136/68 92
11/22/24 07:30 11/22/24 07:30 11/22/24 07:30 11/22/24 09:25 11/22/24 07:30
I&O
11/21/24 11/22/24 11/23/24
06:59 06:59 06:59
Intake Total 0 / 0 540 / 540
Output Total 1949 172 / 172
Balance -1949 / -1949 -1185 / -1185
Review of Systems
-
History Source: Patient
All other systems: Reviewed and negative
Physical Exam
-
General: Well Developed, Well Nourished, Comfortable, Conversant and Morbidly Obese
HEENT: Normocephalic, Atraumatic, Nose Appears Normal and Ears Appear Normal
Respiratory: Clear to Auscultation and Non Labored Respirations; Negative Accessory Resp Muscle Use
Cardiac: Regular Rhythm and S1/S2
GI: Soft, Nontender, Nondistended and Normal Bowel Sounds
Skin: Warm and Dry
Neuro: Awake, Alert, Oriented and AO x 3
Psych: Calm and Intact Judgement/Insight
Data Reviewed
-
Ultrasound: Report Reviewed by me
Labs: Labs Reviewed by me
[2024-11-22] MEDS: MAGNESIUM SULFATE 50 IV (10:02)
--- NOTE | 2024-11-22 11:37 | CM ---
Cardiology invoked. Pt on IV Lasix.
PT recommend return to [facility] and [facility] needed.
Spoke with Gisela at [facility] where pt lives [facility].
Gisela said pt is medicare and does not need an auth to return to facility.
Pt will need ambulance
[facility]
report [phone]
fax [phone]
Plan return to [facility] at ok
[2024-11-22 11:45] LABS: Glucose - Point of Care 128 mg/dl (70-99)
--- NOTE | 2024-11-22 13:21 | W.PN.CD ---
Addendum entered and electronically signed by Vincent Bañuelos MD 11/22/24 15:05:
I saw and examined the patient.
The DOCKET SPECIALIST's note was reviewed and I agree with the note.
Comment:
74 yo F with recent PE and possible right heart failure, as evidenced by LE edema and ascites.
Physical exam: RRR, no murmurs, +lymphedema, clear lungs
Continue Eliquis for PE. Continue IV Lasix for diuresis. She still has a ways to go. Ascites may not all be due to R heart failure. Work up other etiologies.
Original Note:
Today's Communication / Plan
-
continue IV diuresis
Impression / Plan
-
Recent Pulmonary Emboli:
-continue Eliquis for OAC
Cor Pulmonale/Right heart failure: improving with diuresis
-Echo below: RV size and function have improved
-Cont IV lasix and spironolactone
-recent UTI, so will avoid SGLT2i at this time
-Cor Pulmonale improved hopeful that ascites improved with improved RV function and pulmonary pressures
Ascites:
-s/p paracentesis for 10,000 mL this admit
-GI has signed off
HTN: stable on meds, continue.
CKD: stable.
-monitor with diuresis.
Physical Exam
Vital Signs/Labs
Vital Signs
Temp Pulse Resp BP Pulse Ox
98.2 F 83 18 137/65 95
11/22/24 11:34 11/22/24 11:34 11/22/24 11:34 11/22/24 11:34 11/22/24 11:34
11/21/24 11/22/24 11/23/24
06:59 06:59 06:59
Actual Weight 281 lb 5 oz 272 lb 11.2 oz
11/19/24 07:52
11/22/24 07:36
Magnesium 1.6 mg/dl (1.6-2.3) 11/22/24 07:36
Free T4 1.56 ng/dl (0.78-2.19) 11/19/24 07:52
11/18/24
14:10
Cfb-[id number] Pept 687
Physical Exam
Constitutional: No acute distress
EENT: Anicteric and Moist mucous membranes
Cardiovascular: Rhythm & rate is regular and Pedal edema present (significant lymphedema b/l LE)
Respiratory: Respiratory effort normal
GI: Soft, Non tender and Normal bowel sounds
Neuro/Psych: AO x 3
Other: Skin (warm, dry)
Data Reviewed
-
Date of Service: November 22, 2024
Medical Decision Making: Reviewed Test Results
EKG: Tracing Personally Visualized and interpreted
Echo: Report Reviewed by me
Labs: Labs Reviewed by me
Old Records: Reviewed
--- NOTE | 2024-11-22 15:40 | PN.CDI ---
CDI
- -
CDI:
Physician Documentation Request
Admit Date: 11/18/24 19:15
Dear SHUKRI Villela,
Please review the following and provide your response in the progress notes.
Clinical Indicators:
Cardiology consult, 11/20
#...suspect she has cor pulmonale from acute pulmonary embolus last month.
#...Additionally, there is likely a component of diastolic dysfunction.
PN, 11/21
#Cor Pulmonale/Right heart failure:
#...Echo below: RV size and function have improved
#...-Cont IV lasix and spironolactone
#...- Cor Pulmonale improved hopeful that ascites improved
#...with improved RV function and pulmonary pressures
PN, 11/22
#...recent PE and possible right heart failure,
#...as evidenced by LE edema and ascites.
#Continue Eliquis for PE.
#...Continue IV Lasix for diuresis.
#...She still has a ways to go.
#...Ascites may not all be due to R heart failure.
Please clarify which of the following accurately represents the acuity of the Cor Pulmonale:
Chronic Cor Pulmonale/Acute and/or Chronic Right heart Failure
Acute on Chronic Diastolic Heart Failure
Acute Cor Pulmonale, Acute Pulmonary Embolus
Other(please specify)
Use of terms such as suspected, likely, concern for, or probable (associated with a specific diagnosis that is being evaluated, monitored, or treated as if it exists) are acceptable and can be coded in the inpatient setting, when documented at the
time of discharge.
Thank you,
Bita Gabriel RN BSN CCDS
CDI Specialist
Please contact via tiger text
Please use your independent medical judgment in providing your response.
[2024-11-22 16:38] LABS: Glucose - Point of Care 129 mg/dl (70-99)
[2024-11-22 21:02] LABS: Glucose - Point of Care 119 mg/dl (70-99)
[2024-11-23 03:38] VITALS: BP 134/66
[2024-11-23] MEDS: SYNTHROID 50 MCG PO (05:32)
[2024-11-23 05:59] VITALS: BMI 45.8
[2024-11-23 06:42] LABS: Blood Urea Nitrogen 20 mg/dl (7-17); Calcium 9.1 mg/dl (8.4-10.2); Carbon Dioxide 31 mmol/L (22-30); Chloride 93 mmol/L (98-107); Estimated Creatinine Clearance 53 ml/min; Glucose 104 mg/dl (70-99); Magnesium 1.8 mg/dl (1.6-2.3); Potassium 4.4 mmol/L (3.5-5.1); Sodium 133 mmol/L (135-145)
[2024-11-23 07:13] LABS: Glucose - Point of Care 102 mg/dl (70-99)
[2024-11-23 07:15] VITALS: BP 124/63
--- NOTE | 2024-11-23 08:55 | W.PN.CD ---
Today's Communication / Plan
-
Plan to continue diuresis
- With rising creatinine, we will give day of diuresis break
Impression / Plan
-
Recent Pulmonary Emboli:
-continue Eliquis for OAC
Cor Pulmonale/Right heart failure: improving with diuresis
- Severely fluid overloaded. Responding to diuresis
- Unfortunately creatinine has started to go up.
- Patient has received IV Lasix this morning. We will give a diuresis holiday tomorrow
- Resume diuresis on Monday.
- Patient at least has 10 to 20 L of extra fluid that needs to be drained.
-Echo below: RV size and function have improved
-Cont IV lasix and spironolactone
-recent UTI, so will avoid SGLT2i at this time
-Cor Pulmonale improved hopeful that ascites improved with improved RV function and pulmonary pressures
Ascites:
-s/p paracentesis for 10,000 mL this admit
-GI has signed off
HTN: stable on meds, continue.
CKD: stable.
-monitor with diuresis.
Physical Exam
Vital Signs/Labs
Vital Signs
Temp Pulse Resp BP Pulse Ox
98.3 F 78 14 124/63 93
11/23/24 07:15 11/23/24 07:15 11/23/24 07:15 11/23/24 07:15 11/23/24 07:15
11/22/24 11/23/24 11/24/24
06:59 06:59 06:59
Actual Weight 123.695 kg 120.826 kg
11/19/24 07:52
11/23/24 05:52
Magnesium 1.8 mg/dl (1.6-2.3) 11/23/24 05:52
Free T4 1.56 ng/dl (0.78-2.19) 11/19/24 07:52
11/18/24
14:10
Yls-[id number]-[id number] Pept 687
Physical Exam
Constitutional: No acute distress and Comfortable
EENT: Anicteric and Moist mucous membranes
Cardiovascular: Rhythm & rate is regular, Pedal edema present (+4), JVD present and Systolic murmur present
Respiratory: Respiratory effort normal, Crackles Absent and Rhonchi Absent
GI: Soft, Non tender and Normal bowel sounds
Neuro/Psych: Oriented and AO x 3
Data Reviewed
-
Date of Service: November 23, 2024
Medical Decision Making: Reviewed Test Results
EKG: Tracing Personally Visualized and interpreted
Echo: Tracing Personally Visualized and interpreted
Medical Tests (PFT, Pathology etc): Image Personally Visualized and interpreted
Labs: Labs Reviewed by me
Old Records: Reviewed
[2024-11-23] MEDS: NOVOLOG FLEXPEN-LOW RESISTANCE SC ×3 (10:19→17:48)
[2024-11-23] MEDS: PHOSLO 667 MG PO ×3 (10:20→17:40)
[2024-11-23] MEDS: LASIX 40 MG IV (10:20)
[2024-11-23] MEDS: PROTONIX 40 MG PO ×2 (10:20→21:00)
[2024-11-23] MEDS: ZESTRIL 20 MG PO ×2 (10:20→21:00)
[2024-11-23] MEDS: ALDACTONE 25 MG PO (10:20)
[2024-11-23] MEDS: WELLBUTRIN XL (24 hour extended release) 300 MG PO (10:20)
[2024-11-23] MEDS: MIRALAX 17 GRAMS PO (10:21)
[2024-11-23] MEDS: MYLICON 80 MG PO ×3 (10:21→21:00)
[2024-11-23] MEDS: ELIQUIS 5 MG PO ×2 (10:21→21:00)
[2024-11-23] MEDS: DESENEX/MITRAZOL/ZEASORB 1 APPLIC TOPICAL ×2 (10:21→21:01)
[2024-11-23] MEDS: FLUSH (NSS) 2 FLUSH IV (10:22)
[2024-11-23 11:20] VITALS: BP 132/60
[2024-11-23 11:56] LABS: Glucose - Point of Care 134 mg/dl (70-99)
--- NOTE | 2024-11-23 14:38 | W.PN.HOSP.TC ---
Today's Communication/Plan
-
Doing well. No new complaints.
Assessment / Plan
Assessment / Plan
74 y/o woman with a past medical history of:
diabetes mellitus,
Essential hypertension,
chronic kidney disease,
recent massive pulmonary embolism
presented with shortness of breath. Patient was admitted from October 23 to November 01 with a massive pulmonary embolism requiring catheter directed thrombolysis. Patient reports during that hospitalization she also underwent a paracentesis with
6.5L removed. Initially at discharge patient was feeling well. She noted over the last week she has been experiencing increasing shortness of breath, particularly conversational dyspnea. Patient reports a 10lb weight gain over the past week, and
notes her abdomen is more distended than previous. She reports chronic lower extremity edema, and note is seems to be unchanged.
A/P:
1. Recurrent ascites - resolving
s/p IR paracentesis 11/20 and 10 L removed
s/p albumin for large volume para
Ascitic fluid culture negative, follow cytology
Echo this admission unrevealing, improved RV size and function. EF 50-55%.
Appreciate GI input
Appreciate Card input
cont Lasix to 40 IV daily and cont added Aldactone 25 mg daily
Cardiology actively titrating daily lasix dosage
2. Acute hypoxic respiratory insufficiency, resolved
weaned 1 L NC back to RA
3. L pleural effusion
s/p IR thoracentesis 11/20 and removed 1000 cc straw-colored pleural fluid
Transudative fluid
4. Recent Pulmonary Embolism - October 2024
Echo from 10/23/24: Normal left ventricular systolic function with EF 55-60%.
Dilated and hypokinetic right ventricle
Continue Eliquis
5. Diabetes Mellitus, Type II
HgbA1c 5.8 in October 2024
6. Essential Hypertension
Continue lisinopril with hold parameters
7. CKD Stage III
Creatinine at baseline, but bumped a bit today
8. Hyperphosphatemia
Continue calcium acetate
9. Chronic Normocytic Anemia
Hgb appears stable compared to previous
10. Asthma, no acute exacerbation - Continue albuterol PRN
11. Anxiety / Depression - Continue Wellbutrin
12. Gastritis / Gastric Erosions - Continue Protonix BID
13. Chronic Lower Extremity Lymphedema - Continue Lasix 20mg Daily as prior to admission
14. Class III Obesity
Affects all aspects of care
DVT ppx: Eliquis
Code Status: Full Code
Dispo: SNF
Anticipated Discharge: 24 - 48 hours
Subjective/Interval History
-
Date of Service: November 23, 2024
Feels OK tomorrow.
Objective Data
-
Labs:
Laboratory Results
11/23/24
05:52
Sodium 133 L
Potassium 4.4
Chloride 93 L
Carbon Dioxide 31 H
BUN 20 H
Creatinine 1.2 H
Glucose 104 H
Calcium 9.1
Vital Signs:
Vital Signs
Temp Pulse Resp BP Pulse Ox
98 F 84 16 132/60 94
11/23/24 11:20 11/23/24 11:20 11/23/24 11:20 11/23/24 11:20 11/23/24 11:20
I&O
11/22/24 11/23/24 11/24/24
06:59 06:59 06:59
Intake Total 540 / 540 720 / 720 480 / 480
Output Total 1725 / 1725 2825 / 2825
Balance -1185 / -1185 -2105 / -2105 480 / 480
Review of Systems
-
History Source: Patient
All other systems: Reviewed and negative
Physical Exam
-
General: Well Developed, Well Nourished, No Apparent Distress, Comfortable, Conversant and Morbidly Obese
HEENT: Atraumatic, Moist Mucous Membranes, Nose Appears Normal and Ears Appear Normal
Respiratory: Clear to Auscultation
Cardiac: Regular Rhythm and S1/S2
GI: Soft, Nontender and Nondistended
Musculoskeletal: No Clubbing, No Cyanosis, Edema, Right Lower Extrem and Edema, Left Lower Extrem
Skin: Warm and Dry
Neuro: Awake, Alert, Oriented and AO x 3
Psych: Calm
Data Reviewed
-
Labs: Labs Reviewed by me
[2024-11-23 15:20] VITALS: BP 114/73
[2024-11-23 17:48] LABS: Glucose - Point of Care 137 mg/dl (70-99)
[2024-11-23 19:54] VITALS: BP 132/57
[2024-11-23 21:06] LABS: Glucose - Point of Care 170 mg/dl (70-99)
[2024-11-23 23:35] VITALS: BP 112/55
[2024-11-24 03:33] VITALS: BP 119/61
[2024-11-24] MEDS: TYLENOL 650 MG PO ×2 (04:56→09:41)
[2024-11-24] MEDS: SYNTHROID 50 MCG PO (04:57)
[2024-11-24 05:22] VITALS: BMI 45.4
[2024-11-24 06:29] LABS: Hematocrit 30.8 % (37.0-47.0); Hemoglobin 9.9 g/dL (12.0-16.0); Mean Corp Hgb Conc. 32.1 g/dL (33.0-37.0); Mean Corpuscular Hgb 25.9 pg (27.0-31.0); Mean Corpuscular Volume 80.6 fL (81.0-99.0); Mean Platelet Volume 8.5 fL (7.4-10.4); Platelet Count 616 10^3/uL (130-400); Red Blood Cell Count 3.82 10^6/uL (4.20-5.40); Red Cell Dist. Width 14.6 % (11.5-14.5); White Blood Cell Count 7.9 10^3/uL (4.8-10.8)
[2024-11-24 06:43] LABS: Blood Urea Nitrogen 23 mg/dl (7-17); Calcium 9.2 mg/dl (8.4-10.2); Carbon Dioxide 35 mmol/L (22-30); Chloride 93 mmol/L (98-107); Estimated Creatinine Clearance 58 ml/min; Glucose 113 mg/dl (70-99); Potassium 4.4 mmol/L (3.5-5.1); Sodium 133 mmol/L (135-145); eGFR 53.06
[2024-11-24 07:10] LABS: Glucose - Point of Care 112 mg/dl (70-99)
[2024-11-24 07:25] VITALS: BP 134/62
[2024-11-24 07:30] VITALS: BP 134/62
[2024-11-24] MEDS: PHOSLO 667 MG PO ×3 (09:36→18:27)
[2024-11-24] MEDS: PROTONIX 40 MG PO ×2 (09:36→21:08)
[2024-11-24] MEDS: NOVOLOG FLEXPEN-LOW RESISTANCE SC ×3 (09:36→18:27)
[2024-11-24] MEDS: ZESTRIL 20 MG PO ×2 (09:37→21:05)
[2024-11-24] MEDS: MYLICON 80 MG PO ×3 (09:37→21:08)
[2024-11-24] MEDS: ALDACTONE 25 MG PO (09:37)
[2024-11-24] MEDS: WELLBUTRIN XL (24 hour extended release) 300 MG PO (09:37)
[2024-11-24] MEDS: ELIQUIS 5 MG PO ×2 (09:37→21:07)
[2024-11-24] MEDS: MIRALAX 17 GRAMS PO (09:38)
[2024-11-24] MEDS: FLUSH (NSS) 1 FLUSH IV (09:38)
[2024-11-24] MEDS: DESENEX/MITRAZOL/ZEASORB 1 APPLIC TOPICAL ×2 (09:38→21:08)
[2024-11-24 11:15] VITALS: BP 124/58
--- NOTE | 2024-11-24 11:50 | W.PN.HOSP.TC ---
Today's Communication/Plan
-
Feels that she is more swollen today.
Assessment / Plan
Assessment / Plan
74 y/o woman with a past medical history of:
diabetes mellitus,
Essential hypertension,
chronic kidney disease,
recent massive pulmonary embolism
presented with shortness of breath. Patient was admitted from October 23 to November 01 with a massive pulmonary embolism requiring catheter directed thrombolysis. Patient reports during that hospitalization she also underwent a paracentesis with
6.5L removed. Initially at discharge patient was feeling well. She noted over the last week she has been experiencing increasing shortness of breath, particularly conversational dyspnea. Patient reports a 10lb weight gain over the past week, and
notes her abdomen is more distended than previous. She reports chronic lower extremity edema, and note is seems to be unchanged.
Today she feels she is again retaining fluid.
A/P:
1. Recurrent ascites - resolving - but today she feels worse
s/p IR paracentesis 11/20 and 10 L removed
s/p albumin for large volume para
Ascitic fluid culture negative, follow cytology
Echo this admission unrevealing, improved RV size and function. EF 50-55%.
Appreciate GI input
Appreciate Card input
Cardiology actively titrating daily diuretic plan
2. Acute hypoxic respiratory insufficiency, resolved
weaned 1 L NC back to RA
3. L pleural effusion
s/p IR thoracentesis 11/20 and removed 1000 cc straw-colored pleural fluid
Transudative fluid
4. Recent Pulmonary Embolism - October 2024
Echo from 10/23/24: Normal left ventricular systolic function with EF 55-60%.
Dilated and hypokinetic right ventricle
Continue Eliquis
5. Diabetes Mellitus, Type II
HgbA1c 5.8 in October 2024
6. Essential Hypertension
Continue lisinopril with hold parameters
7. CKD Stage III
Creatinine at baseline, but bumped a bit today
8. Hyperphosphatemia
Continue calcium acetate
9. Chronic Normocytic Anemia
Hgb appears stable compared to previous
10. Asthma, no acute exacerbation - Continue albuterol PRN
11. Anxiety / Depression - Continue Wellbutrin
12. Gastritis / Gastric Erosions - Continue Protonix BID
13. Chronic Lower Extremity Lymphedema - Continue Lasix 20mg Daily as prior to admission
14. Class III Obesity
Affects all aspects of care
DVT ppx: Eliquis
Code Status: Full Code
Dispo: SNF
Anticipated Discharge: 24 - 48 hours
Subjective/Interval History
-
Date of Service: November 24, 2024
Feels more 'full' and more 'swollen' today.
Objective Data
-
Labs:
Laboratory Results
11/24/24
04:53
WBC 7.9
Hgb 9.9 L
Hct 30.8 L
Plt Count 616 H
Sodium 133 L
Potassium 4.4
Chloride 93 L
Carbon Dioxide 35 H
BUN 23 H
Creatinine 1.1 H
Glucose 113 H
Calcium 9.2
Vital Signs:
Vital Signs
Temp Pulse Resp BP Pulse Ox
98.3 F 82 14 124/58 96
11/24/24 11:15 11/24/24 11:15 11/24/24 11:15 11/24/24 11:15 11/24/24 11:15
I&O
11/23/24 11/24/24 11/25/24
06:59 06:59 06:59
Intake Total 720 / 720 480 / 480
Output Total 2825 / 2825 2100 / 2100
Balance -2105 / -2105 -1620 / -1620
Review of Systems
-
History Source: Patient
All other systems: Reviewed and negative
Physical Exam
-
General: Well Developed, Well Nourished, Appears Chronically Ill and Morbidly Obese
HEENT: Normocephalic, Nose Appears Normal and Ears Appear Normal
Respiratory: Decreased Breath Sounds
Cardiac: Regular Rhythm and S1/S2
GI: Soft, Nontender and Nondistended
Musculoskeletal: No Clubbing, No Cyanosis, Edema, Right Lower Extrem and Edema, Left Lower Extrem
Skin: Warm and Dry
Neuro: Awake, Alert and Oriented
Psych: Calm
Data Reviewed
-
Labs: Labs Reviewed by me
[2024-11-24 12:01] LABS: Glucose - Point of Care 145 mg/dl (70-99)
--- NOTE | 2024-11-24 13:22 | W.PN.CD ---
Today's Communication / Plan
-
- Plan to continue diuresis.
Impression / Plan
-
Recent Pulmonary Emboli:
-continue Eliquis for OAC
Cor Pulmonale/Right heart failure: improving with diuresis
- Severely fluid overloaded. Responding to diuresis
- Creatinine is normal now.
- IV Lasix held this morning.
- Resume diuresis on Monday.
- Patient at least has 10 to 20 L of extra fluid that needs to be drained.
-Echo below: RV size and function have improved
-Cont IV lasix and spironolactone
-recent UTI, so will avoid SGLT2i at this time
-Cor Pulmonale improved hopeful that ascites improved with improved RV function and pulmonary pressures
Ascites:
-s/p paracentesis for 10,000 mL this admit
-GI has signed off
HTN: stable on meds, continue.
CKD: stable.
-monitor with diuresis.
Physical Exam
Vital Signs/Labs
Vital Signs
Temp Pulse Resp BP Pulse Ox
98.3 F 82 14 124/58 96
11/24/24 11:15 11/24/24 11:15 11/24/24 11:15 11/24/24 11:15 11/24/24 11:15
11/23/24 11/24/24 11/25/24
06:59 06:59 06:59
Actual Weight 120.826 kg 119.862 kg
11/24/24 04:53
11/24/24 04:53
Magnesium 1.8 mg/dl (1.6-2.3) 11/23/24 05:52
Free T4 1.56 ng/dl (0.78-2.19) 11/19/24 07:52
11/18/24
14:10
[id number]-[id number] Pept 687
Physical Exam
Constitutional: No acute distress and Comfortable
EENT: Anicteric and Moist mucous membranes
Cardiovascular: Rhythm & rate is regular, Pedal edema present (+3) and JVD present
Respiratory: Respiratory effort normal and Rhonchi Present
Neuro/Psych: Alert and AO x 3
Data Reviewed
-
Date of Service: November 24, 2024
Medical Decision Making: Reviewed Test Results, Test Interpretation and Review of Case with other Provider
Labs: Labs Reviewed by me
Old Records: Reviewed
[2024-11-24 15:25] VITALS: BP 139/64
[2024-11-24 17:01] LABS: Glucose - Point of Care 130 mg/dl (70-99)
[2024-11-24 21:16] LABS: Glucose - Point of Care 143 mg/dl (70-99)
[2024-11-24 23:32] VITALS: BP 143/69
[2024-11-25] MEDS: SYNTHROID 50 MCG PO (05:04)
[2024-11-25 06:00] VITALS: BMI 45.1
[2024-11-25 06:07] LABS: Hematocrit 30.2 % (37.0-47.0); Hemoglobin 9.7 g/dL (12.0-16.0); Mean Corp Hgb Conc. 32.1 g/dL (33.0-37.0); Mean Corpuscular Hgb 25.9 pg (27.0-31.0); Mean Corpuscular Volume 80.7 fL (81.0-99.0); Mean Platelet Volume 8.2 fL (7.4-10.4); Platelet Count 555 10^3/uL (130-400); Red Blood Cell Count 3.74 10^6/uL (4.20-5.40); Red Cell Dist. Width 14.6 % (11.5-14.5); White Blood Cell Count 7.3 10^3/uL (4.8-10.8)
[2024-11-25 06:28] LABS: Blood Urea Nitrogen 24 mg/dl (7-17); Calcium 9.2 mg/dl (8.4-10.2); Carbon Dioxide 31 mmol/L (22-30); Chloride 96 mmol/L (98-107); Estimated Creatinine Clearance 58 ml/min; Glucose 107 mg/dl (70-99); Magnesium 1.7 mg/dl (1.6-2.3); Potassium 4.6 mmol/L (3.5-5.1); Sodium 133 mmol/L (135-145); eGFR 53.06
[2024-11-25 07:20] VITALS: BP 134/67
[2024-11-25 07:49] LABS: Glucose - Point of Care 108 mg/dl (70-99)
[2024-11-25] MEDS: NOVOLOG FLEXPEN-LOW RESISTANCE SC ×3 (07:54→16:32)
[2024-11-25] MEDS: PHOSLO 667 MG PO ×3 (08:45→17:21)
[2024-11-25] MEDS: ELIQUIS 5 MG PO ×2 (08:47→20:55)
[2024-11-25] MEDS: MYLICON 80 MG PO ×3 (08:48→20:57)
[2024-11-25] MEDS: WELLBUTRIN XL (24 hour extended release) 300 MG PO (08:48)
[2024-11-25] MEDS: ZESTRIL 20 MG PO (08:48)
[2024-11-25] MEDS: PROTONIX 40 MG PO ×2 (08:48→20:56)
[2024-11-25] MEDS: DESENEX/MITRAZOL/ZEASORB 1 APPLIC TOPICAL ×2 (08:51→20:52)
[2024-11-25] MEDS: LASIX 40 MG IV (08:51)
[2024-11-25] MEDS: ALDACTONE 25 MG PO (08:51)
[2024-11-25] MEDS: MIRALAX PO (08:52)
--- NOTE | 2024-11-25 11:38 | W.PN.CD ---
Addendum entered and electronically signed by Vincent Bañuelos MD 11/25/24 11:59:
Acute cor pulmonale
Original Note:
Today's Communication / Plan
-
IV Lasix
Impression / Plan
-
HFpEF, acute on chronic
Cor Pulmonale/Right heart failure: improving with diuresis
- Severe exacerbation. Responding to IV diuresis which requires intensive lab monitoring
- TTE 11/20/2024: LVEF 50-55%, normal RV, mild TR, PASP 39
- Patient at least has 10 to 20 L of extra fluid on board
- Cont IV lasix and spironolactone
- recent UTI, so will avoid SGLT2i at this time
Recent Pulmonary Emboli:
-continue Eliquis for OAC
Ascites:
-s/p paracentesis for 10,000 mL this admit
-Initially attributed to R heart failure but does not fully explain ascites as R heart failure was acute and quickly resovled
-GI has signed off
HTN: stable on meds, continue.
CKD: stable.
-monitor with diuresis.
Subjective: Feet feel more swollen.
Physical Exam
Vital Signs/Labs
Vital Signs
Temp Pulse Resp BP Pulse Ox
98.0 F 86 20 134/67 93
11/25/24 07:20 11/25/24 08:48 11/25/24 07:20 11/25/24 08:48 11/25/24 08:50
11/24/24 11/25/24 11/26/24
06:59 06:59 06:59
Actual Weight 264 lb 4 oz 262 lb 9.6 oz
11/25/24 05:48
11/25/24 05:48
Magnesium 1.7 mg/dl (1.6-2.3) 11/25/24 05:48
Free T4 1.56 ng/dl (0.78-2.19) 11/19/24 07:52
11/18/24
14:10
[id number] Pept 687
Physical Exam
Constitutional: No acute distress and Comfortable
Cardiovascular: Rhythm & rate is regular, Systolic murmur absent and Pedal edema present
Respiratory: Respiratory effort normal and Lungs clear to auscul.
Neuro/Psych: AO x 3
Data Reviewed
-
Date of Service: November 25, 2024
Medical Decision Making: Reviewed Test Results, Independent Historian Assessment, Test Interpretation and Review of Case with other Provider
EKG: Tracing Personally Visualized and interpreted
Echo: Report Reviewed by me
Labs: Labs Reviewed by me
[2024-11-25 11:47] LABS: Glucose - Point of Care 126 mg/dl (70-99)
--- NOTE | 2024-11-25 12:08 | W.PN.HOSP.TC ---
Today's Communication/Plan
-
continue IV diuresis
repeat US tomorrow
Assessment / Plan
Assessment / Plan
Assessment:
Recurrent ascites from Right heart failure, acute in setting of Acute Cor pulmonale
- s/p IR paracentesis 4/2 and 10 L removed. repeat US 11/26
- s/p albumin for large volume para
- Ascitic fluid culture negative, cytology negative
- Echo this admission unrevealing, improved RV size and function. EF 50-55%.
- Appreciate GI input
- Appreciate Card input
- Continue IV Lasix - requires intensive monitoring of I/Os, weights, lytes
- GDMT: continue Aldactone, Lisinopril. SGLT2i avoided due to recent UTI
Acute hypoxic respiratory insufficiency, resolved
- now on RA
L pleural effusion
- s/p IR thoracentesis 11/20 and removed 1000 cc straw-colored pleural fluid
- Transudative fluid
Recent Pulmonary Embolism - October 2024
- Echo from 10/23/24: Normal left ventricular systolic function with EF 55-60%. Dilated and hypokinetic right ventricle
- Continue Eliquis
Diabetes Mellitus, Type II
- HgbA1c 5.8 in October 2024
Essential Hypertension
- continue lisinopril with hold parameters
CKD Stage III
- creatinine at baseline
Hyperphosphatemia
- continue calcium acetate
Chronic Normocytic Anemia
- Hgb appears stable compared to previous
Asthma, no acute exacerbation
- continue albuterol PRN
Anxiety/Depression
- continue Wellbutrin
Gastritis/Gastric Erosions
- continue Protonix BID
Chronic Lower Extremity Lymphedema
- continue Lasix 20mg Daily as prior to admission
Class III Obesity
- Affects all aspects of care
DVT ppx: Eliquis
Code Status: Full
Anticipated Discharge: > 48 hours
Subjective/Interval History
-
Date of Service: November 25, 2024
edema improving
feels abdomen is soft
Objective Data
-
Labs:
Laboratory Results
11/25/24
05:48
WBC 7.3
Hgb 9.7 L
Hct 30.2 L
Plt Count 555 H
Sodium 133 L
Potassium 4.6
Chloride 96 L
Carbon Dioxide 31 H
BUN 24 H
Creatinine 1.1 H
Glucose 107 H
Calcium 9.2
Vital Signs:
Vital Signs
Temp Pulse Resp BP Pulse Ox
98.0 F 86 20 134/67 93
11/25/24 07:20 11/25/24 08:48 11/25/24 07:20 11/25/24 08:48 11/25/24 08:50
I&O
11/24/24 11/25/24 11/26/24
06:59 06:59 06:59
Intake Total 480 / 480 480 / 480
Output Total 2099 / 2099
Balance -1620 / -1620 -1535 / -1535
Physical Exam
-
General: No Apparent Distress
HEENT: Normocephalic and Atraumatic
Respiratory: Negative Wheezes
Cardiac: Regular Rhythm and S1/S2
GI: Soft
Genito-urinary: No Costovertebral Tender
Musculoskeletal: Edema, Right Lower Extrem and Edema, Left Lower Extrem
Neuro: AO x 3
Psych: Calm
Data Reviewed
-
Total Time Spent with Patient (in minutes): 51
Labs: Labs Reviewed by me
[2024-11-25 13:18] VITALS: BP 123/69; PULSE 86; O2SAT 94
[2024-11-25 15:14] VITALS: BP 123/69; PULSE 86; O2SAT 94
[2024-11-25 15:25] VITALS: BP 122/58
[2024-11-25 16:24] LABS: Glucose - Point of Care 129 mg/dl (70-99)
[2024-11-25] MEDS: ZESTRIL PO (20:56)
[2024-11-25 23:30] VITALS: BP 139/71
[2024-11-26 06:00] VITALS: BMI 43.6
[2024-11-26 06:21] LABS: Hematocrit 30.1 % (37.0-47.0); Hemoglobin 9.7 g/dL (12.0-16.0); Mean Corp Hgb Conc. 32.2 g/dL (33.0-37.0); Mean Corpuscular Hgb 26.1 pg (27.0-31.0); Mean Corpuscular Volume 81.1 fL (81.0-99.0); Mean Platelet Volume 8.5 fL (7.4-10.4); Platelet Count 591 10^3/uL (130-400); Red Blood Cell Count 3.71 10^6/uL (4.20-5.40); Red Cell Dist. Width 14.6 % (11.5-14.5); White Blood Cell Count 7.3 10^3/uL (4.8-10.8)
[2024-11-26 06:27] LABS: Glucose - Point of Care 167 mg/dl (70-99)
[2024-11-26 06:45] LABS: Blood Urea Nitrogen 25 mg/dl (7-17); Calcium 9.3 mg/dl (8.4-10.2); Carbon Dioxide 32 mmol/L (22-30); Chloride 96 mmol/L (98-107); Estimated Creatinine Clearance 58 ml/min; Glucose 109 mg/dl (70-99); Magnesium 1.7 mg/dl (1.6-2.3); Potassium 4.5 mmol/L (3.5-5.1); Sodium 133 mmol/L (135-145); eGFR 53.06
[2024-11-26] MEDS: SYNTHROID 50 MCG PO (06:48)
[2024-11-26 08:00] VITALS: BP 142/60
--- NOTE | 2024-11-26 08:05 | W.PN.CD ---
Today's Communication / Plan
-
Cont IV diuresis
Impression / Plan
-
HFpEF, acute on chronic
Cor Pulmonale/Right heart failure: improving with diuresis
- Severe exacerbation. Responding to IV diuresis which requires intensive lab monitoring
- TTE 11/20/2024: LVEF 50-55%, normal RV, mild TR, PASP 39
- Weights have come down from 317 lbs to 253 lbs today --> ongoing diuresis
- Cont IV lasix and spironolactone
- recent UTI, so will avoid SGLT2i at this time
Recent Pulmonary Emboli:
-continue Eliquis for OAC
Ascites:
-s/p paracentesis for 10,000 mL this admit
-Initially attributed to R heart failure but does not fully explain ascites as R heart failure was acute and quickly resovled
-GI has signed off
HTN: stable on meds, continue.
CKD: stable.
-monitor with diuresis.
Subjective: Feels improved
Physical Exam
Vital Signs/Labs
Vital Signs
Temp Pulse Resp BP Pulse Ox
98.1 F 76 18 142/60 96
11/26/24 08:00 11/26/24 08:00 11/26/24 08:00 11/26/24 08:00 11/26/24 08:00
11/25/24 11/26/24 11/27/24
06:59 06:59 06:59
Actual Weight 262 lb 9.6 oz 253 lb 9 oz
11/26/24 05:50
11/26/24 05:50
Magnesium 1.7 mg/dl (1.6-2.3) 11/26/24 05:50
Free T4 1.56 ng/dl (0.78-2.19) 11/19/24 07:52
11/18/24
14:10
Ids-X-Bsyhacflqwp Pept 687
Physical Exam
Constitutional: No acute distress and Comfortable
EENT: Anicteric
Cardiovascular: Rhythm & rate is regular and Pedal edema present
Respiratory: Respiratory effort normal and Lungs clear to auscul.
GI: Soft
Neuro/Psych: AO x 3
Data Reviewed
-
Date of Service: November 26, 2024
Medical Decision Making: Reviewed Test Results
EKG: Tracing Personally Visualized and interpreted (sr)
Echo: Report Reviewed by me
Labs: Labs Reviewed by me
[2024-11-26 08:45] LABS: Glucose - Point of Care 95 mg/dl (70-99)
[2024-11-26] MEDS: NOVOLOG FLEXPEN-LOW RESISTANCE SC ×3 (08:47→17:06)
[2024-11-26] MEDS: PROTONIX 40 MG PO ×2 (08:54→20:11)
[2024-11-26] MEDS: ZESTRIL 20 MG PO ×2 (08:54→20:11)
[2024-11-26] MEDS: MYLICON 80 MG PO ×3 (08:55→21:12)
[2024-11-26] MEDS: WELLBUTRIN XL (24 hour extended release) 300 MG PO (08:55)
[2024-11-26] MEDS: ELIQUIS 5 MG PO ×2 (08:55→20:11)
[2024-11-26] MEDS: ALDACTONE 25 MG PO (08:55)
[2024-11-26] MEDS: LASIX 40 MG IV (08:55)
[2024-11-26] MEDS: MIRALAX PO (08:56)
[2024-11-26] MEDS: DESENEX/MITRAZOL/ZEASORB 1 APPLIC TOPICAL ×2 (08:56→21:00)
[2024-11-26] MEDS: PHOSLO PO (09:03)
--- NOTE | 2024-11-26 09:30 | CM ---
Cardiology involved. Remains on IV Lasix.
PT recommend return to [facility] and [facility] lift needed.
Spoke with Gisela at [facility] where pt lives [facility].
Gisela said pt is medicare and does not need an auth to return to facility.
Pt will need ambulance
[facility]
report [phone]
fax [phone]
Plan return to [facility] at [place]
[2024-11-26 12:36] LABS: Glucose - Point of Care 84 mg/dl (70-99)
[2024-11-26] MEDS: PHOSLO 667 MG PO ×2 (12:42→16:56)
--- NOTE | 2024-11-26 13:43 | W.PN.HOSP.TC ---
Today's Communication/Plan
-
continue IV Lasix
consider repeat paracentesis close to DC
Assessment / Plan
Assessment / Plan
Assessment:
Recurrent ascites from Right heart failure, acute in setting of Acute Cor pulmonale
- s/p IR paracentesis 4/2 and 10 L removed. s/p albumin for large volume para
- repeat US 11/26 with moderate ascites. May need repeat paracentesis prior to dc.
- Ascitic fluid culture negative, cytology negative
- Echo this admission unrevealing, improved RV size and function. EF 50-55%.
- Appreciate GI input
- Appreciate Card input
- Continue IV Lasix - requires intensive monitoring of I/Os, weights, lytes
- GDMT: continue Aldactone, Lisinopril. SGLT2i avoided due to recent UTI
Acute hypoxic respiratory insufficiency, resolved
- now on RA
L pleural effusion
- s/p IR thoracentesis / and removed 1000 cc straw-colored pleural fluid
- Transudative fluid
Recent Pulmonary Embolism - October 2024
- Echo from 10/23/24: Normal left ventricular systolic function with EF 55-60%. Dilated and hypokinetic right ventricle
- Continue Eliquis
Diabetes Mellitus, Type II
- HgbA1c 5.8 in October 2024
Essential Hypertension
- continue lisinopril with hold parameters
CKD Stage III
- creatinine at baseline
Hyperphosphatemia
- continue calcium acetate
Chronic Normocytic Anemia
- Hgb appears stable compared to previous
Asthma, no acute exacerbation
- continue albuterol PRN
Anxiety/Depression
- continue Wellbutrin
Gastritis/Gastric Erosions
- continue Protonix BID
Chronic Lower Extremity Lymphedema
- continue Lasix 20mg Daily as prior to admission
Class III Obesity
- Affects all aspects of care
DVT ppx: Eliquis
Code Status: Full
Anticipated Discharge: > 48 hours
Subjective/Interval History
-
Date of Service: November 26, 2024
feels improving
Objective Data
-
Labs:
Laboratory Results
11/26/24
05:50
WBC 7.3
Hgb 9.7 L
Hct 30.1 L
Plt Count 591 H
Sodium 133 L
Potassium 4.5
Chloride 96 L
Carbon Dioxide 32 H
BUN 25 H
Creatinine 1.1 H
Glucose 109 H
Calcium 9.3
Vital Signs:
Vital Signs
Temp Pulse Resp BP Pulse Ox
98.1 F 76 18 142/60 95
11/26/24 08:00 11/26/24 08:55 11/26/24 08:00 11/26/24 08:55 11/26/24 10:26
I&O
11/25/24 11/26/24 11/27/24
06:59 06:59 06:59
Intake Total 480 / 480 720 / 720 400 / 400
Output Total 2014 2250 / 2250 1650 / 1650
Balance -1535 / -1535 -1530 / -1530 -1250 / -1250
Physical Exam
-
General: No Apparent Distress
HEENT: Normocephalic and Atraumatic
Respiratory: Negative Wheezes
Cardiac: Regular Rhythm and S1/S2
GI: Soft and Nontender
Musculoskeletal: No Edema
Neuro: AO x 3
Psych: Calm
Data Reviewed
-
Total Time Spent with Patient (in minutes): 51
Labs: Labs Reviewed by me
[2024-11-26 16:27] VITALS: BP 127/64
[2024-11-26 17:05] LABS: Glucose - Point of Care 144 mg/dl (70-99)
[2024-11-26 21:47] LABS: Glucose - Point of Care 142 mg/dl (70-99)
[2024-11-26 23:54] VITALS: BP 128/61
[2024-11-27] MEDS: SYNTHROID 50 MCG PO (05:57)
[2024-11-27 06:00] VITALS: BMI 42.7
[2024-11-27 06:38] LABS: Hematocrit 29.9 % (37.0-47.0); Hemoglobin 9.5 g/dL (12.0-16.0); Mean Corp Hgb Conc. 31.8 g/dL (33.0-37.0); Mean Corpuscular Hgb 25.7 pg (27.0-31.0); Mean Platelet Volume 8.2 fL (7.4-10.4); Platelet Count 621 10^3/uL (130-400); Red Blood Cell Count 3.69 10^6/uL (4.20-5.40); Red Cell Dist. Width 14.7 % (11.5-14.5); White Blood Cell Count 7.4 10^3/uL (4.8-10.8)
[2024-11-27 06:57] LABS: Blood Urea Nitrogen 28 mg/dl (7-17); Calcium 9.3 mg/dl (8.4-10.2); Carbon Dioxide 33 mmol/L (22-30); Chloride 95 mmol/L (98-107); Estimated Creatinine Clearance 56 ml/min; Glucose 114 mg/dl (70-99); Potassium 4.7 mmol/L (3.5-5.1); Sodium 133 mmol/L (135-145); eGFR 53.06
[2024-11-27 07:25] VITALS: BP 141/69
--- NOTE | 2024-11-27 07:48 | W.PN.CD ---
Today's Communication / Plan
-
cont IV diuresis
Impression / Plan
-
HFpEF, acute on chronic
Cor Pulmonale/Right heart failure, acute
- Severe HFpEF exacerbation. Responding to IV diuresis which requires intensive lab monitoring
- TTE 11/20/2024: LVEF 50-55%, normal RV, mild TR, PASP 39
- Weights have come down from 317 lbs to 248 lbs today --> ongoing diuresis
- Cont IV lasix and spironolactone
- recent UTI, so will avoid SGLT2i at this time
Recent Pulmonary Emboli:
-continue Eliquis for OAC
Ascites:
-s/p paracentesis for 10,000 mL this admit
-Initially attributed to R heart failure but does not fully explain ascites as R heart failure was acute and quickly resolved
-GI has signed off
HTN: stable on meds, continue.
CKD: stable.
-monitor with diuresis.
Subjective: Feels improved. Swelling stable.
Physical Exam
Vital Signs/Labs
Vital Signs
Temp Pulse Resp BP Pulse Ox
98.3 F 82 20 128/61 97
11/26/24 23:54 11/26/24 23:54 11/26/24 23:54 11/26/24 23:54 11/26/24 23:54
11/26/24 11/27/24 11/28/24
06:59 06:59 06:59
Actual Weight 253 lb 9 oz 248 lb 7 oz
11/27/24 06:12
11/27/24 06:12
Magnesium 1.7 mg/dl (1.6-2.3) 11/26/24 05:50
Free T4 1.56 ng/dl (0.78-2.19) 11/19/24 07:52
11/18/24
14:10
Hcy-K-Pcmbsabcgee Pept 687
Physical Exam
Constitutional: No acute distress and Comfortable
Cardiovascular: Rhythm & rate is regular, Pedal edema present and Murmur/rub/gallop absent
Respiratory: Respiratory effort normal and Lungs clear to auscul.
Data Reviewed
-
Date of Service: November 27, 2024
Medical Decision Making: Reviewed Test Results, Independent Historian Assessment, Test Interpretation and Review of Case with other Provider
EKG: Tracing Personally Visualized and interpreted
Echo: Report Reviewed by me
Labs: Labs Reviewed by me
[2024-11-27 07:59] LABS: Glucose - Point of Care 109 mg/dl (70-99)
[2024-11-27] MEDS: NOVOLOG FLEXPEN-LOW RESISTANCE SC ×3 (08:26→16:47)
[2024-11-27] MEDS: MIRALAX PO (08:27)
[2024-11-27] MEDS: ELIQUIS 5 MG PO ×2 (08:27→20:22)
[2024-11-27] MEDS: PROTONIX 40 MG PO ×2 (08:27→20:22)
[2024-11-27] MEDS: LASIX 40 MG IV (08:27)
[2024-11-27] MEDS: PHOSLO 667 MG PO ×3 (08:27→16:52)
[2024-11-27] MEDS: WELLBUTRIN XL (24 hour extended release) 300 MG PO (08:27)
[2024-11-27] MEDS: ZESTRIL 20 MG PO ×2 (08:27→20:22)
[2024-11-27] MEDS: ALDACTONE 25 MG PO (08:28)
[2024-11-27] MEDS: MYLICON 80 MG PO ×3 (08:28→22:11)
[2024-11-27] MEDS: DESENEX/MITRAZOL/ZEASORB 1 APPLIC TOPICAL ×2 (08:31→21:00)
[2024-11-27 11:15] LABS: Glucose - Point of Care 182 mg/dl (70-99)
--- NOTE | 2024-11-27 12:46 | W.PN.HOSP.TC ---
Today's Communication/Plan
-
continue IV Lasix
follow cards recs
Assessment / Plan
Assessment / Plan
Assessment:
Recurrent ascites from Right heart failure, acute in setting of Acute Cor pulmonale
- s/p IR paracentesis /2 and 10 L removed. s/p albumin for large volume para
- repeat US 11/26 with moderate ascites. May need repeat paracentesis prior to dc.
- Ascitic fluid culture negative, cytology negative
- Echo this admission unrevealing, improved RV size and function. EF 50-55%.
- Appreciate GI input
- Appreciate Card input
- Continue IV Lasix - requires intensive monitoring of I/Os, weights, lytes
- GDMT: continue Aldactone, Lisinopril. SGLT2i avoided due to recent UTI
Acute hypoxic respiratory insufficiency, resolved
- now on RA
L pleural effusion
- s/p IR thoracentesis 11/20 and removed 1000 cc straw-colored pleural fluid
- Transudative fluid
Recent Pulmonary Embolism - October 2024
- Echo from 10/23/24: Normal left ventricular systolic function with EF 55-60%. Dilated and hypokinetic right ventricle
- Continue Eliquis
Diabetes Mellitus, Type II
- HgbA1c 5.8 in October 2024
Essential Hypertension
- continue lisinopril with hold parameters
CKD Stage III
- creatinine at baseline
Hyperphosphatemia
- continue calcium acetate
Chronic Normocytic Anemia
- Hgb appears stable compared to previous
Asthma, no acute exacerbation
- continue albuterol PRN
Anxiety/Depression
- continue Wellbutrin
Gastritis/Gastric Erosions
- continue Protonix BID
Chronic Lower Extremity Lymphedema
- continue Lasix 20mg Daily as prior to admission
Class III Obesity
- Affects all aspects of care
DVT ppx: Eliquis
Code Status: Full
Anticipated Discharge: > 48 hours
Subjective/Interval History
-
Date of Service: November 27, 2024
feels further improved
has lost nearly 32kg of weight
Objective Data
-
Labs:
Laboratory Results
11/27/24
06:12
WBC 7.4
Hgb 9.5 L
Hct 29.9 L
Plt Count 621 H
Sodium 133 L
Potassium 4.7
Chloride 95 L
Carbon Dioxide 33 H
BUN 28 H
Creatinine 1.1 H
Glucose 114 H
Calcium 9.3
Vital Signs:
Vital Signs
Temp Pulse Resp BP Pulse Ox
98.0 F 82 18 141/69 94
11/27/24 07:25 11/27/24 08:27 11/27/24 07:25 11/27/24 08:27 11/27/24 08:45
I&O
11/26/24 11/27/24 11/28/24
06:59 06:59 06:59
Intake Total 720 / 720 640 / 640
Output Total 2250 / 2250 2800 / 2800
Balance -1530 / -1530 -2160 / -2160
Physical Exam
-
General: No Apparent Distress
HEENT: Normocephalic and Atraumatic
Respiratory: Negative Wheezes
Cardiac: Regular Rhythm and S1/S2
GI: Soft and Nontender
Genito-urinary: No Costovertebral Tender
Neuro: AO x 3
Hematologic / Lymphatic: No Lymphadenopathy
Psych: Calm
Data Reviewed
-
Total Time Spent with Patient (in minutes): 51
Labs: Labs Reviewed by me
[2024-11-27 15:25] VITALS: BP 128/66
[2024-11-27 16:26] VITALS: BP 128/66
[2024-11-27 16:47] LABS: Glucose - Point of Care 118 mg/dl (70-99)
[2024-11-27 23:19] VITALS: BP 124/63
[2024-11-28] MEDS: SYNTHROID 50 MCG PO (05:08)
[2024-11-28 05:41] VITALS: BMI 42.0
[2024-11-28 06:42] LABS: Hematocrit 31.7 % (37.0-47.0); Hemoglobin 10.1 g/dL (12.0-16.0); Mean Corp Hgb Conc. 31.9 g/dL (33.0-37.0); Mean Corpuscular Hgb 25.8 pg (27.0-31.0); Mean Corpuscular Volume 80.9 fL (81.0-99.0); Mean Platelet Volume 8.4 fL (7.4-10.4); Platelet Count 669 10^3/uL (130-400); Red Blood Cell Count 3.92 10^6/uL (4.20-5.40); Red Cell Dist. Width 14.8 % (11.5-14.5); White Blood Cell Count 7.6 10^3/uL (4.8-10.8)
[2024-11-28 06:49] LABS: Blood Urea Nitrogen 29 mg/dl (7-17); Calcium 9.7 mg/dl (8.4-10.2); Carbon Dioxide 30 mmol/L (22-30); Chloride 95 mmol/L (98-107); Estimated Creatinine Clearance 51 ml/min; Glucose 107 mg/dl (70-99); Potassium 4.8 mmol/L (3.5-5.1); Sodium 133 mmol/L (135-145)
[2024-11-28 07:15] VITALS: BP 114/72
[2024-11-28 07:49] LABS: Glucose - Point of Care 134 mg/dl (70-99)
[2024-11-28] MEDS: NOVOLOG FLEXPEN-LOW RESISTANCE SC ×3 (07:51→16:54)
[2024-11-28] MEDS: PHOSLO 667 MG PO ×3 (08:14→16:33)
[2024-11-28] MEDS: LASIX 40 MG IV (08:16)
[2024-11-28] MEDS: ELIQUIS 5 MG PO ×2 (08:16→20:21)
[2024-11-28] MEDS: ALDACTONE 25 MG PO (08:16)
[2024-11-28] MEDS: ZESTRIL 20 MG PO (08:16)
[2024-11-28] MEDS: WELLBUTRIN XL (24 hour extended release) 300 MG PO (08:16)
[2024-11-28] MEDS: MYLICON 80 MG PO ×3 (08:16→20:24)
[2024-11-28] MEDS: MIRALAX PO (08:17)
[2024-11-28] MEDS: DESENEX/MITRAZOL/ZEASORB 1 APPLIC TOPICAL ×2 (08:17→20:21)
[2024-11-28] MEDS: PROTONIX 40 MG PO ×2 (08:17→20:21)
[2024-11-28 11:22] LABS: Glucose - Point of Care 138 mg/dl (70-99)
--- NOTE | 2024-11-28 11:49 | W.PN.HOSP.TC ---
Today's Communication/Plan
-
continue IV Lasix
repeat US in AM to eval ascites
Assessment / Plan
Assessment / Plan
Assessment:
Recurrent ascites from Right heart failure, acute in setting of Acute Cor pulmonale
- s/p IR paracentesis / and 10 L removed. s/p albumin for large volume para
- repeat US 11/26 with moderate ascites. repeat US 11/29
- Ascitic fluid culture negative, cytology negative
- Echo this admission unrevealing, improved RV size and function. EF 50-55%.
- Appreciate GI input
- Appreciate Card input
- Continue IV Lasix - requires intensive monitoring of I/Os, weights, lytes, labs
- GDMT: continue Aldactone, Lisinopril. SGLT2i avoided due to recent UTI
Acute hypoxic respiratory insufficiency, resolved
- now on RA
L pleural effusion
- s/p IR thoracentesis 11/20 and removed 1000 cc straw-colored pleural fluid
- Transudative fluid
Recent Pulmonary Embolism - October 2024
- Echo from 10/23/24: Normal left ventricular systolic function with EF 55-60%. Dilated and hypokinetic right ventricle
- Continue Eliquis
Diabetes Mellitus, Type II
- HgbA1c 5.8 in October 2024
Essential Hypertension
- continue lisinopril with hold parameters
CKD Stage III
- creatinine at baseline
Hyperphosphatemia
- continue calcium acetate
Chronic Normocytic Anemia
- Hgb appears stable compared to previous
Asthma, no acute exacerbation
- continue albuterol PRN
Anxiety/Depression
- continue Wellbutrin
Gastritis/Gastric Erosions
- continue Protonix BID
Chronic Lower Extremity Lymphedema
- continue Lasix 20mg Daily as prior to admission
Class III Obesity
- Affects all aspects of care
DVT ppx: Eliquis
Code Status: Full
Anticipated Discharge: 24 - 48 hours
Subjective/Interval History
-
Date of Service: November 28, 2024
resting comfortably no complaints
Objective Data
-
Labs:
Laboratory Results
11/28/24
05:25
WBC 7.6
Hgb 10.1 L
Hct 31.7 L
Plt Count 669 H
Sodium 133 L
Potassium 4.8
Chloride 95 L
Carbon Dioxide 30
BUN 29 H
Creatinine 1.2 H
Glucose 107 H
Calcium 9.7
Vital Signs:
Vital Signs
Temp Pulse Resp BP Pulse Ox
97.8 F 84 16 114/72 94
11/28/24 07:15 11/28/24 08:16 11/28/24 07:15 11/28/24 08:16 11/28/24 08:00
I&O
11/27/24 11/28/24 11/29/24
06:59 06:59 06:59
Intake Total 640 / 640 330 / 330
Output Total 2800 / 2800 650 / 650
Balance -2160 / -2160 -320 / -320
Physical Exam
-
General: No Apparent Distress
HEENT: Normocephalic and Atraumatic
Respiratory: Negative Wheezes
Cardiac: Regular Rhythm and S1/S2
GI: Soft and Nontender
Neuro: AO x 3
Psych: Calm
Data Reviewed
-
Total Time Spent with Patient (in minutes): 51
Labs: Labs Reviewed by me
[2024-11-28 15:20] VITALS: BP 124/61
[2024-11-28 16:48] LABS: Glucose - Point of Care 117 mg/dl (70-99)
--- NOTE | 2024-11-28 17:17 | CM ---
Remains on IV Lasix.
Spoke with Gisela at [facility] she is [facility] care.
Gisela said pt is medicare and does not need an auth to return to facility.
Pt will need ambulance
[facility]
report [phone]
fax [phone]
Plan return to [facility] at [place]
[2024-11-28] MEDS: ZESTRIL PO (20:21)
[2024-11-28 21:28] LABS: Glucose - Point of Care 173 mg/dl (70-99)
[2024-11-28 23:20] VITALS: BP 117/60
[2024-11-29] VITALS (17 sets, daily range): BP systolic 68–142; BP diastolic 54–73; PULSE 87–88; BMI 40.8
[2024-11-29] MEDS: SYNTHROID PO (06:28)
[2024-11-29 08:15] LABS: Hematocrit 31.2 % (37.0-47.0); Hemoglobin 10.1 g/dL (12.0-16.0); Mean Corp Hgb Conc. 32.4 g/dL (33.0-37.0); Mean Corpuscular Volume 80.2 fL (81.0-99.0); Mean Platelet Volume 8.4 fL (7.4-10.4); Platelet Count 608 10^3/uL (130-400); Red Blood Cell Count 3.89 10^6/uL (4.20-5.40); Red Cell Dist. Width 14.9 % (11.5-14.5); White Blood Cell Count 7.2 10^3/uL (4.8-10.8)
--- NOTE | 2024-11-29 08:40 | W.PN.CD ---
Today's Communication / Plan
-
RHC today to clarify volume status, d/w Dr Thakur and patient, all in agreement
Impression / Plan
-
HFpEF, acute on chronic
Cor Pulmonale/Right heart failure, acute
- Severe HFpEF exacerbation. Responding to IV diuresis which requires intensive lab monitoring
- TTE 11/20/2024: LVEF 50-55%, normal RV, mild TR, PASP 39
- Weights have come down from 317 lbs to 238lbs today --> abd u/s with recurrent ascites despite this aggressive diuresis
-BODY HABITUS and chronic lymphedema, make volume exam impossible. Recommend RHC to check volume status. She is aggreable.
- Cont IV lasix and spironolactone
- recent UTI, so will avoid SGLT2i at this time
Recent Pulmonary Emboli:
-continue Eliquis for OAC
Ascites:
-s/p paracentesis for 10,000 mL this admit
-Initially attributed to R heart failure but does not fully explain ascites as R heart failure was acute and quickly resolved
-u/s 11/29/24:Ascites in all 4 quadrants of the abdomen, as detailed above. Amount of ascites is similar to prior study(which result 10L paracentesis)
-RHC today
-GI signed off, may need to recon
HTN: stable on meds, continue.
CKD: stable.
-monitor with diuresis.
Subjective: she is still with early satiety but breathing improved
Physical Exam
Vital Signs/Labs
Vital Signs
Temp Pulse Resp BP Pulse Ox
98.3 F 79 18 126/63 94
11/29/24 08:20 11/29/24 08:20 11/29/24 08:20 11/29/24 08:20 11/29/24 08:20
11/28/24 11/29/24 11/30/24
06:59 06:59 06:59
Actual Weight 110.847 kg 107.7 kg
11/29/24 07:28
Magnesium 1.7 mg/dl (1.6-2.3) 11/26/24 05:50
Free T4 1.56 ng/dl (0.78-2.19) 11/19/24 07:52
11/18/24
14:10
Swv-H-Wnttxiwleqk Pept 687
Physical Exam
Constitutional: No acute distress
Cardiovascular: Rhythm & rate is regular, Systolic murmur absent, Diastolic murmur absent and Pedal edema present (1+ b/l)
Respiratory: Respiratory effort normal, Lungs clear to auscul. and Crackles Absent
GI: Soft and Other (obese)
Neuro/Psych: AO x 3
Data Reviewed
-
Date of Service: November 29, 2024
Medical Decision Making: Review of Case with other Provider (Dr Thakur, need [facility])
[2024-11-29 08:43] LABS: Blood Urea Nitrogen 33 mg/dl (7-17); Calcium 9.7 mg/dl (8.4-10.2); Carbon Dioxide 30 mmol/L (22-30); Chloride 94 mmol/L (98-107); Estimated Creatinine Clearance 50 ml/min; Glucose 104 mg/dl (70-99); Potassium 4.5 mmol/L (3.5-5.1); Sodium 134 mmol/L (135-145)
[2024-11-29 08:53] LABS: Glucose - Point of Care 108 mg/dl (70-99)
[2024-11-29] MEDS: ALDACTONE 25 MG PO (08:54)
[2024-11-29] MEDS: ZESTRIL 20 MG PO (08:54)
[2024-11-29] MEDS: ELIQUIS 5 MG PO ×2 (08:54→21:05)
[2024-11-29] MEDS: PHOSLO 667 MG PO ×3 (08:54→17:49)
[2024-11-29] MEDS: WELLBUTRIN XL (24 hour extended release) 300 MG PO (08:54)
[2024-11-29] MEDS: DESENEX/MITRAZOL/ZEASORB 1 APPLIC TOPICAL ×2 (08:55→21:07)
[2024-11-29] MEDS: MYLICON 80 MG PO ×3 (08:55→21:06)
[2024-11-29] MEDS: SYNTHROID 50 MCG PO (08:55)
[2024-11-29] MEDS: LASIX 40 MG IV (08:55)
[2024-11-29] MEDS: FLUSH (NSS) 1 FLUSH IV ×2 (08:55→17:10)
[2024-11-29] MEDS: PROTONIX 40 MG PO ×2 (08:55→21:05)
[2024-11-29] MEDS: MIRALAX 17 GRAMS PO (08:56)
[2024-11-29] MEDS: NOVOLOG FLEXPEN-LOW RESISTANCE SC ×3 (09:04→17:49)
--- NOTE | 2024-11-29 10:34 | W.PN.HOSP.TC ---
Addendum entered and electronically signed by Ashly Thakur MD 11/29/24 10:54:
d/w Cardiology, possible Right heart cath today. keep NPO for now
Original Note:
Today's Communication/Plan
-
paracentesis today with labs
IV Lasix
follow cards recs
Assessment / Plan
Assessment / Plan
Assessment:
Recurrent ascites from Right heart failure, acute in setting of Acute Cor pulmonale
- s/p IR paracentesis 11/20 and 10 L removed. s/p albumin for large volume para. repeat US 11/29 with moderate ascites - repeat paracentesis with labs today
- initial Ascitic fluid culture negative, cytology negative
- Echo this admission unrevealing, improved RV size and function. EF 50-55%.
- Appreciate GI input - felt asictes related to R sided CHF
- Appreciate Card input
- Continue IV Lasix - requires intensive monitoring of I/Os, weights, lytes, labs
- GDMT: continue Aldactone, Lisinopril. SGLT2i avoided due to recent UTI
Acute hypoxic respiratory insufficiency, resolved
- now on RA
L pleural effusion
- s/p IR thoracentesis 11/20 and removed 1000 cc straw-colored pleural fluid
- Transudative fluid
Recent Pulmonary Embolism - October 2024
- Echo from 10/23/24: Normal left ventricular systolic function with EF 55-60%. Dilated and hypokinetic right ventricle
- Continue Eliquis
Diabetes Mellitus, Type II
- HgbA1c 5.8 in October 2024
Essential Hypertension
- continue lisinopril with hold parameters
CKD Stage III
- creatinine at baseline
Hyperphosphatemia
- continue calcium acetate
Chronic Normocytic Anemia
- Hgb appears stable compared to previous
Asthma, no acute exacerbation
- continue albuterol PRN
Anxiety/Depression
- continue Wellbutrin
Gastritis/Gastric Erosions
- continue Protonix BID
Chronic Lower Extremity Lymphedema
- Lasix as above
Class III Obesity
- Affects all aspects of care
DVT ppx: Eliquis
Code Status: Full
Anticipated Discharge: 24 - 48 hours
Subjective/Interval History
-
Date of Service: November 29, 2024
resting comfortably
US with moderate ascites
Objective Data
-
Labs:
Laboratory Results
11/29/24 11/29/24
07:27 07:28
WBC 7.2
Hgb 10.1 L
Hct 31.2 L
Plt Count 608 H
Sodium 134 L
Potassium 4.5
Chloride 94 L
Carbon Dioxide 30
BUN 33 H
Creatinine 1.2 H
Glucose 104 H
Calcium 9.7
Vital Signs:
Vital Signs
Temp Pulse Resp BP Pulse Ox
98.3 F 79 18 126/63 94
11/29/24 08:20 11/29/24 08:55 11/29/24 08:20 11/29/24 08:55 11/29/24 08:44
I&O
11/28/24 11/29/24 11/30/24
06:59 06:59 06:59
Intake Total 330 / 330
Output Total 650 / 650 100 / 100
Balance -320 / -320 -100 / -100
Physical Exam
-
General: No Apparent Distress
HEENT: Normocephalic and Atraumatic
Respiratory: Negative Wheezes
Cardiac: Regular Rhythm and S1/S2
GI: Distended
Genito-urinary: No Costovertebral Tender
Musculoskeletal: Edema, Right Lower Extrem and Edema, Left Lower Extrem
Psych: Calm
Data Reviewed
-
Total Time Spent with Patient (in minutes): 51
Labs: Labs Reviewed by me
[2024-11-29 12:09] LABS: Glucose - Point of Care 163 mg/dl (70-99)
[2024-11-29 14:00] LABS: Body Fluid Mononuclear 75.7 %; Body Fluid Polymorphonuclear 24.3 %; Body Fluid WBC 2009 /CUMM
[2024-11-29 14:01] LABS: Body Fluid Second Tech EM
[2024-11-29 14:04] LABS: Body Fluid Amylase 40 U/L; Body Fluid LDH 229 U/L; Body Fluid Protein 4.2 g/dl
--- NOTE | 2024-11-29 14:52 | PTCARENOTE ---
Pt returned from IR via stretcher, accompanied by volunteer. Pt AAO x3, BARCLAY; legs weak. Transferred to bed with assist x4. VSS. Rt abd bandaid D/I. Pt incont large amts urine and large soft BM upon return to room. Remains NPO for cardiac cath rn
procedure. Will continue to monitor.
--- NOTE | 2024-11-29 16:58 | PTCARENOTE ---
Received pt from [facility] via [facility], accompanied by [facility] staff x2. Pt AAO x3, BARCLAY slowly. VSS. Rt AC site with dsg D/I; circ/neuro check to DIR[facility] HERRERA. On room air- pulseox 95%, no SOB noted. Abd obeses, soft, to start chol lowering/2Gm Na diet.
Incont large amts urine. Resting comfortably at present. Will continue to monitor.
[2024-11-29 17:07] LABS: Glucose - Point of Care 99 mg/dl (70-99)
[2024-11-29] MEDS: ROCEPHIN 2000 MG IV (17:07)
[2024-11-29] MEDS: STERILE WATER FOR INJECTION 20 ML IV (17:14)
--- NOTE | 2024-11-29 18:15 | ITS.CL.CATH ---
[facility] - Catheterization
Cardiac Catheterization
Procedure Report:
RIGHT HEART CATHETERIZATION
Date of Procedure: 11/29/2024
Referring: Bita Fulton M.D.
INDICATION: Assessment of volume status.
ACCESS:
6 Tunisian right antecubital vein using a modified Seldinger technique under ultrasound guidance.
CATHETERS:
6 Tunisian balloon wedge.
PROCEDURE:
The patient was prepped and draped in standard sterile fashion. The area for antecubital access was anesthetized with 1% lidocaine. Under ultrasound guidance, the right basilic vein was punctured and a wire was advanced into the proximal vein. A 5
Tunisian sheath was inserted into the basilic vein. A 6 Tunisian balloon wedge catheter was advanced through the sheath into the superior vena cava. An SVC oxygen saturation was drawn. The balloon wedge catheter was advanced into the pulmonary artery
and a pulmonary artery oxygen saturation was drawn. Arterial oxygen saturation was assumed from pulse oximetry. Cardiac output was calculated using the Sera equation. The PA, wedge, RV and RA pressures were measured on pullback. The balloon wedge
catheter was removed. The 6 Tunisian sheath was removed and manual pressure was held for hemostasis.
Weight (kg): 107.5
PA (s/d/x mmHg): 48//
PCWP (a/v/x mmHg): 20/
RV (s/x mmHg): 48/10
RA (a/v/x mmHg): 04/08/10
SVC SvO2 (%): 60.3
IVC SvO2 (%): Not obtained.
RA SvO2 (%): Not obtained.
RV SvO2 (%): Not obtained.
PA SvO2 (%): 63.1
SaO2 (%): 96.0 (assumed)
Hbg (g/dL): 10.4
Sera
CO (liters/minute): 4.65
CI (liters/minute/m2): 2.21
Thermodilution
CO (liters/minute): Not performed.
CI (liters/minute/m2): Not performed.
TPG (mmHg): 17
PVR (Pradhan Units): 3.66
AVO2 Difference (Volume %): 4.65
CONCLUSION:
1. Normal filling pressures (PCWP = 12 mmHg at 107.5 kg).
2. Mild, precapillary pulmonary hypertension (mean PA = 29 mmHg, PCWP = 12 mmHg, cardiac output 4.65 L/min, PVR = 3.66 Pradhan units).
RECOMMENDATIONS:
1. Expectant management after right heart catheterization via right antecubital approach.
Copy to: Bita Fulton M.D., Holly Pena PA-C
Cullen Alvarado D.O., FACC, FACP
[2024-11-29] MEDS: FLEXBUMIN 100 IV ×2 (21:03→23:57)
[2024-11-29] MEDS: ZESTRIL PO (21:05)
[2024-11-29 22:29] LABS: Glucose - Point of Care 141 mg/dl (70-99)
[2024-11-30] VITALS (9 sets, daily range): BP systolic 121–152; BP diastolic 57–71; BMI 39.7
[2024-11-30] MEDS: FLEXBUMIN 100 IV ×4 (03:47→16:10)
[2024-11-30] MEDS: SYNTHROID 50 MCG PO (05:39)
[2024-11-30 07:32] LABS: Glucose - Point of Care 111 mg/dl (70-99)
[2024-11-30 07:40] LABS: Blood Urea Nitrogen 32 mg/dl (7-17); Calcium 9.9 mg/dl (8.4-10.2); Carbon Dioxide 30 mmol/L (22-30); Chloride 96 mmol/L (98-107); Estimated Creatinine Clearance 49 ml/min; Glucose 94 mg/dl (70-99); Magnesium 1.7 mg/dl (1.6-2.3); Potassium 4.6 mmol/L (3.5-5.1); Sodium 135 mmol/L (135-145)
--- NOTE | 2024-11-30 08:20 | W.PN.CD ---
Today's Communication / Plan
-
aim to keep at least even to slightly positive today
will resume po lasix in future
discharge planning as she needs to mobilize ideally lives an independant life
Impression / Plan
-
HFpEF, acute on chronic
Cor Pulmonale/Right heart failure, acute
- Severe HFpEF exacerbation. Responding to IV diuresis which requires intensive lab monitoring
- TTE 11/20/2024: LVEF 50-55%, normal RV, mild TR, PASP 39
- Weights have come down from 317 lbs to 238lbs today --> abd u/s with recurrent ascites despite this aggressive diuresis
-BODY HABITUS and chronic lymphedema, make volume exam impossible.
-RHC PCWP 12 RA10 at wt of 236.5 lbs, today don to 230
-stop IV lasix--already received today
-will eventually need to start 40mg po daily tomorrow
-recommend daily weights and an additional pm dose on days weight jumps wt is 240 or higher
-cotninue spironolactone
- recent UTI, so will avoid SGLT2i at this time
Recent Pulmonary Emboli:
-continue Eliquis for OAC
Ascites:
-s/p paracentesis for 10,000 mL this admit
-Initially attributed to R heart failure but does not fully explain ascites as R heart failure was acute and quickly resolved
-u/s 11/29/24:Ascites in all 4 quadrants of the abdomen, as detailed above. Amount of ascites is similar to prior study(which result 10L paracentesis)
-RHC with normal filling pressure, tapped yesterday
-would repeat an abd u/s in 1-2 weeks, while maintaining euvolemia to check for recurrence. ?true etiology
-GI signed off, may need to follow up in op setting for further eval
HTN: stable on meds, continue.
CKD: stable.
-monitor with diuresis.
Subjective: she is feeling well without complaint
Data:
RHC 11/29/24:
WT 107.5kg
PA (s/d/x mmHg):
PCWP (a/v/x mmHg):
RV (s/x mmHg): 4810
RA (a/v/x mmHg): 04/08/10
PVR = 3.66 Pradhan units
conclusion, normal filling pressures at 107.5kgm Mild, precapillary pulmonary hypertension (mean PA = 29 mmHg, PCWP = 12 mmHg, cardiac output 4.65 L/min, PVR = 3.66 Pradhan units).
Physical Exam
Vital Signs/Labs
Vital Signs
Temp Pulse Resp BP Pulse Ox
98.2 F 79 18 136/63 91
11/30/24 07:32 11/30/24 07:32 11/30/24 07:32 11/30/24 07:32 11/30/24 07:32
11/29/24 11/30/24 12/01/24
06:59 06:59 06:59
Actual Weight 237 lb 7 oz 231 lb 4 oz
11/29/24 07:28
11/30/24 05:41
Magnesium 1.7 mg/dl (1.6-2.3) 11/30/24 05:41
Free T4 1.56 ng/dl (0.78-2.19) 11/19/24 07:52
11/18/24
14:10
Mhq-V-Wuwhycdgrcs Pept 687
Physical Exam
Constitutional: No acute distress
Cardiovascular: Rhythm & rate is regular, JVD pressure is normal, Systolic murmur absent, Diastolic murmur absent and Pedal edema present (1+ drafter geological and pitting edema b/l)
Respiratory: Respiratory effort normal, Lungs clear to auscul., Wheeze Absent, Crackles Absent and Rhonchi Absent
Neuro/Psych: AO x 3
Data Reviewed
-
Date of Service: November 30, 2024
Medical Decision Making: Review of Case with other Provider (Dr Thakur, not convinced ascities is from CHF, further w/u underway)
[2024-11-30] MEDS: NOVOLOG FLEXPEN-LOW RESISTANCE SC ×4 (10:00→18:06)
[2024-11-30] MEDS: PHOSLO 667 MG PO ×2 (10:01→18:02)
[2024-11-30] MEDS: PROTONIX 40 MG PO ×2 (10:01→20:00)
[2024-11-30] MEDS: MYLICON 80 MG PO ×3 (10:02→20:37)
[2024-11-30] MEDS: WELLBUTRIN XL (24 hour extended release) 300 MG PO (10:02)
[2024-11-30] MEDS: ELIQUIS 5 MG PO ×2 (10:02→20:00)
[2024-11-30] MEDS: ZESTRIL 20 MG PO (10:02)
[2024-11-30] MEDS: ALDACTONE 25 MG PO (10:02)
[2024-11-30] MEDS: LASIX 40 MG IV (10:03)
[2024-11-30] MEDS: FLUSH (NSS) 1 FLUSH IV ×2 (10:04→16:12)
[2024-11-30] MEDS: DESENEX/MITRAZOL/ZEASORB 1 APPLIC TOPICAL ×2 (10:06→22:03)
[2024-11-30 10:37] LABS: TSH Reflex To Free T4 5.29 uIU/ml (0.47-4.68)
[2024-11-30 10:50] LABS: Urine Albumin Negative (Neg - Trace); Urine Bilirubin Negative (Negative); Urine Character Clear (Clear); Urine Color Yellow; Urine Glucose Negative (Negative); Urine Ketone Negative (Negative); Urine Leukocyte Negative (Negative); Urine Nitrite Negative (Negative); Urine Occult Blood Negative (Negative); Urine Urobilinogen Negative (Neg - 1+)
--- NOTE | 2024-11-30 10:58 | W.PN.HOSP.TC ---
Today's Communication/Plan
-
IV Albumin day 1 to finish today, day 3 Monday
continue IV Abx for SBP
Oral Lasix to start tomorrow
PT/OT
check urine studies, abd dopplers as well
Assessment / Plan
Assessment / Plan
Assessment:
Recurrent ascites from Right heart failure, acute in setting of Acute Cor pulmonale
- s/p IR paracentesis 11/20 and 10 L removed. s/p albumin for large volume para. s/p repeat paracentesis 11/29 2.3 L removed.
- initial Ascitic fluid culture negative, cytology negative. SAAG 1./.2
- Echo this admission unrevealing, improved RV size and function. EF 50-55%.
- Appreciate GI input - felt ascites related to R sided CHF
- Appreciate Card input; RHC 11/29 with euvolemic, normal wedge, unsure if cardiac in origin
- check urine studies
- check Doppler for budd chiari syndrome
- s/p aggressive IV Lasix course; now on oral Lasix. >60 lbs lost.
- GDMT: continue Aldactone, Lisinopril. SGLT2i avoided due to recent UTI
SBP
- continue Rocephin, day 2
- IV albumin day 1 and 3 ordered
Acute hypoxic respiratory insufficiency, resolved
- now on RA
L pleural effusion
- s/p IR thoracentesis 11/20 and removed 1000 cc straw-colored pleural fluid
- Transudative fluid
Recent Pulmonary Embolism - October 2024
- Echo from 10/23/24: Normal left ventricular systolic function with EF 55-60%. Dilated and hypokinetic right ventricle
- Continue Eliquis
Diabetes Mellitus, Type II
- HgbA1c 5.8 in October 2024
Essential Hypertension
- continue lisinopril with hold parameters
CKD Stage III
- creatinine at baseline
Hyperphosphatemia
- continue calcium acetate
Chronic Normocytic Anemia
- Hgb appears stable compared to previous
Asthma, no acute exacerbation
- continue albuterol PRN
Anxiety/Depression
- continue Wellbutrin
Gastritis/Gastric Erosions
- continue Protonix BID
Chronic Lower Extremity Lymphedema
- Lasix as above
Class III Obesity
- Affects all aspects of care
DVT ppx: Eliquis
Code Status: Full
Anticipated Discharge: > 48 hours
Subjective/Interval History
-
Date of Service: November 30, 2024
s/p RHC with normal wedge
s/p paracentesis 2.3L removed - SBP recovered
No chest pain or SOB
Objective Data
-
Labs:
Laboratory Results
11/30/24
05:41
Sodium 135
Potassium 4.6
Chloride 96 L
Carbon Dioxide 30
BUN 32 H
Creatinine 1.2 H
Glucose 94
Calcium 9.9
Vital Signs:
Vital Signs
Temp Pulse Resp BP Pulse Ox
98.2 F 79 18 136/63 91
11/30/24 07:32 11/30/24 07:32 11/30/24 07:32 11/30/24 10:02 11/30/24 07:32
I&O
11/29/24 11/30/24 12/01/24
06:59 06:59 06:59
Intake Total 1000 / 1000
Output Total 100 / 100
Balance -100 / -100 1000 / 1000
Physical Exam
-
General: No Apparent Distress
HEENT: Normocephalic and Atraumatic
Respiratory: Negative Wheezes
Cardiac: Regular Rhythm and S1/S2
GI: Soft and Nontender
Musculoskeletal: No Edema
Neuro: AO x 3
Hematologic / Lymphatic: No Lymphadenopathy
Psych: Calm
Data Reviewed
-
Total Time Spent with Patient (in minutes): 41
Labs: Labs Reviewed by me
[2024-11-30 11:11] LABS: Urine Protein 16 mg/dl
[2024-11-30 11:11] LABS: Glucose - Point of Care 102 mg/dl (70-99)
[2024-11-30 11:28] LABS: Protein/creatinine Ratio 0.5
[2024-11-30] MEDS: PHOSLO PO (15:40)
[2024-11-30 16:37] LABS: Glucose - Point of Care 192 mg/dl (70-99)
[2024-11-30] MEDS: MIRALAX PO (17:59)
[2024-11-30] MEDS: STERILE WATER FOR INJECTION 20 ML IV (17:59)
[2024-11-30] MEDS: ROCEPHIN 2000 MG IV (18:00)
[2024-11-30] MEDS: ZESTRIL PO (20:36)
[2024-11-30 21:48] LABS: Glucose - Point of Care 130 mg/dl (70-99)
[2024-12-01] MEDS: SYNTHROID 50 MCG PO (05:36)
[2024-12-01 06:00] VITALS: BMI 38.9
[2024-12-01 06:50] LABS: Hemoglobin 10.5 g/dL (12.0-16.0); Mean Corpuscular Hgb 28.2 pg (27.0-31.0); Mean Corpuscular Volume 80.4 fL (81.0-99.0); Mean Platelet Volume 8.5 fL (7.4-10.4); Platelet Count 652 10^3/uL (130-400); Red Blood Cell Count 3.73 10^6/uL (4.20-5.40); Red Cell Dist. Width 14.9 % (11.5-14.5); White Blood Cell Count 7.6 10^3/uL (4.8-10.8)
[2024-12-01 06:57] LABS: Blood Urea Nitrogen 34 mg/dl (7-17); Calcium 10.1 mg/dl (8.4-10.2); Carbon Dioxide 28 mmol/L (22-30); Chloride 97 mmol/L (98-107); Estimated Creatinine Clearance 49 ml/min; Glucose 102 mg/dl (70-99); Potassium 4.5 mmol/L (3.5-5.1); Sodium 134 mmol/L (135-145)
[2024-12-01 07:55] VITALS: BP 134/79
[2024-12-01 07:57] LABS: Glucose - Point of Care 99 mg/dl (70-99)
--- NOTE | 2024-12-01 08:13 | W.PN.CD ---
Today's Communication / Plan
-
hold lasix
discharge planning for SNF
-upon discharge recommend daily weights
-Hold Lasix, resume 40mg po lasix when weight is 236lbs and an additional pm dose on days weight jumps wt is 240 or higher
-patient should call for follow up Dr Howe on discharge from SNF
-I will sign off
Impression / Plan
-
HFpEF, acute on chronic
Cor Pulmonale/Right heart failure, acute
- Severe HFpEF exacerbation. Responding to IV diuresis which requires intensive lab monitoring
- TTE 11/20/2024: LVEF 50-55%, normal RV, mild TR, PASP 39
- Weights have come down from 317 lbs to 238lbs today --> abd u/s with recurrent ascites despite this aggressive diuresis
-BODY HABITUS and chronic lymphedema, make volume exam impossible.
-RHC PCWP 12 RA10 at wt of 236.5 lbs, today down to 226
-recommend daily weights
-Hold Lasix, resume 40mg po lasix when weight is 236lbs and an additional pm dose on days weight jumps wt is 240 or higher
-cotninue spironolactone
- recent UTI, so will avoid SGLT2i at this time
Recent Pulmonary Emboli:
-continue Eliquis for OAC
Ascites:
-s/p paracentesis for 10,000 mL this admit
-Initially attributed to R heart failure but does not fully explain ascites as R heart failure was acute and quickly resolved
-u/s 11/29/24:Ascites in all 4 quadrants of the abdomen, as detailed above. Amount of ascites is similar to prior study(which result 10L paracentesis)
-RHC with normal filling pressure, tapped yesterday
-would repeat an abd u/s in 1-2 weeks, while maintaining euvolemia to check for recurrence. ?true etiology
-GI signed off, may need to follow up in op setting for further eval
Lymphedema:
-improved with diuresis, continue compression
HTN: stable on meds, continue.
CKD: stable
Subjective: she is feeling well without complaint
Data:
RHC 11/29/24:
WT 107.5kg
PA (s/d/x mmHg):
PCWP (a/v/x mmHg):
RV (s/x mmHg):
RA (a/v/x mmHg): 04/08/10
PVR = 3.66 Pradhan units
conclusion, normal filling pressures at 107.5kgm Mild, precapillary pulmonary hypertension (mean PA = 29 mmHg, PCWP = 12 mmHg, cardiac output 4.65 L/min, PVR = 3.66 Pradhan units).
Physical Exam
Vital Signs/Labs
Vital Signs
Temp Pulse Resp BP Pulse Ox
98.4 F 84 18 123/58 94
11/30/24 23:30 11/30/24 23:30 11/30/24 23:30 11/30/24 23:30 11/30/24 23:30
11/30/24 12/01/24 12/02/24
06:59 06:59 06:59
Actual Weight 231 lb 4 oz 226 lb 8 oz
12/01/24 06:02
12/01/24 06:02
Magnesium 1.7 mg/dl (1.6-2.3) 11/30/24 05:41
Free T4 1.80 ng/dl (0.78-2.19) 11/30/24 05:41
11/18/24
14:10
[id number] Pept 687
Physical Exam
Constitutional: No acute distress
Cardiovascular: Rhythm & rate is regular, Systolic murmur absent, Diastolic murmur absent, Rhythm/rate is irregular and Pedal edema present (trace edema b/l)
Respiratory: Respiratory effort normal, Lungs clear to auscul., Wheeze Absent, Crackles Absent and Rhonchi Absent
Neuro/Psych: AO x 3
Data Reviewed
-
Date of Service: December 01, 2024
[2024-12-01] MEDS: MIRALAX PO (08:24)
[2024-12-01] MEDS: PHOSLO 667 MG PO ×3 (08:25→17:41)
[2024-12-01] MEDS: MYLICON 80 MG PO ×3 (08:25→21:24)
[2024-12-01] MEDS: NOVOLOG FLEXPEN-LOW RESISTANCE SC ×3 (08:25→17:41)
[2024-12-01] MEDS: ALDACTONE 25 MG PO (08:26)
[2024-12-01] MEDS: ELIQUIS 5 MG PO ×2 (08:26→21:23)
[2024-12-01] MEDS: ZESTRIL 20 MG PO ×2 (08:26→21:23)
[2024-12-01] MEDS: PROTONIX 40 MG PO ×2 (08:26→21:23)
[2024-12-01] MEDS: WELLBUTRIN XL (24 hour extended release) 300 MG PO (08:26)
[2024-12-01] MEDS: FLEXBUMIN 100 IV ×3 (08:27→23:19)
[2024-12-01] MEDS: FLUSH (NSS) 1 FLUSH IV ×2 (08:28→16:02)
[2024-12-01] MEDS: DESENEX/MITRAZOL/ZEASORB 1 APPLIC TOPICAL ×2 (08:29→21:22)
--- NOTE | 2024-12-01 09:22 | W.PN.HOSP.TC ---
Today's Communication/Plan
-
await Abd US with dopplers
Oral Lasix per Cardiology
continue Rocephin/Albumin for SBP
DC planning to SNF Monday
Assessment / Plan
Assessment / Plan
Assessment:
Recurrent ascites from Right heart failure, acute in setting of Acute Cor pulmonale
- s/p IR paracentesis 11/20 and 10 L removed. s/p albumin for large volume para. s/p repeat paracentesis 11/29 2.3 L removed.
- Ascitic fluid culture negative, cytology negative. SAAG 1.1/1.2
- Echo unrevealing, improved RV size and function. EF 50-55%.
- Appreciate GI input - felt ascites related to R sided CHF
- Appreciate Card input; RHC 11/29 with euvolemic, normal wedge, unsure if cardiac in origin
- UA with proteinuria but not nephrotic range
- check Doppler for budd chiari syndrome
- s/p aggressive IV Lasix course; now on oral Lasix. >60 lbs lost.
- GDMT: continue Aldactone, Lisinopril. SGLT2i avoided due to recent UTI
SBP
- continue Rocephin, day 3
- IV albumin day 1 and 3 ordered - course completes on Monday
Acute hypoxic respiratory insufficiency, resolved
- now on RA
L pleural effusion
- s/p IR thoracentesis 11/20 and removed 1000 cc straw-colored pleural fluid
- Transudative fluid
Recent Pulmonary Embolism - October 2024
- Echo from 10/23/24: Normal left ventricular systolic function with EF 55-60%. Dilated and hypokinetic right ventricle
- Continue Eliquis
Diabetes Mellitus, Type II
- HgbA1c 5.8 in October 2024
Essential Hypertension
- continue lisinopril with hold parameters
CKD Stage III
- creatinine at baseline
Hyperphosphatemia
- continue calcium acetate
Chronic Normocytic Anemia
- Hgb appears stable compared to previous
Asthma, no acute exacerbation
- continue albuterol PRN
Anxiety/Depression
- continue Wellbutrin
Gastritis/Gastric Erosions
- continue Protonix BID
Chronic Lower Extremity Lymphedema
- Lasix as above
Class III Obesity
- Affects all aspects of care
DVT ppx: Eliquis
Code Status: Full
Anticipated Discharge: Within 24 hours
Subjective/Interval History
-
Date of Service: December 01, 2024
no complaints
weight down further 2kg
Objective Data
-
Labs:
Laboratory Results
12/01/24
06:02
WBC 7.6
Hgb 10.5 L
Hct 30.0 L
Plt Count 652 H
Sodium 134 L
Potassium 4.5
Chloride 97 L
Carbon Dioxide 28
BUN 34 H
Creatinine 1.2 H
Glucose 102 H
Calcium 10.1
Vital Signs:
Vital Signs
Temp Pulse Resp BP Pulse Ox
98.0 F 79 16 134/79 95
12/01/24 07:55 12/01/24 08:26 12/01/24 07:55 12/01/24 08:26 12/01/24 08:23
I&O
11/30/24 12/01/24 12/02/24
06:59 06:59 06:59
Intake Total 1000 / 1000 840 / 840
Balance 1000 / 1000 840 / 840
Physical Exam
-
General: No Apparent Distress
HEENT: Normocephalic and Atraumatic
Respiratory: Negative Wheezes
Cardiac: Regular Rhythm and S1/S2
GI: Soft and Nontender
Genito-urinary: No Costovertebral Tender
Neuro: AO x 3
Psych: Calm
Data Reviewed
-
Total Time Spent with Patient (in minutes): 41
Labs: Labs Reviewed by me
[2024-12-01 10:15] VITALS: BP 128/70
[2024-12-01 11:42] LABS: Glucose - Point of Care 121 mg/dl (70-99)
[2024-12-01 15:55] VITALS: BP 123/65
[2024-12-01] MEDS: ROCEPHIN 2000 MG IV (16:01)
[2024-12-01] MEDS: STERILE WATER FOR INJECTION 20 ML IV (16:02)
[2024-12-01 16:20] LABS: Glucose - Point of Care 129 mg/dl (70-99)
--- NOTE | 2024-12-01 16:37 | PTCARENOTE ---
Pt AAO x3, BARCLAY; legs weak. Able to turn with assistance. VSS. On room air- pulse ox 95%, no SOB noted. Abd obese, soft, salome PO well; incont soft BM x1. Incont large amts urine. Figueroa wraps intact to BLE. Resting comfortably at present. Will
continue to monitor.
[2024-12-01 17:45] VITALS: BP 124/66
[2024-12-01 21:08] LABS: Glucose - Point of Care 141 mg/dl (70-99)
[2024-12-01 23:18] VITALS: BP 117/67
[2024-12-01 23:50] VITALS: BP 142/64
[2024-12-02] VITALS (8 sets, daily range): BP systolic 91–158; BP diastolic 61–85; BMI 38.6
[2024-12-02] MEDS: SYNTHROID 50 MCG PO (05:25)
[2024-12-02 06:15] LABS: Hematocrit 29.8 % (37.0-47.0); Hemoglobin 9.6 g/dL (12.0-16.0); Mean Corp Hgb Conc. 32.2 g/dL (33.0-37.0); Mean Corpuscular Hgb 25.9 pg (27.0-31.0); Mean Corpuscular Volume 80.5 fL (81.0-99.0); Mean Platelet Volume 8.4 fL (7.4-10.4); Platelet Count 586 10^3/uL (130-400); Red Cell Dist. Width 14.7 % (11.5-14.5); White Blood Cell Count 7.2 10^3/uL (4.8-10.8)
[2024-12-02 06:47] LABS: Blood Urea Nitrogen 31 mg/dl (7-17); Calcium 10.2 mg/dl (8.4-10.2); Carbon Dioxide 25 mmol/L (22-30); Chloride 97 mmol/L (98-107); Estimated Creatinine Clearance 53 ml/min; Glucose 106 mg/dl (70-99); Potassium 4.5 mmol/L (3.5-5.1); Sodium 136 mmol/L (135-145); eGFR 53.06
[2024-12-02 07:28] LABS: Glucose - Point of Care 114 mg/dl (70-99)
[2024-12-02] MEDS: NOVOLOG FLEXPEN-LOW RESISTANCE SC ×3 (09:32→16:58)
[2024-12-02] MEDS: FLEXBUMIN 100 IV (09:32)
[2024-12-02] MEDS: WELLBUTRIN XL (24 hour extended release) 300 MG PO (09:34)
[2024-12-02] MEDS: PROTONIX 40 MG PO ×2 (09:34→19:46)
[2024-12-02] MEDS: MYLICON 80 MG PO ×3 (09:34→21:27)
[2024-12-02] MEDS: PHOSLO 667 MG PO ×3 (09:34→16:52)
[2024-12-02] MEDS: ELIQUIS 5 MG PO ×2 (09:34→19:43)
[2024-12-02] MEDS: ALDACTONE 25 MG PO (09:34)
[2024-12-02] MEDS: ZESTRIL 20 MG PO ×2 (09:35→19:43)
[2024-12-02] MEDS: MIRALAX PO (09:41)
[2024-12-02] MEDS: DESENEX/MITRAZOL/ZEASORB 1 APPLIC TOPICAL ×2 (09:41→19:48)
[2024-12-02 11:48] LABS: Glucose - Point of Care 140 mg/dl (70-99)
--- NOTE | 2024-12-02 11:58 | PTCARENOTE ---
Patient with noted elevated HR of 115-130 at rest. AV paced. asymptomatic. Dr. Ortega made aware. Plan of care ongoing.
--- NOTE | 2024-12-02 13:27 | CM ---
Addendum entered by Nhi Dial RN 12/02/24 16:10:
Pt needed a paracentesis and not a discharge today.
Original Note:
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
Gisela said pt is medicare and does not need an auth to return to facility.
Pt will need ambulance
[facility]
report [phone]
fax [phone]
Plan return to [facility] at tx
--- NOTE | 2024-12-02 14:11 | W.PN.HOSP.TC ---
Addendum entered and electronically signed by Tara Dawson MD 12/02/24 14:41:
I saw and evaluated the patient. I reviewed the resident�s note and agree with findings and plan as documented in the resident�s note.
A/P:
# Recurrent ascites from Right heart failure, acute in setting of Acute Cor pulmonale
s/p IR paracentesis 11/20 and 10 L removed. s/p albumin for large volume para. s/p repeat paracentesis 11/29 2.3 L removed.
Ascitic fluid culture negative, cytology negative. SAAG 1.1/1.2
Echo unrevealing, improved RV size and function. EF 50-55%.
Appreciate GI input - felt ascites related to R sided CHF
Appreciate Card input; RHC 11/29 with euvolemic, normal wedge, unsure if cardiac in origin
UA with proteinuria but not nephrotic range
Doppler checked for budd chiari syndrome, which has been ruled out
s/p aggressive IV Lasix course
Card recc to resume 40mg po lasix when weight is 236lbs and an additional pm dose on days weight jumps wt is 240 or higher
GDMT: continue Aldactone, Lisinopril. SGLT2i avoided due to recent UTI
# SBP
continue Rocephin total 7 days
s/p IV albumin
Check repeat paracentesis in the setting of SBP. Consulted IR
# Acute hypoxic respiratory insufficiency, resolved
now on RA
# L pleural effusion
s/p IR thoracentesis 11/20 and removed 1000 cc straw-colored pleural fluid
Transudative fluid
# Recent Pulmonary Embolism - October 2024
Echo from 10/23/24: Normal left ventricular systolic function with EF 55-60%. Dilated and hypokinetic right ventricle
Continue Eliquis
# Diabetes Mellitus, Type II
HgbA1c 5.8 in October 2024
# Essential Hypertension
continue lisinopril with hold parameters
# CKD Stage III
creatinine at baseline at 1.1
# Hyperphosphatemia
continue calcium acetate
# Chronic Normocytic Anemia
Hgb appears stable compared to previous
# Asthma, no acute exacerbation
continue albuterol PRN
# Anxiety/Depression
continue Wellbutrin
# Gastritis/Gastric Erosions
continue Protonix BID
# Chronic Lower Extremity Lymphedema
# Class III Obesity
Affects all aspects of care
Dispo plan: SNF
Original Note:
Today's Communication/Plan
-
Repeat paracentesis in the setting of SBP
Continue ceftriaxone
Assessment / Plan
Assessment / Plan
Assessment:
Recurrent ascites from Right heart failure, acute in setting of Acute Cor pulmonale
- s/p IR paracentesis 11/20 and 10 L removed. s/p albumin for large volume para. s/p repeat paracentesis 11/29 2.3 L removed.
- Ascitic fluid culture negative, cytology negative. SAAG 1.1/1.2
- Echo unrevealing, improved RV size and function. EF 50-55%.
- Appreciate GI input - felt ascites related to R sided CHF
- Appreciate Card input; RHC 11/29 with euvolemic, normal wedge, unsure if cardiac in origin
- UA with proteinuria but not nephrotic range
- check Doppler for budd chiari syndrome--negative hepatic vein thrombosis
- s/p aggressive IV Lasix course; now on oral Lasix. >60 lbs lost.
- GDMT: continue Aldactone, Lisinopril. SGLT2i avoided due to recent UTI
SBP
- continue Rocephin, day 3
- IV albumin day 1 and 3 ordered - course completes on Monday
Repeat paracentesis in the setting of SBP. Consult IR
Acute hypoxic respiratory insufficiency, resolved
- now on RA
L pleural effusion
- s/p IR thoracentesis 11/20 and removed 1000 cc straw-colored pleural fluid
- Transudative fluid
Recent Pulmonary Embolism - October 2024
- Echo from 10/23/24: Normal left ventricular systolic function with EF 55-60%. Dilated and hypokinetic right ventricle
- Continue Eliquis
Diabetes Mellitus, Type II
- HgbA1c 5.8 in October 2024
Essential Hypertension
- continue lisinopril with hold parameters
CKD Stage III
- creatinine at baseline
Hyperphosphatemia
- continue calcium acetate
Chronic Normocytic Anemia
- Hgb appears stable compared to previous
Asthma, no acute exacerbation
- continue albuterol PRN
Anxiety/Depression
- continue Wellbutrin
Gastritis/Gastric Erosions
- continue Protonix BID
Chronic Lower Extremity Lymphedema
- Lasix as above
Class III Obesity
- Affects all aspects of care
DVT ppx: Eliquis
Code Status: Full
Anticipated Discharge: 24 - 48 hours
Subjective/Interval History
-
Date of Service: December 02, 2024
No overnight events
Objective Data
-
Labs:
Laboratory Results
12/02/24
05:34
WBC 7.2
Hgb 9.6 L
Hct 29.8 L
Plt Count 586 H
Sodium 136
Potassium 4.5
Chloride 97 L
Carbon Dioxide 25
BUN 31 H
Creatinine 1.1 H
Glucose 106 H
Calcium 10.2
Vital Signs:
Vital Signs
Temp Pulse Resp BP Pulse Ox
97.8 F 95 18 142/71 97
12/02/24 11:09 12/02/24 11:09 12/02/24 11:09 12/02/24 11:09 12/02/24 11:09
I&O
12/01/24 12/02/24 12/03/24
06:59 06:59 06:59
Intake Total 840 / 840 820 / 820
Balance 840 / 840 820 / 820
Review of Systems
-
All other systems: Reviewed and negative
Physical Exam
-
General: No Apparent Distress and Comfortable
HEENT: Normocephalic and Atraumatic
Respiratory: Clear to Auscultation
Cardiac: Regular Rhythm and S1/S2
GI: Nontender and Normal Bowel Sounds
Musculoskeletal: Edema, Right Lower Extrem and Edema, Left Lower Extrem
Skin: Warm and Dry
Neuro: AO x 3
Psych: Calm
Data Reviewed
-
Labs: Labs Reviewed by me and Discussed with Physician
--- NOTE | 2024-12-02 15:31 | PTCARENOTE ---
Returned from IR post paracentesis with band aid to [facility].
[2024-12-02 15:52] LABS: Body Fluid Mononuclear 66.3 %; Body Fluid Polymorphonuclear 33.7 %; Body Fluid WBC 2848 /CUMM
[2024-12-02 15:55] LABS: Body Fluid Second Tech FB
[2024-12-02] MEDS: STERILE WATER FOR INJECTION 20 ML IV (16:40)
[2024-12-02] MEDS: ROCEPHIN 2000 MG IV (16:40)
[2024-12-02 16:46] LABS: Glucose - Point of Care 124 mg/dl (70-99)
[2024-12-02 21:31] LABS: Glucose - Point of Care 136 mg/dl (70-99)
[2024-12-02 21:52] LABS: Body Fluid Albumin 2.7 g/dl; Body Fluid Amylase 40 U/L; Body Fluid LDH 244 U/L
[2024-12-02 21:57] LABS: Body Fluid Protein 4.9 g/dl
[2024-12-03] MEDS: SYNTHROID 50 MCG PO (05:48)
[2024-12-03 06:00] VITALS: BMI 38.9
[2024-12-03 07:25] VITALS: BP 115/67
[2024-12-03 07:27] LABS: Glucose - Point of Care 192 mg/dl (70-99)
[2024-12-03 08:23] LABS: Hematocrit 31.8 % (37.0-47.0); Hemoglobin 10.1 g/dL (12.0-16.0); Mean Corp Hgb Conc. 31.8 g/dL (33.0-37.0); Mean Corpuscular Hgb 25.7 pg (27.0-31.0); Mean Corpuscular Volume 80.9 fL (81.0-99.0); Mean Platelet Volume 8.5 fL (7.4-10.4); Platelet Count 605 10^3/uL (130-400); Red Blood Cell Count 3.93 10^6/uL (4.20-5.40); Red Cell Dist. Width 14.7 % (11.5-14.5); White Blood Cell Count 7.1 10^3/uL (4.8-10.8)
[2024-12-03 09:55] LABS: Blood Urea Nitrogen 31 mg/dl (7-17); Calcium 10.4 mg/dl (8.4-10.2); Carbon Dioxide 22 mmol/L (22-30); Chloride 99 mmol/L (98-107); Estimated Creatinine Clearance 53 ml/min; Glucose 107 mg/dl (70-99); Potassium 4.7 mmol/L (3.5-5.1); Sodium 136 mmol/L (135-145); eGFR 53.06
[2024-12-03] MEDS: PROTONIX 40 MG PO ×2 (10:22→19:52)
[2024-12-03] MEDS: PHOSLO 667 MG PO ×3 (10:22→17:42)
[2024-12-03] MEDS: ELIQUIS 5 MG PO ×2 (10:23→19:52)
[2024-12-03] MEDS: WELLBUTRIN XL (24 hour extended release) 300 MG PO (10:23)
[2024-12-03] MEDS: MYLICON 80 MG PO ×3 (10:23→21:17)
[2024-12-03] MEDS: ALDACTONE 25 MG PO (10:24)
[2024-12-03] MEDS: ZESTRIL 20 MG PO ×2 (10:24→19:51)
[2024-12-03] MEDS: DESENEX/MITRAZOL/ZEASORB 1 APPLIC TOPICAL ×2 (10:25→21:17)
[2024-12-03] MEDS: MIRALAX 17 GRAMS PO (10:29)
[2024-12-03] MEDS: NOVOLOG FLEXPEN-LOW RESISTANCE 1 UNITS SC ×2 (10:30→14:28)
[2024-12-03 10:50] LABS: Magnesium 1.7 mg/dl (1.6-2.3)
[2024-12-03 11:56] LABS: Glucose - Point of Care 167 mg/dl (70-99)
--- NOTE | 2024-12-03 12:21 | W.PN.HOSP.TC ---
Addendum entered and electronically signed by Tara Dawson MD 12/03/24 13:09:
I saw and evaluated the patient. I reviewed the resident�s note and agree with findings and plan as documented in the resident�s note.
A/P:
# Recurrent ascites from Acute Right heart failure, in setting of Acute Cor pulmonale
s/p paracentesis x 3: para 4/2 and 10 L removed (ascitic fluid culture negative, cytology negative. SAAG 1.1/1.2), repeat para 11/29 and 2.3 L removed (noted SBP), third para 14 with persistent SBP finding from ascitic fluid.
Of note, Echo unrevealing, improved RV size and function. EF 50-55%.
Appreciate Card input; RHC 11/29 with euvolemic, normal wedge, unsure if cardiac in origin
UA with proteinuria but not nephrotic range
Doppler checked for budd chiari syndrome, which has been ruled out
s/p aggressive IV Lasix course
Card recc to resume 40mg po Lasix when weight is 236 lbs and an additional pm dose on days weight jumps wt is 240 or higher
GDMT: continue Aldactone, Lisinopril. SGLT2i avoided due to recent UTI
# SBP
continue Rocephin total 7 days
s/p IV albumin
repeat (third) para 12/02 with persistent SBP
ID consult
# Acute hypoxic respiratory insufficiency, resolved
now on RA
# L pleural effusion
s/p IR thoracentesis 11/20 and removed 1000 cc straw-colored pleural fluid
Transudative fluid
# Recent Pulmonary Embolism - October 2024
Echo from 10/23/24: Normal left ventricular systolic function with EF 55-60%. Dilated and hypokinetic right ventricle
Continue Eliquis
# Diabetes Mellitus, Type II
HgbA1c 5.8 in October 2024
# Essential Hypertension
continue lisinopril with hold parameters
# CKD Stage III
creatinine at baseline at 1.1
# Hyperphosphatemia
continue calcium acetate
# Chronic Normocytic Anemia
Hgb appears stable compared to previous
# Asthma, no acute exacerbation
continue albuterol PRN
# Anxiety/Depression
continue Wellbutrin
# Gastritis/Gastric Erosions
continue Protonix BID
# Chronic Lower Extremity Lymphedema
# Class III Obesity
Affects all aspects of care
DVT ppx: Eliquis
Dispo plan: SNF
Original Note:
Today's Communication/Plan
-
Repeat paracentesis 12/02/ removed 1.3 L, with PMN of [id number]
consult ID for failed SBP treatment
Assessment / Plan
Assessment / Plan
Assessment:
Recurrent ascites from Right heart failure, acute in setting of Acute Cor pulmonale
- s/p IR paracentesis 11/20 and 10 L removed. s/p albumin for large volume para. s/p repeat paracentesis 11/29 2.3 L removed.
- Ascitic fluid culture negative, cytology negative. SAAG 1.1/1.2
- Echo unrevealing, improved RV size and function. EF 50-55%.
- Appreciate GI input - felt ascites related to R sided CHF
- Appreciate Card input; RHC 11/29 with euvolemic, normal wedge, unsure if cardiac in origin
- UA with proteinuria but not nephrotic range
- check Doppler for budd chiari syndrome--negative hepatic vein thrombosis
- s/p aggressive IV Lasix course; now on oral Lasix. >60 lbs lost.
- GDMT: continue Aldactone, Lisinopril. SGLT2i avoided due to recent UTI
SBP
- continue Rocephin, day 3
- IV albumin day 1 and 3 ordered - course completes on Monday
Repeat paracentesis 12/02/ removed 1.3 L, with PMN of [id number]
Consult ID for failed SBP treatment
Acute hypoxic respiratory insufficiency, resolved
- now on RA
L pleural effusion
- s/p IR thoracentesis 11/20 and removed 1000 cc straw-colored pleural fluid
- Transudative fluid
Recent Pulmonary Embolism - October 2024
- Echo from 10/23/24: Normal left ventricular systolic function with EF 55-60%. Dilated and hypokinetic right ventricle
- Continue Eliquis
Diabetes Mellitus, Type II
- HgbA1c 5.8 in October 2024
Essential Hypertension
- continue lisinopril with hold parameters
CKD Stage III
- creatinine at baseline
Hyperphosphatemia
- continue calcium acetate
Chronic Normocytic Anemia
- Hgb appears stable compared to previous
Asthma, no acute exacerbation
- continue albuterol PRN
Anxiety/Depression
- continue Wellbutrin
Gastritis/Gastric Erosions
- continue Protonix BID
Chronic Lower Extremity Lymphedema
- Lasix as above
Class III Obesity
- Affects all aspects of care
DVT ppx: Eliquis
Code Status: Full
Anticipated Discharge: > 48 hours
Subjective/Interval History
-
Date of Service: December 03, 2024
No overnight events
Objective Data
-
Labs:
Laboratory Results
12/03/24
07:14
WBC 7.1
Hgb 10.1 L
Hct 31.8 L
Plt Count 605 H
Sodium 136
Potassium 4.7
Chloride 99
Carbon Dioxide 22
BUN 31 H
Creatinine 1.1 H
Glucose 107 H
Calcium 10.4 H
Vital Signs:
Vital Signs
Temp Pulse Resp BP Pulse Ox
98.0 F 78 18 115/67 94
12/03/24 07:25 12/03/24 10:24 12/03/24 07:25 12/03/24 10:24 12/03/24 07:25
I&O
12/02/24 12/03/24 12/04/24
06:59 06:59 06:59
Intake Total 820 / 820 1180 / 1180
Balance 820 / 820 1180 / 1180
Review of Systems
-
All other systems: Reviewed and negative
Physical Exam
-
General: No Apparent Distress and Comfortable
HEENT: Normocephalic and Atraumatic
Respiratory: Clear to Auscultation
Cardiac: Regular Rhythm and S1/S2
GI: Soft, Nontender and Other (hard to interpret distension due to obesity )
Musculoskeletal: Edema, Right Lower Extrem (improving) and Edema, Left Lower Extrem (improving )
Skin: Warm and Dry
Neuro: AO x 3
Psych: Calm
Data Reviewed
-
Diagnostic Radiology: Report Reviewed by me and Discussed with Physician
Labs: Labs Reviewed by me and Discussed with Physician
--- NOTE | 2024-12-03 15:15 | CON.ID ---
Consultation
-
Date/Time Consultation Requested: 12/03/2024 0911
Date/Time Consultation Performed: 12/03/2024 1500
Requesting Provider: Dr. Dawson
Performing Provider: Dr. Wilkerson
Reason for Consultation: SBP
Chief Complaint / Past History
History of Present Illness
Jennifer Echevarria is a 74-year-old female being evaluated at the request of Dr. Dawson in regards to SBP. History is obtained from chart review, along with patient interview.
The patient was initially admitted to [facility] from 10/21 through 11/01/2024, during which time she was treated for a massive pulmonary embolism that required cath directed thrombolysis. During that hospitalization, she developed significant
ascites and she underwent paracentesis. Following discharge on 11/01 she returned home, but returned to the [facility] on 11/18 secondary to increasing shortness of breath and weight gain. Her hospital course has been significant for
multiple paracentesis secondary to ongoing ascites accumulation. The fluid recovered on was consistent with SBP (PMN count > 250) and the patient was started on empiric ceftriaxone. Cultures from that paracentesis have been negative. She
underwent repeat paracentesis on 12/02, and PMN count remains greater than 250. Infectious Diseases is asked to comment upon further antimicrobial therapy.
At this time she denies any abdominal pain. She notes some mild nausea, though today. She denies any recent fevers or chills. She denies any history of dysuria.
Past History
Additional Past Medical History:
DM
HTN
CKD
PE
HLD
Colon polyps
Obesity
Hx adrenal cyst
Additional Past Surgical History:
x 4
Cholecystectomy
Left hip replacement
Allergy History:
codeine Allergy (Verified 11/18/24 13:48)
Nausea / Vomiting
Influenza Virus Vaccines Allergy (Verified 11/18/24 13:48)
Tongue Swelling
meperidine [From Demerol] Allergy (Verified 11/18/24 13:48)
Unknown
Phenothiazines Allergy (Verified 11/18/24 13:48)
Unknown
Sulfa (Sulfonamide Antibiotics) Allergy (Verified 11/18/24 13:48)
Unknown
Medications Reviewed: Yes
Current Antibiotics:
Ceftriaxone 2 g IV every 24 hours (d#4)
Social History
Tobacco: Non-Smoker
Alcohol: None
Drug: None
Living: With Family
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
Family History
Family History: Not Pertinent
Review of Systems
Vital Signs
Temp Pulse Resp BP Pulse Ox
98.0 F 78 18 115/67 94
12/03/24 07:25 12/03/24 10:24 12/03/24 07:25 12/03/24 10:24 12/03/24 07:25
Physical Exam
Physical Exam
Constitutional: No Acute Distress, Comfortable, Chronically Ill, Non-toxic and Obese
Head: Normocephalic
Eyes: Pupils Equal, Pupils Round, No Conjunctival Hemorrhage and Sclera Anicteric
Oral: No Thrush and No Ulcers
Cardiovascular: S1/S2; Negative S3/S4 or Murmur
Pulmonary: Clear; Negative Wheezes or Rales
Gastrointestinal: Soft, Non Distended, Normal Bowel Sounds, No Rebound and No Guarding
Genito-Urinary: Negative Bull[place]
Extremities: Edema and Venous Insufficiency; Negative Cyanosis or Erythema
Musculoskeletal: Negative Joint Swelling
Neurological: Awake and Alert
Psychological: Calm
.
Lab / Diagnostic Study Results
12/03/24 07:14
12/03/24 07:14
Abs Immat Gran (auto) 0.0 10^3/uL (0-0.05) 11/18/24 14:10
Absolute Neuts (auto) 5.1 10^3/uL (1.4-6.5) 11/18/24 14:10
Absolute Lymphs (auto) 0.7 10^3/uL (1.2-3.4) L 11/18/24 14:10
Absolute Monos (auto) 0.6 10^3/uL (0.1-0.6) 11/18/24 14:10
Absolute Basos (auto) 0.0 10^3/uL (0-0.2) 11/18/24 14:10
Immature Gran % 0.3 % (0-0.5) 11/18/24 14:10
Neutrophils % 73.4 % (42.2-75.2) 11/18/24 14:10
Lymphocytes % 10.2 % (20.5-51.1) L 11/18/24 14:10
Monocytes % 9.0 % (1.7-9.3) 11/18/24 14:10
Eosinophils % 6.7 % (0-6) H 11/18/24 14:10
Basophils % 0.4 % (0-2) 11/18/24 14:10
Microbiology Results
Micro:
12/02/24 14:43 Body Fluid Culture - Pending
Peritoneal Fluid Gram Stain - Preliminary
11/29/24 13:21 Body Fluid Culture - Final
Peritoneal Fluid No Growth After 72 Hours
Gram Stain - Final
11/20/24 14:49 Body Fluid Culture - Final
Pleural Fluid No Growth After 72 Hours
Gram Stain - Final
11/19/24 12:02 Body Fluid Culture - Final
Peritoneal Fluid No Growth After 72 Hours
Gram Stain - Final
11/18/24 17:14 Influenza Types A & B ([place]) - Final
Nasal Swab Negative for Influenza A & B, NAAT
Negative results must be combined with clinical observations
and patient history.
Nucleic Acid Amplification test (NAAT)performed on the
[employer] platform.
Imaging:
12/01/2024 Abdominal ultrasound (Doppler): Appropriate hepatoportal flow is seen in the main portal vein. Normal hepatoportal flow demonstrated within the left and right portal veins. Normal arterial waveform is seen in the hepatic artery. There
is normal phasicity in the hepatic veins. No evidence of hepatic venous thrombosis.
Assessment / Plan
Recurrent ascites
Suspected SBP by PMN count
- Cx's negative to date
Left pleural effusion
Recent pulmonary embolism (requiring cath directed thrombolysis)
DM
HTN
CKD
PE
HLD
Colon polyps
Obesity
Recommendations:
At present, etiology of SBP is unclear. Cultures thus far have been negative, but despite empiric therapy, significant PMN count remains.
- ?slow recovery vs. ?resistant organism vs. ?non-infectious vs ?other
Will transition to empiric ertapenem 1 g IV every 24 hours
Await repeat ascites cultures.
Repeat paracentesis in several days to assess for improvement.
Monitor white count and temperature curve.
[2024-12-03 15:25] VITALS: BP 126/63
[2024-12-03 16:41] LABS: Glucose - Point of Care 142 mg/dl (70-99)
[2024-12-03] MEDS: NOVOLOG FLEXPEN-LOW RESISTANCE SC (16:46)
[2024-12-03] MEDS: INVANZ 60 MG IV (16:47)
[2024-12-03 21:44] LABS: Glucose - Point of Care 156 mg/dl (70-99)
[2024-12-03 23:36] VITALS: BP 115/60
[2024-12-04] MEDS: SYNTHROID 50 MCG PO (05:30)
[2024-12-04 06:00] VITALS: BMI 38.7
[2024-12-04 07:11] LABS: % Basophils 0.4 % (0-2); % Eosinophils 5.7 % (0-6); % Immature Granulocytes 0.9 % (0-0.5); % Lymphocytes 15.7 % (20.5-51.1); % Monocytes 11.3 % (1.7-9.3); Absolute Eosinophils 0.4 10^3/uL (0-0.7); Absolute Immature Granulocytes 0.1 10^3/uL (0-0.05); Absolute Lymphocytes 1.2 10^3/uL (1.2-3.4); Absolute Monocytes 0.9 10^3/uL (0.1-0.6); Absolute Neutrophils 4.9 10^3/uL (1.4-6.5); Hematocrit 31.1 % (37.0-47.0); Hemoglobin 10.1 g/dL (12.0-16.0); Mean Corp Hgb Conc. 32.5 g/dL (33.0-37.0); Mean Corpuscular Hgb 26.2 pg (27.0-31.0); Mean Corpuscular Volume 80.8 fL (81.0-99.0); Mean Platelet Volume 8.5 fL (7.4-10.4); Nucleated Red Blood Cells % 0 %; Platelet Count 592 10^3/uL (130-400); Red Blood Cell Count 3.85 10^6/uL (4.20-5.40); Red Cell Dist. Width 14.9 % (11.5-14.5); White Blood Cell Count 7.5 10^3/uL (4.8-10.8)
[2024-12-04 07:41] LABS: Blood Urea Nitrogen 36 mg/dl (7-17); Calcium 10.5 mg/dl (8.4-10.2); Chloride 99 mmol/L (98-107); Glucose 109 mg/dl (70-99); Magnesium 1.7 mg/dl (1.6-2.3); Potassium 4.5 mmol/L (3.5-5.1); Sodium 135 mmol/L (135-145)
[2024-12-04 07:59] LABS: Carbon Dioxide 25 mmol/L (22-30); Estimated Creatinine Clearance 49 ml/min
[2024-12-04 08:20] VITALS: BP 114/58
[2024-12-04 08:32] LABS: Glucose - Point of Care 94 mg/dl (70-99)
[2024-12-04] MEDS: NOVOLOG FLEXPEN-LOW RESISTANCE SC ×3 (08:47→18:18)
--- NOTE | 2024-12-04 09:07 | W.PN.ID1 ---
Date of Service
Date of Service: December 04, 2024
Today's Communication
Continue Ertapenam
Assessment / Plan
Recurrent ascites
Suspected SBP (by PMN count)
- Cx's negative to date
Left pleural effusion
Recent pulmonary embolism (requiring cath directed thrombolysis)
DM
HTN
CKD
PE
HLD
Colon polyps
Obesity
Recommendations:
At present, etiology of suspected SBP is unclear.
- Ascites cultures from 11/19/24, 11/29/24 and 12/02/24 all negative.
- Despite empiric therapy (ceftriaxone x 4 days), significant PMN count remains.
- ?slow recovery vs. ?resistant organism vs. ?non-infectious vs ?other
Continue empiric ertapenem 1 g IV every 24 hours (d#2)
Repeat paracentesis in several days to assess for improvement.
Will send fluid from 11/29 and 12/02 for AFB stain/cx
Monitor white count and temperature curve.
Consider GI re-eval for SBP mimics.
Chief Complaint
-: Other (SBP; Recurrent ascites)
Subjective / Review of Systems
Review of Systems: No Fever, No Chills and No Abdominal Pain
Vital Signs / Physical Exam
Vital Signs
Vital Signs
Temp Pulse Resp BP Pulse Ox
98 F 78 18 114/58 97
12/04/24 08:20 12/04/24 08:20 12/04/24 08:20 12/04/24 08:20 12/04/24 08:20
Physical Exam
Constitutional: No Acute Distress, Comfortable and Non-toxic
Eyes: Sclera Anicteric
Cardiovascular: S1/S2; Negative S3/S4
Pulmonary: Clear and Non Labored
Gastrointestinal: Soft, Non Tender, Non Distended, Normal Bowel Sounds, No Rebound and No Guarding
Extremities: Edema (trace); Negative Erythema
Neurological: Awake and Alert
Psychological: Calm
Objective Data
Lab Data
Lab Results
12/04/24 06:53
12/04/24 06:53
Estimated Creat Clear 49 ml/min 12/04/24 06:53
Total Bilirubin 0.8 mg/dl (0.2-1.3) 11/18/24 14:10
AST 19 U/L (14-36) 11/18/24 14:10
ALT 13 U/L (0-35) 11/18/24 14:10
Alkaline Phosphatase 95 U/L (38-126) 11/18/24 14:10
Most recent labs reviewed.
Micro Results:
12/02/24 14:43 Body Fluid Culture - Pending
Peritoneal Fluid Gram Stain - Preliminary
11/29/24 13:21 Body Fluid Culture - Final
Peritoneal Fluid No Growth After 72 Hours
Gram Stain - Final
11/20/24 14:49 Body Fluid Culture - Final
Pleural Fluid No Growth After 72 Hours
Gram Stain - Final
11/19/24 12:02 Body Fluid Culture - Final
Peritoneal Fluid No Growth After 72 Hours
Gram Stain - Final
11/18/24 17:14 Influenza Types A & B ([place]) - Final
Nasal Swab Negative for Influenza A & B, NAAT
Negative results must be combined with clinical observations
and patient history.
Nucleic Acid Amplification test (NAAT)performed on the
[employer] platform.
Imaging:
12/01/2024 Abdominal ultrasound (Doppler): Appropriate hepatoportal flow is seen in the main portal vein. Normal hepatoportal flow demonstrated within the left and right portal veins. Normal arterial waveform is seen in the hepatic artery. There
is normal phasicity in the hepatic veins. No evidence of hepatic venous thrombosis.
Care Review
Plan reviewed with: Physician (Resident)
.

Total time spent today was 53 minutes, which includes preparation for the visit, including review of pre-visit forms and results, patient interview and examination, reviewing pertinent studies, including laboratory results, microbiology results,
radiology studies, hospital records, specialist consultation, along with patient/caregiver counseling, documentation of clinical information and coordination of care with other healthcare professionals.
[2024-12-04] MEDS: PHOSLO 667 MG PO ×2 (09:24→14:08)
[2024-12-04] MEDS: PROTONIX 40 MG PO ×2 (09:24→22:00)
[2024-12-04] MEDS: DESENEX/MITRAZOL/ZEASORB 1 APPLIC TOPICAL ×2 (09:24→22:02)
[2024-12-04] MEDS: ELIQUIS 5 MG PO ×2 (09:24→22:00)
[2024-12-04] MEDS: MYLICON 80 MG PO ×3 (09:25→22:00)
[2024-12-04] MEDS: ALDACTONE 25 MG PO (09:25)
[2024-12-04] MEDS: ZESTRIL 20 MG PO ×2 (09:25→22:02)
[2024-12-04] MEDS: WELLBUTRIN XL (24 hour extended release) 300 MG PO (09:25)
[2024-12-04] MEDS: MIRALAX 17 GRAMS PO (09:27)
--- NOTE | 2024-12-04 11:15 | CM ---
Maintained on IV antibiotics per ID .
Post paracentesis 12/02/24
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
Gisela said pt is medicare and does not need an auth to return to facility.
Pt will need ambulance
[facility]
report [phone]
fax [phone]
Plan return to [facility] [place]
[2024-12-04 12:24] LABS: Glucose - Point of Care 115 mg/dl (70-99)
--- NOTE | 2024-12-04 13:10 | W.PN.HOSP.TC ---
Addendum entered and electronically signed by Tara Dawson MD 12/04/24 14:20:
I saw and evaluated the patient. I reviewed the resident�s note and agree with findings and plan as documented in the resident�s note.
A/P:
# Recurrent ascites from Acute Right heart failure, in setting of Acute Cor pulmonale
s/p paracentesis x 3: para 4/2 and 10 L removed (ascitic fluid culture negative, cytology negative. SAAG 1.1/1.2), repeat para 11/29 and 2.3 L removed (noted SBP), third para 12/02 with persistent SBP finding from ascitic fluid.
Of note, Echo unrevealing, improved RV size and function. EF 50-55%.
Appreciate Card input; RHC 11/29 with euvolemic, normal wedge, unsure if cardiac in origin
UA with proteinuria but not nephrotic range
Doppler checked for budd chiari syndrome, which has been ruled out
s/p aggressive IV Lasix course
Card recc to resume 40mg po Lasix when weight is 236 lbs and an additional pm dose on days weight jumps wt is 240 or higher
GDMT: continue Aldactone, Lisinopril. SGLT2i avoided due to recent UTI
# Persistent SBP
repeat (third) para 12/02 with persistent SBP
ID on board, changed Rocephin to ertapenem,
follow Gram stain and culture from para on 12/02
consider repeat para prior to discharge to assess for SBP resolution
GI reconsult
# Acute hypoxic respiratory insufficiency, resolved
now on RA
# L pleural effusion
s/p IR thoracentesis 11/20 and removed 1000 cc straw-colored pleural fluid
Transudative fluid
# Recent Pulmonary Embolism - October 2024
Echo from 10/23/24: Normal left ventricular systolic function with EF 55-60%. Dilated and hypokinetic right ventricle
Continue Eliquis
# Diabetes Mellitus, Type II
HgbA1c 5.8 in October 2024
# Essential Hypertension
continue lisinopril with hold parameters
# CKD Stage III
creatinine at baseline at 1.1
# Hyperphosphatemia
continue calcium acetate
# Chronic Normocytic Anemia
Hgb appears stable compared to previous
# Asthma, no acute exacerbation
continue albuterol PRN
# Anxiety/Depression
continue Wellbutrin
# Gastritis/Gastric Erosions
continue Protonix BID
# Chronic Lower Extremity Lymphedema
# Class III Obesity
Affects all aspects of care
DVT ppx: Eliquis
Dispo plan: SNF
Original Note:
Today's Communication/Plan
-
Reconsult GI for persistent SBP despite on antibiotics, possibly due to other etiology?
Await cultures
Continue IV ertapenem
Assessment / Plan
Assessment / Plan
Assessment:
Recurrent ascites from Right heart failure, acute in setting of Acute Cor pulmonale
- s/p IR paracentesis 11/20 and 10 L removed. s/p albumin for large volume para. s/p repeat paracentesis 11/29 2.3 L removed.
- Ascitic fluid culture negative, cytology negative. SAAG 1.1/1.2
- Echo unrevealing, improved RV size and function. EF 50-55%.
- Appreciate GI input - felt ascites related to R sided CHF
- Appreciate Card input; RHC 11/29 with euvolemic, normal wedge, unsure if cardiac in origin
- UA with proteinuria but not nephrotic range
- check Doppler for budd chiari syndrome--negative hepatic vein thrombosis
- s/p aggressive IV Lasix course; now on oral Lasix. >60 lbs lost.
- GDMT: continue Aldactone, Lisinopril. SGLT2i avoided due to recent UTI
SBP
- continue Rocephin, day 3
- IV albumin day 1 and 3 ordered - course completes on Monday
Repeat paracentesis 12/02/ removed 1.3 L, with PMN of 819
ID following, continue IV ertapenem
Reconsult GI for persistent SBP despite on antibiotics, possibly due to other etiology?
Await cultures
Acute hypoxic respiratory insufficiency, resolved
- now on RA
L pleural effusion
- s/p IR thoracentesis 11/20 and removed 1000 cc straw-colored pleural fluid
- Transudative fluid
Recent Pulmonary Embolism - October 2024
- Echo from 10/23/24: Normal left ventricular systolic function with EF 55-60%. Dilated and hypokinetic right ventricle
- Continue Eliquis
Diabetes Mellitus, Type II
- HgbA1c 5.8 in October 2024
Essential Hypertension
- continue lisinopril with hold parameters
CKD Stage III
- creatinine at baseline
Hyperphosphatemia
- continue calcium acetate
Chronic Normocytic Anemia
- Hgb appears stable compared to previous
Asthma, no acute exacerbation
- continue albuterol PRN
Anxiety/Depression
- continue Wellbutrin
Gastritis/Gastric Erosions
- continue Protonix BID
Chronic Lower Extremity Lymphedema
- Lasix as above
Class III Obesity
- Affects all aspects of care
DVT ppx: Eliquis
Code Status: Full
Anticipated Discharge: > 48 hours
Subjective/Interval History
-
Date of Service: December 04, 2024
Overnight events
Objective Data
-
Labs:
Laboratory Results
12/04/24
06:53
WBC 7.5
Hgb 10.1 L
Hct 31.1 L
Plt Count 592 H
Sodium 135
Potassium 4.5
Chloride 99
Carbon Dioxide 25
BUN 36 H
Creatinine 1.2 H
Glucose 109 H
Calcium 10.5 H
Vital Signs:
Vital Signs
Temp Pulse Resp BP Pulse Ox
98 F 78 18 114/58 97
12/04/24 08:20 12/04/24 09:25 12/04/24 08:20 12/04/24 09:25 12/04/24 08:20
I&O
12/03/24 12/04/24 12/05/24
06:59 06:59 06:59
Intake Total 1180 / 1180 450 / 450
Balance 1180 / 1180 450 / 450
Review of Systems
-
All other systems: Reviewed and negative
Physical Exam
-
General: No Apparent Distress and Comfortable
HEENT: Normocephalic and Atraumatic
Respiratory: Clear to Auscultation
Cardiac: Regular Rhythm and S1/S2
GI: Nontender
Musculoskeletal: Edema, Right Lower Extrem (Improving) and Edema, Left Lower Extrem (Improving)
Neuro: AO x 3
Psych: Calm
Data Reviewed
-
Labs: Labs Reviewed by me and Discussed with Physician
--- NOTE | 2024-12-04 14:53 | W.PN.GI.CBS2 ---
Today's Communication / Plan
-
Will get CT abdomen/pelvis with contrast
Follow-up fluid AFB stain/culture
Assessment / Plan
-
Pt is a 73yo with hx asthma, HTN, hypercholesterolemia, CKD, NIDDM, colon polyps, obesity, adrenal cyst, LE edema with onset of shortness of breath and lightheadedness with recent [facility] admission with 10/23/24-11/01/24 with PE significantly enlarged
right ventricle and right atrium with right heart strain-- also noted large amount of ascites. She completed thrombolysis from 10/23 til 10/24 with improvement embolus burden and noted with nausea then vomited large amount of coffee ground emesis.
She was seen by GI for ascites and bleeding. She completed EGD 10/25 with normal esophagus, gastritis in cardia likely tacho erosions, normal duodenum. hbg was as low as 7.7 but improved to 9-10 range on this admission with Eliquis use. No known
hx liver disease, fatty liver, or heavy ETOH use in past. Noted with normal INR (prior to Eliquis use),initial normal platelet then with further rise during last admission and normal LFT's.
12/02- para With removal of 1300 cc.prelim cx - negative, fluid WBC 2848, mononuclear cell 66.3%, PMN 33.7% , total protein 4.9, no recent serum alb to calculate SAAG
11/29- para with removal of 2300 cc. fluid cx - neg. fluid WBC 2009, mononuclear 75.7%, PMN 24.3%
11/19/24- para 10 liter SAAG 1.2 with elevated protein 3.9 neg SBP, , amylase 43, cytology negative
10/25/24- para 6500ml SAAG 0.5 protein 4.2, path neg malignant cells
10/23/24 echo-Normal left ventricular systolic function with estimated ejection fraction 55
to 60% Dilated and hypokinetic right ventricle Moderate tricuspid regurgitation
-recurrent ascites initial tap with low SAAG high protein then repeat high SAAG, high protein
-LE edema
-recent PE with right ventricular strain, right atrium and right heart strain
-recent coffee ground emesis concern for tacho lesions
-anemia
-hyponatremia
-hypoalbuminemia
-constipation
-moderate TR
other medical problems:
-colon polyps
-HTN
-asthma
-CKD
-NIDDM
-obesity
PLAN:
Patient with recurrent ascites -initially thought to be cardiac in origin with high SAAG, high protein in the fluid. Initial paracentesis 10/25 fluid analysis negative for SBP. Cytology negative on fluid 11/19/2024. Fluid amylase was normal
Patient continues to reaccumulate fluid despite improvement in echo. And paracentesis from showing elevated fluid WBC with PMN > 250. Predominant cells in the fluid was mononuclear cells. Repeat paracentesis 12/02 -similar pattern. Fluid
cultures were negative on those occasions.
Patient denies any abdominal pain. No fever spikes. No leukocytosis.
Previous imaging liver was normal. Previous liver tests were normal. Platelets were normal. High protein in the ascitic fluid-not in favor of liver cirrhosis as the etiology of ascites
Considering high-protein ascites with predominant mononuclear cells in the fluid I agree with ID checking fluid for AFB stain/culture to rule out possibility of TB.
I will also recommend CT abdomen/pelvis with contrast to rule out any intra-abdominal malignancy as well. If repeat paracentesis fluid repeat cytology again (cytology negative 11/19/2024)
Continue empirical antibiotic as per ID for now
Diuretic treatment as per medical team/cardiology
No recent LFT. Will repeat LFT/INR
Total Time Spent with Patient (in minutes): 35
Subjective
Subjective
Date of Service: December 04, 2024
I was reconsulted today-recurrent ascites with SBP now. Patient denies any abdominal pain/nausea/vomiting. tolerating diet
Objective
Data Reviewed
Laboratory Data:
Laboratory Results
12/04/24 06:53
12/04/24 06:53
Laboratory Results
Phosphorus 4.0 mg/dl (2.5-4.5) 11/19/24 07:52
Magnesium 1.7 mg/dl (1.6-2.3) 12/04/24 06:53
Total Bilirubin 0.8 mg/dl (0.2-1.3) 11/18/24 14:10
AST 19 U/L (14-36) 11/18/24 14:10
ALT 13 U/L (0-35) 11/18/24 14:10
Alkaline Phosphatase 95 U/L (38-126) 11/18/24 14:10
Vital Signs and I&O:
Vital Signs
Temp Pulse Resp BP Pulse Ox
98 F 78 18 114/58 97
12/04/24 08:20 12/04/24 09:25 12/04/24 08:20 12/04/24 09:25 12/04/24 08:20
I&O
12/03/24 12/04/24 12/05/24
06:59 06:59 06:59
Intake Total 1180 / 1180 450 / 450
Balance 1180 / 1180 450 / 450
Physical Exam
Physical Exam
GI: Soft, Distended and Non Tender
[2024-12-04 15:44] VITALS: BP 104/58
[2024-12-04] MEDS: NSS 250 IV (15:44)
[2024-12-04] MEDS: OMNIPAQUE 50 ML PO (16:10)
[2024-12-04] MEDS: INVANZ 60 MG IV (16:25)
[2024-12-04 17:17] LABS: Glucose - Point of Care 153 mg/dl (70-99)
[2024-12-04] MEDS: PHOSLO PO (18:18)
[2024-12-04 22:16] LABS: Glucose - Point of Care 101 mg/dl (70-99)
[2024-12-04 23:23] VITALS: BP 125/68
[2024-12-05] MEDS: SYNTHROID 50 MCG PO (05:16)
[2024-12-05] MEDS: ZOFRAN 4 MG IV (05:46)
[2024-12-05 05:47] VITALS: BMI 37.5
[2024-12-05 06:30] LABS: INR 1.47; PT 18.3 Sec (11.4-14.6)
[2024-12-05 06:43] LABS: % Basophils 0.4 % (0-2); % Eosinophils 5.2 % (0-6); % Lymphocytes 14.2 % (20.5-51.1); % Monocytes 11.3 % (1.7-9.3); % Neutrophils 67.9 % (42.2-75.2); Absolute Eosinophils 0.4 10^3/uL (0-0.7); Absolute Immature Granulocytes 0.1 10^3/uL (0-0.05); Absolute Monocytes 0.8 10^3/uL (0.1-0.6); Absolute Neutrophils 4.9 10^3/uL (1.4-6.5); Hematocrit 32.8 % (37.0-47.0); Hemoglobin 10.6 g/dL (12.0-16.0); Mean Corp Hgb Conc. 32.3 g/dL (33.0-37.0); Mean Corpuscular Hgb 25.9 pg (27.0-31.0); Mean Corpuscular Volume 80.2 fL (81.0-99.0); Mean Platelet Volume 8.6 fL (7.4-10.4); Nucleated Red Blood Cells % 0 %; Platelet Count 645 10^3/uL (130-400); Red Blood Cell Count 4.09 10^6/uL (4.20-5.40); Red Cell Dist. Width 15.1 % (11.5-14.5); White Blood Cell Count 7.3 10^3/uL (4.8-10.8)
[2024-12-05 06:49] LABS: ALT (SGPT) 11 U/L (0-35); AST (SGOT) 14 U/L (14-36); Albumin 3.4 g/dl (3.5-5.0); Alkaline Phosphatase 75 U/L (38-126); Blood Urea Nitrogen 36 mg/dl (7-17); Calcium 10.7 mg/dl (8.4-10.2); Carbon Dioxide 27 mmol/L (22-30); Chloride 96 mmol/L (98-107); Direct Bilirubin 0.2 mg/dl (0.0-0.4); Estimated Creatinine Clearance 48 ml/min; Glucose 110 mg/dl (70-99); Potassium 5.1 mmol/L (3.5-5.1); Sodium 134 mmol/L (135-145); Total Bilirubin 0.6 mg/dl (0.2-1.3); Total Protein 6.2 g/dl (6.3-8.2)
[2024-12-05 07:24] LABS: Glucose - Point of Care 123 mg/dl (70-99)
[2024-12-05 07:30] VITALS: BP 110/65
[2024-12-05] MEDS: NOVOLOG FLEXPEN-LOW RESISTANCE SC ×3 (07:53→17:36)
[2024-12-05] MEDS: ZESTRIL PO (09:03)
[2024-12-05] MEDS: DESENEX/MITRAZOL/ZEASORB 1 APPLIC TOPICAL ×2 (09:03→21:43)
[2024-12-05] MEDS: ALDACTONE 25 MG PO (09:04)
[2024-12-05] MEDS: MYLICON 80 MG PO ×3 (09:04→21:44)
[2024-12-05] MEDS: ELIQUIS 5 MG PO ×2 (09:04→21:43)
[2024-12-05] MEDS: PHOSLO 667 MG PO ×3 (09:05→17:37)
[2024-12-05] MEDS: PROTONIX 40 MG PO ×2 (09:05→21:43)
[2024-12-05] MEDS: WELLBUTRIN XL (24 hour extended release) 300 MG PO (09:06)
[2024-12-05] MEDS: MIRALAX 17 GRAMS PO (09:07)
--- NOTE | 2024-12-05 10:17 | W.PN.HOSP.TC ---
Addendum entered and electronically signed by Tara Dawson MD 12/05/24 11:17:
I saw and evaluated the patient. I reviewed the resident�s note and agree with findings and plan as documented in the resident�s note.
A/P:
# Recurrent ascites
# Acute Right heart failure, Acute Cor pulmonale
s/p paracentesis x 3: first para 4/2 and 10 L removed (no SBP), second para 4/ (noted SBP), third para 4/ with persistent SBP (worsening WBC).
Of note, Echo unrevealing, improved RV size and function. EF 50-55%
RHC 11/29 with euvolemic, normal wedge, unsure if cardiac in origin
s/p aggressive IV Lasix course
Card recc to resume 40mg po Lasix when weight is 236 lbs and an additional pm dose on days weight jumps wt is 240 or higher
GDMT: continue Aldactone, Lisinopril. SGLT2i avoided due to recent UTI
# Ascites with persistent SBP/worsening ascitic fluid leucocytosis
follow Gram stain and culture from para on 12/02
ID on board, changed Rocephin to ertapenem,
CT AP noted possible left adnexal cystic lesion and is concerning for ovarian neoplasm- this could be contributing to her persistent/worsening ascitic fluid WBC appearing as SBP
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
# Acute hypoxic respiratory insufficiency, resolved
now on RA
# L pleural effusion
s/p IR thoracentesis 11/20 and removed 1000 cc straw-colored pleural fluid
Transudative fluid
# Recent Pulmonary Embolism - October 2024
Echo from 10/23/24: Normal left ventricular systolic function with EF 55-60%. Dilated and hypokinetic right ventricle
Continue Eliquis
Considering new left ovarian cystic lesion finding, which is concerning for neoplasm, this could be the culprit for her recent VTE/pulm embolism
# Diabetes Mellitus, Type II
HgbA1c 5.8 in October 2024
# Essential Hypertension
continue lisinopril with hold parameters
# CKD Stage III
creatinine at baseline at 1.1
# Hyperphosphatemia
continue calcium acetate
# Chronic Normocytic Anemia
Hgb appears stable compared to previous
# Asthma, no acute exacerbation
continue albuterol PRN
# Anxiety/Depression
continue Wellbutrin
# Gastritis/Gastric Erosions
continue Protonix BID
# Chronic Lower Extremity Lymphedema
# Class III Obesity
Affects all aspects of care
DVT ppx: Eliquis
Dispo plan: SNF
We have offered to discuss her new CT finding with her daughter. Patient would like us to hold off discussing this with her daughter for now. Will check again tomorrow.
total time 51 min
Original Note:
Today's Communication/Plan
-
Left adnexal cystic lesion concerning for ovarian neoplasm on CT
Consult oncology for further management
Assessment / Plan
Assessment / Plan
Assessment:
Recurrent ascites from Right heart failure, acute in setting of Acute Cor pulmonale
- s/p IR paracentesis / and 10 L removed. s/p albumin for large volume para. s/p repeat paracentesis 11/29 2.3 L removed.
- Ascitic fluid culture negative, cytology negative. SAAG 1.1/1.2
- Echo unrevealing, improved RV size and function. EF 50-55%.
- Appreciate GI input - felt ascites related to R sided CHF
- Appreciate Card input; RHC 11/29 with euvolemic, normal wedge, unsure if cardiac in origin
- UA with proteinuria but not nephrotic range
- check Doppler for budd chiari syndrome--negative hepatic vein thrombosis
- s/p aggressive IV Lasix course; now on oral Lasix. >60 lbs lost.
- Cardiology recommended to resume 40 mg p.o. Lasix when weight is 236lbs and additional p.m. dose on days when wt is 240 lbs or higher
- GDMT: continue Aldactone, Lisinopril. SGLT2i avoided due to recent UTI
Left adnexal cystic lesion concerning for ovarian neoplasm on CT
Consult oncology for further management
SBP
- continue Rocephin, day 3
- IV albumin day 1 and 3 ordered - course completes on Monday
Repeat paracentesis 12/02/ removed 1.3 L, with PMN of 819
ID following, continue IV ertapenem
GI following
Await cultures
Acute hypoxic respiratory insufficiency, resolved
- now on RA
L pleural effusion
- s/p IR thoracentesis 11/20 and removed 1000 cc straw-colored pleural fluid
- Transudative fluid
Recent Pulmonary Embolism - October 2024
- Echo from 10/23/24: Normal left ventricular systolic function with EF 55-60%. Dilated and hypokinetic right ventricle
- Continue Eliquis
Diabetes Mellitus, Type II
- HgbA1c 5.8 in October 2024
Essential Hypertension
- continue lisinopril with hold parameters
CKD Stage III
- creatinine at baseline
Hyperphosphatemia
- continue calcium acetate
Chronic Normocytic Anemia
- Hgb appears stable compared to previous
Asthma, no acute exacerbation
- continue albuterol PRN
Anxiety/Depression
- continue Wellbutrin
Gastritis/Gastric Erosions
- continue Protonix BID
Chronic Lower Extremity Lymphedema
- Lasix as above
Class III Obesity
- Affects all aspects of care
DVT ppx: Eliquis
Code Status: Full
Anticipated Discharge: > 48 hours
Subjective/Interval History
-
Date of Service: December 05, 2024
No overnight events
Objective Data
-
Labs:
Laboratory Results
12/05/24
05:43
WBC 7.3
Hgb 10.6 L
Hct 32.8 L
Plt Count 645 H
PT 18.3 H
INR 1.47
Sodium 134 L
Potassium 5.1
Chloride 96 L
Carbon Dioxide 27
BUN 36 H
Creatinine 1.2 H
Glucose 110 H
Calcium 10.7 H
Total Bilirubin 0.6
AST 14
ALT 11
Alkaline Phosphatase 75
Vital Signs:
Vital Signs
Temp Pulse Resp BP Pulse Ox
98.3 F 81 20 109/59 93
12/05/24 07:30 12/05/24 09:04 12/05/24 07:30 12/05/24 09:04 12/05/24 07:30
I&O
12/04/24 12/05/24 12/06/24
06:59 06:59 06:59
Intake Total 450 / 450 960 / 960
Balance 450 / 450 960 / 960
Review of Systems
-
All other systems: Reviewed and negative
Physical Exam
-
General: Comfortable
HEENT: Normocephalic and Atraumatic
Respiratory: Clear to Auscultation
Cardiac: Regular Rhythm and S1/S2
GI: Nontender
Musculoskeletal: Edema, Right Lower Extrem and Edema, Left Lower Extrem
Neuro: AO x 3
Psych: Calm
Data Reviewed
-
CT Scan: Image personally visualized and interpreted, Report Reviewed by me and Discussed with Physician
Labs: Labs Reviewed by me and Discussed with Physician
--- NOTE | 2024-12-05 10:25 | CM ---
Maintained on IV antibiotics per BRANDI POOLE.
Needs Ct of abdomen.
Post paracentesis 12/02/24
Spoke with Gisela at [facility] pt no longer has bed hold its >15 days but reviewed case and pt will be accepted back.
Gisela said pt is medicare and does not need an auth to return to facility.
Pt will need ambulance
[facility]
report [phone]
fax [phone]
Plan return to [facility] at de
--- NOTE | 2024-12-05 10:27 | CON.ONC ---
Consultation
-
Date Consultation Requested: 12/05/24
Date Consultation Performed: 12/05/24
Requesting Provider: Denise Hernandez
Performing Provider: Dr. Eckert
Reason for Consultation: Left adnexal cystic lesion
Impression
Impression
incidental left adnexal cystic lesion on CT 12/04
pulmonary emboli with cor pulmonale s/p cath directed thrombolysis October 2024 now on DOAC
Recurrent ascites 10/25 and 11/19 cytology negative for malignancy
suspected SBP by PMN count - cultures negative to date from 11/19, 11/29, 12/02
left pleural effusion, s/p thora 11/20 -no cytology for review
HFpEF
possible Sterling erosions on EGD October 2024
Plan
Plan
If biopsy/procedure is needed then would transition to heparin gtt and place IVC filter prior to surgery.
f/u FACILITIES SUPERVISOR oncology consult
she is unsure if able to pursue MRI with prior hip replacment hardware -will defer to FACILITIES SUPERVISOR oncology if pelvic MRI and CT chest should be pursued during hospitalization
check Ca125
check ferritin, b12, folate, retic, monitor for bleeding
GI, ID, and cardiology following
Patient History
History of Present Illness
74yo F recently hospitalized 10/21-11/01 for pulmonary emboli that required thrombolytics. Her hospital course was complicate by ascites for which paracentesis cytology and culture were negative. She re-presented 11/18/2024 due to increased SOB and
weight gain. She has been receiving diuretics for acute on chronic HFpEF. She has undergone repeat paracentesis for recurrent ascites on 11/19 11/29, and 12/02. Ascites cytology was negative for malignancy and cultures are negative to date. She was
started on abx for suspected SBP based on PMN count. She also underwent left thoracentesis for left pleural effusion on 11/20, no cytology is available for review. Her labs are notable for Hgb 10.6, platelet count 645,000, creatinine 1.2, calcium
10.7. Her Hgb was as low as 7.7g/dL during her October 2024 hospitalization that was treated with 1U PRBC. She did undergo an EGD 10/25 with normal esophagus, gastritis in cardia likely Sterling erosions, normal duodenum. She had a CT ab/pelvis w IV &
oral contrast on 12/04/2024 that showed a large cystic lesion extending from the left upper pelvis into the left hemiabdomen measuring up to 22.7 cm with associated mass effect. There is a small focus along the inferior aspect of the lesion which
appears to extend to the anterior abdominal wall.
Clinically, she denies fever, chills, cough, chest pain, sob, palpitations, n/v/d/c or abdominal pain. She denies any overt bleeding or atypical bruising since starting on apixaban.
Past-Medical/Surgical History
PMH right heart failure, recurrent ascites, pulmonary emboli, DM2, HTN, CKD3, asthma, anxiety, depression, gastritis, obesity, Chronic Lower Extremity Lymphedema, colon polyps
PSH Cholecystectomy, Left Hip Replacement
Social non-smoker, denies ETOH or recreational drugs. 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
Family non-contributory
Patient Medication
�Medication �Instructions �Recorded �Confirmed �Last Taken �Type
cyanocobalamin (vitamin B-12) 1,500 mcg PO Q48H Supplement 09/22/16 11/18/24 09/22/16 History
1,000 mcg tablet
acetaminophen 325 mg tablet 650 mg PO Q4HPRN PRN fever 10/23/24 11/18/24 Unknown History
>100/mild pain
albuterol sulfate 90 mcg/actuation 1 inh inhalation R DAILYPRN PRN 10/23/24 11/18/24 Unknown History
aerosol inhaler sob/wheezing
bisacodyl 10 mg rectal suppository 10 mg AR DAILYPRN PRN if mom 10/23/24 11/18/24 Unknown History
ineffective after 24 hrs
bupropion HCl 300 mg 24 hr tablet, 300 mg PO DAILY Mental 10/23/24 11/18/24 Unknown History
extended release (Wellbutrin XL) Health/Anxiety
furosemide 20 mg tablet 20 mg PO DAILY Electrolyte 10/23/24 11/18/24 Unknown History
Repletion
lisinopril 20 mg tablet 20 mg PO BID Blood Pressure 10/23/24 11/18/24 Unknown History
magnesium hydroxide 400 mg/5 mL 2,400 mg PO [id number] PRN no bm in 3 10/23/24 11/18/24 Unknown History
oral suspension (Milk of Magnesia) days
polyethylene glycol 3350 17 gram 17 g PO DAILY Gastrointestinal 10/23/24 11/18/24 Unknown History
oral powder packet (Miralax) Issue
simethicone 80 mg chewable tablet 80 mg PO TID Gastrointestinal Issue 10/23/24 11/18/24 Unknown History
sodium phosphates 19 gram-7 118 ml AR DAILYPRN PRN bisacodyl 10/23/24 11/18/24 Unknown History
gram/118 mL enema (Fleet Enema) ineffective after 24 hrs
calcium acetate 667 mg tablet 667 mg PO MEALS #0 tabs 10/31/24 11/18/24 Unknown Rx
docusate sodium 100 mg capsule 100 mg PO BID #0 caps 10/31/24 11/18/24 Unknown Rx
pantoprazole 40 mg tablet,delayed 40 mg PO BID #30 tabs 10/31/24 11/18/24 Unknown Rx
release
apixaban 5 mg tablet (Eliquis) 5 mg PO BID Blood Clot 11/18/24 11/18/24 Unknown History
Prevention/Tx
Active Medications
Generic Name Dose Route Start Last Admin
Trade Name Freq PRN Reason Stop Dose Admin
Acetaminophen 650 mg 11/18/24 21:19 11/24/24 09:41
Acetaminophen 325 Mg Tablet PO 12/16/24 21:18 650 mg
Q4HPRN PRN Administration
fever >100/mild pain
Apixaban 5 mg 11/18/24 21:19 12/05/24 09:04
Apixaban (Eliquis) 5 Mg Tablet PO 12/16/24 21:18 5 mg
BID GERSON Administration
Bupropion HCl 300 mg 11/19/24 08:00 12/05/24 09:06
Bupropion (24hr) Extended Release 300 Mg Tablet PO 12/17/24 07:59 300 mg
DAILY GERSON Administration
Calcium Acetate 667 mg 11/19/24 08:00 12/05/24 09:05
Calcium Acetate 667 Mg Tablet PO 12/17/24 07:59 667 mg
MEALS GERSON Administration
Dextrose 12.5 grams 11/18/24 21:19
Dextrose 50% (0.5 Grams/Ml) 50 Ml Syringe IV 12/16/24 21:18
[id number] PRN
hypoglycemia
Protocol
Glucagon 1 mg 11/18/24 21:19
Glucagon 1 Mg Vial IM 12/16/24 21:18
PRN PRN
hypoglycemia
Protocol
Ertapenem 1,000 mg/ Sodium 60 mls @ 120 mls/hr 12/03/24 16:00 12/04/24 16:25
Chloride IV 60 mls
Q24H GERSON Administration
Insulin Aspart 0 units 11/19/24 07:30 12/05/24 07:53
Insulin Aspart Low Resistance 300 Units/3 Ml Pen.Injctr SC 12/17/24 07:29 Not Given
AC GERSON
Protocol
Levothyroxine Sodium 50 mcg 11/20/24 06:00 12/05/24 05:16
Levothyroxine 50 Mcg Tablet PO 12/18/24 05:59 50 mcg
DAILY @ 0600 GERSON Administration
Lisinopril 20 mg 11/18/24 21:19 12/05/24 09:03
Lisinopril 20 Mg Tablet PO 12/16/24 21:18 Not Given
BID GERSON
Miconazole Nitrate 0 applic 11/23/24 08:00 12/05/24 09:03
Miconazole Powder Bottle TOPICAL 12/21/24 07:59 1 applic
BID GERSON Administration
Pantoprazole Sodium 40 mg 11/18/24 21:19 12/05/24 09:05
Pantoprazole 40 Mg Delayed Release Tablet PO 12/16/24 21:18 40 mg
BID GERSON Administration
Polyethylene Glycol 17 grams 11/19/24 08:00 12/05/24 09:07
Polyethylene Glycol Powder 17 Grams Packet PO 12/17/24 07:59 17 grams
DAILY GERSON Administration
Simethicone 80 mg 11/18/24 22:00 12/05/24 09:04
Simethicone 80 Mg Chewable Tablet PO 12/16/24 21:59 80 mg
TID GERSON Administration
Sodium Chloride 0 flush 11/18/24 22:00 12/01/24 16:02
Sodium Chloride 0.9% (Flush) Syringe IV 12/16/24 21:59 1 flush
PER PROTOCOL GERSON Administration
Spironolactone 25 mg 11/20/24 10:00 12/05/24 09:04
Spironolactone 25 Mg Tablet PO 12/18/24 09:59 25 mg
DAILY GERSON Administration
Review of Systems
-
ROS is notable for HPI, otherwise negative
Physical Exam
-
General: No Apparent Distress
HEENT: Moist Mucous Membranes; Negative Jaundice
Cardiology: Normal Sinus Rhythm
Pulmonary: Clear
GI: Soft
Extremities: Pulses Present and Edema (b/l LE edema)
Neurology: Non Focal
Skin: Warm
Psych: Calm
Labs
Lab Results
WBC 7.3 10^3/uL (4.8-10.8) 12/05/24 05:43
RBC 4.09 10^6/uL (4.20-5.40) L 12/05/24 05:43
Hgb 10.6 g/dL (12.0-16.0) L 12/05/24 05:43
Hct 32.8 % (37.0-47.0) L 12/05/24 05:43
MCV 80.2 fL (81.0-99.0) L 12/05/24 05:43
MCH 25.9 pg (27.0-31.0) L 12/05/24 05:43
MCHC 32.3 g/dL (33.0-37.0) L 12/05/24 05:43
RDW 15.1 % (11.5-14.5) H 12/05/24 05:43
Plt Count 645 10^3/uL (130-400) H 12/05/24 05:43
MPV 8.6 fL (7.4-10.4) 12/05/24 05:43
Abs Immat Gran (auto) 0.1 10^3/uL (0-0.05) H 12/05/24 05:43
Absolute Neuts (auto) 4.9 10^3/uL (1.4-6.5) 12/05/24 05:43
Absolute Lymphs (auto) 1.0 10^3/uL (1.2-3.4) L 12/05/24 05:43
Absolute Monos (auto) 0.8 10^3/uL (0.1-0.6) H 12/05/24 05:43
Absolute Eos (auto) 0.4 10^3/uL (0-0.7) 12/05/24 05:43
Absolute Basos (auto) 0.0 10^3/uL (0-0.2) 12/05/24 05:43
Immature Gran % 1.0 % (0-0.5) H 12/05/24 05:43
Neutrophils % 67.9 % (42.2-75.2) 12/05/24 05:43
Lymphocytes % 14.2 % (20.5-51.1) L 12/05/24 05:43
Monocytes % 11.3 % (1.7-9.3) H 12/05/24 05:43
Eosinophils % 5.2 % (0-6) 12/05/24 05:43
Basophils % 0.4 % (0-2) 12/05/24 05:43
Creatinine 1.2 mg/dL (0.6-1.0) H 12/05/24 05:43
Vital Signs
Vital Signs
Temp Pulse Resp BP Pulse Ox
98.3 F 81 20 109/59 93
12/05/24 07:30 12/05/24 09:04 12/05/24 07:30 12/05/24 09:04 12/05/24 07:30
--- NOTE | 2024-12-05 11:18 | W.PN.ID1 ---
Date of Service
Date of Service: December 05, 2024
Today's Communication
Continue abx.
Assessment / Plan
Recurrent ascites
Suspected SBP (by PMN count)
- Cx's negative to date
Left pleural effusion
Recent pulmonary embolism (requiring cath directed thrombolysis)
DM
HTN
CKD
PE
HLD
Colon polyps
Obesity
Recommendations:
At present, etiology of suspected SBP is unclear.
- Ascites cultures from 11/19/24, 11/29/24 and 12/02/24 all negative.
- Despite empiric therapy (ceftriaxone x 4 days), significant PMN count remains.
- ?slow recovery vs. ?resistant organism vs. ?non-infectious vs ?other
Continue empiric ertapenem 1 g IV every 24 hours (d#3)
Repeat paracentesis in the next several days to assess for improvement.
Ascites fluid from 11/29 and 12/02 sent for AFB stain/cx
Monitor white count and temperature curve.
Chief Complaint
-: Other (SBP; Recurrent ascites)
Subjective / Review of Systems
Review of Systems: No Fever, No Chills, No Abdominal Pain, Nausea and No Vomiting
Vital Signs / Physical Exam
Vital Signs
Vital Signs
Temp Pulse Resp BP Pulse Ox
98.3 F 81 20 109/59 93
12/05/24 07:30 12/05/24 09:04 12/05/24 07:30 12/05/24 09:04 12/05/24 07:30
Physical Exam
Constitutional: No Acute Distress, Comfortable and Non-toxic
Eyes: Sclera Anicteric
Cardiovascular: S1/S2; Negative S3/S4
Pulmonary: Clear and Non Labored
Gastrointestinal: Soft, Non Tender, Non Distended, Normal Bowel Sounds, No Rebound and No Guarding
Extremities: Edema (trace); Negative Erythema
Neurological: Awake and Alert
Psychological: Calm
Objective Data
Lab Data
Lab Results
12/05/24 05:43
12/05/24 05:43
PT 18.3 Sec (11.4-14.6) H 12/05/24 05:43
INR 1.47 12/05/24 05:43
Estimated Creat Clear 48 ml/min 12/05/24 05:43
Total Bilirubin 0.6 mg/dl (0.2-1.3) 12/05/24 05:43
AST 14 U/L (14-36) 12/05/24 05:43
ALT 11 U/L (0-35) 12/05/24 05:43
Alkaline Phosphatase 75 U/L (38-126) 12/05/24 05:43
Most recent labs reviewed.
Micro Results:
12/02/24 14:43 Body Fluid Culture - Preliminary
Peritoneal Fluid No Growth After 18-24 Hours
Gram Stain - Preliminary
12/02/24 14:43 Acid Fast Bacilli Smear - Pending
Peritoneal Fluid Acid Fast Bacilli Culture - Pending
11/29/24 13:21 Acid Fast Bacilli Smear - Pending
Peritoneal Fluid Acid Fast Bacilli Culture - Pending
11/29/24 13:21 Body Fluid Culture - Final
Peritoneal Fluid No Growth After 72 Hours
Gram Stain - Final
11/20/24 14:49 Body Fluid Culture - Final
Pleural Fluid No Growth After 72 Hours
Gram Stain - Final
11/19/24 12:02 Body Fluid Culture - Final
Peritoneal Fluid No Growth After 72 Hours
Gram Stain - Final
11/18/24 17:14 Influenza Types A & B ([place]) - Final
Nasal Swab Negative for Influenza A & B, NAAT
Negative results must be combined with clinical observations
and patient history.
Nucleic Acid Amplification test (NAAT)performed on the
[employer]Pura platform.
Imaging:
12/01/2024 Abdominal ultrasound (Doppler): Appropriate hepatoportal flow is seen in the main portal vein. Normal hepatoportal flow demonstrated within the left and right portal veins. Normal arterial waveform is seen in the hepatic artery. There
is normal phasicity in the hepatic veins. No evidence of hepatic venous thrombosis.
[2024-12-05 11:55] LABS: Iron 36 ug/dl (37-170)
[2024-12-05 12:05] LABS: Percent Saturation 17 % (20-50); Total Iron Binding Capacity 208 ug/dl (265-497)
[2024-12-05 12:35] LABS: Glucose - Point of Care 96 mg/dl (70-99)
--- NOTE | 2024-12-05 14:38 | W.PN.GI.CBS2 ---
Today's Communication / Plan
-
Continue further recommendation as per RESIDENTIAL ROOFER/oncology
Assessment / Plan
-
Pt is a 73yo with hx asthma, HTN, hypercholesterolemia, CKD, NIDDM, colon polyps, obesity, adrenal cyst, LE edema with onset of shortness of breath and lightheadedness with recent [facility] admission with 10/23/24-11/01/24 with PE significantly enlarged
right ventricle and right atrium with right heart strain-- also noted large amount of ascites. She completed thrombolysis from 10/23 til 10/24 with improvement embolus burden and noted with nausea then vomited large amount of coffee ground emesis.
She was seen by GI for ascites and bleeding. She completed EGD 10/25 with normal esophagus, gastritis in cardia likely tacho erosions, normal duodenum. hbg was as low as 7.7 but improved to 9-10 range on this admission with Eliquis use. No known
hx liver disease, fatty liver, or heavy ETOH use in past. Noted with normal INR (prior to Eliquis use),initial normal platelet then with further rise during last admission and normal LFT's.
12/02- para With removal of 1300 cc.prelim cx - negative, fluid WBC 2848, mononuclear cell 66.3%, PMN 33.7% , total protein 4.9, no recent serum alb to calculate SAAG
11/29- para with removal of 2300 cc. fluid cx - neg. fluid WBC 2009, mononuclear 75.7%, PMN 24.3%
11/19/24- para 10 liter SAAG 1.2 with elevated protein 3.9 neg SBP, , amylase 43, cytology negative
10/25/24- para 6500ml SAAG 0.5 protein 4.2, path neg malignant cells
10/23/24 echo-Normal left ventricular systolic function with estimated ejection fraction 55
to 60% Dilated and hypokinetic right ventricle Moderate tricuspid regurgitation
-recurrent ascites initial tap with low SAAG high protein then repeat high SAAG, high protein
-LE edema
-recent PE with right ventricular strain, right atrium and right heart strain
-recent coffee ground emesis concern for tacho lesions
-anemia
-hyponatremia
-hypoalbuminemia
-constipation
-moderate TR
other medical problems:
-colon polyps
-HTN
-asthma
-CKD
-NIDDM
-obesity
CT abd/pel with contrast 12/04
IMPRESSION:
There is a large cystic lesion extending from the left upper pelvis into the left hemiabdomen measuring up to 22.7 cm with associated mass effect. This likely represents enlargement of the previously seen left adnexal cystic lesion and is concerning
for ovarian neoplasm. There is a small focus along the inferior aspect of the lesion which appears to extend to the anterior abdominal wall. A large hematoma is possible although considered less likely.
Moderate left and trace right pleural effusion with adjacent atelectasis.
Small volume ascites.
PLAN:
Patient with recurrent ascites -initially thought to be cardiac in origin with high SAAG, high protein in the fluid. Initial paracentesis 10/25 fluid analysis negative for SBP. Cytology negative on fluid 11/19/2024. Fluid amylase was normal
Patient continues to reaccumulate fluid despite improvement in echo. And paracentesis from showing elevated fluid WBC with PMN > 250. Predominant cells in the fluid was mononuclear cells. Repeat paracentesis 12/02 -similar pattern. Fluid
cultures were negative on those occasions.
Patient denies any abdominal pain. No fever spikes. No leukocytosis.
Previous imaging liver was normal. Previous liver tests were normal. Platelets were normal. High protein in the ascitic fluid-not in favor of liver cirrhosis as the etiology of ascites
Considering high-protein ascites with predominant mononuclear cells in the fluid I agree with ID checking fluid for AFB stain/culture to rule out possibility of TB.
If repeat paracentesis fluid repeat cytology again (cytology negative 11/19/2024)
CT abdomen/pelvis with contrast 12/04 -pelvic mass noted. No other acute GI pathology noted. Continue further recommendation as per oncology/RESIDENTIAL ROOFER
Repeat liver tests were normal
Continue empirical antibiotic as per ID for now
No further GI recommendations at this point. Will sign off. Please call us back if any questions
Total Time Spent with Patient (in minutes): 35
Subjective
Subjective
Date of Service: December 05, 2024
No GI complaints
Objective
Data Reviewed
Laboratory Data:
Laboratory Results
12/05/24 05:43
12/05/24 05:43
Laboratory Results
PT 18.3 Sec (11.4-14.6) H 12/05/24 05:43
INR 1.47 12/05/24 05:43
Phosphorus 4.0 mg/dl (2.5-4.5) 11/19/24 07:52
Magnesium 1.7 mg/dl (1.6-2.3) 12/04/24 06:53
Total Bilirubin 0.6 mg/dl (0.2-1.3) 12/05/24 05:43
AST 14 U/L (14-36) 12/05/24 05:43
ALT 11 U/L (0-35) 12/05/24 05:43
Alkaline Phosphatase 75 U/L (38-126) 12/05/24 05:43
Vital Signs and I&O:
Vital Signs
Temp Pulse Resp BP Pulse Ox
98.3 F 81 20 109/59 93
12/05/24 07:30 12/05/24 09:04 12/05/24 07:30 12/05/24 09:04 12/05/24 13:13
I&O
12/04/24 12/05/24 12/06/24
06:59 06:59 06:59
Intake Total 450 / 450 960 / 960
Balance 450 / 450 960 / 960
Physical Exam
Physical Exam
GI: Soft, Distended (Mildly distended) and Non Tender
[2024-12-05 15:06] VITALS: BP 112/48
[2024-12-05 16:15] LABS: Folate 2.9 ng/ml (2.76-20); Vitamin B12 301 pg/ml (239-931)
[2024-12-05] MEDS: INVANZ 60 MG IV (16:36)
[2024-12-05 17:24] LABS: Glucose - Point of Care 111 mg/dl (70-99)
[2024-12-05 21:34] LABS: Glucose - Point of Care 152 mg/dl (70-99)
[2024-12-05] MEDS: ZESTRIL 20 MG PO (21:43)
[2024-12-05 23:26] VITALS: BP 102/54
[2024-12-06 05:10] VITALS: BMI 39.2
[2024-12-06] MEDS: SYNTHROID 50 MCG PO (05:55)
--- NOTE | 2024-12-06 05:55 | W.CON.GYNONC ---
Chief Complaint
-
abdominal-pelvic mass, ascites
History of Present Illness
74yo F readmitted to hospital, I was asked to see her for pelvic mass evaluation
-initially hospitalized 10/21-11/01 for pulmonary emboli that required thrombolytics. Her hospital course was complicated by ascites for which paracentesis cytology and culture were negative.
-She re-presented 11/18/2024 due to increased SOB and weight gain.
-She has been receiving diuretics for acute on chronic HFpEF. She has undergone repeat paracentesis for recurrent ascites on 11/19 11/29, and 12/02.
-Ascites cytology was negative for malignancy x 2
She was started on abx for suspected SBP based on PMN count. and cultures are negative to date.
-She also underwent left thoracentesis for left pleural effusion on 11/20, no cytology is available for review. Her labs are notable for Hgb 10.6, platelet count 645,000, creatinine 1.2, calcium 10.7. Her Hgb was as low as 7.7g/dL during her October
2024 hospitalization that was treated with 1U PRBC.
-She did undergo an EGD 10/25 with normal esophagus, gastritis in cardia likely Sterling erosions, normal duodenum.
-She had a CT ab/pelvis w IV & oral contrast on 12/04/2024 that showed a large cystic lesion extending from the left upper pelvis into the left abdomen measuring up to 22.7 cm with associated mass effect. There is a small focus along the inferior
aspect of the lesion which appears to extend to the anterior abdominal wall.
Medical History
Allergies
Allergies reflect when allergies were last updated in [facility].
codeine Allergy (Verified 11/18/24 13:48)
Nausea / Vomiting
Influenza Virus Vaccines Allergy (Verified 11/18/24 13:48)
Tongue Swelling
meperidine [From Demerol] Allergy (Verified 11/18/24 13:48)
Unknown
Phenothiazines Allergy (Verified 11/18/24 13:48)
Unknown
Sulfa (Sulfonamide Antibiotics) Allergy (Verified 11/18/24 13:48)
Unknown
Physical Exam
Vital Signs / I&O
Vitals
Temp Pulse Resp BP Pulse Ox
98.6 F 87 18 102/54 96
12/05/24 23:26 12/05/24 23:26 12/05/24 23:26 12/05/24 23:26 12/05/24 23:26
I&O
12/03/24 12/04/24 12/05/24 12/06/24
06:59 06:59 06:59 06:59
Intake Total 1180 / 1180 450 / 450 960 / 960 720 / 720
Balance 1180 / 1180 450 / 450 960 / 960 720 / 720
Physical Exam
General: No Apparent Distress
HEENT: Moist Mucous Membranes; Negative Jaundice
Cardiology: Normal Sinus Rhythm
Pulmonary: Clear
GI: Soft, paplble mass left abdomen, fluid wave, no HSM
Extremities: Pulses Present and Edema (b/l LE edema)
pelvic exam deferred
Neurology: Non Focal
Skin: Warm
Psych: Calm
Results
-
12/05/24 05:43
12/05/24 05:43
[facility]
[address] [place] [address]
[phone]
Patient Name: EDWIN COLE
: 1950
Unit Number: [id number]
Age/Sex: 74/F
Patient
Location: [address] [place] [address]
Order Provider: Kisha Daniel MD
Exam Service Date: 12/04/24

Diagnostic Imaging Report
SignedOrder #:[id number]
Exams: CT Abd/pel W Iv And Oral Contr
PROCEDURES: CT Abd/pel W Iv And Oral Contr
CLINICAL INDICATION: recurrent ascites
TECHNIQUE: Multiphasic CT of the abdomen and pelvis was performed from the lung bases to the pubic symphysis following the uneventful intravenous administration of 100 mL of Omnipaque 350. Scanning was performed during both the portal venous and
delayed phases of enhancement. Axial reconstructions and sagittal and coronal reformats provided. Automated dose reduction technique was utilized for this exam.
Automated dose reduction technique was utilized for this exam.
COMPARISON: CT abdomen pelvis 02/24/2021.
FINDINGS:
Lower Chest: Moderate left and trace right pleural effusions with adjacent atelectasis.
Abdomen:
Liver: within normal limits.
Bile Ducts: Within normal limits.
Gallbladder: Surgically absent.
Pancreas: Within normal limits.
Spleen: Within normal limits.
Adrenals: No discrete nodule.
Kidneys/Ureters: Moderately atrophic, more pronounced on the left.
Bowel: No obstruction or wall thickening. Mild colonic stool burden.
Peritoneum: There is a 22.7 x 16.3 x 22.0 cm cystic, mildly heterogeneous lesion within the left hemiabdomen which appears to extend into the left upper pelvis (series 201 image 54 and series 203 image 70). There is associated local mass effect or
displacement of the adjacent small and large bowel. This appears to extend nearly to the anterior abdominal wall in the left lower abdomen (series 201 image 77 There is small volume ascites present.
Reproductive Organs: There are unchanged hypodensities within the anterior pelvis.
Bladder: Poorly visualized secondary to streak artifact.
Vessels: There is no abdominal aortic aneurysm. Mild atherosclerotic calcifications.
Retroperitoneum: Within normal limits.
Abdominal Wall: There is a 5.9 x 4.8 x 10.1 cm intramuscular lipoma within the left erector spinae a within the upper lumbar spine. There is asymmetric body wall edema along the left lateral abdomen and right flank.
Bones: No suspicious lesions. Left total hip arthroplasty with associated streak artifact. There is grade 1 anterolisthesis of L4 on L5. There is severe intervertebral disc space narrowing versus sacralization of the L5 vertebral body. There is
moderate intervertebral disc space narrowing of L4-L5 with associated endplate degenerative sclerosis.
IMPRESSION:
There is a large cystic lesion extending from the left upper pelvis into the left hemiabdomen measuring up to 22.7 cm with associated mass effect. This likely represents enlargement of the previously seen left adnexal cystic lesion and is concerning
for ovarian neoplasm. There is a small focus along the inferior aspect of the lesion which appears to extend to the anterior abdominal wall. A large hematoma is possible although considered less likely.
Moderate left and trace right pleural effusion with adjacent atelectasis.
Small volume ascites.
Electronically signed by Khanh Stephenson MD, 12/05/2024 12:20 AM
Impression / Plan
-
I am ordering US of pelvis and MRI of pelvis to see what the nature of the mass is to assist in management.
her tumor markers CA125 and CEA is pending.
her ascites is negative for malignancy arguing she does not have carcinomatosis.
I dont think her pleural effusion was sent for assessment.
1. hold eliquis and convert to enoxaparin 1 mg/kg SC BID in preparation for surgery
2. Please ask cardiology to give cardiac clearance now after reccent PE and thrombolysis and CHF, although risky we may still do surgery
3. I am inclined to add her to schedule on Monday to resect this mass hoping it will improve her ascites production
4. please obtain dopplers LE now to see if residual DVT, she may benefit from IVC filter pre op if there is active clot present
5. PT eval, prehabilitaion, ambulate as much as possible or tolerated pre op
Roger Marques MD
[facility] Oncology
[phone]
[2024-12-06 07:17] LABS: CA 125 158 U/mL (0-35)
[2024-12-06 07:18] LABS: CEA 3.05 ng/ml
[2024-12-06 08:02] VITALS: BP 111/59
[2024-12-06 08:41] LABS: Glucose - Point of Care 151 mg/dl (70-99)
[2024-12-06] MEDS: FOLTX 1 TABLET PO (08:51)
[2024-12-06] MEDS: WELLBUTRIN XL (24 hour extended release) 300 MG PO (08:52)
[2024-12-06] MEDS: PROTONIX 40 MG PO ×2 (08:52→22:08)
[2024-12-06] MEDS: PHOSLO 667 MG PO ×2 (08:52→17:27)
[2024-12-06] MEDS: MIRALAX 17 GRAMS PO (08:52)
[2024-12-06] MEDS: MYLICON 80 MG PO ×3 (08:53→22:08)
[2024-12-06] MEDS: ALDACTONE 25 MG PO (08:53)
[2024-12-06] MEDS: ZESTRIL PO (08:53)
--- NOTE | 2024-12-06 10:28 | W.PN.ID1 ---
Date of Service
Date of Service: December 06, 2024
Today's Communication
Continue antibiotics
Assessment / Plan
Recurrent ascites
Suspected SBP (by PMN count)
- Cx's negative to date
Left pleural effusion
Recent pulmonary embolism (requiring cath directed thrombolysis)
Left adnexal mass
DM
HTN
CKD
PE
HLD
Colon polyps
Obesity
Recommendations:
At present, etiology of suspected SBP is unclear.
- Ascites cultures from 11/19/24, 11/29/24 and 12/02/24 all negative.
- Despite empiric therapy (ceftriaxone x 4 days), significant PMN count remains.
- ?slow recovery vs. ?resistant organism vs. ?non-infectious vs ?other
Continue empiric ertapenem 1 g IV every 24 hours (d#4)
Large adnexal mass noted on recent CT, with growth since study from 2020. Workup ongoing.
Repeat paracentesis in the next several days to assess for improvement.
Ascites fluid from 11/29 and 12/02 sent for AFB stain/cx
Monitor white count and temperature curve.
����������������������������������������������������������
Chief Complaint
-: Other (SBP; Recurrent ascites; Abdominal mass)
Subjective / Review of Systems
Patient seen and examined. Denies fevers or chills. Denies significant abdominal discomfort.
Vital Signs / Physical Exam
Vital Signs
Vital Signs
Temp Pulse Resp BP Pulse Ox
98.2 F 78 18 111/59 94
12/06/24 08:02 12/06/24 08:53 12/06/24 08:02 12/06/24 08:53 12/06/24 08:02
Physical Exam
Constitutional: No Acute Distress, Comfortable and Non-toxic
Eyes: Sclera Anicteric
Cardiovascular: S1/S2; Negative S3/S4
Pulmonary: Clear and Non Labored
Gastrointestinal: Soft, Non Tender and Normal Bowel Sounds
Extremities: Edema (trace); Negative Erythema
Skin: Warm and Dry
Neurological: Awake and Alert
Psychological: Calm
Objective Data
Lab Data
Lab Results
12/05/24 05:43
12/05/24 05:43
PT 18.3 Sec (11.4-14.6) H 12/05/24 05:43
INR 1.47 12/05/24 05:43
Estimated Creat Clear 48 ml/min 12/05/24 05:43
Total Bilirubin 0.6 mg/dl (0.2-1.3) 12/05/24 05:43
AST 14 U/L (14-36) 12/05/24 05:43
ALT 11 U/L (0-35) 12/05/24 05:43
Alkaline Phosphatase 75 U/L (38-126) 12/05/24 05:43
Most recent labs reviewed.
Micro Results:
11/29/24 13:21 Acid Fast Bacilli Smear - Preliminary
Peritoneal Fluid Acid Fast Bacilli Culture - Preliminary
12/02/24 14:43 Acid Fast Bacilli Smear - Preliminary
Peritoneal Fluid Acid Fast Bacilli Culture - Preliminary
12/02/24 14:43 Body Fluid Culture - Preliminary
Peritoneal Fluid No Growth After 48 Hours
Gram Stain - Preliminary
11/29/24 13:21 Body Fluid Culture - Final
Peritoneal Fluid No Growth After 72 Hours
Gram Stain - Final
11/20/24 14:49 Body Fluid Culture - Final
Pleural Fluid No Growth After 72 Hours
Gram Stain - Final
11/19/24 12:02 Body Fluid Culture - Final
Peritoneal Fluid No Growth After 72 Hours
Gram Stain - Final
11/18/24 17:14 Influenza Types A & B ([place]) - Final
Nasal Swab Negative for Influenza A & B, NAAT
Negative results must be combined with clinical observations
and patient history.
Nucleic Acid Amplification test (NAAT)performed on the
[employer] platform.
Imaging:
12/04/24 CT abdomen/pelvis with contrast: A large cystic lesion extending from the upper left pelvis into the left hemiabdomen measuring up to 22 cm with associated mass effect. This likely represents enlargement of the previously seen left adnexal
cystic lesion, and is concerning for ovarian neoplasm. Please see full dictation for additional detail.
12/01/2024 Abdominal ultrasound (Doppler): Appropriate hepatoportal flow is seen in the main portal vein. Normal hepatoportal flow demonstrated within the left and right portal veins. Normal arterial waveform is seen in the hepatic artery. There
is normal phasicity in the hepatic veins. No evidence of hepatic venous thrombosis.
[2024-12-06] MEDS: LOVENOX 100 MG SC ×2 (10:30→22:08)
[2024-12-06] MEDS: NOVOLOG FLEXPEN-LOW RESISTANCE 1 UNITS SC (10:31)
[2024-12-06] MEDS: CYANOCOBALAMIN 1000 MCG IM (10:32)
[2024-12-06] MEDS: DESENEX/MITRAZOL/ZEASORB 1 APPLIC TOPICAL ×2 (10:32→22:08)
--- NOTE | 2024-12-06 11:33 | W.PN.HOSP.TC ---
Addendum entered and electronically signed by Tara Dawson MD 12/06/24 13:57:
I saw and evaluated the patient. I reviewed the resident�s note and agree with findings and plan as documented in the resident�s note.
A/P:
# Recurrent ascites
# Acute Right heart failure, Acute Cor pulmonale
s/p paracentesis x 3: first para 4/2 and 10 L removed (no SBP), second para 4/11 (noted SBP), third para 4/14 with persistent SBP (worsening WBC/SBP).
Of note, Echo unrevealing, improved RV size and function. EF 50-55%
RHC 11/29 with euvolemic, normal wedge, unsure if cardiac in origin
s/p aggressive IV Lasix course
Card recc to resume 40mg po Lasix when weight is 236 lbs and an additional pm dose on days weight jumps wt is 240 or higher
GDMT: continue Aldactone, Lisinopril. SGLT2i avoided due to recent UTI
# Recurrent ascites with persistent SBP/worsening ascitic fluid polymorph
Gram stain and culture from para unrevealing,
Ceftriaxone was changed to ertapenem per ID,
CT AP obtained which noted possible left adnexal cystic lesion, concerning for ovarian neoplasm- this could be contributing to her persistent ascites with elevated polymorph
Pelvis ultrasound confirmed large heterogeneous cystic and solid lesion within the left adnexa suspicious for ovarian neoplasm
Check MRI pelvis
Of note, CA 125 elevated at 158
CLEANER GREASER oncologist on board, possible surgery
Oncologist on board
holding Eliquis and use Lovenox SQ therapeutic dose
Cardiology reconsult for preop clearance
# Acute hypoxic respiratory insufficiency, resolved
now on RA
# L pleural effusion
s/p IR thoracentesis 11/20 and removed 1000 cc straw-colored pleural fluid, transudative fluid
Check repeat CXR 12/06
# Recent Pulmonary Embolism- October 2024
Echo from 10/23/24: Normal left ventricular systolic function with EF 55-60%. Dilated and hypokinetic right ventricle
Eliquis replaced with therapeutic Lovenox
With new finding of left ovarian mass which is concerning for neoplasm, this could be the culprit for her recent VTE/pulm embolism
Lower extremity ultrasound negative for DVT
# Diabetes Mellitus, Type II
HgbA1c 5.8 in October 2024
# Essential Hypertension
continue lisinopril with hold parameters
# CKD Stage III
creatinine at baseline at 1.1
# Hyperphosphatemia
on calcium acetate
# Chronic Normocytic Anemia
Hgb appears stable compared to previous
# Asthma, no acute exacerbation
continue albuterol PRN
# Anxiety/Depression
continue Wellbutrin
# Gastritis/Gastric Erosions
continue Protonix BID
# Chronic Lower Extremity Lymphedema
# Class III Obesity
Affects all aspects of care
DVT ppx: Eliquis
Dispo plan: SNF
Patient does not want her daughter to know about her left ovarian mass finding yet. She states that her daughter is on vacation and does not want to ruin her vacation. She is okay with us updating her daughter tomorrow 12/07/2024
total time 51 min
Original Note:
Today's Communication/Plan
-
MRI pelvis to check mets
Venous ultrasound r/o DVT
Chest x-ray and potential thoracentesis
May need paracentesis
Switch to enoxaparin
Plan for possible resection/surgery next week (Monday or Mon)
Cardiac clearance
Assessment / Plan
Assessment / Plan
Assessment:
Recurrent ascites from Right heart failure, acute in setting of Acute Cor pulmonale
- s/p IR paracentesis / and 10 L removed. s/p albumin for large volume para. s/p repeat paracentesis 11/29 2.3 L removed.
- Ascitic fluid culture negative, cytology negative. SAAG 1.1/1.2
- Echo unrevealing, improved RV size and function. EF 50-55%.
- Appreciate GI input - felt ascites related to R sided CHF
- Appreciate Card input; RHC 11/29 with euvolemic, normal wedge, unsure if cardiac in origin
- UA with proteinuria but not nephrotic range
- check Doppler for budd chiari syndrome--negative hepatic vein thrombosis
- s/p aggressive IV Lasix course; now on oral Lasix. >60 lbs lost.
- Cardiology recommended to resume 40 mg p.o. Lasix when weight is 236lbs and additional p.m. dose on days when wt is 240 lbs or higher
- GDMT: continue Aldactone, Lisinopril. SGLT2i avoided due to recent UTI
Left adnexal cystic lesion concerning for ovarian neoplasm on CT
[employer]ER [employer]ER oncology following
Plan for resection of the tumor possibly on Monday or Monday, spoke with Dr. Marques
Lower extremity venous ultrasound to rule out DVT
If clot present then plan for IVC filter
Switch to enoxaparin q12
MRI pelvis to check mets
Chest x-ray for pleural effusion, if needed then thoracentesis, may also need paracentesis because of distended abdomen and 9lbs weight gain since yesterday.
IR on board
Cardiology clearance needed for surgery
SBP
- continue Rocephin, day 3
- IV albumin day 1 and 3 ordered - course completes on Monday
Repeat paracentesis 12/02/ removed 1.3 L, with PMN of 819
ID following, continue IV ertapenem
GI following
Negative AFB culture
Acute hypoxic respiratory insufficiency, resolved
- now on RA
L pleural effusion
- s/p IR thoracentesis 11/20 and removed 1000 cc straw-colored pleural fluid
- Transudative fluid
Recent Pulmonary Embolism - October 2024
- Echo from 10/23/24: Normal left ventricular systolic function with EF 55-60%. Dilated and hypokinetic right ventricle
- Continue Eliquis
Diabetes Mellitus, Type II
- HgbA1c 5.8 in October 2024
Essential Hypertension
- continue lisinopril with hold parameters
CKD Stage III
- creatinine at baseline
Hyperphosphatemia
- continue calcium acetate
Chronic Normocytic Anemia
- Hgb appears stable compared to previous
Asthma, no acute exacerbation
- continue albuterol PRN
Anxiety/Depression
- continue Wellbutrin
Gastritis/Gastric Erosions
- continue Protonix BID
Chronic Lower Extremity Lymphedema
- Lasix as above
Class III Obesity
- Affects all aspects of care
DVT ppx: Eliquis
Code Status: Full
Anticipated Discharge: > 48 hours
Subjective/Interval History
-
Date of Service: December 06, 2024
No overnight event
Objective Data
-
Vital Signs:
Vital Signs
Temp Pulse Resp BP Pulse Ox
98.2 F 78 18 111/59 94
12/06/24 08:02 12/06/24 08:53 12/06/24 08:02 12/06/24 08:53 12/06/24 08:02
I&O
12/05/24 12/06/24 12/07/24
06:59 06:59 06:59
Intake Total 960 / 960 720 / 720 240 / 240
Balance 960 / 960 720 / 720 240 / 240
Review of Systems
-
All other systems: Reviewed and negative
Physical Exam
-
General: Comfortable
HEENT: Normocephalic and Atraumatic
Respiratory: Clear to Auscultation
Cardiac: Regular Rhythm and S1/S2
GI: Nontender and Distended
Musculoskeletal: Edema, Right Lower Extrem and Edema, Left Lower Extrem
Neuro: AO x 3
Psych: Calm
Data Reviewed
-
CT Scan: Image personally visualized and interpreted, Report Reviewed by me and Discussed with Physician
Labs: Labs Reviewed by me and Discussed with Physician
[2024-12-06 12:30] LABS: Glucose - Point of Care 141 mg/dl (70-99)
--- NOTE | 2024-12-06 12:38 | W.PN.CD ---
Addendum entered and electronically signed by Vincent Bañuelos MD 12/08/24 14:56:
I saw and examined the patient.
The HAND SUTURE WINDER's note was reviewed and I agree with the note.
Comment:
74F with morbid obesity, chronic lymphedema bilateral lower extremities, CKD 3, hyperlipidemia and recent admission in October for acute bilateral pulmonary embolism with obstructive shock and evidence of right heart failure status post thrombolysis
presents for recurrent shortness of breath, weight gain and abdominal distention, found to have ovarian mass with plan for resection on 12/09/2024.
Physical exam: Obese female, appears comfortable, regular rate and rhythm, systolic murmur, chronic venous stasis changes, clear lungs.
ECG: NSR with poor R wave progression and nonspecific ST�T wave abnormality. Stable.
In terms of preoperative risk stratification, she is unable to complete 4 METs due to immobility. She has no signs/symptoms of unstable angina, decompensated heart failure, or unstable arrhythmia. We could perform stress test but this will delay
planned surgery tomorrow. She is at elevated risk (see NSQIP below) with 20% risk of serious complication. This is largely due to recent thromboembolism, ascites, and decompensated heart failure. The risk of cardiac complication is low (0.8%).
We will plan to assist in managing risk factors to make surgery as safe as possible. Her apixaban has been converted to enoxaparin. She examines euvolemic. No diuretics currently. We will need to reevaluate after surgery.
Original Note:
Today's Communication / Plan
-
Cardiac risk assessment as below.
EKG
Impression / Plan
-
I/P: 74F with morbid obesity, chronic lymphedema bilateral lower extremities, CKD 3, hyperlipidemia and recent admission in October for acute bilateral pulmonary embolism with obstructive shock and evidence of right heart failure status post
thrombolysis presents for recurrent shortness of breath, weight gain and abdominal distention.
Outpatient machinist linotype: will be Dr. Howe
Pre-op Risk Assessment - Resection of a left ovarian mass
-Denies CP. Unable to complete four METS due to immobility
-Update EKG
-Apixaban converted to enoxaparin
-Risk calculated below.
HFpEF, acute on chronic
Cor Pulmonale/Right heart failure, acute
-Presented with severe HFpEF exacerbation
-TTE 11/20/2024: LVEF 50-55%, normal RV, mild TR, PASP 39
-Body habitus and chronic lymphedema, make volume exam impossible.
-RHC 11/29/2024: PCWP 12 RA 10 at wt of 236.5 lbs
-Continue daily weight & sodium restriction
-Lasix 40mg PO when weight is 236lbs and an additional pm dose on days weight is 240 or higher
-Continue spironolactone
-Recent UTI, so will avoid SGLT2i at this time
Recent pulmonary emboli with obstructive shock s/p thrombolysis 10/23/2024
-Apixaban transitioned to enoxaparin per surgery
-Management of apixaban long-term per hematology
Ascites, recurrent, with suspected SBP
-Paracentesis: 1300 mL 12/02/2024, 2300 mL on 11/29/2024, 10,000 mL on 11/19/2024
-Initially attributed to R heart failure but does not fully explain ascites as R heart failure was acute and quickly resolved
Lymphedema, chronic, stable, continue compression
HTN, chronic & stable on meds, continue.
CKD, chronic, stable
Obesity, BMI 39, affects all aspects of care, she would benefit from weight loss
SUBJECTIVE:
she is feeling well without complaint
DATA:
RHC, 11/29/24:
WT 107.5kg
PA (s/d/x mmHg):
PCWP (a/v/x mmHg):
RV (s/x mmHg): 48/10
RA (a/v/x mmHg): 04/08/10
PVR = 3.66 Pradhan units
Conclusion: Normal filling pressures at 107.5kgm Mild, precapillary pulmonary hypertension (mean PA = 29 mmHg, PCWP = 12 mmHg, cardiac output 4.65 L/min, PVR = 3.66 Pradhan units).
Physical Exam
Vital Signs/Labs
Vital Signs
Temp Pulse Resp BP Pulse Ox
98.2 F 78 18 111/59 94
12/06/24 08:02 12/06/24 08:53 12/06/24 08:02 12/06/24 08:53 12/06/24 08:02
12/05/24 12/06/24 12/07/24
06:59 06:59 06:59
Actual Weight 99.082 kg 103.532 kg
12/05/24 05:43
12/05/24 05:43
PT 18.3 Sec (11.4-14.6) H 12/05/24 05:43
INR 1.47 12/05/24 05:43
Magnesium 1.7 mg/dl (1.6-2.3) 12/04/24 06:53
Free T4 1.80 ng/dl (0.78-2.19) 11/30/24 05:41
11/18/24
14:10
[id number] Pept 687
Physical Exam
Constitutional: No acute distress and Comfortable
EENT: Anicteric and Moist mucous membranes
Cardiovascular: Rhythm & rate is regular, Pedal edema present and S1S2 is normal
Respiratory: Respiratory effort normal and Lungs clear to auscul.
GI: Soft and Non tender
Neuro/Psych: AO x 3
Other: Skin (Warm and dry)
Data Reviewed
-
Date of Service: December 06, 2024
EKG: Ordered by me
Labs: Labs Reviewed by me
Old Records: Reviewed
[2024-12-06] MEDS: NOVOLOG FLEXPEN-LOW RESISTANCE SC ×2 (12:48→17:20)
--- NOTE | 2024-12-06 14:12 | W.PN.UPDATE ---
Update Note
Progress Note Update
Pt not seen today due to being off floor for multiple tests.
Chart reviewed:
Pelvic U/S: 23 x 15.3 x 20 cystic adnexal mass. CA 125 is elevated at 158, concerning for ovarian primary -> Dr. Marques planning surgery
CEA normal, CA 19-9 pending
B12 low at 301 -> ordered IM B12. 1000 mcg daily x 7, then weekly x 4, then month.
Folate low at 2.9, already on folic acid although ideally B12 would have been optimized first.
Hx PE 3/, managed with Eliquis. Now transitioned to Lovenox in anticipation of surgery. No residual DVT on today's Dopplers, may forgo IVC filter placement.
Hypercalcemia noted, might this be due to calcium acetate (Phoslo)? Mgt as per primary team
Will round on pt over the weekend.
[2024-12-06 14:18] VITALS: BP 98/72; BP_SYST 91
[2024-12-06 16:12] VITALS: BP 111/65
--- NOTE | 2024-12-06 16:19 | CM ---
Maintained on IV antibiotics per BRANDI POOLE.
Continues to be followed by Cardiology
Spoke with Gisela at [facility] pt will be accepted back.
Gisela said pt is medicare and does not need an auth to return to facility.
Pt will need ambulance
[facility]
report [phone]
fax [phone]
Plan return to [facility] [place]
[2024-12-06] MEDS: PHOSLO PO (16:40)
[2024-12-06 17:19] LABS: Glucose - Point of Care 97 mg/dl (70-99)
[2024-12-06] MEDS: INVANZ 60 MG IV (17:27)
[2024-12-06 21:45] LABS: Glucose - Point of Care 197 mg/dl (70-99)
[2024-12-06] MEDS: ZESTRIL 20 MG PO (22:08)
[2024-12-06 23:40] VITALS: BP 98/45
[2024-12-07] MEDS: SYNTHROID 50 MCG PO (04:36)
[2024-12-07 05:51] VITALS: BMI 39.2
[2024-12-07 06:28] LABS: Hematocrit 30.3 % (37.0-47.0); Hemoglobin 10.1 g/dL (12.0-16.0); Mean Corp Hgb Conc. 33.3 g/dL (33.0-37.0); Mean Corpuscular Hgb 25.9 pg (27.0-31.0); Mean Corpuscular Volume 77.7 fL (81.0-99.0); Mean Platelet Volume 8.3 fL (7.4-10.4); Platelet Count 520 10^3/uL (130-400); Red Cell Dist. Width 15.2 % (11.5-14.5); White Blood Cell Count 5.8 10^3/uL (4.8-10.8)
[2024-12-07 06:46] LABS: Blood Urea Nitrogen 50 mg/dl (7-17); Calcium 10.5 mg/dl (8.4-10.2); Carbon Dioxide 23 mmol/L (22-30); Chloride 100 mmol/L (98-107); Estimated Creatinine Clearance 39 ml/min; Glucose 87 mg/dl (70-99); Potassium 5.2 mmol/L (3.5-5.1); Sodium 133 mmol/L (135-145); eGFR 36.57
[2024-12-07 07:10] LABS: Glucose - Point of Care 95 mg/dl (70-99)
[2024-12-07 07:21] LABS: % Basophils 0.3 % (0-2); % Eosinophils 6.4 % (0-6); % Immature Granulocytes 0.7 % (0-0.5); % Lymphocytes 20.9 % (20.5-51.1); % Monocytes 12.7 % (1.7-9.3); Absolute Eosinophils 0.4 10^3/uL (0-0.7); Absolute Lymphocytes 1.2 10^3/uL (1.2-3.4); Absolute Monocytes 0.7 10^3/uL (0.1-0.6); Absolute Neutrophils 3.4 10^3/uL (1.4-6.5); Nucleated Red Blood Cells % 0 %
[2024-12-07 07:25] VITALS: BP 110/48
--- NOTE | 2024-12-07 08:17 | W.PN.ONC ---
Today's Communication / Plan
-
await surgical decision for intervention-- continue current prophylaxis with Lovenox
Impression
Impression
incidental left adnexal cystic lesion on CT 12/04
pulmonary emboli with cor pulmonale s/p cath directed thrombolysis October 2024 now on DOAC
Recurrent ascites 10/25 and 11/19 cytology negative for malignancy
suspected SBP by PMN count - cultures negative to date from 11/19, 11/29, 12/02
left pleural effusion, s/p thora 11/20 -no cytology for review
HFpEF
possible [place] erosions on EGD October 2024
Plan
Plan
If biopsy/procedure is needed then would transition to heparin gtt and place IVC filter prior to surgery.
f/u [employer]GEN [employer] OPERATOR oncology consult
she is unsure if able to pursue MRI with prior hip replacment hardware -will defer to OXYGEN PLANT OPERATOR oncology if pelvic MRI and CT chest should be pursued during hospitalization
check Ca125
check ferritin, b12, folate, retic, monitor for bleeding
GI, ID, and cardiology following
Subjective/Objective
Subjective/Objective
Vital Signs:
Vital Signs
Temp Pulse Resp BP Pulse Ox
97.3 F 75 16 110/48 92
12/07/24 07:25 12/07/24 07:25 12/07/24 07:25 12/07/24 07:25 12/07/24 07:25
Lab Results:
Laboratory Data
WBC 5.8 10^3/uL (4.8-10.8) 12/07/24 06:01
Hgb 10.1 g/dL (12.0-16.0) L 12/07/24 06:01
Plt Count 520 10^3/uL (130-400) H 12/07/24 06:01
PT 18.3 Sec (11.4-14.6) H 12/05/24 05:43
INR 1.47 12/05/24 05:43
eGFR 36.57 12/07/24 06:01
--- NOTE | 2024-12-07 08:48 | W.PN.HOSP.TC ---
Today's Communication/Plan
-
see A/P
Assessment / Plan
Assessment / Plan
A/P:
# Recurrent ascites
# Was felt to be 2/2 Acute Right heart failure, Acute Cor pulmonale
s/p paracentesis x 3: first para 4/2 and 10 L removed (no SBP), second para 4/11 (noted SBP), third para 4/14 with persistent SBP (worsening WBC/SBP).
Of note, Echo unrevealing, improved RV size and function. EF 50-55%
RHC / with euvolemic, normal wedge, unsure if cardiac in origin
s/p aggressive IV Lasix course
Card recc to resume 40mg po Lasix when weight is 236 lbs and an additional pm dose on days weight jumps wt is 240 or higher
GDMT: continue Aldactone, Lisinopril with holding parameter. SGLT2i avoided due to recent UTI
# Recurrent ascites with persistent SBP/worsening ascitic fluid polymorph
Gram stain and culture from para unrevealing,
Ceftriaxone was changed to ertapenem per ID,
CT AP obtained noted possible left adnexal cystic lesion, concerning for ovarian neoplasm- this could be contributing to her persistent ascites with elevated polymorph
Pelvis ultrasound confirmed large heterogeneous cystic and solid lesion within the left adnexa suspicious for ovarian neoplasm
MRI pelvis confirmed complex multiseptated cystic mass in the left lower quadrant most likely of left ovarian origin within the limitations of this exam. Leading consideration would be an ovarian epithelial tumor such as a mucinous cystadenoma or
possibly a cystadenocarcinoma.
Of note, CA 125 elevated at 158
E[employer] oncologist Dr Marques on board, plan for possible surgery
Oncologist on board
holding Eliquis and use Lovenox SQ therapeutic dose preop
Cardiology reconsulted for preop clearance
# Acute hypoxic respiratory insufficiency, resolved
now on RA
# L pleural effusion
s/p IR thoracentesis 4/ and removed 1000 cc straw-colored pleural fluid, transudative fluid
repeat CXR 12/06 noted Moderate, loculated left-sided pleural effusion with adjacent airspace opacity, likely atelectasis.
# Recent Pulmonary Embolism- October 2024
Echo from 10/23/24: Normal left ventricular systolic function with EF 55-60%. Dilated and hypokinetic right ventricle
Eliquis replaced with therapeutic Lovenox
new finding of left ovarian mass which is concerning for neoplasm, could be the culprit for her recent VTE/pulm embolism
Lower extremity ultrasound negative for DVT
# Diabetes Mellitus, Type II
HgbA1c 5.8 in October 2024
# Essential Hypertension
continue lisinopril, Aldactone with hold parameters
# CKD Stage III
creatinine today at 1.5 from baseline at 1.1
Cont to monitor closely
# Hyperphosphatemia
on calcium acetate
# Chronic Normocytic Anemia
Hgb appears stable compared to previous
# Asthma, no acute exacerbation
continue albuterol PRN
# Anxiety/Depression
continue Wellbutrin
# Gastritis/Gastric Erosions
continue Protonix BID
# Chronic Lower Extremity Lymphedema
# Class III Obesity
Affects all aspects of care
DVT ppx: Eliquis -> Lovenox SQ
Dispo plan: SNF
Updated daughter on the phone extensively. Informed about current finding and plan
total time 51 min
Anticipated Discharge: > 48 hours
Subjective/Interval History
-
Date of Service: December 07, 2024
Objective Data
-
Labs:
Laboratory Results
12/07/24
06:01
WBC 5.8
Hgb 10.1 L
Hct 30.3 L
Plt Count 520 H
Sodium 133 L
Potassium 5.2 H
Chloride 100
Carbon Dioxide 23
BUN 50 H
Creatinine 1.5 H
Glucose 87
Calcium 10.5 H
Vital Signs:
Vital Signs
Temp Pulse Resp BP Pulse Ox
36.3 C 75 16 110/48 92
12/07/24 07:25 12/07/24 07:25 12/07/24 07:25 12/07/24 07:25 12/07/24 07:25
I&O
12/06/24 12/07/24 12/08/24
06:59 06:59 06:59
Intake Total 720 / 720 240 / 240
Output Total 240 / 240
Balance 720 / 720 0 / 0
[2024-12-07] MEDS: NOVOLOG FLEXPEN-LOW RESISTANCE SC ×3 (09:57→17:26)
[2024-12-07] MEDS: LOVENOX 100 MG SC ×2 (10:05→21:13)
[2024-12-07] MEDS: PHOSLO 667 MG PO ×3 (10:05→17:07)
[2024-12-07] MEDS: MYLICON 80 MG PO ×3 (10:06→22:26)
[2024-12-07] MEDS: PROTONIX 40 MG PO ×2 (10:06→21:12)
[2024-12-07] MEDS: WELLBUTRIN XL (24 hour extended release) 300 MG PO (10:06)
[2024-12-07] MEDS: CYANOCOBALAMIN 1000 MCG IM (10:07)
[2024-12-07] MEDS: ALDACTONE 25 MG PO (10:07)
[2024-12-07] MEDS: DESENEX/MITRAZOL/ZEASORB 1 APPLIC TOPICAL ×2 (10:08→21:11)
[2024-12-07] MEDS: MIRALAX 17 GRAMS PO (10:18)
[2024-12-07] MEDS: ZESTRIL PO ×2 (10:29→21:12)
[2024-12-07 12:31] LABS: Glucose - Point of Care 131 mg/dl (70-99)
[2024-12-07 15:14] VITALS: BP 111/52
--- NOTE | 2024-12-07 15:56 | W.PN.GYNONC ---
Today's Communication
-
N/A
Impression / Plan
-
I I had a lengthy conversation with the patient and her family, ideally I would like to perform surgery when patient is ambulatory and certainly outpatient as this decreases her risk of perioperative morbidity however in this circumstance I am
concerned that if she moves to rehab and returns back to the hospital there is going to be continued production of ascites and I do not feel that her mobility is going to be improving as long as there is a pelvic mass in place.
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
Reluctantly I think we need to go ahead forward with surgery even though it is high risk. I am encouraged to see that her blood clots in the lower extremities are resolved based on most recent Doppler of lower extremity. I have added her for
surgery on Monday, our plan is to perform a midline vertical skin incision and perform laparotomy, total abdominal hysterectomy bilateral salpingo-oophorectomy will be performed. Depending on the frozen section additional procedures may
be involved, there is a rare possibility that bowel resection may be necessary. I will go ahead and do a gentle bowel prep even though the patient is not ambulatory and management of her stool tomorrow is going to be somewhat problematic as she
uses a bedpan only. She is off Eliquis and is on Lovenox and anticoagulation will be held as of tomorrow. All her questions were answered. She understand risks of surgery to include infection, bleeding, injury to adjacent organs, DVT, pulmonary
embolism and cardiovascular complications. She also understands that additional surgery as well as additional treatment for potential cancer may be advised including chemotherapy
Roger Marques MD
Sheet Metal [employer] Oncology
[phone]
Subjective / Interval History
-
I spoke extensively today to patient and her sister. She has had very little in way of gynecologic care for the last 12 years since she moved from [facility]. After of her . I reviewed the results of her ultrasound and MRI
with her.
Objective Data
-
Lab Results:
12/07/24 06:01
12/07/24 06:01
Physical Exam
Vital Signs / I&O
Vitals
Temp Pulse Resp BP Pulse Ox
97.3 F 75 16 110/48 92
12/07/24 07:25 12/07/24 07:25 12/07/24 07:25 12/07/24 07:25 12/07/24 07:25
I&O
12/05/24 12/06/24 12/07/24 12/08/24
06:59 06:59 06:59 06:59
Intake Total 960 / 960 720 / 720 240 / 240
Output Total 240 / 240
Balance 960 / 960 720 / 720 0 / 0
Physical Exam
General: No Apparent Distress
Respiratory: Clear and Non Labored Respirations
Cardiac: S1/S2 and Regular Rhythm
GI: Soft and Other (Abdominal examination is significant for obesity, left-sided mass which is literally hanging on the left side of the patient and not in midline. There is evidence of hernia along the midline at prior site of laparoscopy port)
[2024-12-07] MEDS: INVANZ 60 MG IV (17:07)
[2024-12-07 17:15] LABS: Glucose - Point of Care 119 mg/dl (70-99)
[2024-12-07] MEDS: MYLICON PO (21:13)
[2024-12-07 21:15] LABS: Glucose - Point of Care 162 mg/dl (70-99)
[2024-12-07 22:06] LABS: CA 19-9 85 U/mL (<=35)
[2024-12-07 23:22] VITALS: BP 106/59
[2024-12-08] MEDS: SYNTHROID 50 MCG PO (04:55)
[2024-12-08 05:10] VITALS: BMI 39.3
[2024-12-08 05:45] LABS: % Basophils 0.3 % (0-2); % Eosinophils 5.5 % (0-6); % Immature Granulocytes 0.6 % (0-0.5); % Lymphocytes 21.2 % (20.5-51.1); % Monocytes 12.8 % (1.7-9.3); % Neutrophils 59.6 % (42.2-75.2); Absolute Eosinophils 0.4 10^3/uL (0-0.7); Absolute Lymphocytes 1.4 10^3/uL (1.2-3.4); Absolute Monocytes 0.8 10^3/uL (0.1-0.6); Absolute Neutrophils 3.8 10^3/uL (1.4-6.5); Hematocrit 31.4 % (37.0-47.0); Hemoglobin 10.1 g/dL (12.0-16.0); Mean Corp Hgb Conc. 32.2 g/dL (33.0-37.0); Mean Corpuscular Hgb 25.8 pg (27.0-31.0); Mean Corpuscular Volume 80.3 fL (81.0-99.0); Nucleated Red Blood Cells % 0 %; Platelet Count 565 10^3/uL (130-400); Red Blood Cell Count 3.91 10^6/uL (4.20-5.40); White Blood Cell Count 6.4 10^3/uL (4.8-10.8)
[2024-12-08 06:13] LABS: Blood Urea Nitrogen 48 mg/dl (7-17); Calcium 10.6 mg/dl (8.4-10.2); Carbon Dioxide 24 mmol/L (22-30); Chloride 100 mmol/L (98-107); Estimated Creatinine Clearance 42 ml/min; Glucose 98 mg/dl (70-99); Potassium 5.3 mmol/L (3.5-5.1); Sodium 134 mmol/L (135-145); eGFR 39.73
[2024-12-08 07:26] LABS: Glucose - Point of Care 99 mg/dl (70-99)
[2024-12-08 07:35] VITALS: BP 126/65
[2024-12-08] MEDS: NOVOLOG FLEXPEN-LOW RESISTANCE SC ×3 (08:24→17:41)
[2024-12-08] MEDS: MYLICON 80 MG PO ×3 (08:37→22:21)
[2024-12-08] MEDS: PHOSLO 667 MG PO ×2 (08:37→13:27)
[2024-12-08] MEDS: WELLBUTRIN XL (24 hour extended release) 300 MG PO (08:37)
[2024-12-08] MEDS: ZESTRIL PO ×2 (08:38→21:16)
[2024-12-08] MEDS: ALDACTONE 25 MG PO (08:38)
[2024-12-08] MEDS: CYANOCOBALAMIN 1000 MCG IM (08:40)
[2024-12-08] MEDS: PROTONIX 40 MG PO ×2 (08:45→21:15)
[2024-12-08] MEDS: MIRALAX 17 GRAMS PO (08:45)
[2024-12-08] MEDS: NULYTELY SOLUTION 2 LITERS PO (08:47)
[2024-12-08] MEDS: DESENEX/MITRAZOL/ZEASORB 1 APPLIC TOPICAL ×2 (08:49→21:16)
--- NOTE | 2024-12-08 09:35 | W.PN.HOSP.TC ---
Today's Communication/Plan
-
see A/P
Assessment / Plan
Assessment / Plan
A/P:
# Recurrent ascites
# Was felt to be 2/2 Acute Right heart failure, Acute Cor pulmonale
s/p paracentesis x 3: first para 4/2 and 10 L removed (no SBP), second para 4/11 (noted SBP), third para 4/14 with persistent SBP (worsening WBC/SBP).
Of note, Echo unrevealing, improved RV size and function. EF 50-55%
RHC 11/29 with euvolemic, normal wedge, unsure if cardiac in origin
s/p aggressive IV Lasix course
Card recc to resume 40mg po Lasix when weight is 236 lbs and an additional pm dose on days weight jumps wt is 240 or higher
GDMT: continue Aldactone, Lisinopril with holding parameter. SGLT2i avoided due to recent UTI
# Recurrent ascites with persistent SBP/worsening ascitic fluid polymorph
Gram stain and culture from para unrevealing,
Ceftriaxone was changed to ertapenem per ID,
CT AP obtained noted possible left adnexal cystic lesion, concerning for ovarian neoplasm- this could be contributing to her persistent ascites with elevated polymorph
Pelvis ultrasound confirmed large heterogeneous cystic and solid lesion within the left adnexa suspicious for ovarian neoplasm
MRI pelvis confirmed complex multiseptated cystic mass in the left lower quadrant most likely of left ovarian origin within the limitations of this exam. Leading consideration would be an ovarian epithelial tumor such as a mucinous cystadenoma or
possibly a cystadenocarcinoma.
Of note, CA 125 elevated at 158
SUBM[employer] DIVER oncologist Dr Marques on board, plan for surgery Saturday 12/09
Oncologist on board
holding Eliquis and use Lovenox SQ therapeutic dose preop (on hold)
Cardiology reconsulted for preop clearance
# Acute hypoxic respiratory insufficiency, resolved
now on RA
# L pleural effusion
s/p IR thoracentesis 11/20 and removed 1000 cc straw-colored pleural fluid, transudative fluid
repeat CXR 12/06 noted Moderate, loculated left-sided pleural effusion with adjacent airspace opacity, likely atelectasis.
# Recent Pulmonary Embolism- October 2024
Echo from 10/23/24: Normal left ventricular systolic function with EF 55-60%. Dilated and hypokinetic right ventricle
Eliquis replaced with therapeutic Lovenox
new finding of left ovarian mass which is concerning for neoplasm, could be the culprit for her recent VTE/pulm embolism
Lower extremity ultrasound negative for DVT
# Diabetes Mellitus, Type II
HgbA1c 5.8 in October 2024
# Essential Hypertension
continue lisinopril, Aldactone with hold parameters
# CKD Stage III
creatinine today at 1.5 from baseline at 1.1
Cont to monitor closely
# Hyperphosphatemia
on calcium acetate
# Chronic Normocytic Anemia
Hgb appears stable compared to previous
# Asthma, no acute exacerbation
continue albuterol PRN
# Anxiety/Depression
continue Wellbutrin
# Gastritis/Gastric Erosions
continue Protonix BID
# Chronic Lower Extremity Lymphedema
# Class III Obesity
Affects all aspects of care
DVT ppx: Eliquis -> Lovenox SQ (now off), use SCD while off Lovenox
Dispo plan: SNF
Updated daughter on the phone.
Anticipated Discharge: > 48 hours
Subjective/Interval History
-
Date of Service: December 08, 2024
Objective Data
-
Labs:
Laboratory Results
12/08/24
04:42
WBC 6.4
Hgb 10.1 L
Hct 31.4 L
Plt Count 565 H
Sodium 134 L
Potassium 5.3 H
Chloride 100
Carbon Dioxide 24
BUN 48 H
Creatinine 1.4 H
Glucose 98
Calcium 10.6 H
Vital Signs:
Vital Signs
Temp Pulse Resp BP Pulse Ox
36.9 C 76 18 126/65 95
12/08/24 07:35 12/08/24 07:35 12/08/24 07:35 12/08/24 07:35 12/08/24 07:35
I&O
12/07/24 12/08/24 12/09/24
06:59 06:59 06:59
Intake Total 240 / 240 720 / 720
Output Total 240 / 240
Balance 0 / 0 720 / 720
Review of Systems
-
All other systems: Reviewed and negative
Physical Exam
-
General: Well Developed, Well Nourished, No Apparent Distress and Comfortable
HEENT: Normocephalic and Atraumatic
Respiratory: Clear to Auscultation and Non Labored Respirations; Negative Accessory Resp Muscle Use
Cardiac: Regular Rhythm and S1/S2
GI: Soft and Nontender
Neuro: Awake and Alert
Psych: Calm and Intact Judgement/Insight
Data Reviewed
-
Labs: Labs Reviewed by me
--- NOTE | 2024-12-08 10:38 | W.PN.GYNONC ---
Today's Communication
-
boel prep today
surgery tomorrow
Impression / Plan
-
I had a lengthy conversation with the patient and her family, ideally I would like to perform surgery when patient is ambulatory and certainly outpatient as this decreases her risk of perioperative morbidity however in this circumstance I am
concerned that if she moves to rehab and returns back to the hospital there is going to be continued production of ascites and I do not feel that her mobility is going to be improving as long as there is a pelvic mass in place.
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
1. Bowel prep today
2. po neomycin and flagyl
3. clear liquids
4. NPO after MN
5. I discontinued lovenox
6. heparin 500 mg SC pre op
7. pre op antibitotics
She is schedule for exp laparotomy, total abdominal hysterectomy bilateral salpingo-oophorectomy will be performed.
Depending on the frozen section additional procedures may be involved, there is a rare possibility that bowel resection may be necessary. She understand risks of surgery to include infection, bleeding, injury to adjacent organs, DVT, pulmonary
embolism and cardiovascular complications. She also understands that additional surgery as well as additional treatment for potential cancer may be advised including chemotherapy
Roger Marques MD
Bridge Engineer Oncology
[phone]
Subjective / Interval History
-
she did not sleep well
does not have pain
she understood the discussion well, yesterday and seems to have a good understanding
Objective Data
-
Lab Results:
12/08/24 04:42
12/08/24 04:42
Physical Exam
Vital Signs / I&O
Vitals
Temp Pulse Resp BP Pulse Ox
98.5 F 76 18 126/65 95
12/08/24 07:35 12/08/24 07:35 12/08/24 07:35 12/08/24 07:35 12/08/24 08:11
I&O
12/06/24 12/07/24 12/08/24 12/09/24
06:59 06:59 06:59 06:59
Intake Total 720 / 720 240 / 240 720 / 720
Output Total 240 / 240
Balance 720 / 720 0 / 0 720 / 720
Physical Exam
General: No Apparent Distress
Respiratory: Clear and Non Labored Respirations
Cardiac: S1/S2 and Regular Rhythm
GI: Soft, Non Tender and Distended
Neuro: Awake, Alert and Oriented
Psych: Calm
Data Reviewed
-
Medical Tests (Nuc Med, Echo, EKG etc): Image personally visualized and interpreted
[2024-12-08 12:37] LABS: Glucose - Point of Care 119 mg/dl (70-99)
[2024-12-08] MEDS: FLAGYL 1000 MG PO ×3 (13:27→23:43)
[2024-12-08] MEDS: NEOMYCIN 1000 MG PO ×3 (14:18→23:43)
--- NOTE | 2024-12-08 14:22 | W.PN.ID1 ---
Date of Service
Date of Service: December 08, 2024
Today's Communication
Continue antibiotics.
Assessment / Plan
Recurrent ascites
Suspected SBP (by PMN count)
- Cx's negative to date
Left pleural effusion
Recent pulmonary embolism (requiring cath directed thrombolysis)
Left adnexal mass
DM
HTN
CKD
PE
HLD
Colon polyps
Obesity
Recommendations:
Continue empiric ertapenem 1 g IV every 24 hours (d#6)
Large adnexal mass noted on recent CT, with growth since study from 2020. For surgery 12/09
Ascites fluid from 11/29 and 12/02 sent for AFB stain/cx
Monitor white count and temperature curve.
����������������������������������������������������������
Chief Complaint
-: Other (SBP; Recurrent ascites; Abdominal mass)
Subjective / Review of Systems
Review of Systems: No Fever and No Chills
Vital Signs / Physical Exam
Vital Signs
Vital Signs
Temp Pulse Resp BP Pulse Ox
98.5 F 76 18 126/65 95
12/08/24 07:35 12/08/24 07:35 12/08/24 07:35 12/08/24 07:35 12/08/24 08:11
Physical Exam
Constitutional: No Acute Distress, Comfortable and Non-toxic
Eyes: Sclera Anicteric
Cardiovascular: S1/S2; Negative S3/S4
Pulmonary: Clear and Non Labored
Gastrointestinal: Soft, Non Tender and Normal Bowel Sounds
Extremities: Edema (trace); Negative Erythema
Skin: Warm and Dry
Neurological: Awake and Alert
Psychological: Calm
Objective Data
Lab Data
Lab Results
12/08/24 04:42
12/08/24 04:42
PT 18.3 Sec (11.4-14.6) H 12/05/24 05:43
INR 1.47 12/05/24 05:43
Estimated Creat Clear 42 ml/min 12/08/24 04:42
Total Bilirubin 0.6 mg/dl (0.2-1.3) 12/05/24 05:43
AST 14 U/L (14-36) 12/05/24 05:43
ALT 11 U/L (0-35) 12/05/24 05:43
Alkaline Phosphatase 75 U/L (38-126) 12/05/24 05:43
Most recent labs reviewed.
Micro Results:
12/02/24 14:43 Body Fluid Culture - Final
Peritoneal Fluid No Growth After 72 Hours
Gram Stain - Final
11/29/24 13:21 Acid Fast Bacilli Smear - Preliminary
Peritoneal Fluid Acid Fast Bacilli Culture - Preliminary
12/02/24 14:43 Acid Fast Bacilli Smear - Preliminary
Peritoneal Fluid Acid Fast Bacilli Culture - Preliminary
11/29/24 13:21 Body Fluid Culture - Final
Peritoneal Fluid No Growth After 72 Hours
Gram Stain - Final
11/20/24 14:49 Body Fluid Culture - Final
Pleural Fluid No Growth After 72 Hours
Gram Stain - Final
11/19/24 12:02 Body Fluid Culture - Final
Peritoneal Fluid No Growth After 72 Hours
Gram Stain - Final
11/18/24 17:14 Influenza Types A & B ([place]) - Final
Nasal Swab Negative for Influenza A & B, NAAT
Negative results must be combined with clinical observations
and patient history.
Nucleic Acid Amplification test (NAAT)performed on the
[employer] platform.
Imaging:
12/04/24 CT abdomen/pelvis with contrast: A large cystic lesion extending from the upper left pelvis into the left hemiabdomen measuring up to 22 cm with associated mass effect. This likely represents enlargement of the previously seen left adnexal
cystic lesion, and is concerning for ovarian neoplasm. Please see full dictation for additional detail.
12/01/2024 Abdominal ultrasound (Doppler): Appropriate hepatoportal flow is seen in the main portal vein. Normal hepatoportal flow demonstrated within the left and right portal veins. Normal arterial waveform is seen in the hepatic artery. There
is normal phasicity in the hepatic veins. No evidence of hepatic venous thrombosis.
[2024-12-08 15:37] VITALS: BP 136/72
[2024-12-08 16:43] LABS: Glucose - Point of Care 98 mg/dl (70-99)
[2024-12-08] MEDS: INVANZ 60 MG IV (17:00)
[2024-12-08] MEDS: PHOSLO PO (17:41)
[2024-12-08] MEDS: ZOFRAN 54 MG IV (17:54)
--- NOTE | 2024-12-08 18:04 | PTCARENOTE ---
Pt attempting to complete ordered Colyte regiment. Frequent encouragement necessary. Drank approximately 1200ml of ordered 2L Colyte prep before pt vomitted clear liquid. 2 white [place] pills of previously administered PO abx observed in emesis.
Shelli notified. New order for Zofran 8mg IV X1 now acknowledged and administered. No bowel movement observed today.
[2024-12-08 21:44] LABS: Glucose - Point of Care 106 mg/dl (70-99)
[2024-12-08 23:22] VITALS: BP 114/53
[2024-12-09] VITALS (27 sets, daily range): BP systolic 76–117; BP diastolic 51–68; BMI 39.0; BMI 37.2
[2024-12-09] MEDS: SYNTHROID 50 MCG PO (05:03)
[2024-12-09] MEDS: DULCOLAX 10 MG RECTAL (05:03)
[2024-12-09 05:50] LABS: Glucose - Point of Care 86 mg/dl (70-99)
[2024-12-09 06:16] LABS: % Basophils 0.2 % (0-2); % Eosinophils 5.4 % (0-6); % Immature Granulocytes 0.3 % (0-0.5); % Monocytes 11.6 % (1.7-9.3); % Neutrophils 67.5 % (42.2-75.2); Absolute Eosinophils 0.3 10^3/uL (0-0.7); Absolute Lymphocytes 0.9 10^3/uL (1.2-3.4); Absolute Monocytes 0.7 10^3/uL (0.1-0.6); Absolute Neutrophils 4.1 10^3/uL (1.4-6.5); Hematocrit 33.3 % (37.0-47.0); Hemoglobin 10.7 g/dL (12.0-16.0); Mean Corp Hgb Conc. 32.1 g/dL (33.0-37.0); Mean Corpuscular Hgb 25.9 pg (27.0-31.0); Mean Corpuscular Volume 80.6 fL (81.0-99.0); Mean Platelet Volume 8.8 fL (7.4-10.4); Nucleated Red Blood Cells % 0 %; Platelet Count 580 10^3/uL (130-400); Red Blood Cell Count 4.13 10^6/uL (4.20-5.40); Red Cell Dist. Width 14.9 % (11.5-14.5); White Blood Cell Count 6.1 10^3/uL (4.8-10.8)
[2024-12-09 06:23] LABS: INR 1.17; PT 15.2 Sec (11.4-14.6)
[2024-12-09 06:24] LABS: APTT 35.4 Sec (23.4-35.0)
[2024-12-09 06:46] LABS: Blood Urea Nitrogen 38 mg/dl (7-17); Carbon Dioxide 26 mmol/L (22-30); Chloride 97 mmol/L (98-107); Estimated Creatinine Clearance 45 ml/min; Glucose 86 mg/dl (70-99); Potassium 4.7 mmol/L (3.5-5.1); Sodium 135 mmol/L (135-145); eGFR 43.42
[2024-12-09] MEDS: NOVOLOG FLEXPEN-LOW RESISTANCE SC ×3 (07:32→18:44)
[2024-12-09 08:37] LABS: Glycohemoglobin (HgbA1c) 5.6 % (4.0-5.6)
[2024-12-09] MEDS: PROTONIX 40 MG PO (09:00)
[2024-12-09] MEDS: WELLBUTRIN XL (24 hour extended release) 300 MG PO (09:00)
[2024-12-09] MEDS: ZESTRIL PO ×2 (09:01→20:54)
[2024-12-09] MEDS: CYANOCOBALAMIN 1000 MCG IM (09:02)
[2024-12-09] MEDS: ALDACTONE PO (09:02)
[2024-12-09] MEDS: MYLICON 80 MG PO (09:03)
[2024-12-09] MEDS: PHOSLO PO ×3 (09:03→17:10)
[2024-12-09] MEDS: FLUSH (NSS) 1 FLUSH IV (09:04)
[2024-12-09] MEDS: MIRALAX PO (09:06)
[2024-12-09] MEDS: DESENEX/MITRAZOL/ZEASORB 1 APPLIC TOPICAL ×2 (09:06→21:14)
--- NOTE | 2024-12-09 10:28 | W.PN.HOSP.TC ---
Today's Communication/Plan
-
for OR today
Assessment / Plan
Assessment / Plan
A/P:
# Recurrent ascites
# Was felt to be 2/2 Acute Right heart failure, Acute Cor pulmonale
s/p paracentesis x 3: first para 4/2 and 10 L removed (no SBP), second para 4/11 (noted SBP), third para 4/14 with persistent SBP (worsening WBC/SBP).
Of note, Echo unrevealing, improved RV size and function. EF 50-55%
RHC 11/29 with euvolemic, normal wedge, unsure if cardiac in origin
s/p aggressive IV Lasix course
Card recc to resume 40mg po Lasix when weight is 236 lbs and an additional pm dose on days weight jumps wt is 240 or higher
GDMT: continue Aldactone, Lisinopril with holding parameter. SGLT2i avoided due to recent UTI
# Recurrent ascites with persistent SBP/worsening ascitic fluid polymorph
Gram stain and culture from para unrevealing,
Ceftriaxone was changed to ertapenem per ID,
CT AP obtained noted possible left adnexal cystic lesion, concerning for ovarian neoplasm- this could be contributing to her persistent ascites with elevated polymorph
Pelvis ultrasound confirmed large heterogeneous cystic and solid lesion within the left adnexa suspicious for ovarian neoplasm
MRI pelvis confirmed complex multiseptated cystic mass in the left lower quadrant most likely of left ovarian origin within the limitations of this exam. Leading consideration would be an ovarian epithelial tumor such as a mucinous cystadenoma or
possibly a cystadenocarcinoma.
Of note, CA 125 elevated at 158
[employer] oncologist Dr Marques on board, plan for surgery Saturday 12/09
Oncologist on board
holding Eliquis and use Lovenox SQ therapeutic dose preop (on hold)
Cardiology reconsulted for preop clearance, pt is high risk in setting of recent massive PE with distributive shock at that time
# Acute hypoxic respiratory insufficiency, resolved
now on RA
# L pleural effusion
s/p IR thoracentesis 11/20 and removed 1000 cc straw-colored pleural fluid, transudative fluid
repeat CXR 12/06 noted Moderate, loculated left-sided pleural effusion with adjacent airspace opacity, likely atelectasis.
# Recent Pulmonary Embolism- October 2024
Echo from 10/23/24: Normal left ventricular systolic function with EF 55-60%. Dilated and hypokinetic right ventricle
Eliquis replaced with therapeutic Lovenox
new finding of left ovarian mass which is concerning for neoplasm, could be the culprit for her recent VTE/pulm embolism
Lower extremity ultrasound negative for DVT
# Diabetes Mellitus, Type II
HgbA1c 5.8 in October 2024
# Essential Hypertension
continue lisinopril, Aldactone with hold parameters
# CKD Stage III
creatinine stable at 1.3 today
Cont to monitor closely
# Hyperphosphatemia
on calcium acetate
# Chronic Normocytic Anemia
Hgb appears stable compared to previous
# Asthma, no acute exacerbation
continue albuterol PRN
# Anxiety/Depression
continue Wellbutrin
# Gastritis/Gastric Erosions
continue Protonix BID
# Chronic Lower Extremity Lymphedema
# Class III Obesity
Affects all aspects of care
DVT ppx: Eliquis -> Lovenox SQ (now off), use SCD while off Lovenox
Dispo plan: eventual SNF
Anticipated Discharge: > 48 hours
Subjective/Interval History
-
Date of Service: December 09, 2024
Objective Data
-
Labs:
Laboratory Results
12/09/24
05:43
WBC 6.1
Hgb 10.7 L
Hct 33.3 L
Plt Count 580 H
PT 15.2 H
INR 1.17
APTT 35.4 H
Sodium 135
Potassium 4.7
Chloride 97 L
Carbon Dioxide 26
BUN 38 H
Creatinine 1.3 H
Glucose 86
Calcium 11.0 H
Vital Signs:
Vital Signs
Temp Pulse Resp BP Pulse Ox
36.8 C 83 18 104/68 96
12/09/24 07:30 12/09/24 07:30 12/09/24 07:30 12/09/24 09:02 12/09/24 07:30
I&O
12/08/24 12/09/24 12/10/24
06:59 06:59 06:59
Intake Total 720 / 720 1540 / 1540
Balance 720 / 720 1540 / 1540
--- NOTE | 2024-12-09 11:32 | W.PN.ID1 ---
Date of Service
Date of Service: December 09, 2024
Today's Communication
Continue ertapenem for today.
Assessment / Plan
Recurrent ascites
Suspected SBP (by PMN count)
- Cx's negative to date
Left pleural effusion
Recent pulmonary embolism (requiring cath directed thrombolysis)
Left adnexal mass
DM
HTN
CKD
PE
HLD
Colon polyps
Obesity
Recommendations:
Continue empiric ertapenem 1 g IV every 24 hours (d#7)
Large adnexal mass noted on recent CT, with growth since study from 2020. For surgery today. Await intraoperative report, as the mass may ultimately be the source of the WBCs seen in ascites fluid.
Ascites fluid from 11/29 and 12/02 sent for AFB stain/cx
Monitor white count and temperature curve.
����������������������������������������������������������
Chief Complaint
-: Other (SBP; Recurrent ascites; Abdominal mass)
Subjective / Review of Systems
Patient seen and examined. No significant changes overnight. Reports fitful sleep
Review of Systems: No Fever and No Chills
Vital Signs / Physical Exam
Vital Signs
Vital Signs
Temp Pulse Resp BP Pulse Ox
98.2 F 83 18 104/68 96
12/09/24 07:30 12/09/24 07:30 12/09/24 07:30 12/09/24 09:02 12/09/24 07:30
Physical Exam
Constitutional: No Acute Distress, Comfortable and Non-toxic
Eyes: Sclera Anicteric
Cardiovascular: S1/S2; Negative S3/S4
Pulmonary: Clear and Non Labored
Gastrointestinal: Soft, Non Tender and Distended
Extremities: Edema (trace); Negative Erythema
Skin: Warm and Dry
Neurological: Awake and Alert
Psychological: Calm
Objective Data
Lab Data
Lab Results
12/09/24 05:43
12/09/24 05:43
PT 15.2 Sec (11.4-14.6) H 12/09/24 05:43
INR 1.17 12/09/24 05:43
APTT 35.4 Sec (23.4-35.0) H 12/09/24 05:43
Estimated Creat Clear 45 ml/min 12/09/24 05:43
Total Bilirubin 0.6 mg/dl (0.2-1.3) 12/05/24 05:43
AST 14 U/L (14-36) 12/05/24 05:43
ALT 11 U/L (0-35) 12/05/24 05:43
Alkaline Phosphatase 75 U/L (38-126) 12/05/24 05:43
Most recent labs reviewed.
Micro Results:
12/02/24 14:43 Body Fluid Culture - Final
Peritoneal Fluid No Growth After 72 Hours
Gram Stain - Final
11/29/24 13:21 Acid Fast Bacilli Smear - Preliminary
Peritoneal Fluid Acid Fast Bacilli Culture - Preliminary
12/02/24 14:43 Acid Fast Bacilli Smear - Preliminary
Peritoneal Fluid Acid Fast Bacilli Culture - Preliminary
11/29/24 13:21 Body Fluid Culture - Final
Peritoneal Fluid No Growth After 72 Hours
Gram Stain - Final
11/20/24 14:49 Body Fluid Culture - Final
Pleural Fluid No Growth After 72 Hours
Gram Stain - Final
11/19/24 12:02 Body Fluid Culture - Final
Peritoneal Fluid No Growth After 72 Hours
Gram Stain - Final
11/18/24 17:14 Influenza Types A & B ([place]) - Final
Nasal Swab Negative for Influenza A & B, NAAT
Negative results must be combined with clinical observations
and patient history.
Nucleic Acid Amplification test (NAAT)performed on the
Ampl[employer] platform.
Imaging:
12/04/24 CT abdomen/pelvis with contrast: A large cystic lesion extending from the upper left pelvis into the left hemiabdomen measuring up to 22 cm with associated mass effect. This likely represents enlargement of the previously seen left adnexal
cystic lesion, and is concerning for ovarian neoplasm. Please see full dictation for additional detail.
12/01/2024 Abdominal ultrasound (Doppler): Appropriate hepatoportal flow is seen in the main portal vein. Normal hepatoportal flow demonstrated within the left and right portal veins. Normal arterial waveform is seen in the hepatic artery. There
is normal phasicity in the hepatic veins. No evidence of hepatic venous thrombosis.
--- NOTE | 2024-12-09 12:17 | CM ---
For abdominal surgery today
Please renew PT OT after surgery.
Maintained on IV antibiotics per BRANDI POOLE.
Spoke with Gisela at [facility] pt will be accepted back.
Gisela said pt is medicare and does not need an auth to return to facility.
Pt will need ambulance
[facility]
report [phone]
fax [phone]
Plan return to [facility] [place]
[2024-12-09 12:34] LABS: Glucose - Point of Care 92 mg/dl (70-99)
[2024-12-09] MEDS: TYLENOL 1000 MG PO (14:44)
[2024-12-09] MEDS: NEURONTIN 600 MG PO (14:44)
[2024-12-09] MEDS: HEPARIN 5000 UNITS SC (14:44)
[2024-12-09] MEDS: MYLICON PO ×2 (17:09→22:20)
--- NOTE | 2024-12-09 17:56 | W.IMMPOSTOP ---
Surgical Immed Post Op Note
-
Primary Surgeon: Roger Marques MD
Assisting Surgeon: Wilberto Andrews PA-C
Pre-op Diagnosis: LLQ Mass
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
Procedure Performed: Exp Lap, radical tumor cytoreduction including RITA BSO, Appy, omentectomy multiple peritoneal biopsies optimal tumor debulking
Anesthesia Type: general anesthesia
Specimen / Cultures: Uterus and cervix w portion of omentum, R and L tube and ovary, Appendix, Omentum, pelvic and gutter peritoneal biopsies, sigmoid adhesion
Estimated Blood Loss: 300cc
Ascites: 1000 cc
Complications: None
Operative Findings: Expiration of the abdomen reveals 1000 cc ascites, large mass arising from left ovary 25 cm in size, there is inflammatory exudate involving several peritoneal surfaces and epiploica of the large bowel, appendix is taken
indurated, small bowel was examined from ligament of Treitz down to ileocecal valve and there is no evidence of implants or abnormalities cecum is very dilated, ascending transverse and descending colon are normal. The right tube and ovary is
atrophic. Uterus significant before ballooning of the lower uterine segment and endocervix with old hemosiderin discharge suggestive of old blood
Frozen section of the left ovarian mass reveals mucinous neoplasm probably LMP cannot exclude invasive cancer
Frozen section of endometrium reveals thin endometrium, without obvious evidence of malignancy, old blood present in the cavity
--- NOTE | 2024-12-09 18:09 | OR.RPT ---
Operative Report
Operative Report
Date of the procedure: 12/09/2024
Primary Surgeon: Roger Marques MD
Assisting Surgeon: Wilberto Andrews PA-C
Pre-op Diagnosis: LLQ Mass
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
Procedure Performed: Exp Lap, radical tumor cytoreduction including RITA BSO, Appy, omentectomy multiple peritoneal biopsies optimal tumor debulking. Primary repair of ventral hernia
Anesthesia Type: general anesthesia
Specimen / Cultures: Uterus and cervix w portion of omentum, R and L tube and ovary, Appendix, Omentum, pelvic and gutter peritoneal biopsies, sigmoid adhesion
Estimated Blood Loss: 300cc
Ascites: 1000 cc
IV fluids: 1700 cc crystaloid
Complications: None
Operative Findings: Expioration of the abdomen reveals 1000 cc ascites, large mass arising from left ovary 25 cm in size, there is inflammatory exudate involving several peritoneal surfaces and epiploica of the large bowel, appendix is taken
indurated, small bowel was examined from ligament of Treitz down to ileocecal valve and there is no evidence of implants or abnormalities cecum is very dilated, ascending transverse and descending colon are normal. The right tube and ovary is
atrophic. Uterus significant before ballooning of the lower uterine segment and endocervix with old hemosiderin discharge suggestive of old blood
Frozen section of the left ovarian mass reveals mucinous neoplasm probably LMP cannot exclude invasive cancer
Frozen section of endometrium reveals thin endometrium, without obvious evidence of malignancy, old blood present in the cavity
Procedure in detail: This patient was taken to the operating room for definitive surgical treatment of a pelvic mass. This patient has been recently hospitalized for massive pulmonary embolism requiring thrombectomy and thrombolysis, she underwent
stabilization and was noted to have heart failure, she was optimized and eventually went to rehabilitation after which she was transferred back to hospital for development of ascites, ascites was nonmalignant, imaging studies revealed presence of a
large left-sided abdominal mass suspicious for malignancy. Even though the situation was not ideal after conversation with multiple services decision was made to proceed with surgery to resect the mass in order to help expedite the recovery. Lower
extremity was reevaluated and there was no evidence of DVT and hence IVC filter was not inserted. Patient was transition to enoxaparin and enoxaparin was held for the last 24 hours.
Upon arrival to the operating room, she was placed in supine position, she was placed in lithotomy position using yellowfin stirrups after she was intubated. Appropriate IVs were placed. She was prepped in the abdomen perineum and vagina. Bullock
catheter was placed under sterile conditions. Timeout procedure was carried out and she received 3 g of Ancef and 500 mg of Flagyl. The patient had received 5000 units of heparin subcutaneous prior to arrival to preop area. A midline vertical
skin incision involving mostly upper abdomen down to the level of umbilicus and just below the umbilicus was made with scalpel on the skin and electrocautery on the subcutaneous tissue and fascia. In the upper aspect of the incision she had a 4 cm
fascial defect, where she had developed a hernia at the site of prior laparoscopic port site. Once we entered the abdomen ascites was drained with a pull suction catheter. We placed a Bookwalter retractor, bowel was packed away in the upper
abdomen using 3 moist laparotomy sponges. A portion of the omentum was stuck to the anterior cul-de-sac a small portion of the omentum was left on the anterior cul-de-sac and we sealed and divided the omentum to free it up. Right and left round
ligaments were sealed and divided anterior and posterior leaves of the broad ligament were dissected open. There were adhesions between the sigmoid colon and IP ligament which were taken down IP ligament was isolated clamped transected and tied off
with 2-0 silk tie. Attachments of the ovary to the cornu of the uterus was sealed and divided and the ovary was sent to pathology for frozen section. After this we turned our attention to the right tube and ovary, right IP ligament was sealed and
divided after it was isolated and tied off with 2-0 silk tie. This tube and ovary was detached from the cornua of the uterus and submitted to pathology. Uterus was grasped with clamps on right and left cornu and elevated we carefully dissected the
portion of the omentum off the bladder flap and then developed the bladder flap sharply and advanced it below the cervicovaginal junction. This is where we noted ballooning of the lower uterine segment and upper endocervix. Uterine arteries
followed by cardinal ligaments were sealed and divided I used serial straight Zeppelin clamps along the paracervical tissue down to the level of the vagina each pedicle was transected and suture-ligated with 0 Vicryl suture ligatures right angle
Zeppelin clamps were placed below the level of the cervix these were transected large amount of dark old blood came out of the uterus and cervix we quickly cleaned this up the vaginal cuff was closed with 0 Vicryl suture ligature starting from
center coming to both corners and back to the center in 2 layers. Uterus and cervix was sent for frozen section as well.
Infracolic omentectomy was performed, a series of omental blood vessels were sealed and divided from hepatic to splenic flexure and omentum was submitted to pathology. Stomach was unremarkable liver and right diaphragm were normal spleen and left
diaphragm were normal. We followed the small bowel from the ligament of Treitz down to ileocecal valve and there was no implants or abnormalities. There was an inflammatory exudate involving epiploica of the sigmoid colon and this was biopsied and
submitted to pathology appendix was inflamed and indurated. Mesoappendix was sealed and divided with vessel sealer. Endo CECIL stapler was fired across the base of the appendix with a vascular load and appendix was submitted to pathology. We
biopsied peritoneum from right and left pelvis as well as right and left paracolic gutters.
Frozen section from ovary revealed mucinous neoplasm, probably LMP tumor but invasive tumor can never be ruled out until entire specimen is processed. Given the fact that these tumors typically do not travel to lymph nodes and there was no enlarged
lymph nodes on preoperative imaging I did not perform retroperitoneal lymph node dissection. The uterus was examined and there was no obvious malignancy identified and hence I did not perform any lymph node dissection for distant disease either.
We carefully irrigated the abdomen with 2 L of water. The hernia sac involving the upper aspect of the incision was removed and the edges of the fascia was freshened. We prepared for closure of the laparotomy. The fascia was closed with #1 looped
PDS starting from both ends coming to the center and they were tied to each other above the level of the umbilicus. The hernia was essentially incorporated in the incision. Subcutaneous tissue was made hemostatic and irrigated. I used 2-0
Monocryl to close the space in the subcutaneous tissue. Kailash were used to reapproximate the skin edges. Patient was awakened extubated and returned back to recovery room stable awake and extubated condition. Counts of laps instruments and
needle was correct x 2. I was present and scrubbed for entire procedure as dictated above.
Disposition: To PACU stable awake and extubated
--- NOTE | 2024-12-09 18:10 | W.PN.UPDATE ---
Update Note
Progress Note Update
Cross-cover today--> asked by attending physician to transfer to ICU.
[2024-12-09] MEDS: ZOFRAN 4 MG IV ×2 (18:27→20:18)
[2024-12-09 18:35] LABS: Hematocrit 39.4 % (37.0-47.0); Hemoglobin 12.8 g/dL (12.0-16.0); Mean Corp Hgb Conc. 32.5 g/dL (33.0-37.0); Mean Corpuscular Volume 79.9 fL (81.0-99.0); Mean Platelet Volume 8.4 fL (7.4-10.4); Platelet Count 635 10^3/uL (130-400); Red Blood Cell Count 4.93 10^6/uL (4.20-5.40); Red Cell Dist. Width 15.1 % (11.5-14.5); White Blood Cell Count 19.1 10^3/uL (4.8-10.8)
[2024-12-09 18:42] LABS: Glucose - Point of Care 150 mg/dl (70-99)
[2024-12-09 18:53] LABS: Blood Urea Nitrogen 36 mg/dl (7-17); Calcium 10.3 mg/dl (8.4-10.2); Carbon Dioxide 20 mmol/L (22-30); Chloride 100 mmol/L (98-107); Estimated Creatinine Clearance 49 ml/min; Glucose 141 mg/dl (70-99); Potassium 4.8 mmol/L (3.5-5.1); Sodium 132 mmol/L (135-145)
[2024-12-09] MEDS: DECADRON 4 MG IV (19:12)
[2024-12-09] MEDS: LOVENOX 40 MG SC (20:18)
[2024-12-09] MEDS: INVANZ 60 MG IV (20:19)
[2024-12-09] MEDS: NSS 1000 IV (20:19)
[2024-12-09] MEDS: NSS 500 IV (21:16)
[2024-12-09] MEDS: PROTONIX PO (21:17)
[2024-12-09] MEDS: ALBUMIN 5% 250 IV (22:07)
[2024-12-09] MEDS: PROTONIX IV 40 MG IV (22:07)
[2024-12-09] MEDS: NSS (PRESERVATIVE FREE) 10 ML IV (22:07)
--- NOTE | 2024-12-09 22:35 | PTCARENOTE ---
AAOx3, following commands, reporting pain 2/10 but tolerable for patient. Drowsy, wakes up to verbal stimuli. Normal sinus 80s-90s, BP soft, received 500 ml fluid bolus. Normothermic, weak pedal pulses b/l. +2 b/l LE edema. 96% on 2 liters, lung
sounds diminished throughout. Abdomen soft, round, tender to palpation, positive bowel sounds. Midline incision with original post op dressing CDI. Stage 2 on left buttock, foam CDI. MASD on groin, antifungal powder applied. PIVs patent, WNL. NSS
gtt ongoing per order. Repositioned, CHG bath done, polanco care done, call renae within reach.
[2024-12-09 23:43] LABS: Glucose - Point of Care 160 mg/dl (70-99)
[2024-12-09] MEDS: NOVOLOG FLEXPEN-LOW RESISTANCE 1 UNITS SC (23:43)
--- NOTE | 2024-12-09 23:47 | PTCARENOTE ---
Patient assessment unchanged from previous, covered with 1 unit of insulin. repositioned, call renae within reach.
[2024-12-10] VITALS (82 sets, daily range): BP systolic 66–124; BP diastolic 37–97; BMI 37.2
[2024-12-10] MEDS: NSS 1000 IV (02:07)
[2024-12-10] MEDS: DILAUDID 0.5 MG IV ×3 (02:07→15:05)
--- NOTE | 2024-12-10 04:25 | PTCARENOTE ---
Patient received dilaudid once for 8/10 pain, now sleeping comfortably. Call renae within reach.
[2024-12-10] MEDS: LR 250 IV (04:45)
[2024-12-10] MEDS: SYNTHROID 50 MCG PO (05:13)
[2024-12-10 05:23] LABS: % Immature Granulocytes 0.6 % (0-0.5); % Lymphocytes 6.2 % (20.5-51.1); % Neutrophils 84.2 % (42.2-75.2); Absolute Immature Granulocytes 0.1 10^3/uL (0-0.05); Absolute Lymphocytes 0.7 10^3/uL (1.2-3.4); Hematocrit 32.4 % (37.0-47.0); Hemoglobin 10.6 g/dL (12.0-16.0); Mean Corp Hgb Conc. 32.7 g/dL (33.0-37.0); Mean Corpuscular Hgb 26.3 pg (27.0-31.0); Mean Corpuscular Volume 80.4 fL (81.0-99.0); Mean Platelet Volume 8.9 fL (7.4-10.4); Nucleated Red Blood Cells % 0 %; Platelet Count 527 10^3/uL (130-400); Red Blood Cell Count 4.03 10^6/uL (4.20-5.40); Red Cell Dist. Width 14.8 % (11.5-14.5); White Blood Cell Count 10.6 10^3/uL (4.8-10.8)
[2024-12-10 05:45] LABS: ALT (SGPT) 10 U/L (0-35); AST (SGOT) 18 U/L (14-36); Albumin 3.1 g/dl (3.5-5.0); Alkaline Phosphatase 64 U/L (38-126); Blood Urea Nitrogen 40 mg/dl (7-17); Calcium 9.8 mg/dl (8.4-10.2); Carbon Dioxide 20 mmol/L (22-30); Chloride 102 mmol/L (98-107); Estimated Creatinine Clearance 48 ml/min; Glucose 151 mg/dl (70-99); Magnesium 1.8 mg/dl (1.6-2.3); Potassium 4.9 mmol/L (3.5-5.1); Sodium 135 mmol/L (135-145); Total Bilirubin 0.6 mg/dl (0.2-1.3); Total Protein 5.6 g/dl (6.3-8.2)
[2024-12-10] MEDS: NOVOLOG FLEXPEN-LOW RESISTANCE 1 UNITS SC ×3 (05:58→17:24)
--- NOTE | 2024-12-10 06:03 | W.PN.GYNONC ---
Today's Communication
-
N/A
Impression / Plan
-
1. 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
2. IV at 100 cc/hr
3. BP is soft 85-100 SBP, but it has been low pre op as well
4. Hgb is stable 10.5
5. Cr is 1.2 slightly improved
patient was not ambulatory pre op, will need to transfer to rehab in 5-7 days , start by inquiring if candidate for [facility] here
clear liquids diet today, advance tomorrow if salome ok
bowel function will be slow as she is not ambulatory,
I would dc antibiotics as there was no signs of infection/abcess
continue prophylactic dose lovenox today, I recommend we RESTART Therapeutic Lovonox tomorrow 12/11 if hgb stable
continue GI prophylaxis and add dulcolax
Roger Marques MD
[facility]
[phone]
Subjective / Interval History
-
POD1 Exp lap, RITA BSO, Omentectomy, Appendectomy, Ventral Hernia repair, peritoneal biopsies, optimal cytoredcution
I explained findings and procedures to patient
she looks well , and has incisional discomfort
Objective Data
-
Lab Results:
12/10/24 05:09
12/10/24 05:09
Physical Exam
Vital Signs / I&O
Vitals
Temp Pulse Resp BP Pulse Ox
98 F 78 18 98/51 96
12/10/24 04:00 12/10/24 06:00 12/10/24 06:00 12/10/24 04:30 12/10/24 06:00
I&O
12/07/24 12/08/24 12/09/24 12/10/24
06:59 06:59 06:59 06:59
Intake Total 240 / 240 720 / 720 1540 / 1540 2059
Output Total 240 / 240 345 / 345
Balance 0 / 0 720 / 720 1540 / 1540 1714
Physical Exam
General: No Apparent Distress
HEENT: Normocephalic
Respiratory: Clear and Non Labored Respirations
Cardiac: S1/S2 and Regular Rhythm
GI: Soft, Non Distended and Other (incision is clear dressing)
--- NOTE | 2024-12-10 07:16 | CON.INTV ---
Consultation
Consultation Request
Date/Time Consultation Requested: 12/10/2024
Date/Time Consultation Performed: 12/09/2024
Requesting Provider: Tara Dwason
Performing Provider: Meagan Ruiz
Reason for Consultation: Hypotension
Medical History
-
Chief Complaint: Worsening abdominal distention and shortness of breath
History of Present Illness:
Patient is a very pleasant 74-year-old female who was admitted initially in October 2024 with massive pulmonary embolism with obstructive shock. She required pressor support and had catheter directed thrombolysis followed by improvement. She was
newly diagnosed with large volume ascites at that time and at a 6.5 L tap performed and cytology was noted to be negative. Patient was readmitted earlier this month with shortness of breath and worsening abdominal distention. She had repeat
paracentesis which was concerning for SBP based on elevated WBC count. She also had left-sided thoracentesis performed which was exudative but culture stayed negative. Infectious disease service was consulted and patient was initially continued on
antibiotics. Additional workup included a CT abdomen, ultrasound as well as pelvic MRI which was suggestive of a large 21 cm left ovarian cystic mass. Patient was taken to the OR on 12/09 and had ex lap performed with radical tumor cytoreduction
along with multiple omental and peritoneal biopsies. Patient had soft blood pressure prior to surgery and postsurgery was noted to be hypotensive and was transferred to ICU. Patient has required low-dose Levophed and fluid boluses to maintain
blood pressure. Electric Dolly Operator consultation was requested for further input.
Past Medical History
Past Medical History: Reports Other
Additional Past Medical History:
Diabetes Mellitus, Type II
Essential Hypertension
Hyperlipidemia
CKD Stage III
Asthma
Anxiety / Depression
Morbid Obesity
Chronic Lower Extremity Lymphedema
Pulmonary Embolism - October 2024
Past Surgical History: Reports Other
Additional Past Surgical History:
Cholecystectomy
Left Hip Replacement
Social History
Tobacco: Non-smoker
Alcohol: None
Drug: None
Family History
Family History: Not pertinent
Allergies / Home Medications
Allergies / Home Medications
Allergies
Allergy/AdvReac Type Severity Reaction Status Date / Time
codeine Allergy Nausea / Verified 11/18/24 13:48
Vomiting
Influenza Virus Vaccines Allergy Tongue Verified 11/18/24 13:48
Swelling
meperidine [From Demerol] Allergy Unknown Verified 11/18/24 13:48
Phenothiazines Allergy Unknown Verified 11/18/24 13:48
Sulfa (Sulfonamide Allergy Unknown Verified 11/18/24 13:48
Antibiotics)
Home Medications
�Medication �Instructions �Recorded �Confirmed �Last Taken �Type
cyanocobalamin (vitamin B-12) 1,500 mcg PO Q48H Supplement 09/22/16 11/18/24 09/22/16 History
1,000 mcg tablet
acetaminophen 325 mg tablet 650 mg PO Q4HPRN PRN fever 10/23/24 11/18/24 Unknown History
>100/mild pain
albuterol sulfate 90 mcg/actuation 1 inh inhalation R DAILYPRN PRN 10/23/24 11/18/24 Unknown History
aerosol inhaler sob/wheezing
bisacodyl 10 mg rectal suppository 10 mg GA DAILYPRN PRN if mom 10/23/24 11/18/24 Unknown History
ineffective after 24 hrs
bupropion HCl 300 mg 24 hr tablet, 300 mg PO DAILY Mental 10/23/24 11/18/24 Unknown History
extended release (Wellbutrin XL) Health/Anxiety
furosemide 20 mg tablet 20 mg PO DAILY Electrolyte 10/23/24 11/18/24 Unknown History
Repletion
lisinopril 20 mg tablet 20 mg PO BID Blood Pressure 10/23/24 11/18/24 Unknown History
magnesium hydroxide 400 mg/5 mL 2,400 mg PO [id number] PRN no bm in 3 10/23/24 11/18/24 Unknown History
oral suspension (Milk of Magnesia) days
polyethylene glycol 3350 17 gram 17 g PO DAILY Gastrointestinal 10/23/24 11/18/24 Unknown History
oral powder packet (Miralax) Issue
simethicone 80 mg chewable tablet 80 mg PO TID Gastrointestinal Issue 10/23/24 11/18/24 Unknown History
sodium phosphates 19 gram-7 118 ml GA DAILYPRN PRN bisacodyl 10/23/24 11/18/24 Unknown History
gram/118 mL enema (Fleet Enema) ineffective after 24 hrs
calcium acetate 667 mg tablet 667 mg PO MEALS #0 tabs 10/31/24 11/18/24 Unknown Rx
docusate sodium 100 mg capsule 100 mg PO BID #0 caps 10/31/24 11/18/24 Unknown Rx
pantoprazole 40 mg tablet,delayed 40 mg PO BID #30 tabs 10/31/24 11/18/24 Unknown Rx
release
apixaban 5 mg tablet (Eliquis) 5 mg PO BID Blood Clot 11/18/24 11/18/24 Unknown History
Prevention/Tx
Review of Systems
-
Constitutional: Fatigue
Cardiac: No Symptoms
Abdomen/GI: Abdominal Pain
Hematologic/Lymphatic: Other
Vitals / Labs / Diagnostic Testing
Vital Signs
Temp Pulse Resp BP Pulse Ox
98 F 79 17 78/47 96
12/10/24 04:00 12/10/24 07:00 12/10/24 07:00 12/10/24 07:00 12/10/24 07:00
Lab Data
12/10/24 05:09
12/10/24 05:09
Diagnostic Testing:
Physical Exam
-
HEENT: Other (Conjunctival pallor )
Cardiovascular: S1/S2 and Peripheral Edema
Respiratory: Non-Labored Respirations
GI: Other
Neurology: Awake and Alert
Skin: Warm
General: Comfortable
Assessment
-
#1. Hypotension/Shock. Suspect intra-vascular hypovolemia and third spacing of fluids. On review of record, patient noted to have borderline low blood pressure before surgery also. Lactate normal at 1.3, VBG with normal pH of 7.36, pCO2 43 (12/10)
- D/c lisinopril and spironolactone
- 500 Ringer lactate bolus followed by 100 ml per hour
- Start midodrine 5 mg p.o. 3 times daily
- Infectious workup over the last 10 days has been unremarkable, antibiotic discontinued per ID service (12/10)
- Levophed as needed to keep MAP above 65, wean as tolerated
#2. Massive ascites with large left ovarian cystic mass (21.6x19.6x20 cm). S/p laparotomy (12/09/2024) and total abdominal hysterectomy, bilateral salpingo-oophorectomy, appendectomy, omentectomy, multiple peritoneal biopsies along with optimal
tumor debulking with radical tumor cytoreduction, and repair of ventral hernia
- Suspect third spacing of fluid also contributing to hypovolemia and decreased urine output
- Continue IV fluid resuscitation. Patient also received albumin overnight.
- Await tissue pathology
- Ascitic fluid cytology has been negative however suspect recurrent ascites is related to underlying ovarian tumor
- Ascitic fluid elevated WBC count not felt to be SBP with multiple negative cultures. Antibiotics stopped 12/10
#3. Massive pulmonary embolism with obstructive shock, October 2024. Suspect due to underlying malignancy. Patient was treated with catheter directed thrombolysis
- Anticoagulation on temporary hold in view of laparotomy
- Plan to resume full dose anticoagulation on 12/11 per surgery service if hemoglobin stays stable
#4. Left pleural effusion, loculated with left lower lobe atelectasis. Status post thoracentesis on 11/20, 1000 mL straw-colored pleural fluid evacuated. No cough, pneumonia felt to be less likely. Suspect compressive atelectasis due to effusion.
- Exudative pleural effusion with pleural fluid protein 3.4, LDH 120. Compared from a serum LDH of 112 and serum protein of 5.0. Cultures have stayed negative. Cytology not performed
- Pleural fluid composition appears to be very similar to ascitic fluid composition on cell count and protein/LDH evaluation. Suspect this effusion is translocated ascitic fluid
- Chest x-ray shows moderate effusion with left lower lobe atelectasis, plan for Thoracentesis in AM prior to starting anticoagulation
#5. CKD stage III, with oliguria.
- Avoid hypotension, Levophed as needed to keep MAP above 65
- Discontinue lisinopril and spironolactone
- LR 500 mL bolus, start midodrine
- Monitor input and output closely, depending on response to bolus might need maintenance IV fluids
#6. Improved Cor-pulmonale with residual Mild Pulmonary Hypertension. RHC 11/2024. mPA 29, PCWP 12 with CO 4.6 and PVR 3.66.
- Suspect PH is related to massive PE in 10/2024 with obstructive shock s/p catheter directed thrombolysis
- PAP is improved on RHC compared to prior ECHO (due to thrombolysis and anticoagulation)
- Plan to resume anticoagulation once cleared by surgery service
- f/u ECHO in 3-6 months, while patient is anticoagulated, to monitor for development of any CTEPH
- Obesity and suspected underlying MIKE also likely contributing to PH
- Needs further work up as out patient
- Will need Pulmonary clinic follow up post discharge
DVT prophylaxis with subcu Lovenox
GI prophylaxis with Protonix twice daily
Critical Care time 72 mins -- The patient is admitted for acute critical illness for the treatment of vital organ failure and/or prevention of further life-threatening conditions. Total care includes time spent in review of history, physical exam,
medications, hemodynamic/ventilator parameters, laboratory data, imaging and discussion with house staff, pharmacy, respiratory therapy, senior financial reporting analyst, and nursing.
Data:
CXR 12/10/2024: 1. MODERATE-SIZED LEFT PLEURAL EFFUSION which appears unchanged.
2. Large dense left lower lobe airspace consolidation. Diagnostic possibilities are (1) compressive atelectasis or (2) left lower lobe pneumonia (if there are signs/symptoms of pulmonary infection).
ECHO 11/2024: Normal left ventricular systolic function. Left ventricular ejection fraction
is 50-55% by visual estimate.
Limited views of RV (best subcostal). Normal right ventricular size and
function.
Mild tricuspid regurgitation. Mildly elevated PASP. Estimated pulmonary artery
pressure of 39 mmHg assuming a right atrial pressure of 3 mmHg
Compared to 10/23/24: RV views limited overall. But compared to prior, RV size
and function now appear normal. TR has improved from moderate to mild. PASP is
similar.
RHC 11/2024: 1. Normal filling pressures (PCWP = 12 mmHg at 107.5 kg).
2. Mild, precapillary pulmonary hypertension (mean PA = 29 mmHg, PCWP = 12 mmHg, cardiac output 4.65 L/min, PVR = 3.66 Pradhan units).
Pelvic US 11/2024: There is a large heterogeneous cystic and solid lesion within the left adnexa extending into the left hemiabdomen measuring up to 23.0 cm. Findings are suspicious for ovarian neoplasm, less likely chronic hematoma. At the time for
the evaluation with MRI pelvis has been ordered.
Small volume free fluid in the left adnexa.
Pelvic MRI 11/2024: Complex multiseptated cystic mass in the left lower quadrant most likely of left ovarian origin within the limitations of this exam. Leading consideration would be an ovarian epithelial tumor such as a mucinous cystadenoma or
possibly a cystadenocarcinoma.
Mild pelvic ascites.
Tubular intrinsically T1 hyperintense signal region in the central pelvis, suboptimally evaluated but possibly representing hematometria or hematosalpinx.
[2024-12-10] MEDS: LEVOPHED 250 IV ×2 (07:24→18:35)
--- NOTE | 2024-12-10 07:51 | W.PN.HOSP.TC ---
Today's Communication/Plan
-
see A/P
Assessment / Plan
Assessment / Plan
A/P:
# Recurrent ascites
# Was initially felt 2/2 Acute Right heart failure, Acute Cor pulmonale
s/p paracentesis x 3: first para 4/2 and 10 L removed (no SBP), second para 4/11 (noted SBP), third para 4/14 with persistent SBP (worsening WBC/SBP).
Of note, Echo unrevealing, improved RV size and function. EF 50-55%
RHC 11/29 with euvolemic, normal wedge, unsure if cardiac in origin
s/p aggressive IV Lasix course
Card recc to resume 40mg po Lasix when weight is 236 lbs and an additional pm dose on days weight jumps wt is 240 or higher
GDMT: continue Aldactone, Lisinopril with holding parameter. SGLT2i avoided due to recent UTI
# Recurrent ascites with worsening ascitic fluid polymorph
Gram stain and culture from para unrevealing,
Ceftriaxone was changed to ertapenem per ID, stop further Abx as this is unlikely SBP (ascitic polymorph from ovarian cancer masking as SBP).
CT AP obtained noted possible left adnexal cystic lesion, concerning for ovarian neoplasm- this could be contributing to her persistent ascites with elevated polymorph.
Pelvis ultrasound confirmed large heterogeneous cystic and solid lesion within the left adnexa suspicious for ovarian neoplasm.
MRI pelvis confirmed complex multiseptated cystic mass in the left lower quadrant most likely left ovarian origin. Consideration would be an ovarian epithelial tumor such as a mucinous cystadenoma or possibly a cystadenocarcinoma.
Of note, CA 125 elevated at 158
SENIOR TEST ENGINEER oncologist Dr Marques on board, Oncologist on board
s/p surgery on 12/09 with Exp Lap, radical tumor cytoreduction including RITA BSO, Appy, omentectomy multiple peritoneal biopsies optimal tumor debulking.
Post op monitor in ICU
DESIGN ENGINEER MARINE EQUIPMENT Eliquis switched to Lovenox SQ therapeutic dose preop, now on Lovenox SQ ppx dose -> switch to therapeutic Lovonox tomorrow 12/11 if hgb stable
# Shock could be anesthesia effect with blood loss/ hemorrhagic shock postop
started pressor Levophed, monitor BP, wean pressor as tolerated
# Acute hypoxic respiratory insufficiency, resolved
back on RA
# L pleural effusion
s/p IR thoracentesis 11/20 and removed 1000 cc straw-colored pleural fluid, transudative fluid
repeat CXR 12/06 noted Moderate, loculated left-sided pleural effusion with adjacent airspace opacity, likely atelectasis.
# Recent massive Pulmonary Embolism in October 2024
Echo from 10/23/24: Normal left ventricular systolic function with EF 55-60%. Dilated and hypokinetic right ventricle
new finding of left ovarian mass which is concerning for neoplasm, could be the culprit for her recent VTE/pulm embolism
Lower extremity ultrasound negative for DVT
currently Lovenox for DVT ppx, resume full anticoagulation when able
# Diabetes Mellitus, Type II
HgbA1c 5.8 in October 2024
# Essential Hypertension
continue lisinopril, Aldactone with hold parameters
# CKD Stage III
creatinine stable at 1.2 today
Cont to monitor closely
# Hyperphosphatemia
on calcium acetate
# Chronic Normocytic Anemia
Hgb appears stable compared to previous
# Asthma, no acute exacerbation
continue albuterol PRN
# Anxiety/Depression
continue Wellbutrin
# Gastritis/Gastric Erosions
continue Protonix BID
# Chronic Lower Extremity Lymphedema
# Class III Obesity
Affects all aspects of care
DVT ppx: currently on Lovenox SQ
Dispo plan: eventual SNF
extensive discussion with Telephone Interceptor Operator and ID
updated daughter on the phone
CC Mx for shock
CC time 40 min
Anticipated Discharge: > 48 hours
Subjective/Interval History
-
Date of Service: December 10, 2024
Objective Data
-
Labs:
Laboratory Results
12/10/24
05:09
WBC 10.6
Hgb 10.6 L
Hct 32.4 L
Plt Count 527 H
Sodium 135
Potassium 4.9
Chloride 102
Carbon Dioxide 20 L
BUN 40 H
Creatinine 1.2 H
Glucose 151 H
Calcium 9.8
Total Bilirubin 0.6
AST 18
ALT 10
Alkaline Phosphatase 64
Vital Signs:
Vital Signs
Temp Pulse Resp BP Pulse Ox
36.6 C 79 17 78/47 96
12/10/24 04:00 12/10/24 07:00 12/10/24 07:00 12/10/24 07:00 12/10/24 07:00
I&O
12/09/24 12/10/24 12/11/24
06:59 06:59 06:59
Intake Total 1540 / 1540 2059
Output Total 345 / 345
Balance 1540 / 1540 1715 / 1715
Review of Systems
-
All other systems: Reviewed and negative
Physical Exam
-
General: Well Developed, Well Nourished, No Apparent Distress, Comfortable and Conversant
HEENT: Normocephalic, Atraumatic and Oxygen (2L NC)
Respiratory: Clear to Auscultation and Non Labored Respirations; Negative Accessory Resp Muscle Use
Cardiac: Regular Rhythm and S1/S2
GI: Soft, Nontender and Other (surgery site intact)
Neuro: Awake and Alert
Psych: Calm and Intact Judgement/Insight
Data Reviewed
-
Labs: Labs Reviewed by me
[2024-12-10 08:01] LABS: Glucose - Point of Care 132 mg/dl (70-99)
--- NOTE | 2024-12-10 08:12 | W.PN.ID1 ---
Date of Service
Date of Service: December 10, 2024
Today's Communication
Discontinue antibiotics.
Assessment / Plan
Left adnexal mass
- s/p debulking 12/09/24
Recurrent ascites
- Cx's negative to date
Left pleural effusion
Recent pulmonary embolism (requiring cath directed thrombolysis)
Left adnexal mass
DM
HTN
CKD
PE
HLD
Colon polyps
Obesity
Recommendations:
Large adnexal mass s/p debulking. Suspected malignancy.
No purulence noted in the abdomen. Suspect source of ascites PMNs was mass.
Discontinue further antibiotics.
Ascites fluid from 11/29 and 12/02 sent for AFB stain/cx
Monitor white count and temperature curve.
����������������������������������������������������������
Chief Complaint
-: Other (?SBP; Recurrent ascites; Abdominal mass)
Subjective / Review of Systems
Patient seen and examined. Status post OR yesterday with removal of abdominal mass. Pain controlled.
Review of Systems: No Fever and No Chills
Vital Signs / Physical Exam
Vital Signs
Vital Signs
Temp Pulse Resp BP Pulse Ox
98 F 79 17 78/47 96
12/10/24 04:00 12/10/24 07:00 12/10/24 07:00 12/10/24 07:00 12/10/24 07:00
Physical Exam
Constitutional: No Acute Distress, Comfortable and Non-toxic
Eyes: Sclera Anicteric
Cardiovascular: S1/S2; Negative S3/S4
Pulmonary: Non Labored
Gastrointestinal: Soft, Tender, Non Distended, Decreased Bowel Sounds and No Rebound
Extremities: Edema; Negative Cyanosis or Erythema
Neurological: AO x 3
Psychological: Calm
Objective Data
Lab Data
Lab Results
12/10/24 05:09
12/10/24 05:09
PT 15.2 Sec (11.4-14.6) H 12/09/24 05:43
INR 1.17 12/09/24 05:43
APTT 35.4 Sec (23.4-35.0) H 12/09/24 05:43
Estimated Creat Clear 48 ml/min 12/10/24 05:09
Total Bilirubin 0.6 mg/dl (0.2-1.3) 12/10/24 05:09
AST 18 U/L (14-36) 12/10/24 05:09
ALT 10 U/L (0-35) 12/10/24 05:09
Alkaline Phosphatase 64 U/L (38-126) 12/10/24 05:09
Most recent labs reviewed.
Micro Results:
12/02/24 14:43 Body Fluid Culture - Final
Peritoneal Fluid No Growth After 72 Hours
Gram Stain - Final
11/29/24 13:21 Acid Fast Bacilli Smear - Preliminary
Peritoneal Fluid Acid Fast Bacilli Culture - Preliminary
12/02/24 14:43 Acid Fast Bacilli Smear - Preliminary
Peritoneal Fluid Acid Fast Bacilli Culture - Preliminary
11/29/24 13:21 Body Fluid Culture - Final
Peritoneal Fluid No Growth After 72 Hours
Gram Stain - Final
11/20/24 14:49 Body Fluid Culture - Final
Pleural Fluid No Growth After 72 Hours
Gram Stain - Final
11/19/24 12:02 Body Fluid Culture - Final
Peritoneal Fluid No Growth After 72 Hours
Gram Stain - Final
11/18/24 17:14 Influenza Types A & B ([place]) - Final
Nasal Swab Negative for Influenza A & B, NAAT
Negative results must be combined with clinical observations
and patient history.
Nucleic Acid Amplification test (NAAT)performed on the
[employer] platform.
Imaging:
12/04/24 CT abdomen/pelvis with contrast: A large cystic lesion extending from the upper left pelvis into the left hemiabdomen measuring up to 22 cm with associated mass effect. This likely represents enlargement of the previously seen left adnexal
cystic lesion, and is concerning for ovarian neoplasm. Please see full dictation for additional detail.
12/01/2024 Abdominal ultrasound (Doppler): Appropriate hepatoportal flow is seen in the main portal vein. Normal hepatoportal flow demonstrated within the left and right portal veins. Normal arterial waveform is seen in the hepatic artery. There
is normal phasicity in the hepatic veins. No evidence of hepatic venous thrombosis.
Care Review
Plan reviewed with: Physician (Hospitalist; Critical Care)
[2024-12-10 08:19] LABS: Venous Blood Gas B.E. -1.2 mmol/L (-4 to +4); Venous Blood Gas HCO3 24.3 mmol/L (22-27); Venous Blood Gas O2 Sat % 48.7 %; Venous Blood Gas pCO2 43 mmHg (35-48); Venous Blood Gas pH 7.36 (7.32-7.43); Venous Blood Gas pO2 31 mmHg (30-50)
[2024-12-10 08:35] LABS: Lactic Acid 1.3 mmol/L (0.7-2.0)
[2024-12-10] MEDS: ROXICODONE 5 MG PO (09:00)
[2024-12-10] MEDS: ProAmatine 5 MG PO ×3 (09:00→17:24)
[2024-12-10] MEDS: MYLICON 80 MG PO ×3 (09:00→21:07)
[2024-12-10] MEDS: WELLBUTRIN XL (24 hour extended release) 300 MG PO (09:00)
[2024-12-10] MEDS: PROTONIX 40 MG PO ×2 (09:00→20:16)
[2024-12-10] MEDS: PHOSLO 667 MG PO ×3 (09:00→17:24)
[2024-12-10] MEDS: MIRALAX 17 GRAMS PO (09:01)
[2024-12-10] MEDS: DESENEX/MITRAZOL/ZEASORB 1 APPLIC TOPICAL ×2 (09:02→20:16)
[2024-12-10] MEDS: LR 500 IV (09:30)
[2024-12-10] MEDS: CYANOCOBALAMIN 1000 MCG IM (09:30)
--- NOTE | 2024-12-10 10:45 | W.PN.CD ---
Today's Communication / Plan
-
Cardiology will sign off
Resume Apixaban at 5 BID when OK with medicine/Dough Mixing Machine Operator-Onc
Impression / Plan
-
Background: 74F with morbid obesity, chronic lymphedema bilateral lower extremities, CKD 3, hyperlipidemia and recent admission in October for acute bilateral pulmonary embolism with obstructive shock and evidence of right heart failure status post
thrombolysis presents for recurrent shortness of breath, weight gain and abdominal distention.
Outpatient retail loan originator assistant: will be Dr. Howe
S/p resection of left ovary neoplasm
- Exp Lap, radical tumor cytoreduction including RITA BSO, Appy, omentectomy multiple peritoneal biopsies optimal tumor debulking. Primary repair of ventral hernia on 12/09/[address] Marques
- path is pending
- No cardiac complication
Hx HFpEF, acute on chronic but not felt to be primary cause of ascites
- Resolved cor Pulmonale right heart failure, acute
- Right heart cath 11/29/2024: PCWP 12 RA 10 at wt of 236.5 lbs
- Echo 11/20/2024: LVEF 50-55%, normal RV, mild TR, PASP 39
- Has been on daily Lasix, can use PRN now
Chronic lymphedema, make volume exam impossible.
Obesity
Recent pulmonary emboli with obstructive shock s/p thrombolysis 10/23/2024
- Resume Apixaban at 5 BID when OK with medicine/Dough Mixing Machine Operator-Onc
HTN, chronic & stable on meds, continue.
CKD, chronic, stable
Obesity, BMI 39, affects all aspects of care, she would benefit from weight loss
SUBJECTIVE:
she is feeling well without complaint
DATA:
RHC, 11/29/24:
WT 107.5kg
PA (s/d/x mmHg): 48/
PCWP (a/v/x mmHg): /
RV (s/x mmHg): 48/10
RA (a/v/x mmHg): 04/08/10
PVR = 3.66 Pradhan units
Conclusion: Normal filling pressures at 107.5kgm Mild, precapillary pulmonary hypertension (mean PA = 29 mmHg, PCWP = 12 mmHg, cardiac output 4.65 L/min, PVR = 3.66 Pradhan units).
Physical Exam
Vital Signs/Labs
Vital Signs
Temp Pulse Resp BP Pulse Ox
98.1 F 74 19 96/49 97
12/10/24 08:21 12/10/24 10:15 12/10/24 10:15 12/10/24 10:15 12/10/24 10:25
12/09/24 12/10/24 12/11/24
06:59 06:59 06:59
Actual Weight 103.107 kg 98.157 kg
12/10/24 05:09
PT 15.2 Sec (11.4-14.6) H 12/09/24 05:43
INR 1.17 12/09/24 05:43
APTT 35.4 Sec (23.4-35.0) H 12/09/24 05:43
Magnesium 1.8 mg/dl (1.6-2.3) 12/10/24 05:09
Free T4 1.80 ng/dl (0.78-2.19) 11/30/24 05:41
11/18/24
14:10
[id number] Pept [id number]
Physical Exam
Constitutional: No acute distress
Cardiovascular: Rhythm & rate is regular and Rub absent
Respiratory: Respiratory effort normal and Lungs clear to auscul.
GI: Soft
Neuro/Psych: AO x 3
Data Reviewed
-
Date of Service: December 10, 2024
[2024-12-10] MEDS: LR 1000 IV ×2 (11:00→16:56)
[2024-12-10 11:50] LABS: Glucose - Point of Care 178 mg/dl (70-99)
--- NOTE | 2024-12-10 13:16 | PTCARENOTE ---
Pt AAOx3. Sinus rhythm. +2-3 LE edema. Levophed at 4mcg/min. Lungs CTA. SpO2 96-97% on 2L NC. Tolerating clear liquid diet. Reported intermittent nausea over night especially with pain meds. PRN Zofran given. Received PRN Oxycodone x1 and
PRN Dilaudid x1 this shift. Increased pain with turning/repositioning. Poor urine output. Received 500ml bolus. IVF per order. Abdominal incision C/D/I. All other assessments unchanged.
--- NOTE | 2024-12-10 14:55 | CM ---
CM following re: discharge planning.
Reviewed pt's chart, met with pt.
Pt is s/p surgery on 12/09 with Exp Lap, radical tumor cytoreduction including RITA BSO, Appy, omentectomy multiple peritoneal biopsies optimal tumor debulking.
PT and OT evaluations noted from 12/04/24 and SNF level of care recommended.
Per CM notes, a plan is for pt to go to [facility] for a short term rehab. Awaiting updated PT and OT evaluation
D/C plan: [facility] when medically stable.
CM will follow with discharge plan updates as hospitalization progresses
[2024-12-10 15:19] LABS: Hematocrit 30.8 % (37.0-47.0); Hemoglobin 9.9 g/dL (12.0-16.0); Mean Corp Hgb Conc. 32.1 g/dL (33.0-37.0); Mean Corpuscular Hgb 25.7 pg (27.0-31.0); Mean Platelet Volume 8.8 fL (7.4-10.4); Platelet Count 624 10^3/uL (130-400); Red Blood Cell Count 3.85 10^6/uL (4.20-5.40); Red Cell Dist. Width 15.2 % (11.5-14.5); White Blood Cell Count 10.5 10^3/uL (4.8-10.8)
--- NOTE | 2024-12-10 16:00 | PTCARENOTE ---
New right IJ CVC placed by . All other assessments unchanged.
--- NOTE | 2024-12-10 16:05 | OR.RPT ---
Operative Report
Operative Report
Right IJ Central Line placement
Indication: Shock, need central access for Norepinephrine infusion
Consent: Informed consent obtained from the patient
Time-out was performed and patient was placed in Trendelenburg position. Ultrasound was used to assess patency of Right IJ vein. Under sterile conditions area was cleaned with chlorhexidine and then a full body drape was placed. 3 mL of local
anesthesia with lidocaine was injected. Under real-time ultrasound guidance, short axis view, the needle was inserted and vein was punctured, once blood was aspirated, syringe was removed and guidewire was advanced which did not meet any
resistance. Subsequently needle was withdrawn and guidewire was left in place. Ultrasound was used again to confirm presence of guidewire inside the vein lumen. A small deann was placed at the skin and a dilator was advanced to about 50% of its
length. Dilator was removed and central venous catheter was advanced over guidewire and subsequently guidewire was removed. All 3 ports were capped and they were easy to flush and were withdrawing blood without any resistance. Central line was
sutured to the skin and dressing was applied.
Ultrasound of the lungs was performed and good lung sliding was obtained. Patient stayed hemodynamically stable through the procedure.
Complications: None. CXR not suggestive of Pneumothorax
Blood loss: None
Time spent: 25 min
Date of Service: 12/10/2024
[2024-12-10 17:22] LABS: Glucose - Point of Care 182 mg/dl (70-99)
[2024-12-10] MEDS: LOVENOX 40 MG SC (17:24)
--- NOTE | 2024-12-10 20:04 | PTCARENOTE ---
Received patient AAOx3, following commands, denying pain. NS 80s, BP maintained to meet MAP>65 on levophed gtt. Normothermic, weak pedal pulses b/l, +2 LE edema. On 2 liters nasal cannula, saturating 94%. Attempted to put patient on room air and
patient desaturated to 87%. Lung sounds clear, diminished throughout. Abdomen soft, round, obese, positive bowel sounds. Midline abdominal incision, original post op dressing CDI. Bullock in place draining del urine, oliguric. MASD on b/l groin,
desenex applied. Foam on sacrum. PIV patent, RIJ triple lumen patent, WNL. Call renae within reach.
[2024-12-10 23:59] LABS: Glucose - Point of Care 152 mg/dl (70-99)
[2024-12-11] VITALS (58 sets, daily range): BP systolic 85–131; BP diastolic 42–87; PULSE 81; O2SAT 98; BMI 39.3
--- NOTE | 2024-12-11 | PTCARENOTE ---
Patient assessment unchanged from previous, call renae within reach.
[2024-12-11 04:55] LABS: Hematocrit 27.4 % (37.0-47.0); Hemoglobin 8.8 g/dL (12.0-16.0); Mean Corp Hgb Conc. 32.1 g/dL (33.0-37.0); Mean Corpuscular Volume 81.1 fL (81.0-99.0); Mean Platelet Volume 8.9 fL (7.4-10.4); Platelet Count 471 10^3/uL (130-400); Red Blood Cell Count 3.38 10^6/uL (4.20-5.40); Red Cell Dist. Width 15.1 % (11.5-14.5); White Blood Cell Count 7.8 10^3/uL (4.8-10.8)
[2024-12-11 05:13] LABS: Blood Urea Nitrogen 44 mg/dl (7-17); Calcium 9.9 mg/dl (8.4-10.2); Carbon Dioxide 23 mmol/L (22-30); Chloride 100 mmol/L (98-107); Estimated Creatinine Clearance 38 ml/min; Glucose 107 mg/dl (70-99); Magnesium 1.8 mg/dl (1.6-2.3); Potassium 4.3 mmol/L (3.5-5.1); Sodium 132 mmol/L (135-145); eGFR 36.57
--- NOTE | 2024-12-11 05:20 | PTCARENOTE ---
Levophed down to 2 mcg/min, CHG bath done, labs sent, repositioned. Patient assessment unchanged from previous, call renae within reach.
[2024-12-11] MEDS: SYNTHROID 50 MCG PO (06:05)
[2024-12-11] MEDS: LEVOPHED 250 IV (06:23)
--- NOTE | 2024-12-11 06:40 | W.PN.GYNONC ---
Today's Communication
-
advance diet to full liquids
Impression / Plan
-
1. 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
she is on levophed for hypotension, BP improved
CXR does show pleural effusion, consider drainage if O2 requirements increase
may advance diet to full liquids
continue prophylactic dose lovenox today, I recommend we RESTART Therapeutic Lovonox tomorrow 12/11 if hgb stable
continue GI prophylaxis and add dulcolax
Roger Marques MD
[facility]
[phone]
Subjective / Interval History
-
POD2
she seems to have min pain on her abdomen
denies any bowel function yet
Objective Data
-
Lab Results:
12/11/24 04:16
12/11/24 04:16
Physical Exam
Vital Signs / I&O
Vitals
Temp Pulse Resp BP Pulse Ox
98.7 F 94 29 105/56 94
12/11/24 00:35 12/11/24 06:15 12/11/24 06:15 12/11/24 06:00 12/11/24 06:15
I&O
12/08/24 12/09/24 12/10/24 12/11/24
06:59 06:59 06:59 06:59
Intake Total 720 / 720 1540 / 1540 2060 / 2160 3122.5 / 3122.5
Output Total 345 / 360 495 / 495
Balance 720 / 720 1540 / 1540 1715 / 1800 2627.5 / 2627.5
Physical Exam
General: No Apparent Distress
HEENT: Normocephalic and Moist Mucous Membranes
Respiratory: Non Labored Respirations
Cardiac: S1/S2 and Regular Rhythm
GI: Soft, Non Tender and Non Distended
Neuro: Awake, Alert and AO x 3
[2024-12-11] MEDS: DESENEX/MITRAZOL/ZEASORB 1 APPLIC TOPICAL ×2 (07:55→19:27)
[2024-12-11 07:57] LABS: Glucose - Point of Care 101 mg/dl (70-99)
--- NOTE | 2024-12-11 08:00 | PTCARENOTE ---
Assumed care of pt at 0715 following shift report. Pt drowsy but arouses to verbal stimuli- more alert w/ time. Denies c/o pain. Levophed gtt at 2mcg/min and LR @ 50ml/hr. O2 at 2l/min via NC w/ POx 93%. Pt denies SOB. Bullock patent and draining
clear del urine. Physical assessment completed. Repositioned and comfort care provided. Call renae w/in pt reach and safe environment maintained.
--- NOTE | 2024-12-11 08:00 | W.PN.INTV ---
Today's Communication / Plan
Recommendations
- Repeat blood cultures
- Thoracentesis and send pleural fluid studies for cytology, biochemistry and microbiological studies
- Check urine sodium
- Keep MAP above 65
- Start anticoagulation with heparin drip
Assessment
-
Patient is a very pleasant 74-year-old female who was admitted initially in October 2024 with massive pulmonary embolism with obstructive shock. She required pressor support and had catheter directed thrombolysis followed by improvement. She was
newly diagnosed with large volume ascites at that time and at a 6.5 L tap performed and cytology was noted to be negative. Patient was readmitted earlier this month with shortness of breath and worsening abdominal distention. She had repeat
paracentesis which was concerning for SBP based on elevated WBC count. She also had left-sided thoracentesis performed which was exudative but culture stayed negative. Infectious disease service was consulted and patient was initially continued on
antibiotics. Additional workup included a CT abdomen, ultrasound as well as pelvic MRI which was suggestive of a large 21 cm left ovarian cystic mass. Patient was taken to the OR on 12/09 and had ex lap performed with radical tumor cytoreduction
along with multiple omental and peritoneal biopsies. Patient had soft blood pressure prior to surgery and postsurgery was noted to be hypotensive and was transferred to ICU. Patient has required low-dose Levophed and fluid boluses to maintain
blood pressure. [employer] Magistrate consultation was requested for further input.
Last 24 hours:
- Right IJ central line placed 12/10
- Levophed continued to keep MAP above 65
- Urine output 480 over last 24 hours, positive fluid balance 2.5 L
- Levophed infusing @ 2
#1. Hypotension/Shock. Suspect intra-vascular hypovolemia and third spacing of fluids. On review of record, patient noted to have borderline low blood pressure before surgery also. Lactate normal at 1.3, VBG with normal pH of 7.36, pCO2 43 (12/10).
Sepsis also in differential since she is febrile this AM.
- Repeat blood cultures
- Sent pleural fluid for gram stain/cultures
- Off lisinopril and spironolactone
- Continue Levophed and Ringer lactate infusion
- Continue midodrine
- Infectious workup over the last 10 days has been unremarkable, antibiotic discontinued per ID service (12/10). Await further recommendations
- Levophed as needed to keep MAP above 65, wean as tolerated
#2. Massive ascites with large left ovarian cystic mass (21.6x19.6x20 cm). S/p laparotomy (12/09/2024) and total abdominal hysterectomy, bilateral salpingo-oophorectomy, appendectomy, omentectomy, multiple peritoneal biopsies along with optimal
tumor debulking with radical tumor cytoreduction, and repair of ventral hernia
- Suspect third spacing of fluid also contributing to hypovolemia and decreased urine output
- Continue IV fluid resuscitation. Patient also received albumin overnight (12/09).
- Await tissue pathology
- Ascitic fluid cytology has been negative however suspect recurrent ascites is related to underlying ovarian tumor
- Ascitic fluid elevated WBC count not felt to be SBP with multiple negative cultures. Antibiotics stopped 12/10
#3. Massive pulmonary embolism with obstructive shock, October 2024. Suspect due to underlying malignancy. Patient was treated with catheter directed thrombolysis
- Anticoagulation on temporary hold in view of laparotomy
- Plan to resume full dose anticoagulation on 12/11 per surgery service
#4. Left pleural effusion, loculated with left lower lobe atelectasis. Status post thoracentesis on 11/20, 1000 mL straw-colored pleural fluid evacuated. No cough, pneumonia felt to be less likely. Suspect compressive atelectasis due to effusion.
- Exudative pleural effusion with pleural fluid protein 3.4, LDH 120. Compared from a serum LDH of 112 and serum protein of 5.0. Cultures have stayed negative. Cytology not performed
- Pleural fluid composition appears to be very similar to ascitic fluid composition on cell count and protein/LDH evaluation. Suspect this effusion is translocated ascitic fluid
- Chest x-ray shows moderate to large effusion (12/10), plan for Thoracentesis today
#5. FELIBERTO with CKD stage III, with oliguria. FELIBERTO likely related to hypotension and shock
- Avoid hypotension, Levophed as needed to keep MAP above 65
- Discontinued lisinopril and spironolactone
- Continue Ringer lactate infusion
- Check urine sodium
- Monitor input and output closely, depending on response to bolus might need maintenance IV fluids
#6. Improved Cor-pulmonale with residual Mild Pulmonary Hypertension. RHC 11/2024. mPA 29, PCWP 12 with CO 4.6 and PVR 3.66.
- Suspect PH is related to massive PE in 10/2024 with obstructive shock s/p catheter directed thrombolysis
- PAP is improved on RHC compared to prior ECHO (due to thrombolysis and anticoagulation)
- Plan to resume anticoagulation once cleared by surgery service
- f/u ECHO in 3-6 months, while patient is anticoagulated, to monitor for development of any CTEPH
- Obesity and suspected underlying MIKE also likely contributing to PH
- Needs further work up as out patient
- Will need Pulmonary clinic follow up post discharge
DVT prophylaxis with subcu Lovenox
GI prophylaxis with Protonix twice daily
Critical Care time 53 mins -- The patient is admitted for acute critical illness for the treatment of vital organ failure and/or prevention of further life-threatening conditions. Total care includes time spent in review of history, physical exam,
medications, hemodynamic/ventilator parameters, laboratory data, imaging and discussion with house staff, pharmacy, respiratory therapy, transportation design engineer, and nursing.
Data:
CXR 12/10/2024: 1. MODERATE-SIZED LEFT PLEURAL EFFUSION which appears unchanged.
2. Large dense left lower lobe airspace consolidation. Diagnostic possibilities are (1) compressive atelectasis or (2) left lower lobe pneumonia (if there are signs/symptoms of pulmonary infection).
ECHO 11/2024: Normal left ventricular systolic function. Left ventricular ejection fraction
is 50-55% by visual estimate.
Limited views of RV (best subcostal). Normal right ventricular size and
function.
Mild tricuspid regurgitation. Mildly elevated PASP. Estimated pulmonary artery
pressure of 39 mmHg assuming a right atrial pressure of 3 mmHg
Compared to 10/23/24: RV views limited overall. But compared to prior, RV size
and function now appear normal. TR has improved from moderate to mild. PASP is
similar.
RHC 11/2024: 1. Normal filling pressures (PCWP = 12 mmHg at 107.5 kg).
2. Mild, precapillary pulmonary hypertension (mean PA = 29 mmHg, PCWP = 12 mmHg, cardiac output 4.65 L/min, PVR = 3.66 Pradhan units).
Pelvic US 11/2024: There is a large heterogeneous cystic and solid lesion within the left adnexa extending into the left hemiabdomen measuring up to 23.0 cm. Findings are suspicious for ovarian neoplasm, less likely chronic hematoma. At the time for
the evaluation with MRI pelvis has been ordered.
Small volume free fluid in the left adnexa.
Pelvic MRI 11/2024: Complex multiseptated cystic mass in the left lower quadrant most likely of left ovarian origin within the limitations of this exam. Leading consideration would be an ovarian epithelial tumor such as a mucinous cystadenoma or
possibly a cystadenocarcinoma.
Mild pelvic ascites.
Tubular intrinsically T1 hyperintense signal region in the central pelvis, suboptimally evaluated but possibly representing hematometria or hematosalpinx.
Subjective Dataa
Subjective Data
Date of Service:
Date of Service: December 11, 2024
Subjective:
Patient lying in bed in no acute distress.
Review of Systems
Genitourinary: Other (Expected postop pain, otherwise unremarkable.)
Objective Data
Data Reviewed
Vital Signs / I&O / Oxygen:
Vital Signs
Temp Pulse Resp BP Pulse Ox
102.3 F H 94 29 105/56 94
12/11/24 07:00 12/11/24 06:15 12/11/24 06:15 12/11/24 06:00 12/11/24 06:15
Intake and Output
12/10/24 12/11/24 12/12/24
06:59 06:59 06:59
Intake Total 2059 / 2159 3122.5 / 3122.5
Output Total 345 / 360 495 / 495
Balance 1715 / 1800 2627.5 / 2627.5
SaO2 94
Nasal Cannula flow liters per 2
minute
Physical Exam
General: Comfortable
HEENT: Normocephalic
Cardiovascular: S1-S2
Respiratory: Other (Decreased air entry on the left hemithorax.)
GI: Distended
Neurology: Awake and Alert
Skin: Warm
Labs/Micro/Reports
Lab Data
12/11/24 04:16
12/11/24 04:16
[2024-12-11] MEDS: NOVOLOG FLEXPEN-LOW RESISTANCE SC ×3 (08:20→17:33)
[2024-12-11] MEDS: MIRALAX PO (08:20)
[2024-12-11] MEDS: PHOSLO 667 MG PO ×3 (08:21→17:38)
[2024-12-11] MEDS: MYLICON 80 MG PO ×3 (08:21→22:31)
[2024-12-11] MEDS: ProAmatine 5 MG PO ×3 (08:21→17:40)
[2024-12-11] MEDS: WELLBUTRIN XL (24 hour extended release) 300 MG PO (08:21)
[2024-12-11] MEDS: PROTONIX 40 MG PO ×2 (08:21→19:27)
[2024-12-11] MEDS: TYLENOL 650 MG PO ×2 (08:21→19:31)
[2024-12-11] MEDS: CYANOCOBALAMIN 1000 MCG IM (08:22)
--- NOTE | 2024-12-11 08:37 | W.PN.HOSP.TC ---
Today's Communication/Plan
-
see A/P
Assessment / Plan
Assessment / Plan
A/P:
# Recurrent ascites
# Was initially felt 2/2 Acute Right heart failure, Acute Cor pulmonale
s/p paracentesis x 3: first para 4/2 and 10 L removed (no SBP), second para 4/11 (noted SBP), third para 4/14 with persistent SBP (worsening WBC/SBP).
Of note, Echo unrevealing, improved RV size and function. EF 50-55%
RHC 11/29 with euvolemic, normal wedge, unsure if cardiac in origin
s/p aggressive IV Lasix course
Card recc to resume 40mg po Lasix when weight is 236 lbs and an additional pm dose on days weight jumps wt is 240 or higher
GDMT: continue Aldactone, Lisinopril with holding parameter. SGLT2i avoided due to recent UTI
# Recurrent ascites with worsening ascitic fluid polymorph
Gram stain and culture from para unrevealing,
Ceftriaxone was changed to ertapenem per ID, stop further Abx as this is unlikely SBP (ascitic polymorph from ovarian cancer masking as SBP).
CT AP obtained noted possible left adnexal cystic lesion, concerning for ovarian neoplasm- this could be contributing to her persistent ascites with elevated polymorph.
Pelvis ultrasound confirmed large heterogeneous cystic and solid lesion within the left adnexa suspicious for ovarian neoplasm.
MRI pelvis confirmed complex multiseptated cystic mass in the left lower quadrant most likely left ovarian origin. Consideration would be an ovarian epithelial tumor such as a mucinous cystadenoma or possibly a cystadenocarcinoma.
Of note, CA 125 elevated at 158
EMERGENCY COMMUNICATIONS DISPATCHER oncologist Dr Marques on board, Oncologist on board
s/p surgery on 12/09 with Exp Lap, radical tumor cytoreduction including RITA BSO, Appy, omentectomy multiple peritoneal biopsies optimal tumor debulking.
Post op monitor in ICU
[employer] Eliquis switched to therapeutic Lovenox SQ preop -> transition to heparin drip 12/11
# Shock could be anesthesia effect with blood loss/ hemorrhagic shock postop
cont pressor Levophed, monitor BP, wean pressor as tolerated
# Fever 12/11 following OR
Check blood Cx x2, pleural fluid analysis
restart empiric Abx with cefepime/Flagyl 12/11
ID reconsult
# Acute hypoxic respiratory insufficiency
back on 2L NC post op
# L pleural effusion
s/p IR thoracentesis 11/20 and removed 1000 cc straw-colored pleural fluid, transudative fluid
for Repeat L Thoracentesis by pulm 12/11
Follow thora labs
# Recent massive Pulmonary Embolism in October 2024
Echo from 10/23/24: Normal left ventricular systolic function with EF 55-60%. Dilated and hypokinetic right ventricle
new finding of left ovarian mass which is concerning for neoplasm, could be the culprit for her recent VTE/pulm embolism
Lower extremity ultrasound negative for DVT
currently Lovenox for DVT ppx, resume full anticoagulation when able
# Diabetes Mellitus, Type II
HgbA1c 5.8 in October 2024
# Essential Hypertension
continue lisinopril, Aldactone with hold parameters
# CKD Stage III
creatinine stable at 1.2 today
Cont to monitor closely
# Hyperphosphatemia
on calcium acetate
# Chronic Normocytic Anemia
Hgb appears stable compared to previous
# Asthma, no acute exacerbation
continue albuterol PRN
# Anxiety/Depression
continue Wellbutrin
# Gastritis/Gastric Erosions
continue Protonix BID
# Chronic Lower Extremity Lymphedema
# Class III Obesity
Affects all aspects of care
DVT ppx: now on heparin drip
Dispo plan: eventual SNF
d/w Patent Law Specialist
updated daughter on the phone
CC Mx for shock
CC time 40 min
Anticipated Discharge: > 48 hours
Subjective/Interval History
-
Date of Service: December 11, 2024
Objective Data
-
Labs:
Laboratory Results
12/11/24
04:16
WBC 7.8
Hgb 8.8 L
Hct 27.4 L
Plt Count 471 H D
Sodium 132 L
Potassium 4.3
Chloride 100
Carbon Dioxide 23
BUN 44 H
Creatinine 1.5 H
Glucose 107 H
Calcium 9.9
Vital Signs:
Vital Signs
Temp Pulse Resp BP Pulse Ox
39.1 C H 94 29 112/43 94
12/11/24 07:00 12/11/24 08:21 12/11/24 06:15 12/11/24 08:21 12/11/24 06:15
I&O
12/10/24 12/11/24 12/12/24
06:59 06:59 06:59
Intake Total 2060 / 2160 3122.5 / 3122.5
Output Total 345 / 360 495 / 495
Balance 1715 / 1800 2627.5 / 2627.5
Review of Systems
-
All other systems: Reviewed and negative
Physical Exam
-
General: Well Developed, Well Nourished, No Apparent Distress, Comfortable and Conversant
HEENT: Normocephalic, Atraumatic and Oxygen (2L NC)
Respiratory: Clear to Auscultation and Non Labored Respirations; Negative Accessory Resp Muscle Use
Cardiac: Regular Rhythm and S1/S2
GI: Soft, Nontender and Other (surgery site intact)
Neuro: Awake and Alert
Psych: Calm and Intact Judgement/Insight
Data Reviewed
-
Labs: Labs Reviewed by me
[2024-12-11 08:51] LABS: Urine Sodium 17 mmol/L (30-90)
--- NOTE | 2024-12-11 09:40 | PTCARENOTE ---
"Bedside thoracentesis completed by Dr Ruiz. Ordered specimens sent to lab. Pt's POx down to 90% following procedure. Denies SOB. O2 increased to 4l/min w/ POx improved to 95%. Dr Ruiz aware of increased O2 demand. Portable CXR obtained and Dr Joseph (~) in pt's room to view image. No new orders received. "
--- NOTE | 2024-12-11 09:56 | W.PN.ID1 ---
Date of Service
Date of Service: December 11, 2024
Today's Communication
Would continue to observe off antibiotics at present. See below�
Assessment / Plan
Left adnexal mass
- s/p debulking 12/09/24
Recurrent ascites
- Cx's negative to date
Left pleural effusion
Recent pulmonary embolism (requiring cath directed thrombolysis)
Left adnexal mass
DM
HTN
CKD
PE
HLD
Colon polyps
Obesity
Recommendations:
Large adnexal mass s/p debulking surgery. Suspected malignancy. Path pending.
No purulence noted in the abdomen. Suspect source of prior ascites PMNs was mass.
Antibiotics discontinued yesterday, but reordered this a.m. secondary to fever.
Overall, white count normal.
Would hold on antibiotics for the present and watch temperature curve. If fevers persist, will reinitiate antibiotic therapy.
Ascites fluid from 11/29 and 12/02 sent for AFB stain/cx
Monitor white count and temperature curve.
����������������������������������������������������������
Chief Complaint
-: Other (?SBP; Recurrent ascites; Abdominal mass)
Subjective / Review of Systems
Patient seen and examined. No significant changes overnight, although did develop a fever this a.m. Denies pain.
Vital Signs / Physical Exam
Vital Signs
Vital Signs
Temp Pulse Resp BP Pulse Ox
102.3 F H 94 29 112/43 94
12/11/24 07:00 12/11/24 08:21 12/11/24 06:15 12/11/24 08:21 12/11/24 06:15
Physical Exam
Constitutional: No Acute Distress, Comfortable and Non-toxic
Eyes: Sclera Anicteric
Cardiovascular: S1/S2; Negative S3/S4
Pulmonary: Non Labored
Gastrointestinal: Soft, Tender, Non Distended, Decreased Bowel Sounds and No Rebound
Extremities: Edema; Negative Cyanosis or Erythema
Wound: Other (Abdominal wound dressed. No strikethrough. No periwound erythema noted.)
Neurological: AO x 3
Psychological: Calm
Objective Data
Lab Data
Lab Results
12/11/24 04:16
12/11/24 04:16
PT 15.2 Sec (11.4-14.6) H 12/09/24 05:43
INR 1.17 12/09/24 05:43
APTT 35.4 Sec (23.4-35.0) H 12/09/24 05:43
Estimated Creat Clear 38 ml/min 12/11/24 04:16
Lactic Acid 1.3 mmol/L (0.7-2.0) 12/10/24 08:13
Total Bilirubin 0.6 mg/dl (0.2-1.3) 12/10/24 05:09
AST 18 U/L (14-36) 12/10/24 05:09
ALT 10 U/L (0-35) 12/10/24 05:09
Alkaline Phosphatase 64 U/L (38-126) 12/10/24 05:09
Most recent labs reviewed.
Micro Results:
12/11/24 09:12 Body Fluid Culture - Pending
Pleural Fluid Gram Stain - Pending
12/11/24 08:15 Blood Culture - Pending
Blood/Venous
12/02/24 14:43 Body Fluid Culture - Final
Peritoneal Fluid No Growth After 72 Hours
Gram Stain - Final
11/29/24 13:21 Acid Fast Bacilli Smear - Preliminary
Peritoneal Fluid Acid Fast Bacilli Culture - Preliminary
12/02/24 14:43 Acid Fast Bacilli Smear - Preliminary
Peritoneal Fluid Acid Fast Bacilli Culture - Preliminary
11/29/24 13:21 Body Fluid Culture - Final
Peritoneal Fluid No Growth After 72 Hours
Gram Stain - Final
11/20/24 14:49 Body Fluid Culture - Final
Pleural Fluid No Growth After 72 Hours
Gram Stain - Final
11/19/24 12:02 Body Fluid Culture - Final
Peritoneal Fluid No Growth After 72 Hours
Gram Stain - Final
11/18/24 17:14 Influenza Types A & B ([place]) - Final
Nasal Swab Negative for Influenza A & B, NAAT
Negative results must be combined with clinical observations
and patient history.
Nucleic Acid Amplification test (NAAT)performed on the
[employer] platform.
Imaging:
12/04/24 CT abdomen/pelvis with contrast: A large cystic lesion extending from the upper left pelvis into the left hemiabdomen measuring up to 22 cm with associated mass effect. This likely represents enlargement of the previously seen left adnexal
cystic lesion, and is concerning for ovarian neoplasm. Please see full dictation for additional detail.
12/01/2024 Abdominal ultrasound (Doppler): Appropriate hepatoportal flow is seen in the main portal vein. Normal hepatoportal flow demonstrated within the left and right portal veins. Normal arterial waveform is seen in the hepatic artery. There
is normal phasicity in the hepatic veins. No evidence of hepatic venous thrombosis.
Care Review
Plan reviewed with: Physician (Critical Care)
[2024-12-11 10:46] LABS: Body Fluid Polymorphonuclear 2.6 %; Body Fluid WBC 582 /CUMM
[2024-12-11 10:47] LABS: Body Fluid Mononuclear 97.4 %
[2024-12-11] MEDS: HEPARIN 25000 UNITS/250 ML IV (10:49)
[2024-12-11 10:50] LABS: Body Fluid Second Tech EM
[2024-12-11 11:01] LABS: Body Fluid Glucose 107 mg/dl; Body Fluid LDH 93 U/L; Body Fluid Protein 4.1 g/dl; Body Fluid Triglycerides < 30 mg/dl
[2024-12-11 11:10] LABS: APTT 33.1 Sec (23.4-35.0)
--- NOTE | 2024-12-11 11:12 | OR.RPT ---
Operative Report
Operative Report
Thoracentesis, Left sided
Indication: Moderate to large left-sided pleural effusion
Consent: Informed consent obtained from the patient.
Patient was not able to sit as she has been bedbound, she was placed in semi-seated position with slight rightward tilt with the help of ground crewman mission support. Bedside ultrasound was performed and fluid pocket was identified which appeared to be without
any loculations with free-flowing fluid. Area was marked. Subsequently sterile gloves, gown, hard cover and mask was used and under sterile condition area was cleaned and prepped. With the probe cover in place, real-time ultrasound was used to
confirm the location of fluid pocket. 3 mL of needle was gradually advanced with suction until pleural fluid was aspirated with additional lidocaine injected there and on the way back. Lidocaine was injected locally. A small skin deann was placed
about 2 mm. Paracentesis catheter was then advanced under suction and once the fluid aspirated, needle was held still and catheter was advanced into the pleural cavity. Needle was subsequently withdrawn and catheter was connected to tubing and
eventually to suction. A three-way stopcock was placed in the circuit and fluid samples were obtained for cultures, cytology and microbiological studies. A total of 1 L fluid was aspirated. Repeat [id number] ultrasound showed only a trace
residual effusion. Catheter was then pulled out and dressing was placed. Normal lung sliding was observed postprocedure. Patient stayed hemodynamically stable throughout the procedure. 1 L of straw-colored pleural fluid was removed.
Complications: None. Follow-up chest x-ray showed resolution of effusion, well-expanded lung, no pneumothorax.
Blood loss: None
Time spent: 25 minutes
Date of service: 12/11/2024
--- NOTE | 2024-12-11 11:15 | PTOTSP ---
Speech Language Pathology
Pt seen for clinical bedside swallow evaluation. P.O. trials of puree, regular solids, and thin liquids provided. Limited solid trials provided only for evaluation purposes (cleared by MD). Adequate mastication, bolus formation, and A-P transit
noted with no oral residue. No overt signs of aspiration.
Recommend:
(1) Regular solids/thin liquids once cleared for solids
(2) General aspiration precautions
(3) Meds as tolerated
(4) SENIOR FRONT END WEB DEVELOPER to follow, likely briefly
[2024-12-11 11:42] LABS: Glucose - Point of Care 98 mg/dl (70-99)
--- NOTE | 2024-12-11 12:00 | PTCARENOTE ---
Pt continues to rest quietly, watching TV and napping intermittently. Tapering O2 down to 2l/min w/ POx 98%. Denies pain ('except for when you push on my belly') and SOB. Titrating Levophed gtt per ordered parameters. Heparin gtt started infusing
per order. Comfort care provided and pt repositioned q2hr or more frequently.
[2024-12-11] MEDS: LR 1000 IV (13:13)
--- NOTE | 2024-12-11 16:15 | PTCARENOTE ---
Pt sat up in chair position in bed for approx 2.5hr following visit from PT/OT. Tolerated clear liquid diet w/o complication. O2 weaned off w/ POx 94-96% on RA. No c/o pain or SOB. No additional changes from previous assessment findings. Call renae
remains w/in pt reach.
[2024-12-11 17:33] LABS: Glucose - Point of Care 126 mg/dl (70-99)
[2024-12-11] MEDS: ZOFRAN 4 MG IV (18:41)
--- NOTE | 2024-12-11 18:50 | PTCARENOTE ---
Pt c/o nausea. Requesting and given Zofran 4mg IV. Pt declining to eat dinner at this time
--- NOTE | 2024-12-11 21:03 | PTCARENOTE ---
Pt received start of shift, HR SR/ST w/ 1st degree AVB. Pt desat to 88% RA, 2L briefly placed on pt to recover. Currently on 1L NC 96-99. Pt w/ episode of vomiting x2. Vomit green, bilious. No obvious blood. Pt states she feels much better
afterwards. Abdominal incision intact, LOSS PREVENTION CONSULTANT. Very small serosanguineous drainage noted. Levo, LR, and heparin infusing per orders. L FA IV leaking, pulled. Pt c/o 4/10 pain at incision site, mostly when touched. PRN tylenol - see MAR. Bullock draining
clear yellow urine.
[2024-12-11 23:46] LABS: Glucose - Point of Care 109 mg/dl (70-99)
[2024-12-12] VITALS (38 sets, daily range): BP systolic 91–134; BP diastolic 43–91; BMI 39.0
[2024-12-12 00:07] LABS: APTT 97.3 Sec (23.4-35.0)
[2024-12-12] MEDS: HEPARIN 25000 UNITS/250 ML IV (00:46)
--- NOTE | 2024-12-12 01:50 | PTCARENOTE ---
Reassessed pt. More PACs noted on telemetry. CATERINA wraps removed overnight. Bullock continuing to drain yellow/del urine. No further episodes of n/v. 1L NC 95-97%
[2024-12-12 04:49] LABS: Platelet Count 351 10^3/uL (130-400)
[2024-12-12 05:11] LABS: Hematocrit 27.3 % (37.0-47.0); Hemoglobin 8.8 g/dL (12.0-16.0); Mean Corp Hgb Conc. 32.2 g/dL (33.0-37.0); Mean Corpuscular Hgb 25.7 pg (27.0-31.0); Mean Corpuscular Volume 79.8 fL (81.0-99.0); Mean Platelet Volume 8.5 fL (7.4-10.4); Red Blood Cell Count 3.42 10^6/uL (4.20-5.40); Red Cell Dist. Width 15.1 % (11.5-14.5); White Blood Cell Count 7.4 10^3/uL (4.8-10.8)
[2024-12-12 05:16] LABS: ALT (SGPT) < 10 U/L (0-35); AST (SGOT) 19 U/L (14-36); Albumin 2.6 g/dl (3.5-5.0); Alkaline Phosphatase 51 U/L (38-126); Blood Urea Nitrogen 38 mg/dl (7-17); Calcium 9.8 mg/dl (8.4-10.2); Carbon Dioxide 25 mmol/L (22-30); Chloride 102 mmol/L (98-107); Direct Bilirubin 0.2 mg/dl (0.0-0.4); Estimated Creatinine Clearance 45 ml/min; Glucose 97 mg/dl (70-99); Magnesium 1.7 mg/dl (1.6-2.3); Potassium 4.1 mmol/L (3.5-5.1); Sodium 134 mmol/L (135-145); Total Bilirubin 0.5 mg/dl (0.2-1.3); Total Protein 4.9 g/dl (6.3-8.2); eGFR 43.42
[2024-12-12] MEDS: SYNTHROID 50 MCG PO (06:11)
[2024-12-12 06:28] LABS: APTT 133.9 Sec (23.4-35.0)
--- NOTE | 2024-12-12 06:38 | PTCARENOTE ---
Levo off from 2350 to 0530. Currently infusing at 1mcg. Attempted to wean to RA, desat to 88%. No further change in assessment.
[2024-12-12 07:44] LABS: Glucose - Point of Care 123 mg/dl (70-99)
[2024-12-12] MEDS: NOVOLOG FLEXPEN-LOW RESISTANCE SC ×3 (07:45→16:13)
[2024-12-12] MEDS: WELLBUTRIN XL (24 hour extended release) 300 MG PO (09:02)
[2024-12-12] MEDS: ProAmatine 5 MG PO ×3 (09:02→19:13)
[2024-12-12] MEDS: PROTONIX 40 MG PO ×2 (09:02→19:13)
[2024-12-12] MEDS: MIRALAX 17 GRAMS PO (09:02)
[2024-12-12] MEDS: CYANOCOBALAMIN 1000 MCG IM (09:03)
[2024-12-12] MEDS: PHOSLO 667 MG PO ×3 (09:03→16:16)
[2024-12-12] MEDS: MYLICON 80 MG PO ×3 (09:03→21:39)
[2024-12-12] MEDS: DESENEX/MITRAZOL/ZEASORB 1 APPLIC TOPICAL ×2 (09:03→19:18)
--- NOTE | 2024-12-12 09:09 | W.PN.HOSP.TC ---
Today's Communication/Plan
-
see A/P
Assessment / Plan
Assessment / Plan
A/P:
# Recurrent ascites
# Was initially felt 2/2 Acute Right heart failure, Acute Cor pulmonale
s/p paracentesis x 3: first para 4/2 and 10 L removed (no SBP), second para 4/11 (noted SBP), third para 4/14 with persistent SBP (worsening WBC/SBP).
Of note, Echo unrevealing, improved RV size and function. EF 50-55%
RHC 11/29 with euvolemic, normal wedge, unsure if cardiac in origin
s/p aggressive IV Lasix course
Card recc to resume 40mg po Lasix when weight is 236 lbs and an additional pm dose on days weight jumps wt is 240 or higher
GDMT: continue Aldactone, Lisinopril with holding parameter. SGLT2i avoided due to recent UTI
# Recurrent ascites with worsening ascitic fluid polymorph
Gram stain and culture from para unrevealing,
Ceftriaxone was changed to ertapenem per ID, stop further Abx as this is unlikely SBP (ascitic polymorph from ovarian cancer masking as SBP).
CT AP obtained noted possible left adnexal cystic lesion, concerning for ovarian neoplasm- this could be contributing to her persistent ascites with elevated polymorph.
Pelvis ultrasound confirmed large heterogeneous cystic and solid lesion within the left adnexa suspicious for ovarian neoplasm.
MRI pelvis confirmed complex multiseptated cystic mass in the left lower quadrant most likely left ovarian origin. Consideration would be an ovarian epithelial tumor such as a mucinous cystadenoma or possibly a cystadenocarcinoma.
Of note, CA 125 elevated at 158
CLINICAL RESOURCE DIRECTOR oncologist Dr Marques on board, Oncologist on board
s/p surgery on 12/09 with Exp Lap, radical tumor cytoreduction including RITA BSO, Appy, omentectomy multiple peritoneal biopsies optimal tumor debulking.
Follow path report
METER READING CLERK Eliquis switched to therapeutic Lovenox SQ preop -> transitioned to heparin drip 12/11
# Shock could be anesthesia effect with blood loss/ hemorrhagic shock postop
Off pressor Levophed, added Midodrine 5 mg TID
Monitor BP
# Fever 12/11 following OR, resolved
follow blood Cx x2 from 12/11
s/p L thora 12/12 bedside by Pulm, 1L removed, transudative fluid
Off Abx per ID
# Acute hypoxic respiratory insufficiency
back on 2L NC post op
# L pleural effusion
s/p IR L thora 11/20 and removed 1000 cc straw-colored pleural fluid, transudative fluid
s/p Repeat L Thora by pulm 12/11, 1L removed, transudative fluid
# Recent massive Pulmonary Embolism in October 2024
Echo from 10/23/24: Normal left ventricular systolic function with EF 55-60%. Dilated and hypokinetic right ventricle
new finding of left ovarian mass which is concerning for neoplasm, could be the culprit for her recent VTE/pulm embolism
Lower extremity ultrasound negative for DVT
currently Lovenox for DVT ppx, resume full anticoagulation when able
# Diabetes Mellitus, Type II
HgbA1c 5.8 in October 2024
# Essential Hypertension
Off lisinopril, and Aldactone which was added this admission
# CKD Stage III
creatinine stable
Cont to monitor closely
# Hyperphosphatemia
on calcium acetate
# Chronic Normocytic Anemia
Hgb appears stable compared to previous
# Asthma, no acute exacerbation
continue albuterol PRN
# Anxiety/Depression
continue Wellbutrin
# Gastritis/Gastric Erosions
continue Protonix BID
# Chronic Lower Extremity Lymphedema
# Class III Obesity
Affects all aspects of care
# exposure to COVID,
Check COVID 12/02 and 12/14
DVT ppx: now on heparin drip
Dispo: PMR CS for Jeremias vallejo
updated daughter on the phone
total time 51 min
Anticipated Discharge: > 48 hours
Subjective/Interval History
-
Date of Service: December 12, 2024
Objective Data
-
Labs:
Laboratory Results
12/11/24 12/12/24 12/12/24
23:45 04:26 06:08
WBC 7.4
Hgb 8.8 L
Hct 27.3 L
Plt Count 351 D
APTT 97.3 H 133.9 H
Sodium 134 L
Potassium 4.1
Chloride 102
Carbon Dioxide 25
BUN 38 H
Creatinine 1.3 H
Glucose 97
Calcium 9.8
Total Bilirubin 0.5
AST 19
ALT < 10
Alkaline Phosphatase 51
12/12/24
14:30
WBC
Hgb
Hct
Plt Count
APTT Pending
Sodium
Potassium
Chloride
Carbon Dioxide
BUN
Creatinine
Glucose
Calcium
Total Bilirubin
AST
ALT
Alkaline Phosphatase
Vital Signs:
Vital Signs
Temp Pulse Resp BP Pulse Ox
37.1 C 76 20 108/59 98
12/12/24 08:00 12/12/24 09:02 12/12/24 08:30 12/12/24 09:02 12/12/24 08:30
I&O
12/11/24 12/12/24 12/13/24
06:59 06:59 06:59
Intake Total 3122.5 / 3180.0 2044.0 / 2044.0
Output Total 495 / 520 840 / 840
Balance 2627.5 / 2660.0 1204.0 / 1204.0
Review of Systems
-
All other systems: Reviewed and negative
Physical Exam
-
General: Well Developed, Well Nourished, No Apparent Distress, Comfortable and Conversant
HEENT: Normocephalic, Atraumatic and Oxygen (1L NC)
Respiratory: Clear to Auscultation and Non Labored Respirations; Negative Accessory Resp Muscle Use
Cardiac: Regular Rhythm and S1/S2
GI: Soft, Nontender and Other (surgery site intact)
Neuro: Awake and Alert
Psych: Calm and Intact Judgement/Insight
Data Reviewed
-
Labs: Labs Reviewed by me
--- NOTE | 2024-12-12 09:20 | W.PN.GYNONC ---
Today's Communication
-
-
Impression / Plan
-
1. 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
she is on levophed for hypotension, BP improved
CXR does show pleural effusion, consider drainage if O2 requirements increase, 1 liter of fluid removed on 12/12 continue to follow pulmonary and hospitalist plan
may advance diet to full liquids
Subjective / Interval History
-
pod 3
She states she is doing ok still some abdominal pain.
Objective Data
-
Lab Results:
12/12/24 04:26
12/12/24 04:26
Physical Exam
Vital Signs / I&O
Vitals
Temp Pulse Resp BP Pulse Ox
98.7 F 76 20 108/59 96
12/12/24 08:00 12/12/24 09:02 12/12/24 09:00 12/12/24 09:02 12/12/24 09:00
I&O
12/10/24 12/11/24 12/12/24 12/13/24
06:59 06:59 06:59 06:59
Intake Total 2059 3122.5 / 3180.0 2044.0 / 2097.8 425.6 / 425.6
Output Total 345 / 360 495 / 520 840 / 870 90 / 90
Balance 1715 / 1800 2627.5 / 2660.0 1204.0 / 1227.8 335.6 / 335.6
Physical Exam
abdomen- soft incisional tenderness incision is closed and dry area of dry crusted old blood on lower end of incision no new bleeding or drainage.
Data Reviewed
-
Lab Data: Labs Reviewed
--- NOTE | 2024-12-12 09:30 | PTCARENOTE ---
Rec'd care of patient at 0700. Patient alert and oriented. Flat affect. MAEx4. NSR with first degree avb on tele monitor. +2 edema in b/l LE, +3 pedal edema. Palpable pulses. Lung sounds shallow/diminished throughout. Pulse ox 98% on 1L nc. +BS.
Abdominal incision closed with zenaida, blaire. Incontinent of large loose BM. Tolerating clears. Appetite poor. Bullock in place for critical I/O. Output 30 cc/hr. Heparin/LR/Levo infusing through RIJ. Levophed weaned off at 0835. VSS.
[2024-12-12] MEDS: LR 1000 IV (10:31)
[2024-12-12 11:01] LABS: COVID-19 Antigen Positive (Negative)
--- NOTE | 2024-12-12 11:05 | PTCARENOTE ---
Patient covid positive. Respiratory illness isolation precautions initiated.
[2024-12-12 12:18] LABS: Glucose - Point of Care 79 mg/dl (70-99)
--- NOTE | 2024-12-12 12:45 | PTCARENOTE ---
Systems reviewed. No major changes. VSS. Remains off pressors. Weaned to RA. Pulse ox 94-97%. Repositioned for comfort.
--- NOTE | 2024-12-12 12:54 | W.PN.ID1 ---
Date of Service
Date of Service: December 12, 2024
Today's Communication
Monitor off antibiotics.
Assessment / Plan
Left adnexal mass
- s/p debulking 12/09/24
Recurrent ascites
- Cx's negative to date
COVID-19 positive
- Asymptomatic
Left pleural effusion
Recent pulmonary embolism (requiring cath directed thrombolysis)
Left adnexal mass
DM
HTN
CKD
PE
HLD
Colon polyps
Obesity
Recommendations:
Large adnexal mass s/p debulking surgery. Suspected malignancy. Path pending.
No purulence noted in the abdomen. Suspect source of prior ascites PMNs was mass.
Continue to monitor off of antibiotic.
Patient is vaccinated against COVID-19 and with minimal symptoms. Doubt necessity for antivirals at present. Will monitor.
Ascites fluid from 11/29 and 12/02 sent for AFB stain/cx
Monitor white count and temperature curve.
����������������������������������������������������������
Chief Complaint
-: Other (?SBP; Recurrent ascites; Abdominal mass)
Subjective / Review of Systems
Patient seen and examined. Feels fatigued. No fevers or chills.
Review of Systems: Cough (Slight)
Vital Signs / Physical Exam
Vital Signs
Vital Signs
Temp Pulse Resp BP Pulse Ox
98.5 F 76 15 110/51 95
12/12/24 12:14 12/12/24 12:28 12/12/24 12:00 12/12/24 12:28 12/12/24 12:32
Physical Exam
Constitutional: No Acute Distress, Comfortable and Non-toxic
Eyes: Sclera Anicteric
Cardiovascular: Regular Rate
Pulmonary: Non Labored
Gastrointestinal: Non Distended
Extremities: Edema; Negative Cyanosis or Erythema
Neurological: AO x 3
Psychological: Calm
Objective Data
Lab Data
Lab Results
12/12/24 04:26
12/12/24 04:26
PT 15.2 Sec (11.4-14.6) H 12/09/24 05:43
INR 1.17 12/09/24 05:43
APTT 133.9 Sec (23.4-35.0) H 12/12/24 06:08
Estimated Creat Clear 45 ml/min 12/12/24 04:26
Lactic Acid 1.3 mmol/L (0.7-2.0) 12/10/24 08:13
Total Bilirubin 0.5 mg/dl (0.2-1.3) 12/12/24 04:26
AST 19 U/L (14-36) 12/12/24 04:26
ALT < 10 U/L (0-35) 12/12/24 04:26
Alkaline Phosphatase 51 U/L (38-126) 12/12/24 04:26
Most recent labs reviewed.
Micro Results:
12/11/24 09:12 Body Fluid Culture - Preliminary
Pleural Fluid No Growth After 18-24 Hours
Gram Stain - Final
12/11/24 08:15 Blood Culture - Preliminary
Blood/Venous No Growth in 24 hours- Final report to follow
12/02/24 14:43 Body Fluid Culture - Final
Peritoneal Fluid No Growth After 72 Hours
Gram Stain - Final
11/29/24 13:21 Acid Fast Bacilli Smear - Preliminary
Peritoneal Fluid Acid Fast Bacilli Culture - Preliminary
12/02/24 14:43 Acid Fast Bacilli Smear - Preliminary
Peritoneal Fluid Acid Fast Bacilli Culture - Preliminary
11/29/24 13:21 Body Fluid Culture - Final
Peritoneal Fluid No Growth After 72 Hours
Gram Stain - Final
11/20/24 14:49 Body Fluid Culture - Final
Pleural Fluid No Growth After 72 Hours
Gram Stain - Final
11/19/24 12:02 Body Fluid Culture - Final
Peritoneal Fluid No Growth After 72 Hours
Gram Stain - Final
11/18/24 17:14 Influenza Types A & B ([place]) - Final
Nasal Swab Negative for Influenza A & B, NAAT
Negative results must be combined with clinical observations
and patient history.
Nucleic Acid Amplification test (NAAT)performed on the
[employer] platform.
Imaging:
12/04/24 CT abdomen/pelvis with contrast: A large cystic lesion extending from the upper left pelvis into the left hemiabdomen measuring up to 22 cm with associated mass effect. This likely represents enlargement of the previously seen left adnexal
cystic lesion, and is concerning for ovarian neoplasm. Please see full dictation for additional detail.
12/01/2024 Abdominal ultrasound (Doppler): Appropriate hepatoportal flow is seen in the main portal vein. Normal hepatoportal flow demonstrated within the left and right portal veins. Normal arterial waveform is seen in the hepatic artery. There
is normal phasicity in the hepatic veins. No evidence of hepatic venous thrombosis.
Care Review
Plan reviewed with: Nurse
--- NOTE | 2024-12-12 13:02 | W.PN.INTV ---
Today's Communication / Plan
Recommendations
- Start Eliquis 5 mg twice daily, discontinue heparin drip
- Discontinue Ringer lactate infusion
- If stays stable over next 24 hours, will discontinue central line and potentially transfer out of ICU
- PT/OT
- Await pleural fluid cultures
Assessment
-
Patient is a very pleasant 74-year-old female who was admitted initially in October 2024 with massive pulmonary embolism with obstructive shock. She required pressor support and had catheter directed thrombolysis followed by improvement. She was
newly diagnosed with large volume ascites at that time and at a 6.5 L tap performed and cytology was noted to be negative. Patient was readmitted earlier this month with shortness of breath and worsening abdominal distention. She had repeat
paracentesis which was concerning for SBP based on elevated WBC count. She also had left-sided thoracentesis performed which was exudative but culture stayed negative. Infectious disease service was consulted and patient was initially continued on
antibiotics. Additional workup included a CT abdomen, ultrasound as well as pelvic MRI which was suggestive of a large 21 cm left ovarian cystic mass. Patient was taken to the OR on 12/09 and had ex lap performed with radical tumor cytoreduction
along with multiple omental and peritoneal biopsies. Patient had soft blood pressure prior to surgery and postsurgery was noted to be hypotensive and was transferred to ICU. Patient has required low-dose Levophed and fluid boluses to maintain
blood pressure. Seismic Observer consultation was requested for further input.
Last 24 hours:
- Thoracentesis performed, left side, 1 L straw-colored fluid removed
#1. Hypotension/Shock. Suspect intra-vascular hypovolemia and third spacing of fluids. On review of record, patient noted to have borderline low blood pressure before surgery also. Lactate normal at 1.3, VBG with normal pH of 7.36, pCO2 43 (12/10).
Sepsis also in differential since she is febrile this AM.
- Repeat blood cultures negative so far
- Pleural fluid studies also negative so far
- Off lisinopril and spironolactone
- Levophed weaned off this morning
- Continue midodrine
- Infectious workup over the last 2 weeks has been unremarkable, antibiotic discontinued per ID service (12/10).
- Levophed as needed to keep MAP above 65
#2. Massive ascites with large left ovarian cystic mass (21.6x19.6x20 cm). S/p laparotomy (12/09/2024) and total abdominal hysterectomy, bilateral salpingo-oophorectomy, appendectomy, omentectomy, multiple peritoneal biopsies along with optimal
tumor debulking with radical tumor cytoreduction, and repair of ventral hernia
- Suspect third spacing of fluid also contributing to hypovolemia and decreased urine output
- Continue IV fluid resuscitation. Patient also received albumin overnight (12/09).
- Await tissue pathology
- Ascitic fluid cytology has been negative however suspect recurrent ascites is related to underlying ovarian tumor
- Ascitic fluid elevated WBC count not felt to be SBP with multiple negative cultures. Antibiotics stopped 12/10
#3. Massive pulmonary embolism with obstructive shock, October 2024. Suspect due to underlying malignancy. Patient was treated with catheter directed thrombolysis
- Heparin resumed on 12/11
- No active signs of bleeding noted, will transition to Eliquis
#4. Left pleural effusion, loculated with left lower lobe atelectasis. Status post thoracentesis on 11/20, 1000 mL straw-colored pleural fluid evacuated. No cough, pneumonia felt to be less likely. Suspect compressive atelectasis due to effusion.
- Thoracentesis performed, 12/11, 1 L straw-colored fluid removed, exudate per protein criteria however LDH is low. Overall fluid composition similar to ascitic fluid composition. Postthoracentesis, lung is well-expanded without evidence of
pneumonia.
-Follow-up on pleural fluid cultures
#4a. COVID-19 positive. Chest x-ray without any evidence of pneumonia. Patient is saturating well, no cough, shortness of breath or wheezing-
-continue to monitor for now, no active treatment needed. Might be the etiology for fever on 12/11
#5. FELIBERTO with CKD stage III, with oliguria. FELIBERTO likely related to hypotension and shock
- Urine sodium 17, patient responded well to IV fluid resuscitation
- Urine output improved over last 24 hours, creatinine down to 1.3
- Encouraged p.o. intake, DC Ringer lactate infusion
#6. Improved Cor-pulmonale with residual Mild Pulmonary Hypertension. RHC 11/2024. mPA 29, PCWP 12 with CO 4.6 and PVR 3.66.
- Suspect PH is related to massive PE in 10/2024 with obstructive shock s/p catheter directed thrombolysis
- PAP is improved on RHC compared to prior ECHO (due to thrombolysis and anticoagulation)
- Plan to resume anticoagulation once cleared by surgery service
- f/u ECHO in 3-6 months, while patient is anticoagulated, to monitor for development of any CTEPH
- Obesity and suspected underlying MIKE also likely contributing to PH
- Needs further work up as out patient
- Will need Pulmonary clinic follow up post discharge
DVT prophylaxis. Currently on heparin drip, anticipate transition to Eliquis later today
GI prophylaxis with Protonix twice daily
Critical Care time 48 mins -- The patient is admitted for acute critical illness for the treatment of vital organ failure and/or prevention of further life-threatening conditions. Total care includes time spent in review of history, physical exam,
medications, hemodynamic/ventilator parameters, laboratory data, imaging and discussion with house staff, pharmacy, respiratory therapy, hydrostatic tubing tester, and nursing.
Data:
CXR 12/10/2024: 1. MODERATE-SIZED LEFT PLEURAL EFFUSION which appears unchanged.
2. Large dense left lower lobe airspace consolidation. Diagnostic possibilities are (1) compressive atelectasis or (2) left lower lobe pneumonia (if there are signs/symptoms of pulmonary infection).
ECHO 11/2024: Normal left ventricular systolic function. Left ventricular ejection fraction
is 50-55% by visual estimate.
Limited views of RV (best subcostal). Normal right ventricular size and
function.
Mild tricuspid regurgitation. Mildly elevated PASP. Estimated pulmonary artery
pressure of 39 mmHg assuming a right atrial pressure of 3 mmHg
Compared to 10/23/24: RV views limited overall. But compared to prior, RV size
and function now appear normal. TR has improved from moderate to mild. PASP is
similar.
RHC 11/2024: 1. Normal filling pressures (PCWP = 12 mmHg at 107.5 kg).
2. Mild, precapillary pulmonary hypertension (mean PA = 29 mmHg, PCWP = 12 mmHg, cardiac output 4.65 L/min, PVR = 3.66 Pradhan units).
Pelvic US 11/2024: There is a large heterogeneous cystic and solid lesion within the left adnexa extending into the left hemiabdomen measuring up to 23.0 cm. Findings are suspicious for ovarian neoplasm, less likely chronic hematoma. At the time for
the evaluation with MRI pelvis has been ordered.
Small volume free fluid in the left adnexa.
Pelvic MRI 11/2024: Complex multiseptated cystic mass in the left lower quadrant most likely of left ovarian origin within the limitations of this exam. Leading consideration would be an ovarian epithelial tumor such as a mucinous cystadenoma or
possibly a cystadenocarcinoma.
Mild pelvic ascites.
Tubular intrinsically T1 hyperintense signal region in the central pelvis, suboptimally evaluated but possibly representing hematometria or hematosalpinx.
Subjective Dataa
Subjective Data
Date of Service:
Date of Service: December 12, 2024
Subjective:
Patient comfortably lying in bed, in no acute distress. No dyspnea, cough or shortness of breath.
Review of Systems
Genitourinary: Other (All 14 systems reviewed and negative except as stated above in the history of present illness.)
Objective Data
Data Reviewed
Vital Signs / I&O / Oxygen:
Vital Signs
Temp Pulse Resp BP Pulse Ox
98.5 F 76 15 110/51 95
12/12/24 12:14 12/12/24 12:28 12/12/24 12:00 12/12/24 12:28 12/12/24 12:32
Intake and Output
12/11/24 12/12/24 12/13/24
06:59 06:59 06:59
Intake Total 3122.5 / 3180.0 2044.0 / 2097.8 489.6 / 489.6
Output Total 495 / 520 840 / 870 120 / 120
Balance 2627.5 / 2660.0 1204.0 / 1227.8 369.6 / 369.6
SaO2 95
Nasal Cannula flow liters per 1
minute
Physical Exam
General: Comfortable
HEENT: Normocephalic
Cardiovascular: S1-S2
Respiratory: Other (Bilateral good air entry, no wheezing, no crackles.)
GI: Distended
Neurology: Awake and Alert
Skin: Warm
Labs/Micro/Reports
Lab Data
12/12/24 04:26
12/12/24 04:26
Laboratory Results
12/11/24 12/11/24 12/12/24
16:31 23:45 06:08
APTT 120.0 H 97.3 H 133.9 H
Microbiology
12/11/24 09:12 Pleural Fluid Body Fluid Culture - Preliminary
No Growth After 18-24 Hours
12/11/24 09:12 Pleural Fluid Gram Stain - Final
12/11/24 08:15 Blood/Venous Blood Culture - Preliminary
No Growth in 24 hours- Final report to follow
--- NOTE | 2024-12-12 14:19 | CM ---
CM following re: discharge planning.
Reviewed pt's chart, met with pt.
Pt is s/p surgery on 12/09 with Exp Lap, radical tumor cytoreduction including RITA BSO, Appy, omentectomy multiple peritoneal biopsies optimal tumor debulking.
Updated PT and OT evaluations noted - SNF level of care recommended.
Per CM notes, a plan is for pt to go to [facility] for a short term rehab.
D/C plan: [facility] when medically stable.
CM will follow with discharge plan updates as hospitalization progresses
[2024-12-12 16:12] LABS: Glucose - Point of Care 92 mg/dl (70-99)
--- NOTE | 2024-12-12 16:17 | PTCARENOTE ---
No changes. Vitals stable. Patient resting comfortably; no complaints. Call renae within reach.
[2024-12-12] MEDS: ProAmatine PO (17:49)
[2024-12-12] MEDS: ELIQUIS 5 MG PO (19:13)
--- NOTE | 2024-12-12 19:57 | PTCARENOTE ---
Pt received start of shift, HR SR 1st degree AVB w/ PACs. Awake, alert, and oriented. Heparin gtt stopped w/ administration of eliquis. Pt w/ poor appetite, encouraged eating/drinking. Pt states she is 'just tired of the liquids' for her diet. RA
96%. Bullock draining yellow urine. Afebrile. Updated pt on plan of care, pt states understanding. Call renae within reach.
[2024-12-12 21:40] LABS: Glucose - Point of Care 97 mg/dl (70-99)
[2024-12-13] VITALS (17 sets, daily range): BP systolic 101–125; BP diastolic 44–59; PULSE 72; O2SAT 97; BMI 38.9
--- NOTE | 2024-12-13 01:00 | PTCARENOTE ---
Pt reassessed, no further changes in assessment. Remains afebrile. MAP remains >65
[2024-12-13 04:17] LABS: Hemoglobin 8.4 g/dL (12.0-16.0); Mean Corp Hgb Conc. 32.3 g/dL (33.0-37.0); Mean Corpuscular Hgb 26.1 pg (27.0-31.0); Mean Corpuscular Volume 80.7 fL (81.0-99.0); Mean Platelet Volume 9.4 fL (7.4-10.4); Platelet Count 348 10^3/uL (130-400); Red Blood Cell Count 3.22 10^6/uL (4.20-5.40); Red Cell Dist. Width 14.9 % (11.5-14.5); White Blood Cell Count 7.8 10^3/uL (4.8-10.8)
[2024-12-13 04:41] LABS: Blood Urea Nitrogen 30 mg/dl (7-17); Calcium 9.5 mg/dl (8.4-10.2); Carbon Dioxide 27 mmol/L (22-30); Chloride 101 mmol/L (98-107); Estimated Creatinine Clearance 58 ml/min; Glucose 74 mg/dl (70-99); Magnesium 1.6 mg/dl (1.6-2.3); Potassium 4.1 mmol/L (3.5-5.1); Sodium 134 mmol/L (135-145); eGFR 59.49
[2024-12-13] MEDS: SYNTHROID 50 MCG PO (06:30)
[2024-12-13] MEDS: MAGNESIUM SULFATE 50 IV (06:30)
[2024-12-13] MEDS: NOVOLOG FLEXPEN-LOW RESISTANCE SC ×3 (08:22→16:54)
[2024-12-13] MEDS: PROTONIX 40 MG PO ×2 (08:23→20:29)
[2024-12-13] MEDS: WELLBUTRIN XL (24 hour extended release) 300 MG PO (08:23)
[2024-12-13] MEDS: ProAmatine 5 MG PO ×3 (08:23→16:27)
[2024-12-13] MEDS: PHOSLO 667 MG PO ×2 (08:23→11:52)
[2024-12-13] MEDS: MYLICON 80 MG PO ×3 (08:23→21:25)
[2024-12-13] MEDS: MIRALAX 17 GRAMS PO (08:24)
[2024-12-13] MEDS: ELIQUIS 5 MG PO ×2 (08:24→20:31)
[2024-12-13] MEDS: TYLENOL 650 MG PO (08:24)
[2024-12-13] MEDS: DESENEX/MITRAZOL/ZEASORB 1 APPLIC TOPICAL ×2 (08:24→21:26)
[2024-12-13 08:31] LABS: Glucose - Point of Care 103 mg/dl (70-99)
--- NOTE | 2024-12-13 09:00 | PTCARENOTE ---
report received, assessments per work list. patient c/o gas discomfort and mild discomfort along incision. medication with tylenol per prn order. flat affect. monitor nsr with pac's. right ij triple line with good blood returns from all ports. lungs
diminished. encouraged coughing and deep breathing, use of IS. abdomen obese, active bowel sounds. polanco draining yellow urine. call renae in reach
--- NOTE | 2024-12-13 09:59 | W.PN.GYNONC ---
Today's Communication
-
-
Impression / Plan
-
1. 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
ok to start OT/PT
may advance diet to full liquids
will continue to follow medical and ID plans
Subjective / Interval History
-
pod 4
She is feeling ok today, having gas pain and incisional pain no other complaints. tolerating liquid diet, moving bowels
Objective Data
-
Lab Results:
12/13/24 03:39
12/13/24 03:39
Physical Exam
Vital Signs / I&O
Vitals
Temp Pulse Resp BP Pulse Ox
98.9 F 77 21 109/47 95
12/13/24 08:00 12/13/24 09:00 12/13/24 09:00 12/13/24 09:00 12/13/24 09:00
I&O
12/11/24 12/12/24 12/13/24 12/14/24
06:59 06:59 06:59 06:59
Intake Total 3122.5 / 3180.0 2044.0 / 2097.8 1445.6 / 1545.6 220 / 220
Output Total 495 / 520 840 / 870 820 / 820 60 / 60
Balance 2627.5 / 2660.0 1204.0 / 1227.8 625.6 / 725.6 160 / 160
Physical Exam
Abdomen- soft with incisional tenderness, incision healing well no redness or drainage.
[2024-12-13] MEDS: VITAMIN B-12 1000 MCG PO (10:10)
--- NOTE | 2024-12-13 10:32 | W.PN.ID1 ---
Date of Service
Date of Service: December 13, 2024
Today's Communication
Sign off.
Assessment / Plan
Left adnexal mass
- s/p debulking 12/09/24
Recurrent ascites
- Cx's negative to date
COVID-19 positive
- Asymptomatic
Left pleural effusion
Recent pulmonary embolism (requiring cath directed thrombolysis)
Left adnexal mass
DM
HTN
CKD
PE
HLD
Colon polyps
Obesity
Recommendations:
Large adnexal mass s/p debulking surgery. Suspected malignancy. Path pending.
No purulence noted in the abdomen. Suspect source of prior ascites PMNs was mass.
Continue off antibiotics.
Patient is vaccinated against COVID-19 and with no symptoms. No need for antivirals at present.
No acute infectious process at present.
Little more to offer from an Infectious Diseases standpoint.
Will see again at your request.
����������������������������������������������������������
Chief Complaint
-: Other (?SBP; Recurrent ascites; Abdominal mass)
Subjective / Review of Systems
Review of Systems: No Fever
Vital Signs / Physical Exam
Vital Signs
Vital Signs
Temp Pulse Resp BP Pulse Ox
98.9 F 77 21 109/47 95
12/13/24 08:00 12/13/24 09:00 12/13/24 09:00 12/13/24 09:00 12/13/24 09:00
Physical Exam
Constitutional: No Acute Distress, Comfortable and Non-toxic
Pulmonary: Non Labored
Gastrointestinal: Non Distended
Neurological: Awake and Alert
Psychological: Calm
Objective Data
Lab Data
Lab Results
12/13/24 03:39
12/13/24 03:39
PT 15.2 Sec (11.4-14.6) H 12/09/24 05:43
INR 1.17 12/09/24 05:43
APTT 102.0 Sec (23.4-35.0) H 12/12/24 14:40
Estimated Creat Clear 58 ml/min 12/13/24 03:39
Lactic Acid 1.3 mmol/L (0.7-2.0) 12/10/24 08:13
Total Bilirubin 0.5 mg/dl (0.2-1.3) 12/12/24 04:26
AST 19 U/L (14-36) 12/12/24 04:26
ALT < 10 U/L (0-35) 12/12/24 04:26
Alkaline Phosphatase 51 U/L (38-126) 12/12/24 04:26
Most recent labs reviewed.
Micro Results:
12/11/24 08:15 Blood Culture - Preliminary
Blood/Venous No Growth in 48 hours- Final report to follow
12/11/24 09:12 Body Fluid Culture - Preliminary
Pleural Fluid No Growth After 18-24 Hours
Gram Stain - Final
12/02/24 14:43 Body Fluid Culture - Final
Peritoneal Fluid No Growth After 72 Hours
Gram Stain - Final
11/29/24 13:21 Acid Fast Bacilli Smear - Preliminary
Peritoneal Fluid Acid Fast Bacilli Culture - Preliminary
12/02/24 14:43 Acid Fast Bacilli Smear - Preliminary
Peritoneal Fluid Acid Fast Bacilli Culture - Preliminary
11/29/24 13:21 Body Fluid Culture - Final
Peritoneal Fluid No Growth After 72 Hours
Gram Stain - Final
11/20/24 14:49 Body Fluid Culture - Final
Pleural Fluid No Growth After 72 Hours
Gram Stain - Final
11/19/24 12:02 Body Fluid Culture - Final
Peritoneal Fluid No Growth After 72 Hours
Gram Stain - Final
11/18/24 17:14 Influenza Types A & B ([place]) - Final
Nasal Swab Negative for Influenza A & B, NAAT
Negative results must be combined with clinical observations
and patient history.
Nucleic Acid Amplification test (NAAT)performed on the
[employer] platform.
Imaging:
12/04/24 CT abdomen/pelvis with contrast: A large cystic lesion extending from the upper left pelvis into the left hemiabdomen measuring up to 22 cm with associated mass effect. This likely represents enlargement of the previously seen left adnexal
cystic lesion, and is concerning for ovarian neoplasm. Please see full dictation for additional detail.
12/01/2024 Abdominal ultrasound (Doppler): Appropriate hepatoportal flow is seen in the main portal vein. Normal hepatoportal flow demonstrated within the left and right portal veins. Normal arterial waveform is seen in the hepatic artery. There
is normal phasicity in the hepatic veins. No evidence of hepatic venous thrombosis.
[2024-12-13 11:23] LABS: Glucose - Point of Care 92 mg/dl (70-99)
[2024-12-13] MEDS: ProAmatine PO (11:52)
[2024-12-13] MEDS: ROXICODONE 5 MG PO (11:52)
--- NOTE | 2024-12-13 12:35 | W.PN.INTV ---
Today's Communication / Plan
Recommendations
- Discontinue central line
- Patient can be transferred out of ICU, to telemetry
- Continue to monitor off antibiotics
- Follow-up pleural fluid cytology
- Events Associate service will sign off, please call as needed
Assessment
-
Patient is a very pleasant 74-year-old female who was admitted initially in October 2024 with massive pulmonary embolism with obstructive shock. She required pressor support and had catheter directed thrombolysis followed by improvement. She was
newly diagnosed with large volume ascites at that time and at a 6.5 L tap performed and cytology was noted to be negative. Patient was readmitted earlier this month with shortness of breath and worsening abdominal distention. She had repeat
paracentesis which was concerning for SBP based on elevated WBC count. She also had left-sided thoracentesis performed which was exudative but culture stayed negative. Infectious disease service was consulted and patient was initially continued on
antibiotics. Additional workup included a CT abdomen, ultrasound as well as pelvic MRI which was suggestive of a large 21 cm left ovarian cystic mass. Patient was taken to the OR on 12/09 and had ex lap performed with radical tumor cytoreduction
along with multiple omental and peritoneal biopsies. Patient had soft blood pressure prior to surgery and postsurgery was noted to be hypotensive and was transferred to ICU. Patient has required low-dose Levophed and fluid boluses to maintain
blood pressure. Events Associate consultation was requested for further input.
#1. Hypotension/Shock. Suspect related intra-vascular hypovolemia and third spacing of fluids. On review of record, patient noted to have borderline low blood pressure before surgery also. Lactate normal at 1.3, VBG with normal pH of 7.36, pCO2 43
(12/10).
-Shock resolved, patient is off pressors for more than 24 hours
-Continue midodrine 5 mg 3 times daily
-Discontinue central line
-Continue to monitor off antibiotics
-Infectious workup including blood cultures, paracentesis and thoracentesis fluid cultures stayed negative
- COVID-19 status positive however asymptomatic, chest x-ray unremarkable no cough or other pulmonary symptoms terms, does not warrant additional treatment
#2. Massive ascites with large left ovarian cystic mass (21.6x19.6x20 cm). S/p laparotomy (12/09/2024) and total abdominal hysterectomy, bilateral salpingo-oophorectomy, appendectomy, omentectomy, multiple peritoneal biopsies along with optimal
tumor debulking with radical tumor cytoreduction, and repair of ventral hernia
- Suspect third spacing of fluid also contributing to hypovolemia and decreased urine output
- Saline locked now
- Await tissue pathology
- Ascitic fluid cytology has been negative however suspect recurrent ascites is related to underlying ovarian tumor
- Ascitic fluid elevated WBC count not felt to be SBP with multiple negative cultures. Antibiotics stopped 12/10
#3. Massive pulmonary embolism with obstructive shock, October 2024. Suspect due to underlying malignancy. Patient was treated with catheter directed thrombolysis
- Eliquis 5 mg twice daily long-term
#4. Left pleural effusion, loculated with left lower lobe atelectasis. Status post thoracentesis on 11/20, 1000 mL straw-colored pleural fluid evacuated. No cough, pneumonia felt to be less likely. Suspect compressive atelectasis due to effusion.
- Thoracentesis performed, 12/11, 1 L straw-colored fluid removed, exudate per protein criteria however LDH is low. Overall fluid composition similar to ascitic fluid composition. Postthoracentesis, lung is well-expanded without evidence of
pneumonia.
-Pleural fluid cultures negative
- Pleural fluid cytology pending
#4a. COVID-19 positive. Chest x-ray without any evidence of pneumonia. Patient is saturating well, no cough, shortness of breath or wheezing-
-continue to monitor for now, no active treatment needed. Might be the etiology for fever on 12/11
#5. FELIBERTO with CKD stage III, with oliguria. FELIBERTO likely related to hypotension and shock
- Responded well to IV fluid resuscitation
- Creatinine normal now
#6. Improved Cor-pulmonale with residual Mild Pulmonary Hypertension. RHC 11/2024. mPA 29, PCWP 12 with CO 4.6 and PVR 3.66.
- Suspect PH is related to massive PE in 10/2024 with obstructive shock s/p catheter directed thrombolysis
- PAP is improved on RHC compared to prior ECHO (due to thrombolysis and anticoagulation)
- Plan to resume anticoagulation once cleared by surgery service
- f/u ECHO in 3-6 months, while patient is anticoagulated, to monitor for development of any CTEPH
- Obesity and suspected underlying MIKE also likely contributing to PH
- Needs further work up as out patient
- Will need Pulmonary clinic follow up post discharge
DVT prophylaxis. On Eliquis
GI prophylaxis with Protonix twice daily
Critical Care time 45 mins -- The patient is admitted for acute critical illness for the treatment of vital organ failure and/or prevention of further life-threatening conditions. Total care includes time spent in review of history, physical exam,
medications, hemodynamic/ventilator parameters, laboratory data, imaging and discussion with house staff, pharmacy, respiratory therapy, cosmetology teacher, and nursing.
Data:
CXR 12/10/2024: 1. MODERATE-SIZED LEFT PLEURAL EFFUSION which appears unchanged.
2. Large dense left lower lobe airspace consolidation. Diagnostic possibilities are (1) compressive atelectasis or (2) left lower lobe pneumonia (if there are signs/symptoms of pulmonary infection).
ECHO 11/2024: Normal left ventricular systolic function. Left ventricular ejection fraction
is 50-55% by visual estimate.
Limited views of RV (best subcostal). Normal right ventricular size and
function.
Mild tricuspid regurgitation. Mildly elevated PASP. Estimated pulmonary artery
pressure of 39 mmHg assuming a right atrial pressure of 3 mmHg
Compared to 10/23/24: RV views limited overall. But compared to prior, RV size
and function now appear normal. TR has improved from moderate to mild. PASP is
similar.
RHC 11/2024: 1. Normal filling pressures (PCWP = 12 mmHg at 107.5 kg).
2. Mild, precapillary pulmonary hypertension (mean PA = 29 mmHg, PCWP = 12 mmHg, cardiac output 4.65 L/min, PVR = 3.66 Pradhan units).
Pelvic US 11/2024: There is a large heterogeneous cystic and solid lesion within the left adnexa extending into the left hemiabdomen measuring up to 23.0 cm. Findings are suspicious for ovarian neoplasm, less likely chronic hematoma. At the time for
the evaluation with MRI pelvis has been ordered.
Small volume free fluid in the left adnexa.
Pelvic MRI 11/2024: Complex multiseptated cystic mass in the left lower quadrant most likely of left ovarian origin within the limitations of this exam. Leading consideration would be an ovarian epithelial tumor such as a mucinous cystadenoma or
possibly a cystadenocarcinoma.
Mild pelvic ascites.
Tubular intrinsically T1 hyperintense signal region in the central pelvis, suboptimally evaluated but possibly representing hematometria or hematosalpinx.
Subjective Dataa
Subjective Data
Date of Service:
Date of Service: December 13, 2024
Subjective:
Patient comfortably lying in bed, in no acute distress.
Review of Systems
Genitourinary: Other (All 14 systems reviewed and negative except as stated above in the history of present illness.)
Objective Data
Data Reviewed
Vital Signs / I&O / Oxygen:
Vital Signs
Temp Pulse Resp BP Pulse Ox
98.8 F 69 21 125/50 95
12/13/24 11:58 12/13/24 11:52 12/13/24 09:00 12/13/24 11:52 12/13/24 09:00
Intake and Output
12/12/24 12/13/24 12/14/24
06:59 06:59 06:59
Intake Total 2044.0 / 2097.8 1445.6 / 1545.6 220 / 220
Output Total 840 / 870 820 / 820 85 / 85
Balance 1204.0 / 1227.8 625.6 / 725.6 135 / 135
SaO2 95
Nasal Cannula flow liters per 1
minute
Physical Exam
General: Comfortable
HEENT: Normocephalic
Cardiovascular: S1-S2 and Peripheral Edema
Respiratory: Other (Bilateral good air entry, no wheezing, no crackles.)
GI: Distended
Neurology: Awake and Alert
Skin: Warm
Labs/Micro/Reports
Lab Data
12/13/24 03:39
12/13/24 03:39
Laboratory Results
12/12/24
14:40
APTT 102.0 H
Microbiology
12/11/24 08:15 Blood/Venous Blood Culture - Preliminary
No Growth in 48 hours- Final report to follow
12/11/24 09:12 Pleural Fluid Body Fluid Culture - Preliminary
No Growth After 18-24 Hours
12/11/24 09:12 Pleural Fluid Gram Stain - Final
--- NOTE | 2024-12-13 12:59 | PTCARENOTE ---
reassessed. VAT team removed triple line and placed peripheral IV. dressing right neck/chest remains dry and intact .medicated with roxicodone prior to dangling at bedside. tolerated well. able to support self upright with minimal staff assist. diet
updated. patient level of care changed to tele. patient updated
--- NOTE | 2024-12-13 14:36 | PN.CDI ---
CDI
- -
CDI:
Physician Documentation Request
Admit Date: 11/18/24 19:15
Dear Doctor Geovani,
Please review the following and provide your response in the progress notes.
Clinical Indicators:
Selected Entries
12/02/24
10:43
Pressure injury stage [Medial Buttock] Stage 2
Physician documentation of the type and location of wounds is required for compliant documentation. Based on the above clinical findings and your assessment, please provide the following in your progress note:
Stage 2 Pressure Injury Medial Buttock, evolved during admission
Other (please specify)
Unable to Determine
Location of the ulcer/wound, including laterality.
Type (etiology) of ulcer/wound:
- Diabetic ulcer
- Traumatic wound
- Pressure (decubitus) ulcer
- Other (please specify)
- Unable to determine
For a pressure ulcer, please also include the stage* of the ulcer:
- Stage 1 - Skin intact, non-blanchable redness
- Stage 2 - Partial thickness loss of dermis, includes intact or open blister
- Stage 3 - Full thickness tissue not including bone, tendon or muscle
- Stage 4 - Full thickness tissue loss, including exposed bone, tendon or muscle
Use of terms such as suspected, likely, concern for, or probable (associated with a specific diagnosis that is being evaluated, monitored, or treated as if it exists) are acceptable and can be coded in the inpatient setting, when documented at the
time of discharge.
Thank you,
Bita Gabriel LUMBER PULLER CCDS
CDI Specialist
Please contact via tiger text
Please use your independent medical judgment in providing your response.
*Source: National Pressure Ulcer Advisory Panel (NPUAP)
--- NOTE | 2024-12-13 15:12 | PTCARENOTE ---
report to 2 yordan RN, transfer to [id number] without issue
--- NOTE | 2024-12-13 16:31 | W.PN.HOSP.TC ---
Addendum entered and electronically signed by Brant Olivo MD 12/13/24 16:55:
correction: Eliquis resumed last evening
Original Note:
Today's Communication/Plan
-
advance diet
await results of path
transfer to tele
resume Eliquis when okay with PURCHASING CLERK Onc
Assessment / Plan
Assessment / Plan
A/P:
# Recurrent ascites
# Was initially felt 2/2 Acute Right heart failure, Acute Cor pulmonale
s/p paracentesis x 3: first para 4/2 and 10 L removed (no SBP), second para / (noted SBP), third para 12/02 with persistent SBP (worsening WBC/SBP).
Of note, Echo unrevealing, improved RV size and function. EF 50-55%
RHC 11/29 with euvolemic, normal wedge, unsure if cardiac in origin
s/p aggressive IV Lasix course
Card recc to resume 40mg po Lasix when weight is 236 lbs and an additional pm dose on days weight jumps wt is 240 or higher
GDMT: continue Aldactone, Lisinopril with holding parameter. SGLT2i avoided due to recent UTI
# Recurrent ascites with worsening ascitic fluid polymorph
Gram stain and culture from para unrevealing,
Ceftriaxone was changed to ertapenem per ID, stop further Abx as this is unlikely SBP (ascitic polymorph from ovarian cancer masking as SBP).
CT AP obtained noted possible left adnexal cystic lesion, concerning for ovarian neoplasm- this could be contributing to her persistent ascites with elevated polymorph.
Pelvis ultrasound confirmed large heterogeneous cystic and solid lesion within the left adnexa suspicious for ovarian neoplasm.
MRI pelvis confirmed complex multiseptated cystic mass in the left lower quadrant most likely left ovarian origin. Consideration would be an ovarian epithelial tumor such as a mucinous cystadenoma or possibly a cystadenocarcinoma.
Of note, CA 125 elevated at 158
PURCHASING CLERK oncologist Dr Marques on board, Oncologist on board
s/p surgery on 12/09 with Exp Lap, radical tumor cytoreduction including RITA BSO, Appy, omentectomy multiple peritoneal biopsies optimal tumor debulking.
Follow path report
LABORER BRUSH CLEARING Eliquis switched to therapeutic Lovenox SQ preop -> transitioned to heparin drip 12/11 Resume Eliquis when okay with PURCHASING CLERK Onc
POD #4
currently on full liquids
# Shock could be anesthesia effect with blood loss/ hemorrhagic shock postop
Off pressor Levophed, added Midodrine 5 mg TID
Monitor BP
# Fever 12/11 following OR, resolved
follow blood Cx x2 from 12/11
s/p L thora 12/12 bedside by Pulm, 1L removed, transudative fluid
Off Abx per ID
# Acute hypoxic respiratory insufficiency
back on 2L NC post op
# L pleural effusion
s/p IR L thora 11/20 and removed 1000 cc straw-colored pleural fluid, transudative fluid
s/p Repeat L Thora by pulm 12/11, 1L removed, transudative fluid
# Recent massive Pulmonary Embolism seen on CT scan of October 23 2024
Echo from 10/23/24: Normal left ventricular systolic function with EF 55-60%. Dilated and hypokinetic right ventricle
new finding of left ovarian mass which is concerning for neoplasm, could be the culprit for her recent VTE/pulm embolism
Lower extremity ultrasound negative for DVT
currently Lovenox for DVT ppx, resume full anticoagulation when able
# Diabetes Mellitus, Type II
HgbA1c 5.8 in October 2024
# Essential Hypertension
Off lisinopril, and Aldactone which was added this admission
# CKD Stage III
creatinine stable
Cont to monitor closely
# Hyperphosphatemia
on calcium acetate
# Chronic Normocytic Anemia
Hgb appears stable compared to previous
# Asthma, no acute exacerbation
continue albuterol PRN
# Anxiety/Depression
continue Wellbutrin
# Gastritis/Gastric Erosions
continue Protonix BID
# Chronic Lower Extremity Lymphedema
# Class III Obesity
Affects all aspects of care
# exposure to COVID,
SaO2 97% on room air
Positive COVID 12/12
DVT ppx: now on heparin drip
Dispo: PMR CS for [facility] eval
CCM cleared for transfer to [facility]
Anticipated Discharge: > 48 hours
Subjective/Interval History
-
Date of Service: December 13, 2024
Awake, alert, denies sob
Objective Data
-
Labs:
Laboratory Results
12/13/24
03:39
Sodium 134 L
Potassium 4.1
Chloride 101
Carbon Dioxide 27
BUN 30 H
Creatinine 1.0
Glucose 74
Calcium 9.5
Vital Signs:
Vital Signs
Temp Pulse Resp BP Pulse Ox
98.4 F 72 16 109/58 97
12/13/24 15:00 12/13/24 15:00 12/13/24 15:00 12/13/24 15:00 12/13/24 15:00
I&O
12/12/24 12/13/24 12/14/24
06:59 06:59 06:59
Intake Total 2044.0 / 2097.8 1445.6 / 1545.6 460 / 460
Output Total 840 / 870 820 / 820 85 / 85
Balance 1204.0 / 1227.8 625.6 / 725.6 375 / 375
Review of Systems
-
History Source: Patient and Coordinated Provider
Constitutional: Reports No Symptoms
EENT: Reports No Symptoms Reported
Respiratory: Reports No Symptoms; Denies Trouble Breathing
Cardiac: Reports No Symptoms; Denies Chest Pain
Abdomen/GI: Reports Abdominal Pain (post op)
Genitourinary: Reports No Symptoms
Physical Exam
-
General: Well Developed, Well Nourished and No Apparent Distress
HEENT: Normocephalic, Atraumatic and Moist Mucous Membranes
Respiratory: Clear to Auscultation; Negative Wheezes, Rales or Rhonchi
Cardiac: Regular Rhythm and S1/S2
GI: Soft, Nondistended, Normal Bowel Sounds and Tender (post op)
Musculoskeletal: No Clubbing, No Cyanosis and No Edema
Neuro: Awake, Alert and Oriented
[2024-12-13] MEDS: PHOSLO PO ×2 (16:41→16:48)
[2024-12-13] MEDS: ZOFRAN 4 MG IV (16:48)
[2024-12-13 16:50] LABS: Glucose - Point of Care 85 mg/dl (70-99)
[2024-12-13 21:29] LABS: Glucose - Point of Care 94 mg/dl (70-99)
[2024-12-14] VITALS (7 sets, daily range): BP systolic 120–142; BP diastolic 60–66; BMI 38.3
[2024-12-14] MEDS: SYNTHROID 50 MCG PO (05:10)
[2024-12-14 06:47] LABS: Hematocrit 26.9 % (37.0-47.0); Hemoglobin 8.7 g/dL (12.0-16.0); Mean Corp Hgb Conc. 32.3 g/dL (33.0-37.0); Mean Corpuscular Hgb 25.8 pg (27.0-31.0); Mean Corpuscular Volume 79.8 fL (81.0-99.0); Mean Platelet Volume 9.2 fL (7.4-10.4); Platelet Count 380 10^3/uL (130-400); Red Blood Cell Count 3.37 10^6/uL (4.20-5.40); Red Cell Dist. Width 14.9 % (11.5-14.5); White Blood Cell Count 7.2 10^3/uL (4.8-10.8)
[2024-12-14 07:05] LABS: Blood Urea Nitrogen 26 mg/dl (7-17); Calcium 9.1 mg/dl (8.4-10.2); Carbon Dioxide 25 mmol/L (22-30); Chloride 101 mmol/L (98-107); Estimated Creatinine Clearance 58 ml/min; Glucose 80 mg/dl (70-99); Potassium 4.3 mmol/L (3.5-5.1); Sodium 135 mmol/L (135-145); eGFR 59.49
[2024-12-14 07:16] LABS: Glucose - Point of Care 95 mg/dl (70-99)
[2024-12-14] MEDS: NOVOLOG FLEXPEN-LOW RESISTANCE SC ×3 (08:30→17:23)
[2024-12-14] MEDS: PROTONIX 40 MG PO ×2 (09:55→20:31)
[2024-12-14] MEDS: ELIQUIS 5 MG PO ×2 (09:58→20:31)
[2024-12-14] MEDS: MYLICON 80 MG PO ×3 (09:58→20:31)
[2024-12-14] MEDS: ProAmatine PO ×3 (09:58→17:24)
[2024-12-14] MEDS: PHOSLO 667 MG PO ×3 (09:59→16:15)
[2024-12-14] MEDS: MIRALAX 17 GRAMS PO (09:59)
[2024-12-14] MEDS: WELLBUTRIN XL (24 hour extended release) 300 MG PO (09:59)
[2024-12-14] MEDS: DESENEX/MITRAZOL/ZEASORB 1 APPLIC TOPICAL ×2 (10:00→20:31)
[2024-12-14] MEDS: VITAMIN B-12 1000 MCG PO (10:05)
--- NOTE | 2024-12-14 10:47 | W.PN.HOSP.TC ---
Today's Communication/Plan
-
cautiously advance diet
follow labs
Assessment / Plan
Assessment / Plan
A/P:
# Recurrent ascites
# Was initially felt 2/2 Acute Right heart failure, Acute Cor pulmonale
s/p paracentesis x 3: first para 4/2 and 10 L removed (no SBP), second para 4/11 (noted SBP), third para 4/14 with persistent SBP (worsening WBC/SBP).
Of note, Echo unrevealing, improved RV size and function. EF 50-55%
RHC 11/29 with euvolemic, normal wedge, unsure if cardiac in origin
s/p aggressive IV Lasix course
Card recc to resume 40mg po Lasix when weight is 236 lbs and an additional pm dose on days weight jumps wt is 240 or higher
12/14 101.26 kg
GDMT: continue Aldactone, Lisinopril with holding parameter. SGLT2i avoided due to recent UTI
# Recurrent ascites with worsening ascitic fluid polymorph
Gram stain and culture from para unrevealing,
Ceftriaxone was changed to ertapenem per ID, stop further Abx as this is unlikely SBP (ascitic polymorph from ovarian cancer masking as SBP).
CT AP obtained noted possible left adnexal cystic lesion, concerning for ovarian neoplasm- felt to be the etiology of the persistent ascites with elevated polymorph.
Pelvis ultrasound confirmed large heterogeneous cystic and solid lesion within the left adnexa suspicious for ovarian neoplasm.
MRI pelvis confirmed complex multiseptated cystic mass in the left lower quadrant most likely left ovarian origin. Consideration would be an ovarian epithelial tumor such as a mucinous cystadenoma or possibly a cystadenocarcinoma.
Of note, CA 125 elevated at 158
FINANCIAL WELLNESS COACH oncologist Dr Marques on board, Oncologist on board
Underwent surgery on 12/09 with Exp Lap, radical tumor cytoreduction including RITA BSO, Appy, omentectomy multiple peritoneal biopsies optimal tumor debulking.
Await path report, still pending as of 12/14
ERADICATOR Eliquis switched to therapeutic Lovenox SQ preop -> transitioned to heparin drip 12/11 Resumed Eliquis 12/12 PM
POD #4
currently on full liquids
# Shock could be anesthesia effect with blood loss/ hemorrhagic shock postop
Off pressor Levophed, added Midodrine 5 mg TID
Monitor BP currently 132/62, once activity increased, will need to check BP standing with decision to be made on need to continue Midodrine
# Fever 12/11 following OR, resolved
Cx x2 from 12/11 NGTD
s/p L thora 12/12 bedside by Pulm, 1L removed, transudative fluid
Off Abx per ID
Stage 2 Pressure Injury Medial Buttock, evolved during admission
# Acute hypoxic respiratory insufficiency
back on 2L NC post op
# L pleural effusion
s/p IR L thora 11/20 and removed 1000 cc straw-colored pleural fluid, transudative fluid
s/p Repeat L Thora by pulm 12/11, 1L removed, transudative fluid
# Recent massive Pulmonary Embolism seen on CT scan of October 23 2024
Echo from 10/23/24: Normal left ventricular systolic function with EF 55-60%. Dilated and hypokinetic right ventricle
new finding of left ovarian mass which is concerning for neoplasm, could be the culprit for her recent VTE/pulm embolism
Lower extremity ultrasound negative for DVT
currently Lovenox for DVT ppx, resume full anticoagulation when able
# Diabetes Mellitus, Type II
HgbA1c 5.8 in October 2024
# Essential Hypertension
Off lisinopril, and Aldactone which was added this admission
# CKD Stage III
creatinine stable
Cont to monitor closely
# Hyperphosphatemia
on calcium acetate
# Chronic Normocytic Anemia
Hgb appears stable compared to previous
# Asthma, no acute exacerbation
continue albuterol PRN
# Anxiety/Depression
continue Wellbutrin
# Gastritis/Gastric Erosions
continue Protonix BID
# Chronic Lower Extremity Lymphedema
# Class III Obesity
Affects all aspects of care
# exposure to COVID,
SaO2 97% on room air
Positive COVID 12/12
DVT ppx: now on heparin drip
Dispo: [facility] for [facility]
Anticipated Discharge: > 48 hours
Subjective/Interval History
-
Date of Service: December 14, 2024
Voice is stronger, passing small amounts of liquid stool
Objective Data
-
Labs:
Laboratory Results
12/14/24
06:11
WBC 7.2
Hgb 8.7 L
Hct 26.9 L
Plt Count 380
Sodium 135
Potassium 4.3
Chloride 101
Carbon Dioxide 25
BUN 26 H
Creatinine 1.0
Glucose 80
Calcium 9.1
Vital Signs:
Vital Signs
Temp Pulse Resp BP Pulse Ox
98.4 F 76 16 132/62 92
12/14/24 07:15 12/14/24 09:58 12/14/24 07:15 12/14/24 09:58 12/14/24 07:15
I&O
12/13/24 12/14/24 12/15/24
06:59 06:59 06:59
Intake Total 1445.6 / 1545.6 820 / 820
Output Total 820 / 820 635 / 635
Balance 625.6 / 725.6 185 / 185
Review of Systems
-
History Source: Patient and Coordinated Provider
Constitutional: Reports No Symptoms
EENT: Reports No Symptoms Reported
Respiratory: Reports No Symptoms; Denies Trouble Breathing
Cardiac: Reports No Symptoms; Denies Chest Pain
Abdomen/GI: Reports Abdominal Pain (post op)
Genitourinary: Reports No Symptoms
Physical Exam
-
General: Well Developed, Well Nourished and No Apparent Distress
HEENT: Normocephalic, Atraumatic and Moist Mucous Membranes
Respiratory: Clear to Auscultation; Negative Wheezes, Rales or Rhonchi
Cardiac: Regular Rhythm and S1/S2
GI: Soft, Nondistended, Normal Bowel Sounds and Tender (post op)
Musculoskeletal: No Clubbing, No Cyanosis and No Edema
Neuro: Awake, Alert and Oriented
[2024-12-14 12:46] LABS: Glucose - Point of Care 93 mg/dl (70-99)
--- NOTE | 2024-12-14 15:35 | W.PN.GYNONC ---
Today's Communication
-
-
Impression / Plan
-
1. 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
continue ot and pt
continue to advance diet, slowly
will continue to follow medical plans
Subjective / Interval History
-
POD 5
feeling tried has been up since 3 am She did have some PT yesterday and was able to sit on the edge of the bed. Tried to advance diet but felt a little nausea so went back to liquids and doing well.
Objective Data
-
Lab Results:
12/14/24 06:11
12/14/24 06:11
Physical Exam
Vital Signs / I&O
Vitals
Temp Pulse Resp BP Pulse Ox
97.7 F 75 16 128/66 94
12/14/24 11:10 12/14/24 13:43 12/14/24 11:10 12/14/24 13:43 12/14/24 11:10
I&O
12/12/24 12/13/24 12/14/24 12/15/24
06:59 06:59 06:59 06:59
Intake Total 2044.0 / 2097.8 1445.6 / 1545.6 820 / 820
Output Total 840 / 870 820 / 820 635 / 635
Balance 1204.0 / 1227.8 625.6 / 725.6 185 / 185
Physical Exam
Abdomen soft incision dry no redness or drainage more tenderness on the right side
Data Reviewed
-
Lab Data: Labs Reviewed
[2024-12-14 17:00] LABS: Glucose - Point of Care 98 mg/dl (70-99)
[2024-12-14 21:33] LABS: Glucose - Point of Care 128 mg/dl (70-99)
[2024-12-15 03:12] VITALS: BP 124/63
[2024-12-15 05:20] VITALS: BMI 37.7
[2024-12-15] MEDS: SYNTHROID 50 MCG PO (05:25)
[2024-12-15 06:34] LABS: % Eosinophils 13.7 % (0-6); % Immature Granulocytes 0.9 % (0-0.5); % Monocytes 13.6 % (1.7-9.3); % Neutrophils 55.8 % (42.2-75.2); Absolute Eosinophils 0.8 10^3/uL (0-0.7); Absolute Immature Granulocytes 0.1 10^3/uL (0-0.05); Absolute Lymphocytes 0.9 10^3/uL (1.2-3.4); Absolute Monocytes 0.8 10^3/uL (0.1-0.6); Absolute Neutrophils 3.2 10^3/uL (1.4-6.5); Hematocrit 26.8 % (37.0-47.0); Hemoglobin 8.8 g/dL (12.0-16.0); Mean Corp Hgb Conc. 32.8 g/dL (33.0-37.0); Mean Corpuscular Hgb 25.9 pg (27.0-31.0); Mean Corpuscular Volume 78.8 fL (81.0-99.0); Mean Platelet Volume 9.2 fL (7.4-10.4); Nucleated Red Blood Cells % 0 %; Platelet Count 393 10^3/uL (130-400); Red Cell Dist. Width 14.7 % (11.5-14.5); White Blood Cell Count 5.8 10^3/uL (4.8-10.8)
[2024-12-15 07:10] VITALS: BP 147/78
[2024-12-15 07:20] LABS: ALT (SGPT) < 10 U/L (0-35); AST (SGOT) 18 U/L (14-36); Albumin 2.6 g/dl (3.5-5.0); Alkaline Phosphatase 54 U/L (38-126); Blood Urea Nitrogen 22 mg/dl (7-17); Calcium 9.2 mg/dl (8.4-10.2); Carbon Dioxide 23 mmol/L (22-30); Chloride 101 mmol/L (98-107); Estimated Creatinine Clearance 64 ml/min; Glucose 86 mg/dl (70-99); Potassium 4.4 mmol/L (3.5-5.1); Sodium 133 mmol/L (135-145); Total Bilirubin 0.6 mg/dl (0.2-1.3); Total Protein 5.3 g/dl (6.3-8.2); eGFR > 60.00
[2024-12-15 07:32] LABS: Glucose - Point of Care 97 mg/dl (70-99)
[2024-12-15] MEDS: NOVOLOG FLEXPEN-LOW RESISTANCE SC ×3 (07:54→17:01)
[2024-12-15] MEDS: VITAMIN B-12 1000 MCG PO (08:38)
[2024-12-15] MEDS: PROTONIX 40 MG PO ×2 (08:38→21:23)
[2024-12-15] MEDS: ProAmatine 5 MG PO ×3 (08:38→17:05)
[2024-12-15] MEDS: MYLICON 80 MG PO ×3 (08:38→21:23)
[2024-12-15] MEDS: MIRALAX 17 GRAMS PO (08:38)
[2024-12-15] MEDS: PHOSLO 667 MG PO ×3 (08:38→17:05)
[2024-12-15] MEDS: ELIQUIS 5 MG PO ×2 (08:38→21:23)
[2024-12-15] MEDS: WELLBUTRIN XL (24 hour extended release) 300 MG PO (08:38)
[2024-12-15] MEDS: DESENEX/MITRAZOL/ZEASORB 1 APPLIC TOPICAL ×2 (08:39→21:23)
--- NOTE | 2024-12-15 10:33 | W.PN.GYNONC ---
Today's Communication
-
N/A
Impression / Plan
-
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
continue ot and pt, patient likely needs transfer to rehab post op
ok for regular diet
will continue to follow medical plans
Subjective / Interval History
-
continues to sleep on and off and reports being tired
Objective Data
-
Lab Results:
12/15/24 05:52
12/15/24 05:52
Physical Exam
Vital Signs / I&O
Vitals
Temp Pulse Resp BP Pulse Ox
98.2 F 76 18 147/78 95
12/15/24 07:10 12/15/24 07:10 12/15/24 07:10 12/15/24 07:10 12/15/24 07:10
I&O
12/13/24 12/14/24 12/15/24 12/16/24
06:59 06:59 06:59 06:59
Intake Total 1445.6 / 1545.6 820 / 820 610 / 610
Output Total 820 / 820 635 / 635 500 / 500
Balance 625.6 / 725.6 185 / 185 110 / 110
Physical Exam
General: No Apparent Distress
Respiratory: Clear and Non Labored Respirations
Cardiac: Regular Rhythm
GI: Soft, Non Tender, Non Distended and Other (incision is dry)
[2024-12-15 11:15] VITALS: BP 149/66
[2024-12-15 12:21] LABS: Glucose - Point of Care 150 mg/dl (70-99)
--- NOTE | 2024-12-15 14:02 | W.PN.HOSP.TC ---
Today's Communication/Plan
-
advance diet to low residue
Covid antigen prior to possible transfer to rehab
Pt recommends skilled rehab, await PM&R eval
Assessment / Plan
Assessment / Plan
A/P:
# Recurrent ascites
# Was initially felt 2/2 Acute Right heart failure, Acute Cor pulmonale
s/p paracentesis x 3: first para 4/2 and 10 L removed (no SBP), second para / (noted SBP), third para 12/02 with persistent SBP (worsening WBC/SBP).
Of note, Echo unrevealing, improved RV size and function. EF 50-55%
RHC 11/29 with euvolemic, normal wedge, unsure if cardiac in origin
s/p aggressive IV Lasix course
Card recc to resume 40mg po Lasix when weight is 236 lbs and an additional pm dose on days weight jumps wt is 240 or higher
12/14 101.26 kg
GDMT: continue Aldactone, Lisinopril with holding parameter. SGLT2i avoided due to recent UTI
# Recurrent ascites with worsening ascitic fluid polymorph
Gram stain and culture from para unrevealing,
Ceftriaxone was changed to ertapenem per ID, stop further Abx as this is unlikely SBP (ascitic polymorph from ovarian cancer masking as SBP).
CT AP obtained noted possible left adnexal cystic lesion, concerning for ovarian neoplasm- felt to be the etiology of the persistent ascites with elevated polymorph.
Pelvis ultrasound confirmed large heterogeneous cystic and solid lesion within the left adnexa suspicious for ovarian neoplasm.
MRI pelvis confirmed complex multiseptated cystic mass in the left lower quadrant most likely left ovarian origin. Consideration would be an ovarian epithelial tumor such as a mucinous cystadenoma or possibly a cystadenocarcinoma.
Of note, CA 125 elevated at 158
KNITTER MACHINE oncologist Dr Marques on board, Oncologist on board
Underwent surgery on 12/09 with Exp Lap, radical tumor cytoreduction including RITA BSO, Appy, omentectomy multiple peritoneal biopsies optimal tumor debulking.
Await path report, still pending as of 12/14
SYSTEM SPECIALIST Eliquis switched to therapeutic Lovenox SQ preop -> transitioned to heparin drip 12/11 Resumed Eliquis 12/12 PM
POD #4
currently on full liquids, will advance to low residue
# Shock could be anesthesia effect with blood loss/ hemorrhagic shock postop
Off pressor Levophed, added Midodrine 5 mg TID
Monitor BP currently 132/62, once activity increased, will need to check BP standing with decision to be made on need to continue Midodrine
# Fever 12/11 following OR, resolved
Cx x2 from 12/11 NGTD
s/p L thora 12/12 bedside by Pulm, 1L removed, transudative fluid
Off Abx per ID
Stage 2 Pressure Injury Medial Buttock, evolved during admission
# Acute hypoxic respiratory insufficiency
back on 2L NC post op
# L pleural effusion
s/p IR L thora 11/20 and removed 1000 cc straw-colored pleural fluid, transudative fluid
s/p Repeat L Thora by pulm 12/11, 1L removed, transudative fluid
# Recent massive Pulmonary Embolism seen on CT scan of October 23 2024
Echo from 10/23/24: Normal left ventricular systolic function with EF 55-60%. Dilated and hypokinetic right ventricle
new finding of left ovarian mass which is concerning for neoplasm, could be the culprit for her recent VTE/pulm embolism
Lower extremity ultrasound negative for DVT
currently Lovenox for DVT ppx, resume full anticoagulation when able
# Diabetes Mellitus, Type II
HgbA1c 5.8 in October 2024
# Essential Hypertension
Off lisinopril, and Aldactone which was added this admission
#Irreg heart rhythm
EKG most consistent with sinus arrythmia
will follow
# CKD Stage III
creatinine stable
Cont to monitor closely
# Hyperphosphatemia
on calcium acetate
# Chronic Normocytic Anemia
Hgb appears stable compared to previous
# Asthma, no acute exacerbation
continue albuterol PRN
# Anxiety/Depression
continue Wellbutrin
# Gastritis/Gastric Erosions
continue Protonix BID
# Chronic Lower Extremity Lymphedema
# Class III Obesity
Affects all aspects of care
# exposure to COVID,
SaO2 97% on room air, asymptomatic
Positive COVID 12/12
will recheck swab for potential transfer to rehab in near future
DVT ppx: now on heparin drip
Dispo: [facility] for [facility]
Anticipated Discharge: > 48 hours
Subjective/Interval History
-
Date of Service: December 15, 2024
Generally feeling better, no respiratory symptoms
Objective Data
-
Labs:
Laboratory Results
12/15/24
05:52
WBC 5.8
Hgb 8.8 L
Hct 26.8 L
Plt Count 393
Sodium 133 L
Potassium 4.4
Chloride 101
Carbon Dioxide 23
BUN 22 H
Creatinine 0.9
Glucose 86
Calcium 9.2
Total Bilirubin 0.6
AST 18
ALT < 10
Alkaline Phosphatase 54
Vital Signs:
Vital Signs
Temp Pulse Resp BP Pulse Ox
97.6 F 79 16 149/66 93
12/15/24 11:15 12/15/24 11:15 12/15/24 11:15 12/15/24 11:15 12/15/24 11:15
I&O
12/14/24 12/15/24 12/16/24
06:59 06:59 06:59
Intake Total 820 / 820 610 / 610
Output Total 635 / 635 500 / 500
Balance 185 / 185 110 / 110
Review of Systems
-
History Source: Patient and Coordinated Provider
Constitutional: Reports No Symptoms
EENT: Reports No Symptoms Reported
Respiratory: Reports No Symptoms; Denies Trouble Breathing
Cardiac: Reports No Symptoms; Denies Chest Pain
Abdomen/GI: Reports Abdominal Pain (post op, minimal)
Genitourinary: Reports No Symptoms
Physical Exam
-
General: Well Developed, Well Nourished and No Apparent Distress
HEENT: Normocephalic, Atraumatic and Moist Mucous Membranes
Respiratory: Clear to Auscultation; Negative Wheezes, Rales or Rhonchi
Cardiac: Regular Rhythm and S1/S2
GI: Soft, Nondistended, Normal Bowel Sounds and Tender (post op)
Musculoskeletal: No Clubbing, No Cyanosis and No Edema
Neuro: Awake, Alert and Oriented
[2024-12-15 14:48] LABS: COVID-19 Antigen Positive (Negative)
[2024-12-15 15:15] VITALS: BP 124/68
[2024-12-15 17:00] LABS: Glucose - Point of Care 114 mg/dl (70-99)
[2024-12-15 19:20] VITALS: BP 135/68
[2024-12-15 21:28] LABS: Glucose - Point of Care 105 mg/dl (70-99)
[2024-12-15 23:00] VITALS: BP 125/78
[2024-12-16] VITALS (8 sets, daily range): BP systolic 112–141; BP diastolic 57–67; PULSE 79–87; O2SAT 96; BMI 37.2
[2024-12-16] MEDS: SYNTHROID 50 MCG PO (05:27)
[2024-12-16 07:41] LABS: Glucose - Point of Care 97 mg/dl (70-99)
[2024-12-16] MEDS: ELIQUIS 5 MG PO ×2 (08:29→20:54)
[2024-12-16] MEDS: WELLBUTRIN XL (24 hour extended release) 300 MG PO (08:29)
[2024-12-16] MEDS: VITAMIN B-12 1000 MCG PO (08:29)
[2024-12-16] MEDS: PHOSLO 667 MG PO ×3 (08:29→17:51)
[2024-12-16] MEDS: NOVOLOG FLEXPEN-LOW RESISTANCE SC ×3 (08:29→17:51)
[2024-12-16] MEDS: MYLICON 80 MG PO ×3 (08:29→23:09)
[2024-12-16] MEDS: PROTONIX 40 MG PO ×2 (08:29→20:54)
[2024-12-16] MEDS: ProAmatine PO ×3 (08:30→18:27)
[2024-12-16] MEDS: DESENEX/MITRAZOL/ZEASORB 1 APPLIC TOPICAL ×2 (08:31→20:57)
[2024-12-16] MEDS: MIRALAX 17 GRAMS PO (08:31)
[2024-12-16 12:10] LABS: Glucose - Point of Care 130 mg/dl (70-99)
--- NOTE | 2024-12-16 15:42 | CM ---
CM following re: discharge planning.
Reviewed pt's chart, met with pt.
Pt is POD 6 s/p resection of left ovary neoplasm, continue supportive care.
CM received a phone call from [facility] consultant and she confirmed that pt is appropriate for acute level of care.
PT and OT continue recommending SNF level of care. Pt stated she came from [facility] and she is planning to return back there to continue on skilled services. Also, pt stated that someone spoke to her and offer [facility] and pt
expressed her agreement with going to [facility].
PM&R consult is pending.
Pt will need an auth from [facility] either for acute rehab or SNF level of rehab at [facility].
D/C plan: [facility] or [facility].
CM will follow to assist pt with discharge to [facility] if approved by [facility] or to [facility].
[2024-12-16 16:45] LABS: Glucose - Point of Care 134 mg/dl (70-99)
--- NOTE | 2024-12-16 16:56 | W.PN.GYNONC ---
Today's Communication
-
-
Impression / Plan
-
POD 7 s/p resection of left ovary neoplasm, path is still pending
continue ot and pt, patient looking to be transfered to rehab post op
ok for regular diet
will continue to follow medical plans
Subjective / Interval History
-
She is doing well just completed PT session was able to sit on the edge of the bed without support and happy about her progress Now has some right sided tenderness of her incision
Objective Data
-
Lab Results:
12/15/24 05:52
12/15/24 05:52
Physical Exam
Vital Signs / I&O
Vitals
Temp Pulse Resp BP Pulse Ox
98.3 F 77 18 112/63 95
12/16/24 16:09 12/16/24 16:09 12/16/24 16:09 12/16/24 16:09 12/16/24 16:09
I&O
12/14/24 12/15/24 12/16/24 12/17/24
06:59 06:59 06:59 06:59
Intake Total 820 / 820 610 / 610 500 / 500
Output Total 635 / 635 500 / 500 530 / 530
Balance 185 / 185 110 / 110 -30 / -30
Physical Exam
incision clean and dry
--- NOTE | 2024-12-16 17:09 | W.PN.HOSP.TC ---
Today's Communication/Plan
-
await decision on transfer to rehab
Assessment / Plan
Assessment / Plan
A/P:
# Recurrent ascites
# Was initially felt 2/2 Acute Right heart failure, Acute Cor pulmonale
s/p paracentesis x 3: first para 4/2 and 10 L removed (no SBP), second para 4/11 (noted SBP), third para 4/14 with persistent SBP (worsening WBC/SBP).
Of note, Echo unrevealing, improved RV size and function. EF 50-55%
RHC 11/29 with euvolemic, normal wedge, unsure if cardiac in origin
s/p aggressive IV Lasix course
Card recc to resume 40mg po Lasix when weight is 236 lbs and an additional pm dose on days weight jumps wt is 240 or higher
12/14 101.26 kg
GDMT: continue Aldactone, Lisinopril with holding parameter. SGLT2i avoided due to recent UTI
# Recurrent ascites with worsening ascitic fluid polymorph
Gram stain and culture from para unrevealing,
Ceftriaxone was changed to ertapenem per ID, stop further Abx as this is unlikely SBP (ascitic polymorph from ovarian cancer masking as SBP).
CT AP obtained noted possible left adnexal cystic lesion, concerning for ovarian neoplasm- felt to be the etiology of the persistent ascites with elevated polymorph.
Pelvis ultrasound confirmed large heterogeneous cystic and solid lesion within the left adnexa suspicious for ovarian neoplasm.
MRI pelvis confirmed complex multiseptated cystic mass in the left lower quadrant most likely left ovarian origin. Consideration would be an ovarian epithelial tumor such as a mucinous cystadenoma or possibly a cystadenocarcinoma.
Of note, CA 125 elevated at 158
STRUCTURAL IRONWORKER oncologist Dr Marques on board, Oncologist on board
Underwent surgery on 12/09 with Exp Lap, radical tumor cytoreduction including RITA BSO, Appy, omentectomy multiple peritoneal biopsies optimal tumor debulking.
Await path report, still pending as of 12/14
CHIEF NURSE EXECUTIVE Eliquis switched to therapeutic Lovenox SQ preop -> transitioned to heparin drip 12/11 Resumed Eliquis 12/12 PM
POD #4
currently on full liquids, will advance to low residue
# Shock could be anesthesia effect with blood loss/ hemorrhagic shock postop
Off pressor Levophed, added Midodrine 5 mg TID
Monitor BP currently 112/63, once activity increased, will need to check BP standing with decision to be made on need to continue Midodrine
# Fever 12/11 following OR, resolved
Cx x2 from 12/11 NGTD
s/p L thora 12/12 bedside by Pulm, 1L removed, transudative fluid
Off Abx per ID
Stage 2 Pressure Injury Medial Buttock, evolved during admission
# Acute hypoxic respiratory insufficiency
back on 2L NC post op
# L pleural effusion
s/p IR L thora 11/20 and removed 1000 cc straw-colored pleural fluid, transudative fluid
s/p Repeat L Thora by pulm 12/11, 1L removed, transudative fluid
# Recent massive Pulmonary Embolism seen on CT scan of October 23 2024
Echo from 10/23/24: Normal left ventricular systolic function with EF 55-60%. Dilated and hypokinetic right ventricle
new finding of left ovarian mass which is concerning for neoplasm, could be the culprit for her recent VTE/pulm embolism
Lower extremity ultrasound negative for DVT
Eliquis resumed
# Diabetes Mellitus, Type II
HgbA1c 5.8 in October 2024
# Essential Hypertension
Off lisinopril, and Aldactone which was added this admission
#Irreg heart rhythm
EKG most consistent with sinus arrythmia
will follow
# CKD Stage III
creatinine stable
Cont to monitor closely
# Hyperphosphatemia
on calcium acetate
# Chronic Normocytic Anemia
Hgb appears stable compared to previous
# Asthma, no acute exacerbation
continue albuterol PRN
# Anxiety/Depression
continue Wellbutrin
# Gastritis/Gastric Erosions
continue Protonix BID
# Chronic Lower Extremity Lymphedema
# Class III Obesity
Affects all aspects of care
# exposure to COVID,
SaO2 97% on room air, asymptomatic
Positive COVID 12/12
swab remains positive
DVT ppx: now on heparin drip
Dispo: [facility] for [facility] eval
Anticipated Discharge: > 48 hours
Subjective/Interval History
-
Date of Service: December 16, 2024
no stools, passing flatus
Objective Data
-
Vital Signs:
Vital Signs
Temp Pulse Resp BP Pulse Ox
98.3 F 77 18 112/63 95
12/16/24 16:09 12/16/24 16:09 12/16/24 16:09 12/16/24 16:09 12/16/24 16:09
I&O
12/15/24 12/16/24 12/17/24
06:59 06:59 06:59
Intake Total 610 / 610 500 / 500
Output Total 500 / 500 530 / 530
Balance 110 / 110 -30 / -30
Review of Systems
-
History Source: Patient and Coordinated Provider
Constitutional: Reports No Symptoms
EENT: Reports No Symptoms Reported
Respiratory: Reports No Symptoms; Denies Trouble Breathing
Cardiac: Reports No Symptoms; Denies Chest Pain
Abdomen/GI: Reports Abdominal Pain (post op, minimal)
Genitourinary: Reports No Symptoms
Physical Exam
-
General: Well Developed, Well Nourished and No Apparent Distress
HEENT: Normocephalic, Atraumatic and Moist Mucous Membranes
Respiratory: Clear to Auscultation; Negative Wheezes, Rales or Rhonchi
Cardiac: Regular Rhythm and S1/S2
GI: Soft, Nondistended, Normal Bowel Sounds and Tender (post op)
Musculoskeletal: No Clubbing, No Cyanosis and No Edema
Neuro: Awake, Alert and Oriented
[2024-12-16 22:30] LABS: Glucose - Point of Care 135 mg/dl (70-99)
[2024-12-17 03:10] VITALS: BP 122/66
[2024-12-17 06:00] VITALS: BMI 37.2
[2024-12-17] MEDS: SYNTHROID 50 MCG PO (06:14)
[2024-12-17 07:24] LABS: Glucose - Point of Care 104 mg/dl (70-99)
[2024-12-17 07:25] VITALS: BP 127/62
[2024-12-17] MEDS: NOVOLOG FLEXPEN-LOW RESISTANCE SC ×2 (08:10→17:06)
[2024-12-17] MEDS: PHOSLO 667 MG PO ×3 (08:12→17:04)
[2024-12-17] MEDS: PROTONIX 40 MG PO ×2 (08:12→20:08)
[2024-12-17] MEDS: WELLBUTRIN XL (24 hour extended release) 300 MG PO (08:12)
[2024-12-17] MEDS: MYLICON 80 MG PO ×3 (08:12→21:23)
[2024-12-17] MEDS: ELIQUIS 5 MG PO ×2 (08:13→20:11)
[2024-12-17] MEDS: VITAMIN B-12 1000 MCG PO (08:13)
[2024-12-17] MEDS: ProAmatine PO ×2 (08:13→17:08)
[2024-12-17] MEDS: MIRALAX PO ×2 (08:13→08:29)
[2024-12-17] MEDS: DESENEX/MITRAZOL/ZEASORB 1 APPLIC TOPICAL ×2 (08:14→20:11)
--- NOTE | 2024-12-17 09:44 | W.PN.HOSP.TC ---
Today's Communication/Plan
-
Pt would like Miralax timing adjusted
await rehab transfer, recheck Covid swab once timing is known
Assessment / Plan
Assessment / Plan
# Recurrent ascites with worsening ascitic fluid polymorph
Gram stain and culture from para unrevealing,
Ceftriaxone was changed to ertapenem per ID, and since has stopped further Abx as this is unlikely SBP (ascitic polymorph from ovarian cancer masking as SBP).
On 12/04 CT AP obtained noted possible left adnexal cystic lesion, concerning for ovarian neoplasm- felt to be the etiology of the persistent ascites with elevated polymorph.
Pelvis ultrasound confirmed large heterogeneous cystic and solid lesion within the left adnexa suspicious for ovarian neoplasm.
On 12/06 MRI pelvis confirmed complex multiseptated cystic mass in the left lower quadrant most likely left ovarian origin. Consideration would be an ovarian epithelial tumor such as a mucinous cystadenoma or possibly a cystadenocarcinoma.
Of note, CA 125 elevated at 158
[employer] oncologist Dr Marques on board, Oncologist last seen patient on 12/07, as per Dr. Clark they will defer to [facility] On[facility] (Dr. Marques)
Underwent surgery on 12/09 with Exp Lap, radical tumor cytoreduction including RITA BSO, Appy, omentectomy multiple peritoneal biopsies optimal tumor debulking.
path report: Ovarian mucinous cystadoma
DRUG AND ALCOHOL TREATMENT SPECIALIST Eliquis switched to therapeutic Lovenox SQ preop -> transitioned to heparin drip 12/11 Resumed Eliquis 12/12 PM
diet is now low residue
# Recurrent ascites
# Was initially felt 2/2 Acute Right heart failure, Acute Cor pulmonale
s/p paracentesis x 3: first para 4/2 and 10 L removed (no SBP), second para 11/29 (noted SBP), third para 12/02 with persistent SBP (worsening WBC/SBP).
Of note, Echo unrevealing, improved RV size and function. EF 50-55%
RHC 11/29 with euvolemic, normal wedge, unsure if cardiac in origin
s/p aggressive IV Lasix course
Card recc to resume 40mg po Lasix when weight is 236 lbs and an additional pm dose on days weight jumps wt is 240 or higher
12/14 101.26 kg
GDMT: continue Aldactone, Lisinopril with holding parameter. SGLT2i avoided due to recent UTI
# Shock could be anesthesia effect with blood loss/ hemorrhagic shock postop
Off pressor Levophed, added Midodrine 5 mg TID
Monitor BP currently 127/62, once activity increased, will need to check BP standing with decision to be made on need to continue Midodrine
# Fever 12/11 following OR, resolved
Cx x2 from 12/11 NGTD
s/p L thora 12/12 bedside by Pulm, 1L removed, transudative fluid
Off Abx per ID
Stage 2 Pressure Injury Medial Buttock, evolved during admission
# Acute hypoxic respiratory insufficiency - resolved
SaO2 95% on room air
# L pleural effusion
s/p IR L thora 11/20 and removed 1000 cc straw-colored pleural fluid, transudative fluid
s/p Repeat L Thora by pulm 12/11, 1L removed, transudative fluid
# Recent massive Pulmonary Embolism seen on CT scan of October 23 2024
Echo from 10/23/24: Normal left ventricular systolic function with EF 55-60%. Dilated and hypokinetic right ventricle
new finding of left ovarian mass which is concerning for neoplasm, could be the culprit for her recent VTE/pulm embolism
Lower extremity ultrasound negative for DVT
Eliquis resumed
# Diabetes Mellitus, Type II
HgbA1c 5.8 in October 2024
# Essential Hypertension
Off lisinopril, and Aldactone which was added this admission
#Irreg heart rhythm
EKG most consistent with sinus arrythmia
will follow
# CKD Stage III
creatinine stable
Cont to monitor closely
# Hyperphosphatemia
on calcium acetate
# Chronic Normocytic Anemia
Hgb appears stable - will recheck
# Asthma, no acute exacerbation
continue albuterol PRN
# Anxiety/Depression
continue Wellbutrin
# Gastritis/Gastric Erosions
continue Protonix BID
# Chronic Lower Extremity Lymphedema
# Class III Obesity
Affects all aspects of care
# exposure to COVID,
SaO2 97% on room air, asymptomatic
Positive COVID 12/12
swab remains positive
DVT ppx: now on heparin drip
Dispo: [facility] for Jeremias vallejo
discussed with CM
Anticipated Discharge: 24 - 48 hours
Subjective/Interval History
-
Date of Service: December 17, 2024
Pt would like Miralax timing changed. Had BM yesterday, none yet today
Objective Data
-
Vital Signs:
Vital Signs
Temp Pulse Resp BP Pulse Ox
98.1 F 76 18 127/62 95
12/17/24 07:25 12/17/24 08:13 12/17/24 07:25 12/17/24 08:13 12/17/24 07:25
I&O
12/16/24 12/17/24 12/18/24
06:59 06:59 06:59
Intake Total 500 / 500 300 / 300
Output Total 530 / 530 550 / 550
Balance -30 / -30 -250 / -250
Review of Systems
-
History Source: Patient and Coordinated Provider
Constitutional: Reports No Symptoms
EENT: Reports No Symptoms Reported
Respiratory: Reports No Symptoms; Denies Trouble Breathing
Cardiac: Reports No Symptoms; Denies Chest Pain
Abdomen/GI: Reports Abdominal Pain (post op, minimal)
Genitourinary: Reports No Symptoms
Physical Exam
-
General: Well Developed, Well Nourished and No Apparent Distress
HEENT: Normocephalic, Atraumatic and Moist Mucous Membranes
Respiratory: Clear to Auscultation; Negative Wheezes, Rales or Rhonchi
Cardiac: Regular Rhythm and S1/S2
GI: Soft, Nondistended, Normal Bowel Sounds and Tender (post op)
Musculoskeletal: No Clubbing, No Cyanosis and No Edema
Neuro: Awake, Alert and Oriented
[2024-12-17] MEDS: MIRALAX 17 GRAMS PO (10:30)
--- NOTE | 2024-12-17 10:44 | CON.MD ---
Consultation - Medical
-
Date of Consult:12/17/24
Referring Provider:�Dr. Brant Olivo
Chief Complaint:�Debility
�
History of Present Illness:�74-year-old female with PMH (as below) presented to [facility] on 11/18/2024 with shortness of breath. She was admitted from 10/23 - 11/01 with a massive pulmonary embolism requiring catheter directed thrombolysis,
paracentesis of 6.5 L and coffee-ground emesis. Also with recent UTI.
Now found to have recurrent ascites with a 10 pound weight gain over 1 week with more distention in her abdomen. Diuresed by cardiology with concern for acute cor pulmonale with recent PE as well as some diastolic heart failure. On 11/20 she had 10
L removed from a paracentesis with negative culture and negative cytology. Also with a left pleural effusion. Developed acute respiratory insufficiency requiring oxygen. She had a right heart cath on 11/29/2024 with some mild pulmonary
hypertension. Given antibiotics for spontaneous bacterial peritonitis and ID following. She had a CT of the abdomen and pelvis noting a left adnexal cystic lesion measuring up to 22.7 cm with associated mass effect. On 12/09/2024 she had ex lap
with radical tumor cytoreduction including RITA/BSO, appendectomy, omentectomy and multiple peritoneal biopsies with optimal tumor debulking by Dr. Roger Marques. Postoperatively with hypotension/shock thought secondary to intravascular hypovolemia
and third spacing of fluids. On 12/11/2024 she had a left thoracentesis for approximately 1 L of fluid by Dr. Meagan Ruiz. Tested COVID-positive/ with no further intervention per ID as patient vaccinated and no symptoms.
She was happy to hear that her biopsy was benign.
�
Past Medical History:�Type 2 diabetes, essential hypertension, hyperlipidemia, CKD stage III, asthma, anxiety, depression, morbid obesity, chronic lower extremity lymphedema, pulmonary embolism October 2024
Procedure History:�Cholecystectomy, left hip replacement
Family History:�Grandmother with CHF, mother with cardiac issues
�
Social History:�
Functional Level Premorbidly:�Assisted with ADLs
Functional Level Currently:�Max assist bed mobility, dependent sit to supine, dependent lower extremity self-care and toileting.
�
Tobacco:�Denies�
Alcohol:�Denies�
Drug use:�Denies�
�
Lives with:�Previously living alone in an apartment in September 2024. Has been in and out of rehab in the hospital since.
24-hour assistance available:�Not at home
Number of floors:�1
# steps to enter:�1
Driving:�Previously
Occupation:�Retired
�
�
Allergies:�
Allergy/AdvReac Type Severity Reaction Status Date / Time
codeine Allergy Nausea / Verified 11/18/24 13:48
Vomiting
Influenza Virus Vaccines Allergy Tongue Verified 11/18/24 13:48
Swelling
meperidine [From Demerol] Allergy Unknown Verified 11/18/24 13:48
Phenothiazines Allergy Unknown Verified 11/18/24 13:48
Sulfa (Sulfonamide Allergy Unknown Verified 11/18/24 13:48
Antibiotics)
�
Review of Systems:�
Constitutional: (x) abNormal _fatigue
Eye: (x) Normal _
Ear/Nose/Throat: (x) Normal _
Respiratory: (x) abNormal _improving SOB
Cardiovascular: (x) Normal _
Gastrointestinal: (x) Normal _
Genitourinary: (x) Normal _
Musculoskeletal: (x) Normal _
Integumentary: (x) abNormal _ leg swelling better.
Neurologic: (x) Normal _
Psychiatric: (x) Normal _
Endocrine: (x) Normal _
Hematologic/Lymphatic: (x) Normal _
Allergic/Immunologic: (x) Normal _
�
Medications:�
Active Current Visit Medication List
Category Date Time Status
Acetaminophen [Tylenol] Med 11/18/24 21:19 Active
650 mg PO Q4HPRN PRN
Apixaban [Eliquis] Med 12/12/24 20:00 Active
5 mg PO BID
Bupropion(24Hr)Extended Releas [WELLBUTRIN XL (24 hour Med 11/19/24 08:00 Active
extended release)]
300 mg PO DAILY
Calcium Acetate [Phoslo] Med 11/19/24 08:00 Active
667 mg PO MEALS
Cyanocobalamin [Vitamin B-12] Med 12/13/24 08:00 Active
1,000 mcg PO DAILY
Dextrose 50%-Water [Dextrose 50% Syringe] Med 11/18/24 21:19 Active
12.5 grams IV P18VDWD PRN
Flush (0.9% Sodium Chloride) [Flush (Nss)] Med 11/18/24 22:00 Active
See Dose Instructions IV PER PROTOCOL
Glucagon [GlucaGen] Med 11/18/24 21:19 Active
1 mg IM PRN PRN
HYDROmorphone [Dilaudid] Med 12/09/24 17:50 Active
0.5 mg IV Q3HPRN PRN
Insulin Aspart Corrective Low [Novolog Flexpen-Low Med 12/11/24 07:30 Active
Resistance]
See Protocol SC AC
Levothyroxine [Synthroid] Med 11/20/24 06:00 Active
50 mcg PO DAILY @ 0600
Miconazole Nitrate [Desenex/Mitrazol/Zeasorb] Med 11/23/24 08:00 Active
See Dose Instructions TOPICAL BID
Midodrine [ProAmatine] Med 12/10/24 08:00 Active
5 mg PO TID@0800,1300,1800
Ondansetron Injectable [Zofran] Med 12/09/24 17:50 Active
4 mg IV Q6HPRN PRN
Oxycodone [Roxicodone] Med 12/09/24 17:50 Active
5 mg PO Q4HPRN PRN
Pantoprazole [Protonix] Med 11/18/24 21:19 Active
40 mg PO BID
Polyethylene Glycol Powder [Miralax] Med 12/18/24 10:00 Active
17 grams PO DAILY
Simethicone [Mylicon] Med 11/18/24 22:00 Active
80 mg PO TID
�
Vitals:�
Temp Pulse Resp BP Pulse Ox
98.1 F 76 18 127/62 95
12/17/24 07:25 12/17/24 08:13 12/17/24 07:25 12/17/24 08:13 12/17/24 07:25
Height 5 ft 4 in
Actual Weight 98.112 kg
Body Mass Index (BMI) 37.2
�
Physical Exam:�
General Appearance/Observation: Well-developed, well-nourished female in no apparent distress.�
Pain/Comfort Assessment: mild to moderate abdomen.�
Mood/Affect: Appropriate�
�
Integumentary/Operative Site:�ex lap site with zenaida intact, healing well.
�
Eyes: Conjunctiva/Lids: normal��� Pupils: pupils equal round and reactive to light and Accommodation
Ears/Nose/Throat: oral mucosa moist, throat clear.������������ Lips/Teeth/Gums: normal
Cardiovascular: Heart: regular pulse, dorsalis pedis 2+ bilaterally�
Respiratory: Respiratory Effort/Chest Expansion: no cough, no respiratory distress������
Gastrointestinal: abdomen not tender, no distension, normal abdominal bowel sounds
Genitourinary: No Bullock�
Extremities:�Edema: mild bilateral lower extremities�Cyanosis: None�Trophic�changes: None
�
Neurology Exam:
Orientation: Alert, Oriented to self, Time, Place�
Memory: Intact for recent medical concerns
Comprehension: Intact
Two step command: Intact
Cranial Nerves:
�� CNII:�Pupillary light reflex: Intact��
�� CN III, IV, : Extraocular muscles: Intact�
�� CN VII:�Facial movement: Symmetric
�� CN VIII:�Hearing: Normal
�� CN IX/X:�Speech & swallow: Normal,�Position of Uvula: Midline
�� CN XI:�Shoulder shrug: Symmetric
�� CN XII:�Tongue protrusion: Midline
Sensory:
�� Light touch: Intact in bilateral upper and lower extremities
Musculoskeletal: Motor: (Manual muscle scale 0-5)�
Muscle SA EF WE EE FF FA HF KE DF EHL PF
Right� 4 5 5 4 5 4 2 5 5 5
Left 4 5 5 4 5 4 2 5 5 5
�
Tone: Normal in all extremities�
Range of Motion: Passively within normal limits in all extremities�
�
Lab Results
Laboratory Data
12/15/24 05:52
12/15/24 05:52
PT 15.2 Sec (11.4-14.6) H 12/09/24 05:43
INR 1.17 12/09/24 05:43
APTT 102.0 Sec (23.4-35.0) H 12/12/24 14:40
Total Bilirubin 0.6 mg/dl (0.2-1.3) 12/15/24 05:52
Direct Bilirubin 0.2 mg/dl (0.0-0.4) 12/12/24 04:26
AST 18 U/L (14-36) 12/15/24 05:52
ALT < 10 U/L (0-35) 12/15/24 05:52
Alkaline Phosphatase 54 U/L (38-126) 12/15/24 05:52
Total Protein 5.3 g/dl (6.3-8.2) L 12/15/24 05:52
Albumin 2.6 g/dl (3.5-5.0) L 12/15/24 05:52
Diagnostic Results:�as per HPI�
�
Assessment
74 y/o F PMH (Type 2 diabetes, essential hypertension, hyperlipidemia, CKD stage III, asthma, anxiety, depression, morbid obesity, chronic lower extremity lymphedema, pulmonary embolism October 2024) with 11/18/2024 ascites likely from acute cor
pulmonale with recent PE as well as some diastolic heart failure, SBP treated with antibiotics, left adnexal cystic lesion s/p 12/09/2024 she had ex lap with radical tumor cytoreduction including RITA/BSO, appendectomy, omentectomy and multiple
peritoneal biopsies with optimal tumor debulking complicated by hypotension/shock thought secondary to intravascular hypovolemia and third spacing of fluids s/p 12/11/2024 L thoracentesis and 12/12/24 COVID-positive��resulting in ADL and ambulatory
dysfunction.
�
Plan�
PM&R�PT/OT to increase independence with ADLs, improve balance, coordination, endurance, strength, mobility, community reintegration, decreased burden of care on others and family education.�
�
Cervical mass: 12/09/2024 ex lap with radical tumor cytoreduction including RITA/BSO, appendectomy, omentectomy and multiple peritoneal biopsies with optimal tumor debulking
Recurrent ascites: Requiring paracentesis x 3
-Thought secondary to acute right heart failure from acute cor pulmonale from large recent pulmonary embolism
Left pleural effusion: Required thoracentesis 11/20 and 12/11
Shock: Thought secondary to anesthesia, blood loss postoperatively.
HTN: Off medications with recent shock
HLD: Statin�
B12 deficiency: On supplement
Recent massive pulmonary embolism with thrombectomy: Apixaban������������������������������������������
Diastolic CHF and cor pulmonale: Was diuresed, monitor weight and fluid status
Hypothyroidism: levothyroxine�
Acute COVID-19: Enhanced respiratory precautions, no acute symptoms related to the diagnosis
Anemia: Stable in the 8 range, likely multifactorial.� B12 supplementation, multivitamin continue to monitor.�
Psych: Bupropion.�
Skin: monitor for pressure sores/rashes/lesions.�
Pain: acetaminophen or oxycodone as needed.�
Bowel: MiraLAX, PRN bisacodyl.�
Bladder: Monitor output, time void, PVRs, PRN straight cath.�
GI Prophylaxis: Pantoprazole�
DVT Prophylaxis: Eliquis
Pulmonary: Incentive spirometry�
Morbid obesity: Continue to addiction treatment counselor patient about diet adjustments to control obesity. Body habitus and increased force to move body and extremities causes further difficulty with functional tasks.�
Safety: Continue to reinforce assistance with all transfers.�
Code Status:� Full code
Dispo�(date/plan/equipment needs): Home with family care.� Social history reviewed.�
Functional and Medical Goals:�Modified Independent with ADL�s, ambulation, transfers�
Discharge Destination:�senior care facility, dependent for many activities, therapy and patient feel that 3 hours of therapy will be too much for her at this point. Could consider transfer from SNF to acute if making good progress and needs a
more intense therapy program.
�
Thank you for allowing me to care for your patient. Please contact me with any questions or concerns.
A total of 60 minutes were spent with the patient preparing for the evaluation, obtaining history, performing examination and evaluation, counseling, data review, case management, care coordination, service order taker, and EMR documentation.
[2024-12-17 12:09] LABS: Glucose - Point of Care 168 mg/dl (70-99)
[2024-12-17] MEDS: NOVOLOG FLEXPEN-LOW RESISTANCE 1 UNITS SC (12:31)
[2024-12-17] MEDS: ProAmatine 5 MG PO (12:34)
--- NOTE | 2024-12-17 13:51 | W.PN.GYNONC ---
Today's Communication
-
ok for dc from my perspective
follow up in 1-2 week sin office for staple removal
final path is benign
Impression / Plan
-
POD 8 s/p resection of left ovary neoplasm, path is final and Left oavry was benign mucinous cystadenoma. All other biopsies were benign.
Ascites and pleural effusion were likely reactive and demonstrate no evidence of malignancy
continue PT
regular diet
recovering from COVID
awaiting transfer to rehab
will continue to follow medical plans
She is ok for full anticoagulation with eliquis
we need to bring her to our office for staple removal in 1-2 weeks from today.
Roger Marques MD
[facility]
Subjective / Interval History
-
POD 8 s/p RITA BSO, Omentectomy, Appy, Hernia repair
she reports BM yesterday, taking miralalx
salome po ok
Objective Data
-
Lab Results:
12/15/24 05:52
12/15/24 05:52
Final Path:
A. Left ovary and fallopian tube, salpingo-oophorectomy � Ovarian mucinous cystadenoma (see note).
Unremarkable fallopian tube.
Note: The ovarian tumor shows scant foci of mucinous borderline histologic changes
representing much less than 10% of the overall tumor volume (insufficient for a borderline tumor
diagnosis).
B. Uterus and piece of omentum, hysterectomy and partial omentectomy �
Focal endocervical siderophage deposits (old hemorrhage).
Atrophic endometrium.
Anterior uterine serosal adhesion with peritoneal inclusion cyst.
Inactive adenomyosis.
Atrophic intramural leiomyomata.
Adherent serosal omental tissue.
C. Hernia sac �
Chronically inflamed peritoneal tissue.
D. Sigmoid adhesion �Organizing fibrinous adhesion with macrophage aggregates.
E. Omentum, omentectomy �Omental tissue with focal chronic inflammation.
F. Left pelvic peritoneum �Hemorrhagic granulation tissue.
G. Right pelvic peritoneum �Chronically inflamed peritoneal tissue.
H. Left gutter �Chronically inflamed peritoneal tissue.
I. Right gutter �Chronically inflamed peritoneal tissue.
J. Appendix, appendectomy �Distal appendiceal fibrous atrophy.
K. Right ovary and fallopian tube, salpingo-oophorectomy �Atrophic ovary and fallopian tube.
L. Posterior cul-de-sac �Xanthomatous chronic inflammation with central necrosis.
Physical Exam
Vital Signs / I&O
Vitals
Temp Pulse Resp BP Pulse Ox
98.1 F 81 18 109/58 95
12/17/24 07:25 12/17/24 12:34 12/17/24 07:25 12/17/24 12:34 12/17/24 07:25
I&O
12/15/24 12/16/24 12/17/24 12/18/24
06:59 06:59 06:59 06:59
Intake Total 610 / 610 500 / 500 300 / 300
Output Total 500 / 500 530 / 530 550 / 550
Balance 110 / 110 -30 / -30 -250 / -250
Physical Exam
Lungs: decreased BS both bases
Car RRR
Abd soft, NT, incision is dry with zenaida
Ext 1 + edema
[2024-12-17 15:20] VITALS: BP 126/64
--- NOTE | 2024-12-17 15:26 | W.PN.GYNONC ---
Today's Communication
-
-
Impression / Plan
-
POD 8 s/p resection of left ovary neoplasm, path is final and Left oavry was benign mucinous cystadenoma. All other biopsies were benign.
Ascites and pleural effusion were likely reactive and demonstrate no evidence of malignancy
continue PT
regular diet
recovering from COVID
awaiting transfer to rehab
will continue to follow medical plans
She is ok for full anticoagulation with eliquis
we need to bring her to our office for staple removal in 1-2 weeks from today.
Roger Marques MD
[facility]
Subjective / Interval History
-
No complaints, was having a full feeling and unable to eat after taking her Miralax and spoke with Dr Olivo and they will change timing of the miralax Waiting to be discharge to rehab unsure if they will take her because of the positive Covid
Objective Data
-
Lab Results:
12/15/24 05:52
12/15/24 05:52
Physical Exam
Vital Signs / I&O
Vitals
Temp Pulse Resp BP Pulse Ox
98.1 F 81 18 109/58 95
12/17/24 07:25 12/17/24 12:34 12/17/24 07:25 12/17/24 12:34 12/17/24 07:25
I&O
12/15/24 12/16/24 12/17/24 12/18/24
06:59 06:59 06:59 06:59
Intake Total 610 / 610 500 / 500 300 / 300
Output Total 500 / 500 530 / 530 550 / 550
Balance 110 / 110 -30 / -30 -250 / -250
Physical Exam
incision continues to heal dry no redness or drainage
[2024-12-17 17:07] LABS: Glucose - Point of Care 143 mg/dl (70-99)
[2024-12-17 21:26] LABS: Glucose - Point of Care 153 mg/dl (70-99)
[2024-12-17] MEDS: TYLENOL 650 MG PO (23:06)
[2024-12-17 23:30] VITALS: BP 112/60
[2024-12-18] MEDS: SYNTHROID 50 MCG PO (05:28)
[2024-12-18 05:51] VITALS: BMI 37.3
[2024-12-18 07:15] LABS: Glucose - Point of Care 99 mg/dl (70-99)
[2024-12-18] MEDS: NOVOLOG FLEXPEN-LOW RESISTANCE SC ×3 (07:38→16:30)
[2024-12-18 07:42] VITALS: BP 132/67
[2024-12-18 07:59] LABS: ALT (SGPT) 12 U/L (0-35); AST (SGOT) 18 U/L (14-36); Albumin 2.6 g/dl (3.5-5.0); Alkaline Phosphatase 62 U/L (38-126); Blood Urea Nitrogen 20 mg/dl (7-17); Carbon Dioxide 27 mmol/L (22-30); Chloride 100 mmol/L (98-107); Estimated Creatinine Clearance 57 ml/min; Glucose 95 mg/dl (70-99); Potassium 4.5 mmol/L (3.5-5.1); Sodium 136 mmol/L (135-145); Total Bilirubin 0.5 mg/dl (0.2-1.3); Total Protein 5.2 g/dl (6.3-8.2); eGFR 59.49
[2024-12-18] MEDS: VITAMIN B-12 1000 MCG PO (09:19)
[2024-12-18] MEDS: WELLBUTRIN XL (24 hour extended release) 300 MG PO (09:19)
[2024-12-18] MEDS: ELIQUIS 5 MG PO ×2 (09:20→19:00)
[2024-12-18] MEDS: MYLICON 80 MG PO ×3 (09:20→19:00)
[2024-12-18] MEDS: ProAmatine PO ×3 (09:20→16:29)
[2024-12-18] MEDS: PHOSLO 667 MG PO ×3 (09:20→16:29)
[2024-12-18] MEDS: PROTONIX 40 MG PO ×2 (09:20→19:00)
[2024-12-18] MEDS: DESENEX/MITRAZOL/ZEASORB 1 APPLIC TOPICAL ×2 (09:21→19:01)
[2024-12-18 10:02] LABS: % Basophils 0.2 % (0-2); % Eosinophils 12.8 % (0-6); % Immature Granulocytes 1.7 % (0-0.5); % Monocytes 10.4 % (1.7-9.3); % Neutrophils 56.9 % (42.2-75.2); Absolute Eosinophils 0.8 10^3/uL (0-0.7); Absolute Immature Granulocytes 0.1 10^3/uL (0-0.05); Absolute Lymphocytes 1.2 10^3/uL (1.2-3.4); Absolute Monocytes 0.7 10^3/uL (0.1-0.6); Absolute Neutrophils 3.7 10^3/uL (1.4-6.5); Mean Corp Hgb Conc. 32.1 g/dL (33.0-37.0); Mean Corpuscular Hgb 25.4 pg (27.0-31.0); Mean Corpuscular Volume 78.9 fL (81.0-99.0); Mean Platelet Volume 8.9 fL (7.4-10.4); Nucleated Red Blood Cells % 0 %; Platelet Count 522 10^3/uL (130-400); Red Blood Cell Count 3.55 10^6/uL (4.20-5.40); White Blood Cell Count 6.4 10^3/uL (4.8-10.8)
--- NOTE | 2024-12-18 11:17 | CM ---
Addendum entered by Tien Matias 12/18/24 14:05:
[employer] superintendent time 7:30 p.m.
Original Note:
CM following re: discharge planning.
Reviewed pt's chart, met with pt.
According to MD pt is medically stable to be discharged today if a SNF accepts the pt who is Covid positive. Pt is aware, expressed her agreement with discharge. IMM reviewed, placed on chart, pt has a copy.
PM&R evaluation noted - pt does not qualify for acte rehab level of care as of now, SNF level of care recommended and per PM&R pt can go to acute rehab after improving her physical functioning in a SNF. Pt is aware, expressed her agreement. pt
expressed her agreement to go to [facility].
A referral to [facility] made, spoke to [facility] SNF liaison, she is aware that pt is COVID+, pt is accepted for admission today. Per [facility] liaison, pt switched her insurance from [facility] [place] [employer] to straight Medicare as
of 11/19/24.
CM spoke to admissions department branch sales and service representative Nery and she stated because pt admitted to on 11/18/24 and at that time pt had [facility] [place] [facility] and will bill [place] [facility]. Pt will be straight Medicare when goes to [facility].
[facility] to arrange [facility] .
[facility] nursing repprt: [phone]
Discharge instructions fax: [phone]
D/c plan: [facility] today.
[2024-12-18 11:32] VITALS: BP 141/76
[2024-12-18 12:56] LABS: Glucose - Point of Care 126 mg/dl (70-99)
--- NOTE | 2024-12-18 13:09 | W.PN.HOSP.TC ---
Today's Communication/Plan
-
dc to SNF
Assessment / Plan
Assessment / Plan
# Recurrent ascites with worsening ascitic fluid polymorph
Gram stain and culture from para unrevealing,
Ceftriaxone was changed to ertapenem per ID, and since has stopped further Abx as this is unlikely SBP (ascitic polymorph from ovarian cancer masking as SBP).
On 12/04 CT AP obtained noted possible left adnexal cystic lesion, concerning for ovarian neoplasm- felt to be the etiology of the persistent ascites with elevated polymorph.
Pelvis ultrasound confirmed large heterogeneous cystic and solid lesion within the left adnexa suspicious for ovarian neoplasm.
On 12/06 MRI pelvis confirmed complex multiseptated cystic mass in the left lower quadrant most likely left ovarian origin. Consideration would be an ovarian epithelial tumor such as a mucinous cystadenoma or possibly a cystadenocarcinoma.
Of note, CA 125 elevated at 158
WASHROOM OPERATOR oncologist Dr Marques on board, Oncologist last seen patient on 12/07, as per Dr. Clark they will defer to Field Service Technician [employer] On[employer] (Dr. Marques)
Underwent surgery on 12/09 with Exp Lap, radical tumor cytoreduction including RITA BSO, Appy, omentectomy multiple peritoneal biopsies optimal tumor debulking.
path report: Ovarian mucinous cystadoma
RESORT DESK CLERK Eliquis switched to therapeutic Lovenox SQ preop -> transitioned to heparin drip 12/11 Resumed Eliquis 12/12 PM
diet is now low residue
# Recurrent ascites
# Was initially felt 2/2 Acute Right heart failure, Acute Cor pulmonale
s/p paracentesis x 3: first para 4/2 and 10 L removed (no SBP), second para / (noted SBP), third para 12/02 with persistent SBP (worsening WBC/SBP).
Of note, Echo unrevealing, improved RV size and function. EF 50-55%
RHC 11/29 with euvolemic, normal wedge, unsure if cardiac in origin
s/p aggressive IV Lasix course
Card recc to resume 40mg po Lasix when weight is 236 lbs and an additional pm dose on days weight jumps wt is 240 or higher
12/14 101.26 kg
GDMT: continue Aldactone, Lisinopril with holding parameter. SGLT2i avoided due to recent UTI
# Shock could be anesthesia effect with blood loss/ hemorrhagic shock postop
Off pressor Levophed, added Midodrine 5 mg TID
Monitor BP currently 127/62, once activity increased, will need to check BP standing with decision to be made on need to continue Midodrine
# Fever 12/11 following OR, resolved
Cx x2 from 12/11 NGTD
s/p L thora 12/12 bedside by Pulm, 1L removed, transudative fluid
Off Abx per ID
Stage 2 Pressure Injury Medial Buttock, evolved during admission
# Acute hypoxic respiratory insufficiency - resolved
SaO2 95% on room air
# L pleural effusion
s/p IR L thora 11/20 and removed 1000 cc straw-colored pleural fluid, transudative fluid
s/p Repeat L Thora by pulm 12/11, 1L removed, transudative fluid
# Recent massive Pulmonary Embolism seen on CT scan of October 23 2024
Echo from 10/23/24: Normal left ventricular systolic function with EF 55-60%. Dilated and hypokinetic right ventricle
new finding of left ovarian mass which is concerning for neoplasm, could be the culprit for her recent VTE/pulm embolism
Lower extremity ultrasound negative for DVT
Eliquis resumed
# Diabetes Mellitus, Type II
HgbA1c 5.8 in October 2024
# Essential Hypertension
Off lisinopril, and Aldactone which was added this admission
#Irreg heart rhythm
EKG most consistent with sinus arrythmia
will follow
# CKD Stage III
creatinine stable
Cont to monitor closely
# Hyperphosphatemia
on calcium acetate
# Chronic Normocytic Anemia
Hgb appears stable - will recheck
# Asthma, no acute exacerbation
continue albuterol PRN
# Anxiety/Depression
continue Wellbutrin
# Gastritis/Gastric Erosions
continue Protonix BID
# Chronic Lower Extremity Lymphedema
# Class III Obesity
Affects all aspects of care
# exposure to COVID,
SaO2 97% on room air, asymptomatic
Positive COVID 12/12
swab remains positive
DVT ppx: now on heparin drip
Dispo: Pt felt not appropriate for [facility], has been accepted to [facility]
discussed with CM
Will dc
see dictated note
More than 30 minutes spent in discharge including
Final examination of the patient
Summarizing hospital stay
Instructions for continuing care to all relevant caregivers
Preparation of discharge records, prescriptions, and referral forms
Total time spent (in minutes): 45
Anticipated Discharge: Today
Subjective/Interval History
-
Date of Service: December 18, 2024
Pt has been moving bowels, last time was very loose
Objective Data
-
Labs:
Laboratory Results
12/18/24
07:05
WBC 6.4
Hgb 9.0 L
Hct 28.0 L
Plt Count 522 H D
Sodium 136
Potassium 4.5
Chloride 100
Carbon Dioxide 27
BUN 20 H
Creatinine 1.0
Glucose 95
Calcium 9.0
Total Bilirubin 0.5
AST 18
ALT 12
Alkaline Phosphatase 62
Vital Signs:
Vital Signs
Temp Pulse Resp BP Pulse Ox
98.8 F 81 17 141/76 95
12/18/24 11:32 12/18/24 12:57 12/18/24 11:32 12/18/24 12:57 12/18/24 11:32
I&O
12/17/24 12/18/24 12/19/24
06:59 06:59 06:59
Intake Total 300 / 300 480 / 480
Output Total 550 / 550 500 / 500
Balance -250 / -250 -20 / -20
Review of Systems
-
History Source: Patient and Coordinated Provider
Constitutional: Reports No Symptoms
EENT: Reports No Symptoms Reported
Respiratory: Reports No Symptoms; Denies Trouble Breathing
Cardiac: Reports No Symptoms; Denies Chest Pain
Abdomen/GI: Reports Abdominal Pain (post op, minimal)
Genitourinary: Reports No Symptoms
Physical Exam
-
General: Well Developed, Well Nourished and No Apparent Distress
HEENT: Normocephalic, Atraumatic and Moist Mucous Membranes
Respiratory: Clear to Auscultation; Negative Wheezes, Rales or Rhonchi
Cardiac: Regular Rhythm and S1/S2
GI: Soft, Nondistended, Normal Bowel Sounds and Tender (post op)
Musculoskeletal: No Clubbing, No Cyanosis and No Edema
Neuro: Awake, Alert and Oriented
[2024-12-18 15:39] VITALS: BP 124/64
--- NOTE | 2024-12-18 16:21 | W.DS.TRANS ---
DC Summary - [employer]
-
Discharge Instructions:
Discharge Diagnosis/Procedures Left Adnexal cystic lesion removed 12/09, Acute
Covid
Diet 2 Gram Sodium,Diabetic, Carb Controlled
Activity As tolerated,With assistance
Driving Restrictions No driving
Bathing Restrictions OK to Shower
Other Services OT,PT
Instructions:
Stand-Alone Forms: DC Instructions- Cath/EP Lab
Changes to Home Medications: No
Discharge Medications:
DC Medications w/original date entered in [employer]
cyanocobalamin (vitamin B-12) 1,000 mcg tablet 1,500 mcg PO Q48H Supplement 09/22/16
acetaminophen 325 mg tablet 650 mg PO Q4HPRN PRN fever >100/mild pain 10/23/24
albuterol sulfate 90 mcg/actuation aerosol inhaler 1 inh inhalation R DAILYPRN PRN sob/wheezing 10/23/24
bisacodyl 10 mg rectal suppository 10 mg OH DAILYPRN PRN if mom ineffective after 24 hrs 10/23/24
bupropion HCl 300 mg 24 hr tablet, extended release (Wellbutrin XL) 300 mg PO DAILY Mental Health/Anxiety 10/23/24
furosemide 20 mg tablet 20 mg PO DAILY Electrolyte Repletion 10/23/24
lisinopril 20 mg tablet 20 mg PO BID Blood Pressure 10/23/24
magnesium hydroxide 400 mg/5 mL oral suspension (Milk of Magnesia) 2,400 mg PO [id number] PRN no bm in 3 days 10/23/24
polyethylene glycol 3350 17 gram oral powder packet (Miralax) 17 g PO DAILY Gastrointestinal Issue 10/23/24
simethicone 80 mg chewable tablet 80 mg PO TID Gastrointestinal Issue 10/23/24
sodium phosphates 19 gram-7 gram/118 mL enema (Fleet Enema) 118 ml OH DAILYPRN PRN bisacodyl ineffective after 24 hrs 10/23/24
calcium acetate 667 mg tablet 667 mg PO MEALS #0 tabs 10/31/24
docusate sodium 100 mg capsule 100 mg PO BID #0 caps 10/31/24
pantoprazole 40 mg tablet,delayed release 40 mg PO BID #30 tabs 10/31/24
apixaban 5 mg tablet (Eliquis) 5 mg PO BID Blood Clot Prevention/Tx 11/18/24
cyanocobalamin (vitamin B-12) 1,000 mcg tablet (Vitamin B-12) 1,000 mcg PO DAILY #30 tabs 12/18/24
levothyroxine 50 mcg tablet 50 mcg PO DAILY @ 0600 #30 tabs 12/18/24
miconazole nitrate 2 % topical powder (Miconazorb AF) 1 applic topical BID #85 grams 12/18/24
midodrine 5 mg tablet 5 mg PO TID@0800,1300,1800 #90 tabs 12/18/24
Home Medication Changes
Pending Results: No
[2024-12-18 16:30] LABS: Glucose - Point of Care 127 mg/dl (70-99)
--- NOTE | 2024-12-18 17:28 | PTCARENOTE ---
Report called to Rohini Mercado, Acute Care Medic to be picking pt up at 1930.
[2024-12-18 19:00] VITALS: BP 125/59
--- NOTE | 2024-12-18 19:37 | PTCARENOTE ---
Pt was picked up by acute care ambulance at 1910. Pt night Meds were all given.
== END 2024-12-18 19:18 | DRG 742 ==
LOC: 2 NORTH 19:15
PROVIDERS: Emergency Medicine; Internal Medicine; Internal Medicine Cardiovascular Disease; Internal Medicine Gastroenterology; Nurse Practitioner Acute Care; Physician Assistant; Physician Assistant Medical; Radiology Diagnostic Radiology; Radiology Vascular & Interventional Radiology; Student in an Organized Health Care Education/Training Program; ADMITTING PHYSICIAN Internal Medicine; ATTENDING PHYSICIAN Internal Medicine; CONSULT PHYSICIAN Internal Medicine Hematology & Oncology; CONSULT PHYSICIAN Obstetrics & Gynecology Gynecologic Oncology; CONSULT PHYSICIAN Physical Medicine & Rehabilitation; EMERGENCY PHYSICIAN Student in an Organized Health Care Education/Training Program; FAMILY PHYSICIAN Internal Medicine; OTHER PHYSICIAN Internal Medicine; OTHER PHYSICIAN Internal Medicine Cardiovascular Disease; OTHER PHYSICIAN Internal Medicine Infectious Disease
PROC: 0W9G3ZZ Drainage of Peritoneal Cavity, Percutaneous Approach (ICD-10-PCS; 2024-11-19)
PROC: 0W9B3ZX Drainage of Left Pleural Cavity, Percutaneous Approach, Diagnostic (ICD-10-PCS; 2024-11-20)
PROC: 0W9G3ZX Drainage of Peritoneal Cavity, Percutaneous Approach, Diagnostic (ICD-10-PCS; 2024-11-29)
PROC: 4A023N6 Measurement of Cardiac Sampling and Pressure, Right Heart, Percutaneous Approach (ICD-10-PCS; 2024-11-29)
PROC: B2141ZZ Fluoroscopy of Right Heart using Low Osmolar Contrast (ICD-10-PCS; 2024-11-29)
PROC: 0DTJ0ZZ Resection of Appendix, Open Approach (ICD-10-PCS; 2024-12-09)
PROC: 0UT20ZZ Resection of Bilateral Ovaries, Open Approach (ICD-10-PCS; 2024-12-09)
PROC: 0DBU0ZZ Excision of Omentum, Open Approach (ICD-10-PCS; 2024-12-09)
PROC: 0UT70ZZ Resection of Bilateral Fallopian Tubes, Open Approach (ICD-10-PCS; 2024-12-09)
PROC: 0UT90ZZ Resection of Uterus, Open Approach (ICD-10-PCS; 2024-12-09)
PROC: 0DBW0ZX Excision of Peritoneum, Open Approach, Diagnostic (ICD-10-PCS; 2024-12-09)
PROC: 0WQF0ZZ Repair Abdominal Wall, Open Approach (ICD-10-PCS; 2024-12-09)
PROC: 0DBN0ZX Excision of Sigmoid Colon, Open Approach, Diagnostic (ICD-10-PCS; 2024-12-09)
PROC: 02HV33Z Insertion of Infusion Device into Superior Vena Cava, Percutaneous Approach (ICD-10-PCS; 2024-12-10)
DX: D27.1 Benign neoplasm of left ovary (principal); I50.33 Acute on chronic diastolic (congestive) heart failure; U07.1 COVID-19; R57.8 Other shock; R18.8 Other ascites; I13.0 Hypertensive heart and chronic kidney disease with heart failure and stage 1 through stage 4 chronic kidney disease, or unspecified chronic kidney disease; J98.11 Atelectasis; E87.1 Hypo-osmolality and hyponatremia; Z68.43 Body mass index [BMI] 50.0-59.9, adult; N17.9 Acute kidney failure, unspecified; I96 Gangrene, not elsewhere classified; I50.811 Acute right heart failure; E66.813 Obesity, class 3; I50.82 Biventricular heart failure; I27.81 Cor pulmonale (chronic); I89.0 Lymphedema, not elsewhere classified; N18.30 Chronic kidney disease, stage 3 unspecified; E78.00 Pure hypercholesterolemia, unspecified; J45.909 Unspecified asthma, uncomplicated; E11.22 Type 2 diabetes mellitus with diabetic chronic kidney disease; E11.649 Type 2 diabetes mellitus with hypoglycemia without coma; F32.A Depression, unspecified; F41.9 Anxiety disorder, unspecified; I07.1 Rheumatic tricuspid insufficiency; R06.89 Other abnormalities of breathing; R09.02 Hypoxemia; E83.39 Other disorders of phosphorus metabolism; E27.8 Other specified disorders of adrenal gland; D64.9 Anemia, unspecified; E88.09 Other disorders of plasma-protein metabolism, not elsewhere classified; I27.20 Pulmonary hypertension, unspecified; K66.0 Peritoneal adhesions (postprocedural) (postinfection); K59.00 Constipation, unspecified; K43.9 Ventral hernia without obstruction or gangrene; M43.16 Spondylolisthesis, lumbar region; E86.1 Hypovolemia; G89.29 Other chronic pain; L89.152 Pressure ulcer of sacral region, stage 2; E53.8 Deficiency of other specified B group vitamins; E03.9 Hypothyroidism, unspecified; G47.33 Obstructive sleep apnea (adult) (pediatric); M51.369 Other intervertebral disc degeneration, lumbar region without mention of lumbar back pain or lower extremity pain; D17.9 Benign lipomatous neoplasm, unspecified; N83.331 Acquired atrophy of right ovary and fallopian tube; N85.8 Other specified noninflammatory disorders of uterus; K25.7 Chronic gastric ulcer without hemorrhage or perforation; K29.70 Gastritis, unspecified, without bleeding; Z96.642 Presence of left artificial hip joint; Z86.711 Personal history of pulmonary embolism; Z90.49 Acquired absence of other specified parts of digestive tract; Z88.5 Allergy status to narcotic agent; Z88.2 Allergy status to sulfonamides; Z88.7 Allergy status to serum and vaccine; Z88.8 Allergy status to other drugs, medicaments and biological substances; Z79.01 Long term (current) use of anticoagulants; Z86.0100 Personal history of colon polyps, unspecified; Z11.52 Encounter for screening for COVID-19; Z87.440 Personal history of urinary (tract) infections; Z82.49 Family history of ischemic heart disease and other diseases of the circulatory system; Z79.890 Hormone replacement therapy
CPT/HCPCS: 88302; 88304; 88305; 88307; 88332; 93308; 32555; 49083; 71045; 71046; 72197; 74177; 76705; 76857; 80048; 80053; 81003; 82042; 82150; 82248; 82378; 82570; 82607; 82728; 82746; 82805; 82945; 82962; 83036; 83540; 83550; 83605; 83615; 83735; 83880; 84100; 84155; 84156; 84157; 84300; 84439; 84443; 84478; 85025; 85027; 85610; 85730; 86301; 86304; 86803; 86850; 86900; 86901; 86920; 87015; 87040; 87070; 87116; 87205; 87502; 87811; 88112; 88329; 88331; 89051; 92526; 92610; 93005; 93321; 93325; 93451; 93970; 93975; 97110; 97163; 97164; 97166; 97530; 97535; 99285; A9585; C1776; C1894; J1335; P9045; P9047; Q9967